=== PATIENT | male | born 1945 | race Caucasian/White ===

== ENCOUNTER 2016-12-23 16:42 | Inpatient (IN) ==
[2016-12-23] MEDS ORDERED: Ondansetron 4 MG/2 ML VIAL IVP PRN (19:20)
[2016-12-23] MEDS ORDERED: Acetaminophen 325 MG TABLET PO PRN (19:20)
[2016-12-23] MEDS ORDERED: Naloxone 0.4 MG/ML INJ IVP PRN (19:20)
[2016-12-23] MEDS ORDERED: Dextrose Gel 15 GM PO PRN ×2 (20:13)
[2016-12-23] MEDS ORDERED: D5% in Water 1,000 ML IVC PRN (20:13)
[2016-12-23] MEDS ORDERED: *HR* Dextrose 50 % in Water (Syg) 50 ML SYRINGE IVP PRN (20:13)
--- NOTE | 2016-12-23 20:19 | Internal Med History&Physical ---
Date of Encounter: 12/23/16 Time of Encounter: 20:16 Assessment and Plan (1) Cellulitis of right foot Current visit: Yes Status: Acute Patient states that he does not regularly check his feet. He was instructed on the need to care for his feet regularly. He was noted to have swelling and redness of his right lower extruded by the ER physician on 12/19/2016 in the emergency room and he presented for worsening shortness of breath and chest pain. His cellulitis has worsened as the patient left AMA. The patient will be admitted to the hospital to inpatient status. I expect him to be in the hospital for at least 2 minutes. He is high risk due to possible osteomyelitis and possible need for surgery. He will be placed on broad spectrum antibiotic therapy with vancomycin and cefepime given his allergy to penicillins. We will monitor his cellulitis for resolution with intravenous antibiotic therapy. Expected discharge disposition is to home with home health with possible intravenous antibiotics if he turns out to have osteomyelitis. (2) Osteomyelitis of right foot Current visit: Yes Status: Suspected Suspected osteomyelitis of the right fifth metatarsal bone. We will obtain an MRI of the right foot to evaluate further. Patient was placed on broad spectrum intravenous antibody therapy. Depending on the results of the MRI, we will consider infectious disease and podiatry consults in the morning. Qualifiers: Osteomyelitis type: other acute Qualified Code(s): M86.171 - Other acute osteomyelitis, right ankle and foot (3) Diabetes mellitus Current visit: Yes Status: Chronic Patient uses metformin at home. We will continue the same. Sliding scale insulin. Monitor his sugars and adjust medications accordingly. Diabetic diet. Complicated by neuropathy and currently with diabetic foot ulcer with possible osteomyelitis. Management as above. Qualifiers: Diabetes mellitus type: type 2 Diabetes mellitus complication status: with neurologic complications Diabetes mellitus complication detail: with polyneuropathy Diabetes mellitus custodial insulin use: without custodial use Qualified Code(s): E11.42 - Type 2 diabetes mellitus with diabetic polyneuropathy (4) COPD (chronic obstructive pulmonary disease) Current visit: Yes Status: Chronic Patient has chronic COPD that is very severe with an FEV1 of 29% according to the PFTs on June 2015. Patient is under the care of pulmonary physician. Continue home medications. Patient had COPD exacerbation on 12/21/2016 which is currently better after he finished a course of by mouth Levaquin. Continue duonebs. Urine though the patient is wheezing, will hold off on steroids due to the patient's cellulitis and possible osteomyelitis in the right foot. Qualifiers: COPD type: chronic bronchitis Chronic bronchitis type: mucopurulent Qualified Code(s): J41.1 - Mucopurulent chronic bronchitis (5) Mass of right lung Current visit: Yes Status: Chronic Newly discovered 4X3 centimeters spiculated mass in the right lower lobe on the posterior aspect suspicious for malignancy. Patient has extensive smoking history. Patient informed of the diagnosis. Patient will require pulmonology with/without oncology consult to be called out in the morning. Internal Medicine - H&P: HPI Chief complaint: Right leg infection Admitted From: Hospital to Hospital Transfer Plans for Post Hospital Care: Home History of present illness: Mr. Sinha is a 71 year old male with a history of end-stage COPD on home oxygen at 3 L around the clock presented to the emergency room on 12/19/2016 at [facility] due to worsening shortness of breath and chest pain. He stated that the chest pain had been present for 3 days prior to presentation. It was 6/10 in intensity, present in the middle of the chest without any radiation which he describes as a heaviness and a pressure sensation. No aggravating or relieving factors. It was associated with worsening shortness of breath. He reports baseline cough with yellow to green colored sputum production which has not worsened or changed in consistency or amount. He reports baseline wheezing. He states that he uses Advair at home and DuoNeb's 3 times a day. He sees Dr. Burrell for the care of his COPD. When he presented to the emergency room for these symptoms, he was treated for the same. At that time, he was noted by the physician in the emergency room to have redness over his right leg and an ulceration over the outer aspect of his right foot. He was diagnosed with cellulitis and possible osteomyelitis. He was given intravenous antibiotics. It was recommended that the patient be admitted to the hospital for further care of the same. However, on the day, no beds were available at [facility]. Transfer to an alternate hospital in [place] was offered to the patient by the emergency room physician at [facility]. However, the patient did not want to be transferred to [place] and only wanted to be [facility]. Hence, he signed out against medical advise. He was given a prescription for Levaquin by mouth when he signed out AMA on 12/19/2016. 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 Hence, he returned to [facility]. The patient has been transferred to [facility] for higher level of care for his worsening cellulitis and osteomyelitis. The patient does report chills. He denies any fevers. He reports having headaches every day when he wakes up in the morning. He reports feeling lightheaded with [id number] exertion. He denies any palpitations. He denies any abdominal pain, nausea, vomiting, diarrhea or constipation. He denies any other bruises apart from the swelling and the redness in his right leg. He reports following with ophthalmology every year. The patient reports long-term loss of sensation in both his feet. Off note, on 12/19/2016, the patient had a chest x-ray performed for evaluation of this chest pain or shortness of breath which showed a possible mass. The patient underwent a CT scan of his chest to evaluate the same. This revealed a 4.3 X2.1 centimeter spiculated mass in the right lower lobe posteriorly. The patient denies any hemoptysis. Past Med Surg Social Fam HX - Past Medical History Attestation: Yes The following information was validated with the patient. Source: patient Medical history: arthritis, COPD, diabetes, hypertension, thyroid disease, venous stasis Psychiatric history: anxiety - Past Surgical History Surgical History: cataract, cholecystectomy, other (Knee surgery; right leg spur removal from the fifth metatarsal) - Social History Smoking Status: Former smoker Packs per day: 5 Smokeless Tobacco Status: No Alcohol use: rarely Drug use: none Occupational status: retired Current living situation: Home, With Family Activity Level: Independent ambulation Recent Out of Country Travel Within the Last 8 Weeks: No Exposure or Possible Exposure to Illness During Travel: No - Additional Family History Additional family history: Reviewed; not pertinent Internal Medicine - H&P: Meds Allopurinol [Zyloprim] 300 mg PO DAILY 03/02/15 [History] Cholecalciferol (Vitamin D3) [Vitamin D] 1,000 unit PO DAILY 03/02/15 [History] Clopidogrel [Plavix] 75 mg PO DAILY 03/02/15 [History] Docusate [Colace] 200 mg PO TID 03/02/15 [History] FLUoxetine HCl [Prozac] 60 mg PO DAILY 03/02/15 [History] Famotidine [Pepcid] 20 mg PO BID 03/02/15 [History] Ferrous Sulfate 325 mg PO BIDWM 03/02/15 [History] Fluticasone/Salmeterol [Advair 250-50 Diskus] 1 each IH Q12H 03/02/15 [History] Furosemide [Lasix] 80 mg PO BID 03/02/15 [History] Gabapentin [Neurontin] 600 mg PO TID 03/02/15 [History] Ipratropium/Albuterol Neb [Duoneb] 3 ml IH Q6HR 03/02/15 [History] LORazepam [Ativan] 0.5 mg PO TID PRN 03/02/15 [History] Levothyroxine Sodium [Synthroid] 200 mcg PO DAILY 03/02/15 [History] Lovastatin [Altoprev] 20 mg PO DAILY 03/02/15 [History] Magnesium Oxide [Magnesium] 400 mg PO DAILY 03/02/15 [History] Metformin [Glucophage] 850 mg PO BIDWM 03/02/15 [History] Metoprolol [Lopressor] 25 mg PO BID 03/02/15 [History] Multivitamin [Multivitamins] 1 each PO DAILY 03/02/15 [History] Oxygen 2 l IN DAILY 03/02/15 [History] Potassium Chloride 20 meq PO QID 03/02/15 [History] Roflumilast [Daliresp] 500 mcg PO DAILY 03/02/15 [History] Ropinirole HCl [Requip] 2 mg PO TID 03/02/15 [History] Temazepam 15 mg PO HS 03/02/15 [History] Albuterol Sulfate [Proair Hfa] 2 puff IH Q4H 12/19/16 [History] Ammonium Lactate [Amlactin] 0 gm TP BID 12/19/16 [History] Guaifenesin [Mucinex] 600 mg PO BID 12/19/16 [History] HYDROcodone/Acet 10/325 mg [[place] 10-325 mg] 1 tab PO Q4HR PRN 12/19/16 [History ] Ipratropium/Albuterol Neb [Duoneb] 3 ml IH Q6HR 12/19/16 [History] Levofloxacin [Levaquin] 750 mg PO DAILY #10 tablet 12/19/16 [Rx] Lidocaine/Hydrocortisone AC [Lidocaine-Hydrocort 3-2.5% Gel] 7 gm RC BID [History] Polyethylene Glycol 3350 [MiraLAX Powder Bulk 17.9 Oz] 1 scoop PO DAILY [History] PrednisoLONE [Millipred] 10 mg PO DAILY 12/19/16 [History] Spironolactone [Aldactone] 50 mg PO DAILY 12/19/16 [History] Theophylline Anhydrous [Jamal-24] 400 mg PO DAILY 12/19/16 [History] Umeclidinium Brm/Vilanterol Tr [Anoro Ellipta 62.5-25 Mcg INH] 1 each IH DAILY 12/19/16 [History] metOLazone [Zaroxolyn] 5 mg PO DAILY 12/19/16 [History] Allergies codeine Adverse Reaction (Verified 12/19/16 12:27) Flushing doxycycline Adverse Reaction (Verified 12/19/16 12:27) Hives meperidine Adverse Reaction (Verified 12/19/16 12:27) Hallucinating morphine Adverse Reaction (Verified 12/19/16 12:27) Nightmare Oxycodone [From Percocet] Adverse Reaction (Verified 12/19/16 12:27) Swelling of Lip/Tongue/Throat Penicillins [PCN] Adverse Reaction (Verified 12/19/16 12:27) Hives All Systems PM: A 10-system review of systems was performed and is negative for pertinent findings except as documented above in the HPI. Review of systems: 10 systems have been reviewed and are negative except as mentioned in the history of present illness - Constitutional Vitals: Temp Pulse Resp BP Pulse Ox 98.2 F 83 14 138/68 95 12/23/16 19:08 12/23/16 19:08 12/23/16 19:08 12/23/16 19:08 12/23/16 19:08 Exam: Gen.: Lying in bed. Mild distress. On oxygen via nasal cannula at 3 L Eyes: Pupils equal, round and reactive to light. Extraocular muscles intact. ENT: Moist mucous membranes. No oropharyngeal erythema or discharge. Chest: Bilateral end expiratory wheezing present. Reduced air entry bilaterally. CVS: First and second heart sounds present. No murmurs, rubs or gallops. Abdomen: Soft, nontender, obese. Bowel sounds present. Skin: Erythema over the right lower extremity from below the knee up to the right fifth toe. Ulceration over the lateral aspect of the right fifth metatarsal with purulent discharge and foul smell. No tenderness to palpation. 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 Power 5/5 all over. Cranial nerves 2-12 grossly intact. Psychiatric: Alert, awake and oriented to time, place and person. Lymphatic system: No lymphadenopathy appreciated Internal Med - H&P Results - Diagnostic Studies Other Images Status: image reviewed by me (X-ray of the right foot-soft tissue ulceration and swelling over the right fifth metatarsal consistent with cellulitis. Erosions over the right fifth metatarsal concerning for osteomyelitis)
[2016-12-23] MEDS ORDERED: Insulin LISPRO 300 UNITS/3 ML VIAL SQ SCH (21:00)
[2016-12-23] MEDS ORDERED: Vancomycin 2,000 MG in D5% in Water 250 ML IVPB SCH (21:00)
[2016-12-23] MEDS: Budesonide/Formoterol 160/4.5 MDI IH SCH (21:02)
[2016-12-23] MEDS: Ipratropium/Albuterol Neb 3 ML IH SCH (21:03)
[2016-12-23] MEDS: Vancomycin 2,000 MG in D5% in Water 500 ML IVPB SCH (22:43)
[2016-12-23] MEDS: *HR* HYDROcodone/Acet 10/325 mg TABLET PO PRN (23:50)
[2016-12-23] MEDS: *HR* Heparin 5,000 UNIT/ML VIAL SQ SCH (23:50)
[2016-12-24] MEDS: Cefepime HCl 1,000 MG in D5% in Water (Mini-Bag+) 100 ML IVPB SCH ×2 (01:01→10:15)
[2016-12-24] MEDS: Ipratropium/Albuterol Neb 3 ML IH SCH ×4 (04:06→22:59)
[2016-12-24 04:58] LABS: Hematocrit 32.5 % (37.5-50.1); Hemoglobin 10.5 g/dL (12.9-16.9); Mean Corpuscular HGB Conc 32.3 g/dL (31.6-35.5); Mean Corpuscular Hemoglobin 28.2 pg (28.0-33.3); Mean Corpuscular Volume 87.1 fL (83.0-100.0); Nucleated Red Blood Cells 0.1 /100 WBC (0); Platelet Count 240 K/mcL (140-400); Red Blood Count 3.73 M/mcL (4.19-5.50); Red Cell Distribution Width 15.2 % (11.5-14.5)
[2016-12-24 05:09] LABS: Hemoglobin A1C 5.7 %
[2016-12-24 05:12] LABS: Alanine Aminotransferase 34 Units/L (0-55); Albumin 2.7 g/dL (3.5-5.0); Albumin/Globulin Ratio 0.6 (1.1-2.2); Alkaline Phosphatase 102 Units/L (38-126); Aspartate Amino Transferase 22 Units/L (5-34); BUN/Creatinine Ratio 14 (6-26); Bilirubin,Total 0.6 mg/dL (0.2-1.2); Blood Urea Nitrogen 16 mg/dL (8-26); Calcium 10.1 mg/dL (8.6-10.8); Carbon Dioxide 33 mEq/L (19-29); Chloride 88 mEq/L (98-109); Globulin 4.8 g/dL (2.4-3.5); Glucose 109 mg/dL (70-99); Osmolality,Calculated 280 (280-300); Potassium 2.9 mEq/L (3.5-4.5); Sodium 134 mEq/L (136-145); Total Protein 7.5 g/dL (6.0-8.3); eGFR For African Americans > 60 (> 60); eGFR For Non-African Americans > 60 (> 60)
[2016-12-24 05:25] LABS: Eosinophils # 0.3 K/mcL (0.0-0.6); Lymphocytes # 2.5 K/mcL (0.6-4.6); Neutrophils # 12.1 K/mcL (1.6-8.9); Platelet Estimate Normal (Normal); Polychromasia 1+ (Not Present)
[2016-12-24 05:26] LABS: Reactive Lymphocytes Present (Not Present)
[2016-12-24] MEDS: *HR* HYDROcodone/Acet 10/325 mg TABLET PO PRN ×3 (05:51→18:41)
[2016-12-24] MEDS ORDERED: *HR* Metformin 850 MG TABLET PO SCH (08:00)
[2016-12-24] MEDS ORDERED: Hydrocortisone Rectal 2.5% CRM 28 GM TUBE RC SCH (09:00)
[2016-12-24] MEDS ORDERED: FLUoxetine 20 MG CAPSULE PO SCH (09:00)
[2016-12-24] MEDS ORDERED: Furosemide 40 MG TABLET PO SCH (09:00)
[2016-12-24] MEDS ORDERED: rOPINIRole 1 MG TABLET PO SCH (09:00)
[2016-12-24] MEDS ORDERED: predniSONE 10 MG TABLET PO SCH (09:00)
[2016-12-24] MEDS ORDERED: Gabapentin 300 MG CAPSULE PO SCH (09:00)
[2016-12-24] MEDS ORDERED: metOLazone 5 MG TABLET PO SCH (09:00)
[2016-12-24] MEDS ORDERED: Magnesium Oxide 400 MG TABLET PO SCH (09:00)
[2016-12-24] MEDS: Insulin LISPRO 300 UNITS/3 ML VIAL SQ SCH ×3 (10:05→20:39)
[2016-12-24] MEDS: *HR* Heparin 5,000 UNIT/ML VIAL SQ SCH ×2 (10:15→23:25)
[2016-12-24] MEDS: Budesonide/Formoterol 160/4.5 MDI IH SCH ×2 (10:40→23:00)
[2016-12-24] MEDS: Vancomycin 2,000 MG in D5% in Water 500 ML IVPB SCH (11:10)
--- NOTE | 2016-12-24 11:53 | Pulmonology Consult Note ---
Date of Encounter: 12/24/16 Time of Encounter: 11:51 Assessment and Plan (1) Abnormal CT scan, chest Current Visit: Yes Status: Acute I reviewed the CT scan of the chest from 12/19/2016. Right lower lobe lung mass abutting the pleura appears to be amenable to CT-guided biopsy. Of note, the patient is on Plavix, which will need to be held. I did review the mediastinum, and there is some shotty adenopathy - the largest of which is in the subcarinal region which may be amenable to EBUS transbronchial needle aspiration. Recommendation: * Hold Plavix (he is on Plavix for peripheral vascular disease and has not undergone coronary artery stenting) * Ultimately, we will likely need to reassess him as an outpatient or later this admission after his acute issues have resolved. Current plans for operative intervention of his right foot per podiatry. * I will discuss the patient with Dr. Goodwin, who will resume care 12/25/2016 (2) Mass of right lung Current Visit: Yes Status: Chronic Concerning for primary lung malignancy in light of the patient's smoking history. Plan as above. (3) COPD (chronic obstructive pulmonary disease) Current Visit: Yes Status: Chronic Very severe obstructive defect (FEV1 1.1 L) based on coronary function testing from 2014. If this is confirmed as a limited stage lung cancer, he would likely not be an operative candidate. Qualifiers: COPD type: chronic bronchitis Chronic bronchitis type: mucopurulent Qualified Code(s): J41.1 - Mucopurulent chronic bronchitis (4) Cellulitis of leg, right Current Visit: No Status: Acute Soft tissue gas noted on plain films, plans for operative intervention per podiatry. History of Present Illness Consult date: 12/24/16 Requesting physician: Luli Orosco Reason for consult: lung mass, abnormal CXR/CT Chief complaint: Right foot pain History of present illness: 71-year-old white male with a medical history significant for morbid obesity and tobacco use, and he also has oxygen-dependent COPD at baseline. Patient had originally presented to outside hospital emergency room for evaluation of right foot pain, erythema, and swelling. He was also complaining of chest discomfort, and he underwent a CT scanning of the chest. CT scan of the chest revealed right lower lobe lung mass, so pulmonary was consult for further evaluation and management. The patient reports his dyspnea is at baseline. He has a chronic productive cough, which is been unchanged as of late. His chest pain has resolved. He is more concerned about his right lower extremity pain. Past Med Surg Social Fam HX - Past Medical History Medical history: arthritis, COPD, diabetes, hypertension, thyroid disease, venous stasis Psychiatric history: anxiety - Past Surgical History Surgical History: cataract, cholecystectomy, other (Knee surgery; right leg spur removal from the fifth metatarsal) - Social History Smoking Status: Former smoker Packs per day: 5 Smokeless Tobacco Status: No Alcohol use: rarely Drug use: none Medications and Allergies Allopurinol [Zyloprim] 300 mg PO DAILY 03/02/15 [History] Cholecalciferol (Vitamin D3) [Vitamin D] 1,000 unit PO DAILY 03/02/15 [History] Clopidogrel [Plavix] 75 mg PO DAILY 03/02/15 [History] Docusate [Colace] 200 mg PO TID 03/02/15 [History] FLUoxetine HCl [Prozac] 60 mg PO DAILY 03/02/15 [History] Famotidine [Pepcid] 20 mg PO BID 03/02/15 [History] Ferrous Sulfate 325 mg PO BIDWM 03/02/15 [History] Fluticasone/Salmeterol [Advair 250-50 Diskus] 1 each IH Q12H 03/02/15 [History] Furosemide [Lasix] 80 mg PO BID 03/02/15 [History] Gabapentin [Neurontin] 600 mg PO TID 03/02/15 [History] Ipratropium/Albuterol Neb [Duoneb] 3 ml IH Q6HR 03/02/15 [History] LORazepam [Ativan] 0.5 mg PO TID PRN 03/02/15 [History] Levothyroxine Sodium [Synthroid] 200 mcg PO DAILY 03/02/15 [History] Lovastatin [Altoprev] 20 mg PO DAILY 03/02/15 [History] Magnesium Oxide [Magnesium] 400 mg PO DAILY 03/02/15 [History] Metformin [Glucophage] 850 mg PO BIDWM 03/02/15 [History] Metoprolol [Lopressor] 25 mg PO BID 03/02/15 [History] Multivitamin [Multivitamins] 1 each PO DAILY 03/02/15 [History] Oxygen 2 l IN DAILY 03/02/15 [History] Potassium Chloride 20 meq PO QID 03/02/15 [History] Roflumilast [Daliresp] 500 mcg PO DAILY 03/02/15 [History] Ropinirole HCl [Requip] 2 mg PO TID 03/02/15 [History] Temazepam 15 mg PO HS 03/02/15 [History] Albuterol Sulfate [Proair Hfa] 2 puff IH Q4H 12/19/16 [History] Ammonium Lactate [Amlactin] 0 gm TP BID 12/19/16 [History] Guaifenesin [Mucinex] 600 mg PO BID 12/19/16 [History] HYDROcodone/Acet 10/325 mg [[place] 10-325 mg] 1 tab PO Q4HR PRN 12/19/16 [History ] Ipratropium/Albuterol Neb [Duoneb] 3 ml IH Q6HR 12/19/16 [History] Levofloxacin [Levaquin] 750 mg PO DAILY #10 tablet 12/19/16 [Rx] Lidocaine/Hydrocortisone AC [Lidocaine-Hydrocort 3-2.5% Gel] 7 gm RC BID [History] Polyethylene Glycol 3350 [MiraLAX Powder Bulk 17.9 Oz] 1 scoop PO DAILY [History] PrednisoLONE [Millipred] 10 mg PO DAILY 12/19/16 [History] Spironolactone [Aldactone] 50 mg PO DAILY 12/19/16 [History] Theophylline Anhydrous [Jamal-24] 400 mg PO DAILY 12/19/16 [History] Umeclidinium Brm/Vilanterol Tr [Anoro Ellipta 62.5-25 Mcg INH] 1 each IH DAILY 12/19/16 [History] metOLazone [Zaroxolyn] 5 mg PO DAILY 12/19/16 [History] Allergies codeine Adverse Reaction (Verified 12/19/16 12:27) Flushing doxycycline Adverse Reaction (Verified 12/19/16 12:27) Hives meperidine Adverse Reaction (Verified 12/19/16 12:27) Hallucinating morphine Adverse Reaction (Verified 12/19/16 12:27) Nightmare Oxycodone [From Percocet] Adverse Reaction (Verified 12/19/16 12:27) Swelling of Lip/Tongue/Throat Penicillins [PCN] Adverse Reaction (Verified 12/19/16 12:27) Hives All Systems: A 10-system review of systems was performed and is negative for pertinent findings except as documented above in the HPI. Physical Examination Vital Signs: Vital Signs, Last 4 Hours Resp Pulse Ox 12/24/16 10:48 16 97 General: no acute distress, obese male resting comfortably in bed Eyes: nonicteric ENT: oropharynx moist Neck: supple, no lymphadenopathy Lungs: Clear to auscultation bilaterally Cardiovascular: regular rate and rhythm Gastrointestinal: normoactive bowel sounds, soft, non-tender, non-distended Integumentary: Bilateral lower extremity chronic venous stasis changes noted Extremities: no cyanosis, BLE edema Musculoskeletal: Right lower extremity foot/ankle with dressing in place clean dry and intact Neuro: normal mental status, non-focal exam Psych: mood appropriate, affect normal Results - Laboratory Findings CBC and BMP: 12/24/16 04:16 12/24/16 04:16 Abnormal lab findings: Abnormal lab results WBC 15.9 K/mcL (4.3-11.1) H 12/24/16 04:16 RBC 3.73 M/mcL (4.19-5.50) L 12/24/16 04:16 Hgb 10.5 g/dL (12.9-16.9) L 12/24/16 04:16 Hct 32.5 % (37.5-50.1) L 12/24/16 04:16 RDW 15.2 % (11.5-14.5) H 12/24/16 04:16 Neutrophils # 12.1 K/mcL (1.6-8.9) H 12/24/16 04:16 Nucleated RBCs/100 WBC 0.1 /100 WBC (0) H 12/24/16 04:16 Reactive Lymphocytes Present (Not Present) A 12/24/16 04:16 Polychromasia 1+ (Not Present) A 12/24/16 04:16 Sodium 134 mEq/L (136-145) L 12/24/16 04:16 Potassium 2.9 mEq/L (3.5-4.5) L 12/24/16 04:16 Chloride 88 mEq/L (98-109) L 12/24/16 04:16 Carbon Dioxide 33 mEq/L (19-29) H 12/24/16 04:16 Glucose 109 mg/dL (70-99) H 12/24/16 04:16 POC Glucose 138 (58-89) H 12/23/16 20:49 Hemoglobin A1c 5.7 % (-5.6) H 12/24/16 04:16 Albumin 2.7 g/dL (3.5-5.0) L 12/24/16 04:16 Globulin 4.8 g/dL (2.4-3.5) H 12/24/16 04:16 Albumin/Globulin Ratio 0.6 (1.1-2.2) L 12/24/16 04:16 - Clinical Findings Intake & Output: Intake & Output 12/23/16 12/24/16 12/24/16 23:59 07:59 15:59 Intake Total 0 / 0 840 / 840 100 / 100 Output Total 1100 / 1100 325 / 325 Balance -1100 / -1100 515 / 515 100 / 100 Weight 133.866 kg 133.866 kg Consult Discharge Plan - Plan Referrals: Sidney Martinez MD [Primary Care Provider] -
--- NOTE | 2016-12-24 11:59 | Internal Med Progress Note ---
Date of Encounter: 12/24/16 Time of Encounter: 09:00 - Time Spent With Patient Greater than 35 minutes - Subjective Interval history: Patient is a 71-year-old male admitted for diabetic foot. Past medical history is significant for diabetes, COPD, hypertension, thyroid disease, and a former smoker. I saw and examined the patient. He complained of minimal pain on right foot. No fever. No shortness of breath. Tachycardia with heart rate 109, otherwise vitals are stable. Podiatry and pulmonology consults saw patient. Plan for foot surgery today. Continue Vanco and cefepime. Assessment and Plan (1) Cellulitis of right foot Current visit: Yes Status: Acute Patient states that he does not regularly check his feet. He was instructed on the need to care for his feet regularly. He was noted to have swelling and redness of his right lower extruded by the ER physician on 12/19/2016 in the emergency room and he presented for worsening shortness of breath and chest pain. His cellulitis has worsened as the patient left AMA. He is high risk due to possible osteomyelitis and possible need for surgery. Will continue vancomycin and cefepime given his allergy to penicillins. Podiatry consult saw pt. Plan for debridement today. (2) Osteomyelitis of right foot Current visit: Yes Status: Suspected Suspected osteomyelitis of the right fifth metatarsal bone. We will obtain an MRI of the right foot to evaluate further. Patient was placed on broad spectrum intravenous antibody therapy. Podiatry consult saw pt, plan for debridement. Qualifiers: Osteomyelitis type: other acute Qualified Code(s): M86.171 - Other acute osteomyelitis, right ankle and foot (3) Diabetes mellitus Current visit: Yes Status: Chronic Sliding scale coverage. Qualifiers: Diabetes mellitus type: type 2 Diabetes mellitus complication status: with neurologic complications Diabetes mellitus complication detail: with polyneuropathy Diabetes mellitus director long term care insulin use: without director long term care use Qualified Code(s): E11.42 - Type 2 diabetes mellitus with diabetic polyneuropathy (4) COPD (chronic obstructive pulmonary disease) Current visit: Yes Status: Chronic Stable. Has recent exacerbation. Pt is chronically on po steroid (on and off per pt), will place stress dose steroid for surgery. Qualifiers: COPD type: chronic bronchitis Chronic bronchitis type: mucopurulent Qualified Code(s): J41.1 - Mucopurulent chronic bronchitis (5) Mass of right lung Current visit: Yes Status: Chronic Newly discovered 4X3 centimeters spiculated mass in the right lower lobe on the posterior aspect suspicious for malignancy. Patient has extensive smoking history. Patient informed of the diagnosis. Pulmonology consult called and saw pt. - Constitutional Vitals: Temp Pulse Resp BP Pulse Ox 97.7 F 109 16 138/79 97 12/24/16 07:25 12/24/16 07:25 12/24/16 10:48 12/24/16 07:25 12/24/16 10:48 General appearance: Present: A&O X 3, no acute distress, answers questions appropriately - Head Head exam: Present: atraumatic, normocephalic - Eye Eye exam: Present: PERRL, conjuntiva pink, sclera anicteric Pupils: Present: PERRL - Neck Neck exam general surgery: Present: supple, trachea midline. Absent: lymphadenopathy - Respiratory Respiratory exam: Present: CTAB. Absent: accessory muscle use, rales, rhonchi, wheezes - Cardiovascular Cardiovascular exam: Present: RRR, +S1, +S2. Absent: diastolic murmur, gallop, rubs, systolic murmur - GI/Abdominal GI/Abdominal exam: Present: normal bowel sounds, soft, no peritoneal signs. Absent: distended, tenderness - Extremities Exam Extremities exam: Present: warm, radial pulses palpable and symetrical. Absent : calf tenderness, cyanotic, pedal edema Additional comments: Right foot wound, well dressed - Neurological Exam Neurological exam: Present: CN II-XII intact, oriented X3, no focal deficits. Absent: pronater drift, facial droop, speech deficit - Skin Skin exam: Present: dry, intact Internal Medicine: Result - Labs CBC & Chem 7: 12/24/16 04:16 12/24/16 04:16 Labs: Short CBC 12/24/16 Range/Units 04:16 WBC 15.9 H (4.3-11.1) K/mcL Hgb 10.5 L (12.9-16.9) g/dL Hct 32.5 L (37.5-50.1) % Plt Count 240 (140-400) K/mcL Neutrophils # 12.1 H (1.6-8.9) K/mcL BMP 12/24/16 04:16 Sodium 134 L Potassium 2.9 L Chloride 88 L Carbon Dioxide 33 H BUN 16 Creatinine 1.15 Glucose 109 H Calcium 10.1 Liver Function 12/24/16 Range/Units 04:16 Total Bilirubin 0.6 (0.2-1.2) mg/dL AST 22 (5-34) Units/L ALT 34 (0-55) Units/L Alkaline Phosphatase 102 (38-126) Units/L Albumin 2.7 L (3.5-5.0) g/dL Consult Discharge Plan - Plan Referrals: Sidney Martinez MD [Primary Care Provider] -
[2016-12-24] MEDS ORDERED: Ondansetron 4 MG/2 ML VIAL IVP SCH (12:00)
--- NOTE | 2016-12-24 12:01 | Podiatry Consult Note ---
Date of Encounter: 12/24/16 Time of Encounter: 11:20 History of Present Illness HPI: Mr. Sinha is a 71 year old male admitted with worsening shortness of breath and chest pain. He says he noticed something wrong with his foot last sunday and says he had not noticed anything prior to that. Does not recall any trauma or stepping on anything. He says he went to the ER on sunday and had shortness of breath and chest pain. He had his foot evaluated at that visit and was noted to have an infection. He was put on levaquin. He was advised to be admitted for further management but ultimately left the ER AMA from [place]. He says his foot has gradually worsened since. He has not seen anyone else for his right foot. He came back to the ER last night and was admitted. He reports feeling like he has a fever and he is nauseous. He has not vomited. He says he did not eat breakfast because his stomach as upset. Patient reports he has not eaten today. Podiatry consulted this morning for evaluation. Past Med Surg Social Fam HX - Past Medical History Medical history: arthritis, COPD, diabetes, hypertension, thyroid disease, venous stasis Psychiatric history: anxiety - Past Surgical History Surgical History: cataract, cholecystectomy, other (Knee surgery; right leg spur removal from the fifth metatarsal) - Social History Smoking Status: Former smoker Packs per day: 5 Smokeless Tobacco Status: No Alcohol use: rarely Drug use: none Medications and Allergies Allopurinol [Zyloprim] 300 mg PO DAILY 03/02/15 [History] Cholecalciferol (Vitamin D3) [Vitamin D] 1,000 unit PO DAILY 03/02/15 [History] Clopidogrel [Plavix] 75 mg PO DAILY 03/02/15 [History] Docusate [Colace] 200 mg PO TID 03/02/15 [History] FLUoxetine HCl [Prozac] 60 mg PO DAILY 03/02/15 [History] Famotidine [Pepcid] 20 mg PO BID 03/02/15 [History] Ferrous Sulfate 325 mg PO BIDWM 03/02/15 [History] Fluticasone/Salmeterol [Advair 250-50 Diskus] 1 each IH Q12H 03/02/15 [History] Furosemide [Lasix] 80 mg PO BID 03/02/15 [History] Gabapentin [Neurontin] 600 mg PO TID 03/02/15 [History] Ipratropium/Albuterol Neb [Duoneb] 3 ml IH Q6HR 03/02/15 [History] LORazepam [Ativan] 0.5 mg PO TID PRN 03/02/15 [History] Levothyroxine Sodium [Synthroid] 200 mcg PO DAILY 03/02/15 [History] Lovastatin [Altoprev] 20 mg PO DAILY 03/02/15 [History] Magnesium Oxide [Magnesium] 400 mg PO DAILY 03/02/15 [History] Metformin [Glucophage] 850 mg PO BIDWM 03/02/15 [History] Metoprolol [Lopressor] 25 mg PO BID 03/02/15 [History] Multivitamin [Multivitamins] 1 each PO DAILY 03/02/15 [History] Oxygen 2 l IN DAILY 03/02/15 [History] Potassium Chloride 20 meq PO QID 03/02/15 [History] Roflumilast [Daliresp] 500 mcg PO DAILY 03/02/15 [History] Ropinirole HCl [Requip] 2 mg PO TID 03/02/15 [History] Temazepam 15 mg PO HS 03/02/15 [History] Albuterol Sulfate [Proair Hfa] 2 puff IH Q4H 12/19/16 [History] Ammonium Lactate [Amlactin] 0 gm TP BID 12/19/16 [History] Guaifenesin [Mucinex] 600 mg PO BID 12/19/16 [History] HYDROcodone/Acet 10/325 mg [[place] 10-325 mg] 1 tab PO Q4HR PRN 12/19/16 [History ] Ipratropium/Albuterol Neb [Duoneb] 3 ml IH Q6HR 12/19/16 [History] Levofloxacin [Levaquin] 750 mg PO DAILY #10 tablet 12/19/16 [Rx] Lidocaine/Hydrocortisone AC [Lidocaine-Hydrocort 3-2.5% Gel] 7 gm RC BID [History] Polyethylene Glycol 3350 [MiraLAX Powder Bulk 17.9 Oz] 1 scoop PO DAILY [History] PrednisoLONE [Millipred] 10 mg PO DAILY 12/19/16 [History] Spironolactone [Aldactone] 50 mg PO DAILY 12/19/16 [History] Theophylline Anhydrous [Jamal-24] 400 mg PO DAILY 12/19/16 [History] Umeclidinium Brm/Vilanterol Tr [Anoro Ellipta 62.5-25 Mcg INH] 1 each IH DAILY 12/19/16 [History] metOLazone [Zaroxolyn] 5 mg PO DAILY 12/19/16 [History] Allergies codeine Adverse Reaction (Verified 12/19/16 12:27) Flushing doxycycline Adverse Reaction (Verified 12/19/16 12:27) Hives meperidine Adverse Reaction (Verified 12/19/16 12:27) Hallucinating morphine Adverse Reaction (Verified 12/19/16 12:27) Nightmare Oxycodone [From Percocet] Adverse Reaction (Verified 12/19/16 12:27) Swelling of Lip/Tongue/Throat Penicillins [PCN] Adverse Reaction (Verified 12/19/16 12:27) Hives All Systems Reviewed: A 10-system review of systems was performed and is negative for pertinent findings except as documented above in the HPI. - Cardiovascular Cardiovascular: chest pain - Respiratory Respiratory: dyspnea - Musculoskeletal Musculoskeletal: numbness, other (neuropathy, right foot pain.) Physical Exam - Constitutional Vitals: Temp Pulse Resp BP Pulse Ox 97.7 F 109 16 138/79 97 12/24/16 07:25 12/24/16 07:25 12/24/16 10:48 12/24/16 07:25 12/24/16 10:48 General appearance: cooperative, mild distress, obese - Head Head exam: Present: normal inspection - Respiratory Respiratory exam: Present: wheezes - Cardiovascular Cardiovascular exam: Present: +S1, +S2 - Extremities Exam Additional comments: right lower extremity moderate edema lateral foot. some necrosis of the plantar lateral foot with purulent drainage and fluctuance. some crepitus as well is noted. capillary refill tie < 3 sec x 5 digits b/l feet. foot is warm to touch. erythema of the right foot is present. left lower extremity- no open lesion, no edema. xray- soft tissue emphysema lateral foot, questionable osseous osteomyelitis of the 5th metatarsal. - Neurological Exam Additional comments: absent sensation to light touch, consistent with neuropathy Results - Labs Result Diagrams: 12/24/16 04:16 12/24/16 04:16 Labs: Abnormal lab results WBC 15.9 K/mcL (4.3-11.1) H 12/24/16 04:16 RBC 3.73 M/mcL (4.19-5.50) L 12/24/16 04:16 Hgb 10.5 g/dL (12.9-16.9) L 12/24/16 04:16 Hct 32.5 % (37.5-50.1) L 12/24/16 04:16 RDW 15.2 % (11.5-14.5) H 12/24/16 04:16 Neutrophils # 12.1 K/mcL (1.6-8.9) H 12/24/16 04:16 Nucleated RBCs/100 WBC 0.1 /100 WBC (0) H 12/24/16 04:16 Reactive Lymphocytes Present (Not Present) A 12/24/16 04:16 Polychromasia 1+ (Not Present) A 12/24/16 04:16 Sodium 134 mEq/L (136-145) L 12/24/16 04:16 Potassium 2.9 mEq/L (3.5-4.5) L 12/24/16 04:16 Chloride 88 mEq/L (98-109) L 12/24/16 04:16 Carbon Dioxide 33 mEq/L (19-29) H 12/24/16 04:16 Glucose 109 mg/dL (70-99) H 12/24/16 04:16 POC Glucose 138 (58-89) H 12/23/16 20:49 Hemoglobin A1c 5.7 % (-5.6) H 12/24/16 04:16 Albumin 2.7 g/dL (3.5-5.0) L 12/24/16 04:16 Globulin 4.8 g/dL (2.4-3.5) H 12/24/16 04:16 Albumin/Globulin Ratio 0.6 (1.1-2.2) L 12/24/16 04:16 H & H 12/24/16 Range/Units 04:16 Hgb 10.5 L (12.9-16.9) g/dL Hct 32.5 L (37.5-50.1) % All other labs normal. - Diagnostic results Ankle/Foot x-ray: image reviewed (soft tissue emphysema, questionable osteomyelitis) Consult Discharge Plan - Plan Referrals: Sidney Martinez MD [Primary Care Provider] -
--- NOTE | 2016-12-24 12:14 | Anesthesia Evaluation PreOp ---
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, Diabetic peripheral Neuropathy) Other Medical History: Diabetes Type II Anesthesia History: No Prior Anesthetic Complications, Past Anesthesia ( Cataracts, GB, Knee sx) Alcohol Use: rarely Drug use: none Medications and Allergies Allopurinol [Zyloprim] 300 mg PO DAILY 03/02/15 [History] Cholecalciferol (Vitamin D3) [Vitamin D] 1,000 unit PO DAILY 03/02/15 [History] Clopidogrel [Plavix] 75 mg PO DAILY 03/02/15 [History] Docusate [Colace] 200 mg PO TID 03/02/15 [History] FLUoxetine HCl [Prozac] 60 mg PO DAILY 03/02/15 [History] Famotidine [Pepcid] 20 mg PO BID 03/02/15 [History] Ferrous Sulfate 325 mg PO BIDWM 03/02/15 [History] Fluticasone/Salmeterol [Advair 250-50 Diskus] 1 each IH Q12H 03/02/15 [History] Furosemide [Lasix] 80 mg PO BID 03/02/15 [History] Gabapentin [Neurontin] 600 mg PO TID 03/02/15 [History] Ipratropium/Albuterol Neb [Duoneb] 3 ml IH Q6HR 03/02/15 [History] LORazepam [Ativan] 0.5 mg PO TID PRN 03/02/15 [History] Levothyroxine Sodium [Synthroid] 200 mcg PO DAILY 03/02/15 [History] Lovastatin [Altoprev] 20 mg PO DAILY 03/02/15 [History] Magnesium Oxide [Magnesium] 400 mg PO DAILY 03/02/15 [History] Metformin [Glucophage] 850 mg PO BIDWM 03/02/15 [History] Metoprolol [Lopressor] 25 mg PO BID 03/02/15 [History] Multivitamin [Multivitamins] 1 each PO DAILY 03/02/15 [History] Oxygen 2 l IN DAILY 03/02/15 [History] Potassium Chloride 20 meq PO QID 03/02/15 [History] Roflumilast [Daliresp] 500 mcg PO DAILY 03/02/15 [History] Ropinirole HCl [Requip] 2 mg PO TID 03/02/15 [History] Temazepam 15 mg PO HS 03/02/15 [History] Albuterol Sulfate [Proair Hfa] 2 puff IH Q4H 12/19/16 [History] Ammonium Lactate [Amlactin] 0 gm TP BID 12/19/16 [History] Guaifenesin [Mucinex] 600 mg PO BID 12/19/16 [History] HYDROcodone/Acet 10/325 mg [[place] 10-325 mg] 1 tab PO Q4HR PRN 12/19/16 [History ] Ipratropium/Albuterol Neb [Duoneb] 3 ml IH Q6HR 12/19/16 [History] Levofloxacin [Levaquin] 750 mg PO DAILY #10 tablet 12/19/16 [Rx] Lidocaine/Hydrocortisone AC [Lidocaine-Hydrocort 3-2.5% Gel] 7 gm RC BID [History] Polyethylene Glycol 3350 [MiraLAX Powder Bulk 17.9 Oz] 1 scoop PO DAILY [History] PrednisoLONE [Millipred] 10 mg PO DAILY 12/19/16 [History] Spironolactone [Aldactone] 50 mg PO DAILY 12/19/16 [History] Theophylline Anhydrous [Jamal-24] 400 mg PO DAILY 12/19/16 [History] Umeclidinium Brm/Vilanterol Tr [Anoro Ellipta 62.5-25 Mcg INH] 1 each IH DAILY 12/19/16 [History] metOLazone [Zaroxolyn] 5 mg PO DAILY 12/19/16 [History] Allergies codeine Adverse Reaction (Verified 12/19/16 12:27) Flushing doxycycline Adverse Reaction (Verified 12/19/16 12:27) Hives meperidine Adverse Reaction (Verified 12/19/16 12:27) Hallucinating morphine Adverse Reaction (Verified 12/19/16 12:27) Nightmare Oxycodone [From Percocet] Adverse Reaction (Verified 12/19/16 12:27) Swelling of Lip/Tongue/Throat Penicillins [PCN] Adverse Reaction (Verified 12/19/16 12:27) Hives - Meds/Allergy Pre-op Review Medications Reviewed: Yes Allergies Reviewed: Yes Beta Blockers on Current Med List: Yes If Beta Blockers taken, Date/Time (Last Dose taken): 10:18 12/24/2016 Anesthesia Results - Labs 12/24/16 04:16 12/24/16 04:16 Laboratory Tests 12/23/16 12/24/16 12/24/16 15:39 04:16 12:54 INR 1.5 POC Glucose 221 H Hemoglobin A1c 5.7 H - Imaging EKG: image reviewed (SR) Anesthesia Exam O2 Sat Height 1.88 m Weight 133.866 kg Weight 133.866 kg O2 Sat by Pulse Oximetry 97 O2 Sat by Pulse Oximetry 96 O2 Sat by Pulse Oximetry 95 O2 Sat by Pulse Oximetry 95 O2 Sat by Pulse Oximetry 95 O2 Sat by Pulse Oximetry 98 O2 Sat by Pulse Oximetry 95 Vital Signs Temp Pulse Resp BP Pulse Ox 98.2 F 83 14 138/68 95 12/23/16 19:08 12/23/16 19:08 12/23/16 19:08 12/23/16 19:08 12/23/16 19:08 Vital Signs/O2 Sat, Most Current Temp Pulse Resp BP Pulse Ox 97.7 F 109 16 138/79 97 12/24/16 07:25 12/24/16 07:25 12/24/16 10:48 12/24/16 07:25 12/24/16 10:48 Height: 6'2'' Weight: 295# NPO (# of Hours): > 8 hrs Pain Scale: 0 Pain Scale Used: Numeric (1 - 10) - HEENT Pupil (Motor): Pupils equal, EOMI Mallampati: III Teeth: Edentulous Oral Opening: Greater than 3 - 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
[2016-12-24] MEDS ORDERED: 0.9 % Sodium Chloride 1,000 ML IVC SCH (12:15)
--- NOTE | 2016-12-24 12:19 | Event Note ---
Date of Encounter: 12/24/16 Time of Encounter: 12:13 unable to utilize record for assessment and plan due to another provider in chart A/P as below for continuation of the podiatry consult note A: right foot/limb threatening diabetic foot infection/abscess with soft tissue gas and possible osteomyelitis P: I had a thorough review with the patient regarding his condition, my findings , and recommendations for treatment. We discussed the xrays and his infection as well as the severity of his infection. He will be added on to the OR for an emergent I&D and debridement of bone right foot. These procedures were discussed at length with the patient as well as the risks vs benefits potential complications and consequences of the procedure discussed, he understood that he is high risk for limb/partial foot loss and he could require more surgery for this problem/infection. all questions answered and informed consent was signed. almond grinder to OR. NPO.
[2016-12-24] MEDS ORDERED: Lactobacillus 1 EACH CAP.SPRINK PO SCH (12:45)
[2016-12-24] MEDS ORDERED: Clindamycin 900 MG/50 ML 900 MG/50 ML IV.SOLN IVPB ONE ×2 (13:59→14:58)
[2016-12-24] MEDS ORDERED: Lidocaine 1% 20 ML MDV ONE (13:59)
[2016-12-24] MEDS ORDERED: Albuterol 2.5 MG/3 ML NEBULIZER ONE (14:01)
[2016-12-24] MEDS ORDERED: Albuterol 2.5 MG/3 ML NEBULIZER IH ONE (14:06)
[2016-12-24] MEDS ORDERED: Propofol 500 MG/50 ML INFUS..BTL ONE (14:12)
[2016-12-24] MEDS ORDERED: Lidocaine -MPF 2% 2 ML VIAL ONE (14:12)
[2016-12-24] MEDS ORDERED: *HR* Midazolam HCl 2 MG/2 ML VIAL ONE (14:57)
[2016-12-24] MEDS ORDERED: Clindamycin 600 MG/50 ML 600 MG/50 ML IV.SOLN IVPB SCH (16:00)
[2016-12-24] MEDS ORDERED: Hydrocortisone Sodium Succ 100 MG/2 ML VIAL IVP SCH (16:00)
--- NOTE | 2016-12-24 16:14 | Orthopedic Operative Note ---
Date of procedure: 12/24/16 Pre-op diagnosis: 1. right foot abscess/gas gangrene 2. osteomyelitis Post-op diagnosis: same Procedure: 12/24/16 16:12 right foot incision and drainage, debridement of 5th metatarsal bone, plantar fasciectomy Implants: packing 1/2 inch iodoform Complications: none Anesthesia: IV sedation Local Anesthetics: 1% Lidocaine HCL SubQ (cc) Surgeon: Alvaro Pelletier Estimated blood loss (cc): 100 Specimen: right lateral foot tissue and wound, plantar foot culture, bone micro/ path Condition: stable Disposition: PACU (cultures were sent of the lateral foot tissue and swabs, plantar foot swabs for gram stain, aerobic, and anerobic. 5th metatarsal bone to path and micro)
[2016-12-24] MEDS ORDERED: Dextrose Gel 15 GM PO PRN ×2 (16:37)
[2016-12-24] MEDS ORDERED: Acetaminophen 325 MG TABLET PO PRN (16:37)
[2016-12-24] MEDS ORDERED: *HR* Dextrose 50 % in Water (Syg) 50 ML SYRINGE IVP PRN (16:37)
[2016-12-24] MEDS ORDERED: Naloxone 0.4 MG/ML INJ IVP PRN (16:37)
[2016-12-24] MEDS ORDERED: D5% in Water 1,000 ML IVC PRN (16:37)
[2016-12-24] MEDS: Ondansetron 4 MG/2 ML VIAL IVP SCH ×2 (17:29→23:16)
[2016-12-24] MEDS: *HR* Metformin 850 MG TABLET PO SCH (17:30)
[2016-12-24] MEDS: rOPINIRole 1 MG TABLET PO SCH (20:03)
[2016-12-24] MEDS: Gabapentin 300 MG CAPSULE PO SCH (20:05)
[2016-12-24] MEDS: Hydrocortisone Rectal 2.5% CRM 28 GM TUBE RC SCH (20:08)
--- NOTE | 2016-12-24 21:44 | Operative Note ---
Date of procedure: 12/24/16 Pre-op diagnosis: 1. right foot abscess and gas gangrene 2. osteomyelitis Post-op diagnosis: same Procedure: 1.incision and drainage right foot 2. debridement right 5th metatarsal bone 3. right foot plantar fasciectomy Complications: none Surgeon: Alvaro Pelletier Estimated blood loss (cc): 100 Specimen: right lateral foot and plantar foot cultures, 5th met bone micro/path Condition: stable Disposition: PACU Procedure in Detail: Indications: This is a 71-year-old diabetic male with right foot abscess and gas gangrene possible osteomyelitis of the fifth metatarsal who was admitted with the right foot infection chest pain and shortness of breath. Patient was emergently admitted and on the operating room schedule for the above procedures. Risks versus benefits potential complications and consequences of the procedure and has infection were discussed with the patient length. No guarantees were made as to the outcome. Patient understood that he has high risk for limb/partial foot loss. Informed consent had been signed. Patient was taken from the preoperative holding area into the operating room placed on the operating room table in the supine position. The right lower extremity was scrubbed prepped and draped in the usual sterile fashion and an ankle tourniquet was applied but not inflated during the entire procedure. 1% lidocaine plain 10 mL was injected into the patients right foot. Following procedures then began. Incision and drainage right foot. Right plantar foot fasciectomy. Attention was directed to the lateral aspect of the patients right foot were abscess and gas gangrene was present. #15 blade was used to incise the skin and subcutaneous tissue full-thickness and the gangrenous area was excised in its entirety. This deep tissue was sent to microbiology. Cultures of purulent drainage were taken and sent to microbiology as well. The specimens were sent for aerobic and anaerobic and Gram stain. Purulent drainage was expressed from the foot. The area was probed and explored with purulent drainage being expressed proximally and plantarly. The area was explored along the lateral aspect of the fifth metatarsal purulent drainage was noted adjacent to the cortical bone of the fifth metatarsal. This bone distally was felt to be soft. The purulent drainage was traced proximally until no further purulent drainage could be expressed. Patient had some blistering in the medial arch and a fresh 15 blade was used to incise this area through an open ulceration and the 15 blade was used to incise the the subcutaneous tissue and purulent drainage was expressed. The ulceration of this area communicated with the lateral foot. The 15 blade was used to incise from the plantar lateral foot expressing purulence and this was traced proximally until no further purulence could be expressed. Cultures of this purulent drainage were taken and sent for aerobic anaerobic and Gram stain. The plantar fascia was visible and purulent drainage had been on the inferior portion of the plantar fascia. The plantar fascia which was exposed with purulent drainage was excised. In the lateral aspect of the foot as well as the plantar aspect of the foot devitalized tissue was present and was surgically excised with a #15 blade. After performing the debridement of the fifth metatarsal bone as described below, the pulse lavage with bacitracin was then utilized to flush all sites. Upon reinspection no further devitalized tissue was felt to be present. No further purulent drainage could be expressed. Retention sutures were placed in the plantar and lateral aspect of the right foot using 2-0 Prolene and half-inch iodoform packing packing was placed into the plantar and lateral foot. Debridement of bone right fifth metatarsal. Attention was directed to the lateral aspect of the right foot where the devitalized gangrenous tissue and abscess were present the fifth metatarsal bone was felt to be soft distally and had purulent drainage along its cortex. Portions of the bone appeared gonzalez and devitalized. The sagittal saw was used to resect the fifth metatarsal bone proximally. The level at which the resection was performed had bleeding bone left behind. The bone which was excised of the fifth metatarsal was sent to microbiology and pathology. Postoperative bandaging included the half-inch iodoform packing Surgicel 4 x 4 gauze abdominal pad Kerlix and a loosely applied Ghulam wrap. Adequate hemostasis was present at the time of applying the bandage. Patient tolerated the anesthesia and the procedure well and was escorted to the recovery room with vital signs stable and vascular status intact to digits of the right foot noted by instant capillary refill time to all right foot digits. Patient instructed to be nonweightbearing to the right foot. He will return to the floor where he will continue IV antibiotics.
[2016-12-24] MEDS ORDERED: Vancomycin 2,000 MG in D5% in Water 500 ML IVPB SCH (22:30)
[2016-12-24] MEDS: Hydrocortisone Sodium Succ 100 MG/2 ML VIAL IVP SCH (23:15)
[2016-12-24] MEDS: Clindamycin 600 MG/50 ML 600 MG/50 ML IV.SOLN IVPB SCH (23:23)
[2016-12-25] MEDS: Ipratropium/Albuterol Neb 3 ML IH SCH ×4 (04:20→22:50)
[2016-12-25] MEDS: *HR* HYDROcodone/Acet 10/325 mg TABLET PO PRN ×3 (05:30→20:23)
[2016-12-25] MEDS: Ondansetron 4 MG/2 ML VIAL IVP SCH ×3 (05:31→17:47)
[2016-12-25] MEDS: Insulin LISPRO 300 UNITS/3 ML VIAL SQ SCH ×4 (07:47→20:59)
[2016-12-25] MEDS: Clindamycin 600 MG/50 ML 600 MG/50 ML IV.SOLN IVPB SCH ×2 (07:48→15:32)
[2016-12-25] MEDS: *HR* Metformin 850 MG TABLET PO SCH ×2 (07:52→17:06)
[2016-12-25] MEDS: *HR* Heparin 5,000 UNIT/ML VIAL SQ SCH ×2 (07:53→15:31)
[2016-12-25] MEDS: Hydrocortisone Sodium Succ 100 MG/2 ML VIAL IVP SCH (07:54)
[2016-12-25] MEDS: Lactobacillus 1 EACH CAP.SPRINK PO SCH (07:55)
[2016-12-25] MEDS: Furosemide 40 MG TABLET PO SCH (07:55)
[2016-12-25] MEDS: Magnesium Oxide 400 MG TABLET PO SCH (07:56)
[2016-12-25] MEDS: Gabapentin 300 MG CAPSULE PO SCH ×3 (07:57→20:21)
[2016-12-25 07:58] LABS: Hematocrit 29.8 % (37.5-50.1); Hemoglobin 9.2 g/dL (12.9-16.9); Mean Corpuscular HGB Conc 30.9 g/dL (31.6-35.5); Mean Corpuscular Hemoglobin 27.4 pg (28.0-33.3); Mean Corpuscular Volume 88.7 fL (83.0-100.0); Mean Platelet Volume 10.3 fL (9.4-12.4); Nucleated Red Blood Cells 0.2 /100 WBC (0); Platelet Count 258 K/mcL (140-400); Red Blood Count 3.36 M/mcL (4.19-5.50); Red Cell Distribution Width 15.4 % (11.5-14.5)
[2016-12-25] MEDS: FLUoxetine 20 MG CAPSULE PO SCH (07:58)
[2016-12-25] MEDS: metOLazone 5 MG TABLET PO SCH (07:58)
[2016-12-25] MEDS: rOPINIRole 1 MG TABLET PO SCH ×3 (07:58→20:21)
[2016-12-25] MEDS: Hydrocortisone Rectal 2.5% CRM 28 GM TUBE RC SCH ×2 (08:05→20:24)
[2016-12-25 08:10] LABS: BUN/Creatinine Ratio 17 (6-26); Blood Urea Nitrogen 22 mg/dL (8-26); Calcium 9.7 mg/dL (8.6-10.8); Carbon Dioxide 33 mEq/L (19-29); Chloride 93 mEq/L (98-109); Glucose 126 mg/dL (70-99); Osmolality,Calculated 291 (280-300); Potassium 3.6 mEq/L (3.5-4.5); Sodium 138 mEq/L (136-145); eGFR For African Americans > 60 (> 60); eGFR For Non-African Americans 55 (> 60)
[2016-12-25 08:41] LABS: Lymphocytes # 0.9 K/mcL (0.6-4.6); Monocytes # 0.6 K/mcL (0.0-1.3); Neutrophils # 13.5 K/mcL (1.6-8.9); Platelet Estimate Normal (Normal)
[2016-12-25] MEDS ORDERED: predniSONE 10 MG TABLET PO SCH (09:00)
--- NOTE | 2016-12-25 09:19 | Podiatry Progress Note ---
Date of Encounter: 12/25/16 Time of Encounter: 08:30 - Assessment and Plan (1) Gas gangrene Current Visit: Yes Status: Acute patient is s/p I&D of the right foot and plantar fasciectomy. (2) Diabetic foot ulcer Current Visit: No Status: Acute f/u cultures of lateral foot (swabs and tissue) and plantar foot as well as 5th met bone micro and path. c/w IV antibiotics. flush packed today. no active bleeding from surgical site. discussed with patient he is still high risk for limb/partial foot loss. will monitor wbc if not trending better may order MRI to r/o further deep abscess. will need infectious disease consult, possible picc line upon discharge. 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 patient says he feels significantly better than he did yesterday and no where near as nauseous. does not complain of pain in the foot. afebrile overnight. Objective - Vital Signs Vital Signs: Vital Signs Temp Pulse Resp BP Pulse Ox 12/25/16 07:41 97.5 F L 88 16 109/62 99 12/25/16 07:05 98 12/25/16 04:02 20 98 12/24/16 23:21 97.9 F 86 15 114/61 98 12/24/16 22:59 22 99 12/24/16 18:58 97.7 F 94 15 114/67 96 12/24/16 16:30 98.2 F 91 18 110/66 96 12/24/16 16:21 98.1 F 94 18 106/64 97 12/24/16 16:10 98.3 F 97 20 108/64 96 12/24/16 10:48 16 97 Intake and Output 12/24/16 12/25/16 12/25/16 23:59 07:59 15:59 Intake Total 240 / 240 550 / 550 50 / 50 Output Total 325 / 325 1000 / 1000 Balance -85 / -85 -450 / -450 50 / 50 Intake: IV Fluids 550 / 550 50 / 50 Cleocin Premix 600 MG/50 50 / 50 50 / 50 ML 600 mg In 50 ml @ 50 mls/hr IVPB Q8HR [facility] Rx#: [id number] Vancocin 2,000 MG In 500 / 500 Dextrose 5% 500 ML @ 250 mls/hr IVPB Q12H [facility] Rx#: [id number] Oral 240 / 240 Output: Urine 325 / 325 1000 / 1000 Other: # Bowel Movements 0 Weight 133.7 kg Blood Glucose* 136 127 Patient Weight 12/25/16 23:59 Weight 133.7 kg - Exam Exam: well developed obese male in no acute distress Vasc: capillary refill time intact to all digits of the right foot including the 5th toe. the foot is warm to touch. no necrosis of remaining skin edges at this time. mild edema right foot. Derm: large defect lateral right foot with incision extending plantarly and proximally. no purulence expressed, resolving right foot erythema. retention sutures intact. no active bleeding. Musc: no pain with palpation right foot. ankle ROM intact. Neuro: absent sensation to light touch consistent with neuropathy. xrays-consistent with surgical resection 5th metatarsal with base of the 5th met left intact. no soft tissue emphysema identified. Mild vasc disease on previous BRAD/PVR. - Lab Result Diagrams: 12/25/16 07:15 12/25/16 07:15 Labs: Abnormal lab results WBC 15.0 K/mcL (4.3-11.1) H 12/25/16 07:15 RBC 3.36 M/mcL (4.19-5.50) L 12/25/16 07:15 Hgb 9.2 g/dL (12.9-16.9) L 12/25/16 07:15 Hct 29.8 % (37.5-50.1) L 12/25/16 07:15 MCH 27.4 pg (28.0-33.3) L 12/25/16 07:15 MCHC 30.9 g/dL (31.6-35.5) L 12/25/16 07:15 RDW 15.4 % (11.5-14.5) H 12/25/16 07:15 Band Neutrophils % 8.0 % (0-4) H 12/25/16 07:15 Neutrophils # 13.5 K/mcL (1.6-8.9) H 12/25/16 07:15 Nucleated RBCs/100 WBC 0.2 /100 WBC (0) H 12/25/16 07:15 Reactive Lymphocytes Present (Not Present) A 12/24/16 04:16 Polychromasia 1+ (Not Present) A 12/24/16 04:16 Chloride 93 mEq/L (98-109) L 12/25/16 07:15 Carbon Dioxide 33 mEq/L (19-29) H 12/25/16 07:15 Creatinine 1.28 mg/dL (0.72-1.25) H 12/25/16 07:15 Est GFR (Non-Af Amer) 55 (> 60) L 12/25/16 07:15 Glucose 126 mg/dL (70-99) H 12/25/16 07:15 POC Glucose 127 (58-89) H 12/25/16 07:37 Hemoglobin A1c 5.7 % (-5.6) H 12/24/16 04:16 Albumin 2.7 g/dL (3.5-5.0) L 12/24/16 04:16 Globulin 4.8 g/dL (2.4-3.5) H 12/24/16 04:16 Albumin/Globulin Ratio 0.6 (1.1-2.2) L 12/24/16 04:16 Microbiology, Last 48 Hours 12/24/16 16:08 Surgical Biopsy Culture - Preliminary Right Foot Consult Discharge Plan - Plan Referrals: Sidney Martinez MD [Primary Care Provider] -
[2016-12-25] MEDS: Budesonide/Formoterol 160/4.5 MDI IH SCH ×2 (09:28→22:50)
--- NOTE | 2016-12-25 10:06 | Pulmonology Progress Note ---
Date of Encounter: 12/25/16 Time of Encounter: 08:30 Assessment and Plan (1) Mass of right lung Current Visit: Yes Status: Acute I have reviewed CT chest and discussed with the patient about EBUS bronchoscopy since patient needs his Plavix for his peripheral vascular disease and EBUS can be done while the patient on Plavix and intact was nondiagnostic then to proceed with CT-guided biopsy since he has higher risk for complications. The patient declined bronchoscopy and he wants to proceed with CT-guided biopsy. This was discussed with primary team and after recovering from his acute illness then this can be done either as inpatient if he still in the hospital or an outpatient. He understand if this is malignant then most likely he will need EBUS bronchoscopy for staging. (2) COPD (chronic obstructive pulmonary disease) Current Visit: Yes Status: Chronic Continue current bronchodilators Qualifiers: COPD type: chronic bronchitis Chronic bronchitis type: mucopurulent Qualified Code(s): J41.1 - Mucopurulent chronic bronchitis Subjective Principal diagnosis: gas gangrene Interval history: Patient had surgery for his foot Objective PUL Vital signs: Last Vital Signs Temp 97.5 F L 12/25/16 07:41 Pulse 88 12/25/16 07:41 Resp 16 12/25/16 07:41 BP 109/62 12/25/16 07:41 Pulse Ox 99 12/25/16 07:41 General appearance: appears uncomfortable Eyes: nonicteric ENT: oropharynx moist Neck: supple, no lymphadenopathy Effort: normal Auscultation: bilateral: diminished breath sounds Tactile fremitus: bilateral: normal Cardiovascular: regular rate and rhythm Gastrointestinal: normoactive bowel sounds, non-distended Integumentary: cellulitis (Lower extremities) Extremities: edema normal mental status, non-focal exam mood appropriate Results - Laboratory Findings CBC and BMP: 12/25/16 07:15 12/25/16 07:15 Abnormal lab findings: Abnormal lab results WBC 15.0 K/mcL (4.3-11.1) H 12/25/16 07:15 RBC 3.36 M/mcL (4.19-5.50) L 12/25/16 07:15 Hgb 9.2 g/dL (12.9-16.9) L 12/25/16 07:15 Hct 29.8 % (37.5-50.1) L 12/25/16 07:15 MCH 27.4 pg (28.0-33.3) L 12/25/16 07:15 MCHC 30.9 g/dL (31.6-35.5) L 12/25/16 07:15 RDW 15.4 % (11.5-14.5) H 12/25/16 07:15 Band Neutrophils % 8.0 % (0-4) H 12/25/16 07:15 Neutrophils # 13.5 K/mcL (1.6-8.9) H 12/25/16 07:15 Nucleated RBCs/100 WBC 0.2 /100 WBC (0) H 12/25/16 07:15 Reactive Lymphocytes Present (Not Present) A 12/24/16 04:16 Polychromasia 1+ (Not Present) A 12/24/16 04:16 Chloride 93 mEq/L (98-109) L 12/25/16 07:15 Carbon Dioxide 33 mEq/L (19-29) H 12/25/16 07:15 Creatinine 1.28 mg/dL (0.72-1.25) H 12/25/16 07:15 Est GFR (Non-Af Amer) 55 (> 60) L 12/25/16 07:15 Glucose 126 mg/dL (70-99) H 12/25/16 07:15 POC Glucose 127 (58-89) H 12/25/16 07:37 Hemoglobin A1c 5.7 % (-5.6) H 12/24/16 04:16 Albumin 2.7 g/dL (3.5-5.0) L 12/24/16 04:16 Globulin 4.8 g/dL (2.4-3.5) H 12/24/16 04:16 Albumin/Globulin Ratio 0.6 (1.1-2.2) L 12/24/16 04:16 - Microbiology Findings Microbiology Findings: Microbiology, Last 48 Hours 12/24/16 16:08 Surgical Biopsy Culture - Preliminary Right Foot - Diagnostic Findings CT scan - chest: report reviewed, image reviewed - Clinical Findings Intake & Output: Intake & Output 12/24/16 12/25/16 12/25/16 23:59 07:59 15:59 Intake Total 240 / 240 550 / 550 290 / 290 Output Total 325 / 325 1000 / 1000 Balance -85 / -85 -450 / -450 290 / 290 Weight 133.7 kg Consult Discharge Plan - Plan Referrals: Sidney Martinez MD [Primary Care Provider] -
[2016-12-25] MEDS: Vancomycin 1,500 MG in D5% in Water 250 ML IVPB SCH (13:11)
[2016-12-25] MEDS: 0.9 % Sodium Chloride 1,000 ML IVC SCH (13:11)
--- NOTE | 2016-12-25 13:29 | Internal Med Progress Note ---
Date of Encounter: 12/25/16 Time of Encounter: 10:00 - Assessment and plan (1) DVT prophylaxis Current Visit: Yes Status: Acute Assessment and plan: Heparin subcutaneously (2) Mass of right lung Current Visit: Yes Status: Acute Assessment and plan: Pulmonology consult saw Patient. Patient needs CT-guided biopsy. However, he is on Plavix before admission. Now Plavix is on hold, will consult interventional radiology to arrange CT biopsy soon. (3) Diabetic foot ulcer Current Visit: No Status: Acute Assessment and plan: Had the debridement to surgery yesterday. Podiatry consult on case. Continue antibiotic, add clindamycin to cover anaerobic. - Patient may need long-term antibiotic treatment. We will consult infection disease. May need PICC line. 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 Continue home medication. On chronic by mouth steroid and home oxygen. Qualifiers: COPD type: chronic bronchitis Chronic bronchitis type: mucopurulent Qualified Code(s): J41.1 - Mucopurulent chronic bronchitis (6) Gas gangrene Current Visit: Yes Status: Acute Assessment and plan: Had debridement by podiatry. On antibiotic with anaerobic coverage. Closely monitor patient. (7) Sleep apnea Current Visit: Yes Status: Chronic Assessment and plan: On CPAP during night Qualifiers: Sleep apnea type: obstructive Qualified Code(s): G47.33 - Obstructive sleep apnea (adult) (pediatric) - Time Spent With Patient Greater than 35 minutes - Subjective Interval history: Patient is a 71-year-old male admitted for diabetic foot. Past medical history is significant for diabetes, COPD, hypertension, thyroid disease, and a former smoker. I saw and examined the patient. S/P debridement surgery. He complained of minimal pain on right foot. No fever. No shortness of breath. Vitals are stable. Pulmonology consults saw patient, may plan for CT guide biopsy in this week if pt is not discharged. Continue Vanco and cefepime, clindamycin added since yesterday to cover anaerobic. Assessment and Plan (1) Cellulitis of right foot Current visit: Yes Status: Acute Patient states that he does not regularly check his feet. He was instructed on the need to care for his feet regularly. He was noted to have swelling and redness of his right lower extruded by the ER physician on 12/19/2016 in the emergency room and he presented for worsening shortness of breath and chest pain. His cellulitis has worsened as the patient left AMA. He is high risk due to possible osteomyelitis and possible need for surgery. Will continue vancomycin and cefepime given his allergy to penicillins. Podiatry consult saw pt. Plan for debridement today. (2) Osteomyelitis of right foot Current visit: Yes Status: Suspected Suspected osteomyelitis of the right fifth metatarsal bone. We will obtain an MRI of the right foot to evaluate further. Patient was placed on broad spectrum intravenous antibody therapy. Podiatry consult saw pt, plan for debridement. Qualifiers: Osteomyelitis type: other acute Qualified Code(s): M86.171 - Other acute osteomyelitis, right ankle and foot (3) Diabetes mellitus Current visit: Yes Status: Chronic Sliding scale coverage. 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 Has recent exacerbation. Pt is chronically on po steroid (on and off per pt), will place stress dose steroid for surgery. Qualifiers: COPD type: chronic bronchitis Chronic bronchitis type: mucopurulent Qualified Code(s): J41.1 - Mucopurulent chronic bronchitis (5) Mass of right lung Current visit: Yes Status: Chronic Newly discovered 4X3 centimeters spiculated mass in the right lower lobe on the posterior aspect suspicious for malignancy. Patient has extensive smoking history. Patient informed of the diagnosis. Pulmonology consult called and saw pt. - Constitutional Vitals: Temp Pulse Resp BP Pulse Ox 97.6 F 92 17 107/68 96 12/25/16 12:08 12/25/16 12:08 12/25/16 12:08 12/25/16 12:08 12/25/16 12:08 General appearance: Present: A&O X 3, no acute distress, answers questions appropriately Internal Medicine: Result - Labs CBC & Chem 7: 12/25/16 07:15 12/25/16 07:15 Labs: Short CBC 12/25/16 Range/Units 07:15 WBC 15.0 H (4.3-11.1) K/mcL Hgb 9.2 L (12.9-16.9) g/dL Hct 29.8 L (37.5-50.1) % Plt Count 258 (140-400) K/mcL Neutrophils # 13.5 H (1.6-8.9) K/mcL BMP 12/25/16 07:15 Sodium 138 Potassium 3.6 Chloride 93 L Carbon Dioxide 33 H BUN 22 Creatinine 1.28 H Glucose 126 H Calcium 9.7 - Impressions Impressions Foot X-Ray 12/24/16 16:23 IMPRESSION: Status post partial right 5th metatarsal resection. Soft tissue packing and soft tissue prominence seen in the operative site. D/ / 12/24/2016 17:43:00 Brittani Sousa MD / Gissel Ng Interpreting Provider: Brittani Sousa MD Consult Discharge Plan - Plan Referrals: Sidney Martinez MD [Primary Care Provider] -
[2016-12-25] MEDS: Cefepime HCl 1,000 MG in D5% in Water (Mini-Bag+) 100 ML IVPB SCH (17:07)
[2016-12-26] MEDS: Cefepime HCl 1,000 MG in D5% in Water (Mini-Bag+) 100 ML IVPB SCH ×4 (00:22→23:52)
[2016-12-26] MEDS: Clindamycin 600 MG/50 ML 600 MG/50 ML IV.SOLN IVPB SCH ×2 (00:25→07:05)
[2016-12-26] MEDS: *HR* Heparin 5,000 UNIT/ML VIAL SQ SCH ×4 (00:26→23:50)
[2016-12-26] MEDS: Ondansetron 4 MG/2 ML VIAL IVP SCH ×3 (00:26→12:16)
[2016-12-26] MEDS: Vancomycin 1,500 MG in D5% in Water 250 ML IVPB SCH ×2 (04:31→14:10)
[2016-12-26] MEDS: Ipratropium/Albuterol Neb 3 ML IH SCH ×4 (04:51→22:11)
[2016-12-26] MEDS: 0.9 % Sodium Chloride 1,000 ML IVC SCH ×2 (05:01→23:56)
[2016-12-26] MEDS: *HR* HYDROcodone/Acet 10/325 mg TABLET PO PRN ×4 (05:41→23:51)
[2016-12-26 05:44] LABS: Basophils # 0.1 K/mcL (0.0-0.2); Basophils % 0.8 %; Eosinophils % 3.4 %; Hematocrit 26.8 % (37.5-50.1); Hemoglobin 8.4 g/dL (12.9-16.9); Immature Granulocytes % 8.4 % (0-4); Lymphocytes # 2.1 K/mcL (0.6-4.6); Mean Corpuscular HGB Conc 31.3 g/dL (31.6-35.5); Mean Corpuscular Hemoglobin 27.6 pg (28.0-33.3); Mean Corpuscular Volume 88.2 fL (83.0-100.0); Mean Platelet Volume 10.5 fL (9.4-12.4); Monocytes # 0.9 K/mcL (0.0-1.3); Monocytes % 5.9 %; Nucleated Red Blood Cells 0.6 /100 WBC (0); Platelet Count 242 K/mcL (140-400); Red Blood Count 3.04 M/mcL (4.19-5.50); Red Cell Distribution Width 15.7 % (11.5-14.5); Segmented Neutrophils % 68.5 %
[2016-12-26 05:50] LABS: Eosinophils # 0.5 K/mcL (0.0-0.6)
[2016-12-26 06:08] LABS: BUN/Creatinine Ratio 20 (6-26); Blood Urea Nitrogen 25 mg/dL (8-26); Calcium 9.1 mg/dL (8.6-10.8); Carbon Dioxide 32 mEq/L (19-29); Chloride 92 mEq/L (98-109); Glucose 137 mg/dL (70-99); Osmolality,Calculated 289 (280-300); Potassium 3.3 mEq/L (3.5-4.5); Sodium 136 mEq/L (136-145); eGFR For African Americans > 60 (> 60); eGFR For Non-African Americans 55 (> 60)
[2016-12-26 06:20] LABS: Platelet Estimate Normal (Normal)
[2016-12-26] MEDS: Insulin LISPRO 300 UNITS/3 ML VIAL SQ SCH ×4 (08:07→23:48)
[2016-12-26] MEDS: *HR* Metformin 850 MG TABLET PO SCH ×2 (08:11→16:53)
[2016-12-26] MEDS: rOPINIRole 1 MG TABLET PO SCH ×3 (08:14→23:50)
[2016-12-26] MEDS: Furosemide 40 MG TABLET PO SCH (08:15)
[2016-12-26] MEDS: Lactobacillus 1 EACH CAP.SPRINK PO SCH (08:15)
[2016-12-26] MEDS: Magnesium Oxide 400 MG TABLET PO SCH (08:16)
[2016-12-26] MEDS: Gabapentin 300 MG CAPSULE PO SCH ×3 (08:16→20:22)
[2016-12-26] MEDS: Hydrocortisone Rectal 2.5% CRM 28 GM TUBE RC SCH (08:19)
[2016-12-26] MEDS: FLUoxetine 20 MG CAPSULE PO SCH (08:19)
[2016-12-26] MEDS: metOLazone 5 MG TABLET PO SCH (08:20)
[2016-12-26] MEDS: predniSONE 10 MG TABLET PO SCH ×2 (08:38→12:16)
[2016-12-26] MEDS: Budesonide/Formoterol 160/4.5 MDI IH SCH ×2 (10:50→22:11)
--- NOTE | 2016-12-26 13:12 | Infectious Disease Consult ---
Date of Encounter: 12/26/16 Time of Encounter: 13:10 Assessment and Plan (1) Sepsis Status: Acute Assessment and plan: The patient had two SIRS criteria on admission. Likely secondary to osteomyelitis of the right foot. Improved. Tachycardia has resolved, but the patient continues to have leukocytosis. No blood cultures have been obtained during this hospitalization. Get blood cultures x 2 sets now. Lactic acid normal on admission. No evidence of hypoperfusion. Will defer IV fluid orders to the primary team. The patient has been on IV antibiotics x 72 hours. Qualifiers: Sepsis type: sepsis due to unspecified organism Qualified Code(s): A41.9 - Sepsis, unspecified organism (2) Osteomyelitis Status: Acute Assessment and plan: Location: Right foot, lateral aspect of the 5th metatarsal. Causative organism unclear. Superficial and intra-operative culture gram stain shows GPC, presumptively Staph species. Previous wound culture grew MSSA, P. mirabilis, and E. faecalis. Right foot x-ray completed 12/19/16 showed a soft tissue ulceration to the lateral aspect of the right foot at the level of the residual 5th metatarsal shaft compatible with diabetic ulcer. There was noted to be gas present within the region of the ulceration with possible extension of the gas into the adjacent soft tissues raising the possibility for infection with gas-forming organism. There was also a questionable irregularity and possible mild bony erosive change to the lateral aspect of the residual 5th metatarsal shaft that was concerning for osteomyelitis. Repeat foot x-ray 12/23/16 showed worsening soft tissue ulceration along the lateral aspect of the right foot with increasing soft tissue gas along with possible erosive changes of the 5th metatarsal concerning for osteomyelitis. The patient was advised previously to be admitted for evaluation of his foot, but because [facility] had no beds, he declined transfer to another hospital and signed out AMA. ESR on admission was >130. No CRP was checked. Podiatry was consulted and took the patient to the OR on 12/24/16 and performed n I & D of the right foot with debridement of the 5th metatarsal bone and plantar fasciectomy. Operative notes reviewed. Large amount of purulent drainage was noted, as well as changes to the bone that was debrided. The patient continues to have leukocytosis despite broad-spectrum IV antibiotic therapy. There may be an issue with source control. Will defer further surgical management to the podiatry team. Repeat ESR and check CRP. Consider checking arterial studies of the lower extremities given the patient's history of diabetes and renal insufficiency. Continue Cefepime 2 grams IV Q12H. Continue Vancomycin IV. Pharmacy to dose. Goal trough approximately 15. Discontinue Clindamycin as there is no evidence for GAS infection. Start Flagyl 500mg PO TID for anaerobic coverage. Continue wound care and activity restrictions per the podiatry team. Duration of treatment depends on the clinical picture, but likely 6 weeks of IV antibiotics followed by orals. Monitor renal function and for drug toxicity and dose-adjust antibiotics. Consult Field [employer] if not already done for assistance with discharge planning. Qualifiers: Osteomyelitis type: acute hematogenous Osteomyelitis location: foot Laterality: right Qualified Code(s): M86.071 - Acute hematogenous osteomyelitis, right ankle and foot (3) Gas gangrene Status: Acute Assessment and plan: Location: Right foot. Soft tissue gas noted on x-ray. Status post I & D 12/24/16. See antibiotics recommendations as above. (4) Cellulitis of leg, right Status: Inactive Assessment and plan: Likely secondary to infected DFU and osteomyelitis. Localized to the right foot and lower portion of the RLE up to the mid-mann. Causative organism unclear, but likely Staph species based on foot cultures. Continue antibiotics as above. (5) Acute kidney injury Status: Acute Assessment and plan: Likely secondary to sepsis. Serum creatinine elevated at 1.27 on admission. Possible undiagnosed CKD. Continue to trend. Dose-adjust antibiotics and avoid nephrotoxins as able. (6) Mass of right lung Status: Inactive Assessment and plan: CT of the chest 12/19/16 showed spiculating RLL mass concerning for malignancy. The patient has an extensive smoking history. Pulmonology consulted. Recommends CT-guided biopsy with possible EBUS to follow. (7) Diabetic foot ulcer Status: Acute Assessment and plan: Location: Right lateral foot. Wound care per the podiatry team. Qualifiers: Diabetic foot ulcer location: midfoot Diabetes mellitus type: other specified (including WALKER) Laterality: right Non-pressure ulcer stage: with fat layer exposed Qualified Code(s): E13.621 - Other specified diabetes mellitus with foot ulcer; L97.412 - Non-pressure chronic ulcer of right heel and midfoot with fat layer exposed (8) COPD (chronic obstructive pulmonary disease) Status: Chronic Qualifiers: COPD type: chronic bronchitis Chronic bronchitis type: mucopurulent Qualified Code(s): J41.1 - Mucopurulent chronic bronchitis (9) Diabetes mellitus Status: Chronic Assessment and plan: Hgb A1C 5.7 on admission. Continue aggressive glucose monitoring and management to promote wound healing and prevent re-infection. Qualifiers: Diabetes mellitus type: type 2 Diabetes mellitus complication status: with neurologic complications Diabetes mellitus complication detail: with polyneuropathy Diabetes mellitus terminologist insulin use: without assisted use Qualified Code(s): E11.42 - Type 2 diabetes mellitus with diabetic polyneuropathy (10) Sleep apnea Status: Chronic Assessment and plan: Uses C-PAP QHS. Qualifiers: Sleep apnea type: obstructive Qualified Code(s): G47.33 - Obstructive sleep apnea (adult) (pediatric) Infectious Disease HPI - Data of Consult Patient: new to practice Consult date: 12/26/16 Requesting Physician: Luli Orosco MD Primary Care Provider: Sidney Martinez MD - Consult Narrative Reason for consult: Right foot osteomyelitis History of present illness: Mr. Sinha is a 71 year old male with a past medical history of end-stage COPD, diabetes, hypertension, venous stasis, obstructive sleep apnea, and chronic respiratory failure. The patient was admitted to the hospital December 23 for cellulitis and osteomyelitus of the right foot. We are consulted on December 26 for further evaluation and treatment recommendations regarding osteomyelitis of the right foot. The patient's a 71-year-old male with past medical history as stated above. The patient presented to the hospital on the day of admission with complaints of worsening of a right lateral foot ulcer. The patient had been pretty seen previously in the emergency department on December 19 for chest pain or shortness of breath. At that time, the patient was noted to have right lower extremity cellulitis and what appeared to be an infected diabetic foot ulcer. An x-ray that time showed findings consistent with cellulitis and soft tissue gas. The patient was advised to be admitted to the hospital for IV antibiotics and a podiatry consultation, however, there were no beds here at [facility] and the patient refused to be transferred to [place] any subsequent he signed out AMA. He was given a prescription for Levaquin, which she finished. He also was noted to have a right lower lobe spiculated lung mass concerning for malignancy. On the day of admission. Patient presented to the ER it was noted to have tachycardia, but was otherwise hemodynamically stable. Laboratory studies Dilan white blood cell count of 19.6 thousand. He also had acute kidney injury and his ESR was greater than 130. UA during this ER stay showed worsening of the soft tissue ulceration along the lateral aspect the right foot with increasing soft tissue gas as well as possible erosive changes of the fifth metatarsal concerning for osteomyelitis and worsening cellulitis. The patient was transferred from [facility] to [facility]. He was started empirically on IV vancomycin and IV cefepime. Podiatry was consulted and took the patient to the operating room where he did a right foot I&D with debridement of the fifth metatarsal bone and plantar fasciectomy. Intraoperative cultures were obtained that show gram-positive cocci on the Gram stain, presumptively staph species. Clindamycin was added to the antibiotic regimen postoperatively. Additionally, pulmonology was consulted for the patient 's lung mass and they recommend a CT-guided biopsy as well as an EBUS. Since surgery, the patient states that he does feel little bit better, but he does continue to have leukocytosis. He remained afebrile and his tachycardia has resolved. During my exam today, the patient endorses a history as stated above. He denies any fevers or chills or rigors prior to admission. He denies any headache or neck pain. He does report some dizziness that has been going on for several months that he associates to his shortness of breath due to his COPD. He reports chronic shortness of breath or productive cough of yellow sputum, and states that this seems to be at his baseline. He denies any chest pain. He does report some intermittent nausea, but no vomiting. He denies any abdominal pain or appetite changes. He denies any diarrhea or constipation. He denies any pain at the surgical site and states that he noticed the ulcer until he was seen in the emergency department earlier this month. He states that the ulcer continued to get worse and started draining a foul-smelling yellow drainage and that's when he decided to come to the emergency room. He reports some redness to the right lower extremity that extended from the foot up to the middle of his mann. He is unsure how he got the ulcer and denies any known trauma. He does have a history of surgery to have a bone spur removed from the lateral aspect of that right foot, but states that the surgical wound healed fine and he didn't have any problems with that. He states his blood sugars have been fine at home running between 150 and 200. He denies any oral thrush or any other new skin lesions. CC: Luli Orosco MD Past Med Surg Social Fam HX - Past Medical History Attestation: Yes The following information was validated with the patient. Source: patient, old records reviewed, nursing notes reviewed Medical history: arthritis, COPD, diabetes, hypertension, thyroid disease, venous stasis, other (JOSR - CPAP at night) Psychiatric history: anxiety - Past Surgical History Surgical History: cataract, cholecystectomy, other (Knee surgery; right leg spur removal from the fifth metatarsal, rotator cuff repair) - Social History Smoking Status: Former smoker Packs per day: 3-5 Smokeless Tobacco Status: No Alcohol use: rarely Drug use: none Occupational status: disabled Current living situation: Home, With Family Activity Level: Independent ambulation Recent Out of Country Travel Within the Last 8 Weeks: No Exposure or Possible Exposure to Illness During Travel: No Infectious Disease-CN:Meds Allopurinol [Zyloprim] 300 mg PO DAILY 03/02/15 [History] Cholecalciferol (Vitamin D3) [Vitamin D] 2,000 unit PO DAILY 03/02/15 [History] Clopidogrel [Plavix] 75 mg PO DAILY 03/02/15 [History] Docusate [Colace] 200 mg PO TID 03/02/15 [History] FLUoxetine HCl [Prozac] 60 mg PO DAILY 03/02/15 [History] Famotidine [Pepcid] 20 mg PO BID 03/02/15 [History] Ferrous Sulfate 325 mg PO BID 03/02/15 [History] Furosemide [Lasix] 80 mg PO BID 03/02/15 [History] Gabapentin [Neurontin] 1,800 mg PO BID 03/02/15 [History] Ipratropium/Albuterol Neb [Duoneb] 3 ml IH Q6HR 03/02/15 [History] LORazepam [Ativan] 0.5 mg PO TID PRN 03/02/15 [History] Levothyroxine Sodium [Synthroid] 200 mcg PO DAILY 03/02/15 [History] Lovastatin [Altoprev] 20 mg PO DAILY 03/02/15 [History] Magnesium Oxide [Magnesium] 400 mg PO DAILY 03/02/15 [History] Metformin [Glucophage] 850 mg PO BID 03/02/15 [History] Metoprolol [Lopressor] 25 mg PO BID 03/02/15 [History] Multivitamin [Multivitamins] 1 cap PO DAILY 03/02/15 [History] Oxygen 2 l IN DAILY 03/02/15 [History] Potassium Chloride 20 meq PO TID 03/02/15 [History] Roflumilast [Daliresp] 500 mcg PO DAILY 03/02/15 [History] Ropinirole HCl [Requip] 2 mg PO BID 03/02/15 [History] Temazepam 15 mg PO HS 03/02/15 [History] Albuterol Sulfate [Proair Hfa] 2 puff IH Q4H 12/19/16 [History] Ammonium Lactate [Amlactin] 1 appl TP BID 12/19/16 [History] Guaifenesin [Mucinex] 600 mg PO BID 12/19/16 [History] HYDROcodone/Acet 10/325 mg [[place] 10-325 mg] 1 tab PO Q4HR PRN 12/19/16 [History ] Ipratropium/Albuterol Neb [Duoneb] 3 ml IH Q6HR 12/19/16 [History] Levofloxacin [Levaquin] 750 mg PO DAILY #10 tablet 12/19/16 [Rx] Lidocaine/Hydrocortisone AC [Lidocaine-Hydrocort 3-2.5% Gel] 7 gm RC BID [History] Polyethylene Glycol 3350 [MiraLAX Powder Bulk 17.9 Oz] 17 gm PO DAILY 12/19/16 [ History] PrednisoLONE [Millipred] 10 mg PO DAILY 12/19/16 [History] Spironolactone [Aldactone] 50 mg PO DAILY 12/19/16 [History] Theophylline Anhydrous [Jamal-24] 400 mg PO DAILY 12/19/16 [History] Umeclidinium Brm/Vilanterol Tr [Anoro Ellipta 62.5-25 Mcg INH] 1 puff IH DAILY 12/19/16 [History] metOLazone [Zaroxolyn] 5 mg PO DAILY 12/19/16 [History] BuPROPion [Wellbutrin] 75 mg PO BID 12/24/16 [History] Fluticasone/Salmeterol [Advair 500-50 Diskus] 2 puff IH BID 12/24/16 [History] Ropinirole HCl [Requip] 4 mg PO HS 12/24/16 [History] Allergies doxycycline Allergy (Verified 12/24/16 14:50) Hives Oxycodone [From Percocet] Allergy (Verified 12/24/16 14:50) Swelling of Lip/Tongue/Throat Penicillins [PCN] Allergy (Verified 12/24/16 14:50) Hives codeine Adverse Reaction (Verified 12/19/16 12:27) Flushing meperidine Adverse Reaction (Verified 12/19/16 12:27) Hallucinating morphine Adverse Reaction (Verified 12/19/16 12:27) Nightmare All systems: reviewed and no additional remarkable complaints except as stated Exam - Constitutional Vitals: Temp Pulse Resp BP Pulse Ox 98.0 F 83 16 137/63 98 12/26/16 12:04 12/26/16 12:04 12/26/16 12:04 12/26/16 12:04 12/26/16 12:04 General appearance: cooperative, no acute distress, obese - Head Head exam: Present: atraumatic, normal inspection, normocephalic - Eye Eye exam: Present: EOMI, normal appearance, PERRL Pupils: Present: normal accommodation - ENT ENT exam: Present: mucous membranes moist - Neck Neck exam: Present: normal inspection - Respiratory Respiratory exam: Present: decreased breath sounds. Absent: rales, respiratory distress, rhonchi, wheezes - Cardiovascular Cardiovascular exam: Present: RRR, +S1, +S2 - GI/Abdominal GI/Abdominal exam: Present: distended, firm, normal bowel sounds. Absent: tenderness - Extremities Exam Extremities exam: Present: pedal edema (1+ RLE). Absent: joint swelling, tenderness Additional comments: Right foot post-op dressing intact. Erythema noted to the RLE extending up to the mid-mann. Venous stasis dermatitis noted to the BLE. Superficial scabbed lesion noted to the anterior aspect of the lower portion of the RLE. - Neurological Exam Neurological exam: Present: alert, oriented X3, no focal deficits - Psychiatric Psychiatric exam: Present: normal affect, normal mood - Skin Skin exam: Present: dry, intact, normal color, warm Infectious Disease CN: Results - Labs CBC & Chem 7: 12/27/16 00:59 12/27/16 00:59 Cultures: Cultures 12/24/16 16:07 Wound Culture - Preliminary Right Foot Gram Positive Cocci 12/24/16 16:08 Surgical Biopsy Culture - Preliminary Right Foot Gram Positive Cocci 12/24/16 16:11 Wound Culture - Preliminary Right Foot Gram Positive Cocci 12/24/16 16:09 Surgical Biopsy Culture - Preliminary Right Foot Consult Discharge Plan - Plan Referrals: Sidney Martinez MD [Primary Care Provider] - - Attending Attestation I examined this patient and my medical decision-making was reviewed with the EXPLOSIVE OPERATOR GRENADE/PA/Advanced Practice Nurse/Resident Physician. I agree with the documented findings, disposition and treatment plan as described except to the extent set forth below. This is an addendum to original report dictated by Tierney Oliva CNP. Please refer to [facility] note for full detail. Patient is a 71-year-old gentleman with extensive past medical history mentioned below was admitted to [facility] for worsening right lateral foot ulcer. Patient apparently has been having chronic issues with his foot. When he evaluated the patient the nurse practitioner from podiatry was in the room and she just unwrapped and showed me where they did the debridement. Intra-Op cultures are growing gram-positive cocci presumably staph species. Patient previous cultures have grown MSSA, Proteus and Escherichia coli. Patient imaging revealed disc ulceration to left aspect of the right foot at the level of the residual fifth metatarsal Podiatry was consulted and took the patient to the OR on 12/24/16 and performed n I & D of the right foot with debridement of the 5th metatarsal bone and plantar fasciectomy. Operative notes reviewed. Large amount of purulent drainage was noted, as well as changes to the bone that was debrided. The patient continues to have leukocytosis despite broad- spectrum IV antibiotic therapy. There may be an issue with source control. Will defer further surgical management to the podiatry team.with some gas present in the region. Patient was started on broad-spectrum antibiotics including vancomycin and cefepime and consulted to evaluate the patient and make further recommendations. At this point agree with broad-spectrum antibiotics until cultures finalize. I think the clindamycin may be switched to Flagyl. I have low index of suspicion for group a strep. Monitor labs and for drug toxicity Goal vancomycin trough around 15 Duration of treatment depends on the clinical picture but likely needs long- term IV antibiotics
--- NOTE | 2016-12-26 15:19 | Internal Med Progress Note ---
Date of Encounter: 12/26/16 Time of Encounter: 10:00 - Assessment and plan (1) DVT prophylaxis Current Visit: Yes Status: Acute Assessment and plan: Heparin subcutaneously (2) Mass of right lung Current Visit: Yes Status: Acute Assessment and plan: Pulmonology consult saw Patient. Patient needs CT-guided biopsy. However, he is on Plavix before admission. Now Plavix is on hold, will consult interventional radiology to arrange CT biopsy soon. (3) Diabetic foot ulcer Current Visit: No Status: Acute Assessment and plan: Had the debridement to surgery yesterday. Podiatry consult on case. ID consult on case. Continue antibiotic, add flagyl to cover anaerobic. - Patient may need long-term antibiotic treatment. - Leukocytosis is also possibly due to sterooid use. - Cont closely monitor pt. Pt is at high risk because he is on vancomycin, needed close monitoring Qualifiers: Diabetic foot ulcer location: other Diabetes mellitus type: type 2 Laterality: right Non-pressure ulcer stage: with necrosis of bone Qualified Code(s): E11.621 - Type 2 diabetes mellitus with foot ulcer; L97.514 - Non- pressure chronic ulcer of other part of right foot with necrosis of bone (4) Diabetes mellitus Current Visit: Yes Status: Chronic Assessment and plan: Sliding scale coverage Qualifiers: Diabetes mellitus type: type 2 Diabetes mellitus complication status: with neurologic complications Diabetes mellitus complication detail: with polyneuropathy Diabetes mellitus alf insulin use: without alf use Qualified Code(s): E11.42 - Type 2 diabetes mellitus with diabetic polyneuropathy (5) COPD (chronic obstructive pulmonary disease) Current Visit: Yes Status: Chronic Assessment and plan: Stable. Continue home medication. On chronic by mouth steroid and home oxygen. On CPAP during night. Qualifiers: COPD type: chronic bronchitis Chronic bronchitis type: mucopurulent Qualified Code(s): J41.1 - Mucopurulent chronic bronchitis (6) Gas gangrene Current Visit: Yes Status: Acute Assessment and plan: Had debridement by podiatry. On antibiotic with anaerobic coverage. Closely monitor patient. (7) Sleep apnea Current Visit: Yes Status: Chronic Assessment and plan: On CPAP during night Qualifiers: Sleep apnea type: obstructive Qualified Code(s): G47.33 - Obstructive sleep apnea (adult) (pediatric) - Time Spent With Patient Greater than 35 minutes - Subjective Interval history: Patient is a 71-year-old male admitted for diabetic foot. Past medical history is significant for diabetes, COPD, hypertension, thyroid disease, and a former smoker. I saw and examined the patient. S/P debridement surgery. He complained of minimal pain on right foot. No fever. No shortness of breath. Vitals are stable. ID consult appreciated. Will add flagyl po and dc clindamycin per ID recommendation. - Constitutional Vitals: Temp Pulse Resp BP Pulse Ox 98.0 F 83 16 137/63 98 12/26/16 12:04 12/26/16 12:04 12/26/16 12:04 12/26/16 12:04 12/26/16 15:00 General appearance: Present: A&O X 3, no acute distress, answers questions appropriately - Head Head exam: Present: atraumatic, normocephalic - Eye Eye exam: Present: PERRL, conjuntiva pink, sclera anicteric Pupils: Present: PERRL - Neck Neck exam general surgery: Present: supple, trachea midline. Absent: lymphadenopathy - Respiratory Respiratory exam: Present: CTAB. Absent: accessory muscle use, rales, rhonchi, wheezes - Cardiovascular Cardiovascular exam: Present: RRR, +S1, +S2. Absent: diastolic murmur, gallop, rubs, systolic murmur - GI/Abdominal GI/Abdominal exam: Present: normal bowel sounds, soft, no peritoneal signs. Absent: distended, tenderness - Extremities Exam Extremities exam: Present: warm, radial pulses palpable and symetrical. Absent : calf tenderness, cyanotic, pedal edema Additional comments: Right foot wound s/p surgery, well dressed - Neurological Exam Neurological exam: Present: CN II-XII intact, oriented X3, no focal deficits. Absent: pronater drift, facial droop, speech deficit - Skin Skin exam: Present: dry, intact Internal Medicine: Result - Labs CBC & Chem 7: 12/26/16 03:31 12/26/16 03:31 Labs: Short CBC 12/26/16 Range/Units 03:31 WBC 16.0 H (4.3-11.1) K/mcL Hgb 8.4 L (12.9-16.9) g/dL Hct 26.8 L (37.5-50.1) % Plt Count 242 (140-400) K/mcL Neutrophils # 11.0 H (1.6-8.9) K/mcL BMP 12/26/16 03:31 Sodium 136 Potassium 3.3 L Chloride 92 L Carbon Dioxide 32 H BUN 25 Creatinine 1.28 H Glucose 137 H Calcium 9.1 Consult Discharge Plan - Plan Referrals: Sidney Martinez MD [Primary Care Provider] -
[2016-12-26] MEDS: metroNIDAZOLE 500 MG TABLET PO SCH ×2 (15:58→20:22)
--- NOTE | 2016-12-26 17:16 | Podiatry Progress Note ---
Date of Encounter: 12/26/16 Time of Encounter: 16:40 - Assessment and Plan (1) Diabetic foot ulcer Current Visit: No Status: Acute Dressing removed at bedside Cleansed with peroxide and saline Will only apply wet to dry and kerlex at this time- patient to go for MRI, will replace packing tomorrow MRI ordered- patients WBC remains elevated despite surgical efforts - Will schedule for MRI to rule out any remaining abscess formation or sinus tracts ID consulted for antibiotic coverage- input appreciated Will closely monitor pallor of toes. Patient has known hx of vascular disease, renal disease and diabetes. Will order BRAD at this time. If color does not return or worsens or warmth to toes is lost will make immediate consult to vascular If bone involvement is confirmed patient will need picc placement and be sent home on IV antibiotic therapy- SW please follow Please call with any issues or concerns Qualifiers: Diabetic foot ulcer location: midfoot Diabetes mellitus type: other specified (including WALKER) Laterality: right Non-pressure ulcer stage: with fat layer exposed Qualified Code(s): E13.621 - Other specified diabetes mellitus with foot ulcer; L97.412 - Non-pressure chronic ulcer of right heel and midfoot with fat layer exposed (2) Diabetes mellitus Current Visit: Yes Status: Chronic Qualifiers: Diabetes mellitus type: type 2 Diabetes mellitus complication status: with neurologic complications Diabetes mellitus complication detail: with polyneuropathy Diabetes mellitus usp insulin use: without usp use Qualified Code(s): E11.42 - Type 2 diabetes mellitus with diabetic polyneuropathy Subjective Principal diagnosis: gas gangrene Interval history: Patient s/p right foot incision and drainage, debridement of 5th metatarsal bone , plantar fasciectomy post op day #1. Patient resting comfortably on arrival. Denies any pain at this time. Dressing intact to RLE. Patient sitting up to side of bed. Denies any fevers, chills, n/v or flu like symptoms. Denies any calf pain Objective - Vital Signs Vital Signs: Vital Signs Temp Pulse Resp BP Pulse Ox 12/26/16 16:00 20 96 12/26/16 15:30 97.4 F L 83 18 120/68 98 12/26/16 15:00 98 12/26/16 12:04 98.0 F 83 16 137/63 98 12/26/16 10:54 18 95 12/26/16 07:36 97.6 F 87 18 116/64 95 12/26/16 04:51 22 96 12/26/16 04:28 98.0 F 86 18 120/64 96 12/26/16 01:44 97.6 F 88 18 125/68 98 12/26/16 00:05 97.9 F 86 18 124/55 97 12/25/16 22:50 22 97 12/25/16 20:38 97 12/25/16 18:59 97.6 F 87 17 134/66 97 Intake and Output 12/26/16 12/26/16 12/26/16 07:59 15:59 23:59 Intake Total 1400 / 1400 1740 / 1740 250 / 250 Output Total 500 / 500 2300 / 2300 Balance 900 / 900 -560 / -560 250 / 250 Intake: IV Fluids 1280 / 1280 750 / 750 250 / 250 0.9 % Sodium Chloride 1, 880 / 880 350 / 350 150 / 150 000 ML @ 80 mls/hr IVC . [id number] [facility] Rx#: [id number] Maxipime 1,000 MG In 100 / 100 100 / 100 100 / 100 Dextrose 5% (Minibag+) 100 ML 100 ML @ 200 mls/ hr IVPB Q8HR [facility] Rx#: [id number] Cleocin Premix 600 MG/50 50 / 50 50 / 50 ML 600 mg In 50 ml @ 50 mls/hr IVPB Q8HR [facility] Rx#: [id number] Vancocin 1,500 MG In 250 / 250 250 / 250 Dextrose 5% 250 ML @ 166. 67 mls/hr IVPB Q12H [facility] Rx#:[id number] Oral 120 / 120 990 / 990 Output: Urine 500 / 500 2300 / 2300 Other: Meal water pitcher Percent of Meal Consumed 5% Blood Glucose* 168 107 195 - Exam Exam: Podiatry General Exam: General appearance: alert awake oriented X 3. Calm and pleasant, no acute distress.. Vascular: Pedal pulses faint DP/PT , No evidence of cyanosis, pallor or rubor, Edema graded at 1+/4, Skin Temperature warm, No calf pain with manual compression.Slight pallor noted to toes #1 through #4 of right foot. Minimal to no capillary refill. Toes continue to be warm to touch at this time. Neurologic: Neuropathic. Minimal sensation Postop Exam: S/P Fasciotomy site dressing removed. Wound bed clean, no signs of necrosis or slough. No bleeding or drainage. No odor at this time. All packing strips removed. 2 sutures noted to plantar aspect of incision to hold flaps together. No pain with examination. - Lab Result Diagrams: 12/26/16 03:31 12/26/16 03:31 Labs: Abnormal lab results WBC 16.0 K/mcL (4.3-11.1) H 12/26/16 03:31 RBC 3.04 M/mcL (4.19-5.50) L 12/26/16 03:31 Hgb 8.4 g/dL (12.9-16.9) L 12/26/16 03:31 Hct 26.8 % (37.5-50.1) L 12/26/16 03:31 MCH 27.6 pg (28.0-33.3) L 12/26/16 03:31 MCHC 31.3 g/dL (31.6-35.5) L 12/26/16 03:31 RDW 15.7 % (11.5-14.5) H 12/26/16 03:31 Immature Gran % 8.4 % (0-4) H 12/26/16 03:31 Band Neutrophils % 8.0 % (0-4) H 12/25/16 07:15 Neutrophils # 11.0 K/mcL (1.6-8.9) H 12/26/16 03:31 Nucleated RBCs/100 WBC 0.6 /100 WBC (0) H 12/26/16 03:31 Reactive Lymphocytes Present (Not Present) A 12/24/16 04:16 Polychromasia 1+ (Not Present) A 12/24/16 04:16 Potassium 3.3 mEq/L (3.5-4.5) L 12/26/16 03:31 Chloride 92 mEq/L (98-109) L 12/26/16 03:31 Carbon Dioxide 32 mEq/L (19-29) H 12/26/16 03:31 Creatinine 1.28 mg/dL (0.72-1.25) H 12/26/16 03:31 Est GFR (Non-Af Amer) 55 (> 60) L 12/26/16 03:31 Glucose 137 mg/dL (70-99) H 12/26/16 03:31 POC Glucose 195 (58-89) H 12/26/16 16:35 Hemoglobin A1c 5.7 % (-5.6) H 12/24/16 04:16 Albumin 2.7 g/dL (3.5-5.0) L 12/24/16 04:16 Globulin 4.8 g/dL (2.4-3.5) H 12/24/16 04:16 Albumin/Globulin Ratio 0.6 (1.1-2.2) L 12/24/16 04:16 Vancomycin Trough 24.0 mcg/mL (10-20) H* 12/25/16 09:29 Microbiology, Last 48 Hours 12/24/16 16:07 Wound Culture - Preliminary Right Foot Gram Positive Cocci 12/24/16 16:08 Surgical Biopsy Culture - Preliminary Right Foot Gram Positive Cocci 12/24/16 16:11 Wound Culture - Preliminary Right Foot Gram Positive Cocci 12/24/16 16:09 Surgical Biopsy Culture - Preliminary Right Foot Consult Discharge Plan - Plan Referrals: Sidney Martinez MD [Primary Care Provider] -
[2016-12-27 01:08] LABS: Hematocrit 26.9 % (37.5-50.1); Hemoglobin 8.4 g/dL (12.9-16.9); Mean Corpuscular HGB Conc 31.2 g/dL (31.6-35.5); Mean Corpuscular Hemoglobin 27.5 pg (28.0-33.3); Mean Corpuscular Volume 88.2 fL (83.0-100.0); Mean Platelet Volume 9.9 fL (9.4-12.4); Nucleated Red Blood Cells 0.9 /100 WBC (0); Platelet Count 241 K/mcL (140-400); Red Blood Count 3.05 M/mcL (4.19-5.50); Red Cell Distribution Width 15.5 % (11.5-14.5)
[2016-12-27 01:21] LABS: Calcium 9.2 mg/dL (8.6-10.8); Potassium 3.6 mEq/L (3.5-4.5)
[2016-12-27 01:30] LABS: Eosinophils # 0.8 K/mcL (0.0-0.6); Lymphocytes # 3.1 K/mcL (0.6-4.6); Monocytes # 0.4 K/mcL (0.0-1.3); Platelet Estimate Normal (Normal); Reactive Lymphocytes Present (Not Present)
[2016-12-27 01:31] LABS: Polychromasia 1+ (Not Present)
[2016-12-27] MEDS: Ipratropium/Albuterol Neb 3 ML IH SCH ×4 (03:40→22:28)
[2016-12-27] MEDS: Hydrocortisone Rectal 2.5% CRM 28 GM TUBE RC SCH ×3 (03:53→20:37)
[2016-12-27] MEDS: Insulin LISPRO 300 UNITS/3 ML VIAL SQ SCH ×5 (03:55→21:17)
[2016-12-27] MEDS: *HR* HYDROcodone/Acet 10/325 mg TABLET PO PRN ×3 (06:17→18:20)
[2016-12-27] MEDS ORDERED: Saline Nasal Spray 44 ML BOTTLE NS PRN (08:58)
[2016-12-27] MEDS: Lactobacillus 1 EACH CAP.SPRINK PO SCH (08:59)
[2016-12-27] MEDS: *HR* Metformin 850 MG TABLET PO SCH (09:00)
[2016-12-27] MEDS: Gabapentin 300 MG CAPSULE PO SCH ×3 (09:00→20:35)
[2016-12-27] MEDS: rOPINIRole 1 MG TABLET PO SCH ×3 (09:00→20:35)
[2016-12-27] MEDS: FLUoxetine 20 MG CAPSULE PO SCH (09:01)
[2016-12-27] MEDS: metroNIDAZOLE 500 MG TABLET PO SCH ×3 (09:01→20:36)
[2016-12-27] MEDS: Furosemide 40 MG TABLET PO SCH (09:02)
[2016-12-27] MEDS: predniSONE 10 MG TABLET PO SCH (09:02)
[2016-12-27] MEDS: Magnesium Oxide 400 MG TABLET PO SCH (09:03)
[2016-12-27] MEDS: metOLazone 5 MG TABLET PO SCH (09:03)
[2016-12-27] MEDS: *HR* Heparin 5,000 UNIT/ML VIAL SQ SCH ×2 (09:03→16:58)
[2016-12-27] MEDS: Cefepime HCl 1,000 MG in D5% in Water (Mini-Bag+) 100 ML IVPB SCH ×2 (09:05→16:57)
[2016-12-27] MEDS: Budesonide/Formoterol 160/4.5 MDI IH SCH ×2 (10:12→22:28)
--- NOTE | 2016-12-27 11:05 | Infectious Disease Progress No ---
Date of Encounter: 12/27/16 Time of Encounter: 11:01 - Assessment and Plan (1) Sepsis Current Visit: Yes Status: Acute The patient had two SIRS criteria on admission. Likely secondary to osteomyelitis of the right foot. Improved. Tachycardia has resolved, but the patient continues to have leukocytosis. Blood cultures drawn 12/26/16 are pending x 2 sets. Qualifiers: Sepsis type: sepsis due to unspecified organism Qualified Code(s): A41.9 - Sepsis, unspecified organism (2) Osteomyelitis Current Visit: Yes Status: Acute Location: Right foot, lateral aspect of the 5th metatarsal. Causative organism unclear. Superficial and intra-operative culture gram stain show MSSA. Previous superficial wound culture obtained 12/19/16 grew MSSA, P. mirabilis, and E. faecalis. Right foot x-ray completed 12/19/16 showed a soft tissue ulceration to the lateral aspect of the right foot at the level of the residual 5th metatarsal shaft compatible with diabetic ulcer. There was noted to be gas present within the region of the ulceration with possible extension of the gas into the adjacent soft tissues raising the possibility for infection with gas-forming organism. There was also a questionable irregularity and possible mild bony erosive change to the lateral aspect of the residual 5th metatarsal shaft that was concerning for osteomyelitis. Repeat foot x-ray 12/23/16 showed worsening soft tissue ulceration along the lateral aspect of the right foot with increasing soft tissue gas along with possible erosive changes of the 5th metatarsal concerning for osteomyelitis. ESR on admission was >130. No CRP was checked. Podiatry was consulted and took the patient to the OR on 12/24/16 and performed n I & D of the right foot with debridement of the 5th metatarsal bone and plantar fasciectomy. Operative notes reviewed. Large amount of purulent drainage was noted, as well as changes to the bone that was debrided. The patient continues to have leukocytosis despite broad-spectrum IV antibiotic therapy, but he is on daily steroid therapy for his COPD. MRI completed 12/26/16 did not reveal any new abscess or source of infection. Repeat ESR 93. CRP 73. BRAD studies show severely/moderately diminished blood flow bilaterally. Consider Vascular Surgery consult for evaluation. Continue Vancomycin. Pharmacy to dose. Goal trough approximately 15. Continue Cefepime 2 grams IV Q12H. Continue Flagyl 500mg PO TID. The patient would benefit from being able to use Unasyn as it would cover MSSA as well as Proteus and E. faecalis which grew on his previous wound culture and anaerobes. The patient has a PCN allergy listed, but he is unsure of the type of reaction and states the last time he had PCN was a very long time ago. Recommend consulting Dr. Mcgee for PCN allergy testing in order to minimize nephrotoxins and unnecessary antibiotic exposure. Continue wound care and activity restrictions per the podiatry team. Duration of treatment depends on the clinical picture, but likely 6 weeks of IV antibiotics followed by orals. Monitor renal function and for drug toxicity and dose-adjust antibiotics. creative services writer following for assistance with discharge planning. Avoid insertion of central venous access until blood cultures are negative x 48 hours. Qualifiers: Osteomyelitis type: acute hematogenous Osteomyelitis location: foot Laterality: right Qualified Code(s): M86.071 - Acute hematogenous osteomyelitis, right ankle and foot (3) Gas gangrene Current Visit: Yes Status: Acute Location: Right foot. Soft tissue gas noted on x-ray. Status post I & D 12/24/16. See antibiotics recommendations as above. (4) Cellulitis of leg, right Current Visit: No Status: Inactive Likely secondary to infected DFU and osteomyelitis. Localized to the right foot and lower portion of the RLE up to the mid-mann. Improved. Causative organism likely MSSA given the patient's most recent wound cultures. Continue antibiotics as above. (5) Acute kidney injury Current Visit: Yes Status: Acute Likely secondary to sepsis. Serum creatinine elevated at 1.27 on admission. Worse today at 1.47. The patient 's Vanc trough has been mildly elevated, which could be contributing to the MILI. Will discuss dosing with Clinical Pharmacist. Possible undiagnosed CKD. Continue to trend. Dose-adjust antibiotics and avoid nephrotoxins as able (6) Mass of right lung Current Visit: Yes Status: Inactive CT of the chest 12/19/16 showed spiculating RLL mass concerning for malignancy. The patient has an extensive smoking history. Pulmonology consulted. Recommends CT-guided biopsy with possible EBUS to follow. (7) Diabetic foot ulcer Current Visit: Yes Status: Acute Location: Right lateral foot. Wound care per the podiatry team. Qualifiers: Diabetic foot ulcer location: midfoot Diabetes mellitus type: other specified (including WALKER) Laterality: right Non-pressure ulcer stage: with fat layer exposed Qualified Code(s): E13.621 - Other specified diabetes mellitus with foot ulcer; L97.412 - Non-pressure chronic ulcer of right heel and midfoot with fat layer exposed (8) COPD (chronic obstructive pulmonary disease) Current Visit: Yes Status: Chronic Qualifiers: COPD type: chronic bronchitis Chronic bronchitis type: mucopurulent Qualified Code(s): J41.1 - Mucopurulent chronic bronchitis (9) Diabetes mellitus Current Visit: Yes Status: Chronic Hgb A1C 5.7 on admission. Continue aggressive glucose monitoring and management to promote wound healing and prevent re-infection. Qualifiers: Diabetes mellitus type: type 2 Diabetes mellitus complication status: with neurologic complications Diabetes mellitus complication detail: with polyneuropathy Diabetes mellitus correction insulin use: without cake knocker use Qualified Code(s): E11.42 - Type 2 diabetes mellitus with diabetic polyneuropathy (10) Sleep apnea Current Visit: Yes Status: Chronic Uses C-PAP QHS. Qualifiers: Sleep apnea type: obstructive Qualified Code(s): G47.33 - Obstructive sleep apnea (adult) (pediatric) - Subjective Interval history: He should seen and examined. No acute events overnight. Patient states he feels okay today. He complains of chronic pain in his back and shoulders. He denies any fevers, chills, or rigors. Denies any chest pain, and states his shortness of breath and cough are at baseline. He denies any nausea, vomiting, or diarrhea , but states his stool is a little loose this morning. Denies abdominal pain or appetite changes. Denies pain at the surgical site. Denies oral thrush or new skin lesions. Infect Dis PN-Objective Data - Labs CBC & Chem 7: 12/28/16 04:20 12/28/16 04:20 Labs: Laboratory Results - last 24 hr 12/25/16 12/25/16 12/26/16 12:02 16:44 12:08 WBC RBC Hgb Hct MCV MCH MCHC RDW Plt Count MPV Seg Neutrophils % Band Neutrophils % Lymphocytes % Monocytes % Eosinophils % Myelocytes % Neutrophils # Lymphocytes # Monocytes # Eosinophils # Nucleated RBCs/100 WBC Reactive Lymphocytes Platelet Estimate Polychromasia ESR Sodium Potassium Chloride Carbon Dioxide BUN Creatinine Est GFR ( Amer) Est GFR (Non-Af Amer) BUN/Creatinine Ratio Glucose POC Glucose 161 H 134 H 107 H Calculated Osmolality Calcium C-Reactive Protein Vancomycin Trough 12/26/16 12/26/16 12/27/16 16:35 21:20 00:59 WBC RBC Hgb Hct MCV MCH MCHC RDW Plt Count MPV Seg Neutrophils % Band Neutrophils % Lymphocytes % Monocytes % Eosinophils % Myelocytes % Neutrophils # Lymphocytes # Monocytes # Eosinophils # Nucleated RBCs/100 WBC Reactive Lymphocytes Platelet Estimate Polychromasia ESR Sodium Potassium Chloride Carbon Dioxide BUN Creatinine Est GFR ( Amer) Est GFR (Non-Af Amer) BUN/Creatinine Ratio Glucose POC Glucose 195 H 118 H Calculated Osmolality Calcium C-Reactive Protein Vancomycin Trough 24.4 H* 12/27/16 12/27/16 12/27/16 00:59 00:59 00:59 WBC 19.4 H RBC 3.05 L Hgb 8.4 L Hct 26.9 L MCV 88.2 MCH 27.5 L MCHC 31.2 L RDW 15.5 H Plt Count 241 MPV 9.9 Seg Neutrophils % 68.0 Band Neutrophils % 4.0 Lymphocytes % 16.0 Monocytes % 2.0 Eosinophils % 4.0 Myelocytes % 6.0 H Neutrophils # 14.0 H Lymphocytes # 3.1 Monocytes # 0.4 Eosinophils # 0.8 H Nucleated RBCs/100 WBC 0.9 H Reactive Lymphocytes Present A Platelet Estimate Normal Polychromasia 1+ A ESR 93 H Sodium Potassium Chloride Carbon Dioxide BUN Creatinine Est GFR ( Amer) Est GFR (Non-Af Amer) BUN/Creatinine Ratio Glucose POC Glucose Calculated Osmolality Calcium C-Reactive Protein 73 H Vancomycin Trough 12/27/16 12/27/16 00:59 07:20 WBC RBC Hgb Hct MCV MCH MCHC RDW Plt Count MPV Seg Neutrophils % Band Neutrophils % Lymphocytes % Monocytes % Eosinophils % Myelocytes % Neutrophils # Lymphocytes # Monocytes # Eosinophils # Nucleated RBCs/100 WBC Reactive Lymphocytes Platelet Estimate Polychromasia ESR Sodium 134 L Potassium 3.6 Chloride 91 L Carbon Dioxide 32 H BUN 30 H Creatinine 1.47 H Est GFR ( Amer) 57 L Est GFR (Non-Af Amer) 47 L BUN/Creatinine Ratio 20 Glucose 175 H POC Glucose 145 H Calculated Osmolality 288 Calcium 9.2 C-Reactive Protein Vancomycin Trough Cultures: Cultures 12/24/16 16:11 Wound Culture - Final Right Foot Staphylococcus aureus 12/24/16 16:07 Wound Culture - Final Right Foot Staphylococcus aureus 12/24/16 16:08 Surgical Biopsy Culture - Final Right Foot Staphylococcus aureus 12/24/16 16:09 Surgical Biopsy Culture - Final Right Foot - Impressions Impressions Foot MRI 12/26/16 12:43 IMPRESSION: 1. 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 No evidence of associated abscess or sinus tract. 2. Plantar ulcerations at the midfoot. Underlying edema is consistent with cellulitis. No defined abscess. No evidence of osteomyelitis. 3. Patient motion significantly degrades the quality of this exam. D/ / 12/26/2016 20:55:22 Saud Solo MD / sigrid Interpreting Provider: Saud Solo MD Exam - Constitutional Vitals: Temp Pulse Resp BP Pulse Ox 97.9 F 84 16 115/66 98 12/27/16 10:37 12/27/16 10:37 12/27/16 10:37 12/27/16 10:37 12/27/16 10:37 General appearance: cooperative, no acute distress, obese - Head Head exam: Present: atraumatic, normal inspection, normocephalic - Eye Eye exam: Present: EOMI, normal appearance, PERRL Pupils: Present: normal accommodation - ENT ENT exam: Present: mucous membranes moist - Neck Neck exam: Present: normal inspection - Respiratory Respiratory exam: Present: decreased breath sounds (throughout). Absent: rales , respiratory distress, rhonchi, wheezes - Cardiovascular Cardiovascular exam: Present: RRR, +S1, +S2 - GI/Abdominal GI/Abdominal exam: Present: distended (obese), normal bowel sounds, soft. Absent: tenderness - Extremities Exam Extremities exam: Absent: joint swelling, pedal edema, tenderness Additional comments: Right foot dressing with small amount of serous drainage noted on the plantar aspect. Erythema to the RLE improved today. BLE venous stasis dermatitis noted. - Back Exam Back exam: Present: normal inspection Additional comments: Pilonidal cyst noted to the coccyx without erythema, edema, warmth, or drainage. - Neurological Exam Neurological exam: Present: alert, oriented X3 - Psychiatric Psychiatric exam: Present: normal affect, normal mood - Skin Skin exam: Present: dry, intact, normal color, warm Consult Discharge Plan - Plan Referrals: Sidney Martinez MD [Primary Care Provider] - - Attending Attestation I examined this patient and my medical decision-making was reviewed with the PULL OVER MACHINE OPERATOR/PA/Advanced Practice Nurse/Resident Physician. I agree with the documented findings, disposition and treatment plan as described except to the extent set forth below.
--- NOTE | 2016-12-27 13:31 | Arterial Study Report ---
LE Arterial Physiologic Study Patient Name:Jamie Sinha Order Number:[id number] Procedure Date:12/26/2016 Date:1945ge:71 yrs Gender:Male Lt BP:111 / mmHg Rt.BP:110 / mmHgHeart Rate: Location:[facility] Room #: 3A21 Perianesthesia Manager:Maria Oliva Referring MD:Princess Robertson FORM RAISER plastics supervisor:None Reading MD:Eribreto Kendall MD Study Quality:Technically Difficult Primary Indications:Diabetic foot ulcer, pallor of toes of right foot Risk Factors Yes/No Smoker Previous Hypertension Diabetes Hypercholesterolemia Impressions: 1) Bilateral lower extremities waveform demonstrates moderately diminished hemodynamics. 2) Bilateral Ankle Brachial Index demonstrates moderately occlusive disease. Findings LE Arterial Physiologic Exam: PVR: Right: The PVR waveforms are moderately diminished in the right high thigh and right lower thigh and severely diminished in the right calf and right ankle. Left: The PVR waveforms are moderately diminished in the left high thigh, left lower thigh and left calf and severely diminished in the left ankle. Segmental Pressures Side Location Pressure Index Result Right High Thigh 110 0.99 noncompressible Right Above Knee 72 0.65 Moderately Diminished Right Below Knee 72 0.65 Moderately Diminished Right Posterior Tibial 45 0.41 Severely Diminished Right Dorsalis Pedis 63 0.57 Moderately Diminished Left High Thigh 215 1.94 noncompressible Left Above Knee 100 0.90 Normal Left Below Knee 65 0.59 Moderately Diminished Left Posterior Tibial 71 0.64 Moderately Diminished Left Dorsalis Pedis 56 0.50 Severely Diminished Ankle Brachial Index Right Systolic Diastolic BRAD Brachial 110 0.57 Dorsalis Pedis 63 0.57 Posterior Tibial 45 0.41 Left Systolic Diastolic BRAD Brachial 111 0.64 Dorsalis Pedis 56 0.50 Posterior Tibial 71 0.64 Updated by Eriberto Kendall MD on 12/27/2016 1:23:55 PM with Status of Final electronically signed on 12/27/2016 1:24:10 PM with status of Final
[2016-12-27] MEDS: 0.9 % Sodium Chloride 1,000 ML IVC SCH ×2 (15:15→20:44)
[2016-12-27] MEDS: Vancomycin 1,750 MG in D5% in Water 500 ML IVPB SCH (15:15)
--- NOTE | 2016-12-27 15:52 | Internal Med Progress Note ---
Date of Encounter: 12/27/16 Time of Encounter: 09:00 - Assessment and plan (1) DVT prophylaxis Current Visit: Yes Status: Acute Assessment and plan: Heparin subcutaneously (2) Mass of right lung Current Visit: Yes Status: Inactive Assessment and plan: Pulmonology consult saw Patient. Patient needs CT-guided biopsy. However, he is on Plavix before admission. Now Plavix is on hold, will consult interventional radiology to arrange CT biopsy soon. (3) Diabetic foot ulcer Current Visit: No Status: Inactive Assessment and plan: Had the debridement to surgery yesterday. Podiatry consult on case. ID consult on case. Continue antibiotic vanco and cefepime, add flagyl to cover anaerobic. - Patient may need long-term antibiotic treatment. - Vascular study shows PVD, vascular consult. - Leukocytosis is also possibly due to steroid use. - Cont closely monitor pt. 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 Continue home medication. On chronic by mouth steroid and home oxygen. On CPAP during night. Qualifiers: COPD type: chronic bronchitis Chronic bronchitis type: mucopurulent Qualified Code(s): J41.1 - Mucopurulent chronic bronchitis (6) Gas gangrene Current Visit: Yes Status: Acute Assessment and plan: Had debridement by podiatry. On antibiotic with anaerobic coverage. Closely monitor patient. (7) Sleep apnea Current Visit: Yes Status: Chronic Assessment and plan: On CPAP during night Qualifiers: Sleep apnea type: obstructive Qualified Code(s): G47.33 - Obstructive sleep apnea (adult) (pediatric) (8) Peripheral vascular disease Current Visit: Yes Status: Acute Assessment and plan: Will consult vascular surgery. - Time Spent With Patient Greater than 35 minutes - Subjective Interval history: Patient is a 71-year-old male admitted for diabetic foot. Past medical history is significant for diabetes, COPD, hypertension, thyroid disease, and a former smoker. I saw and examined the patient. S/P debridement surgery. He complained of minimal pain on right foot. No fever. No shortness of breath. Vitals are stable. WBC elevated. MRI repeated, no abscess. Podiatry and ID on case. Vascular study shows PVD, vascular consult called by podiatry. Hold plavix day 4 , plan for IR CT guide lung mass biopsy after holding plavix 5-7 days. - Constitutional Vitals: Temp Pulse Resp BP Pulse Ox 97.9 F 84 16 115/66 98 12/27/16 10:37 12/27/16 10:37 12/27/16 10:37 12/27/16 10:37 12/27/16 10:37 General appearance: Present: A&O X 3, no acute distress, answers questions appropriately - Head Head exam: Present: atraumatic, normocephalic - Eye Eye exam: Present: PERRL, conjuntiva pink, sclera anicteric Pupils: Present: PERRL - Neck Neck exam general surgery: Present: supple, trachea midline. Absent: lymphadenopathy - Respiratory Respiratory exam: Present: CTAB. Absent: accessory muscle use, rales, rhonchi, wheezes - Cardiovascular Cardiovascular exam: Present: RRR, +S1, +S2. Absent: diastolic murmur, gallop, rubs, systolic murmur - GI/Abdominal GI/Abdominal exam: Present: normal bowel sounds, soft, no peritoneal signs. Absent: distended, tenderness - Extremities Exam Extremities exam: Present: warm, radial pulses palpable and symetrical. Absent : calf tenderness, cyanotic, pedal edema Additional comments: Rt foot after surgery, well dressed. - Neurological Exam Neurological exam: Present: CN II-XII intact, oriented X3, no focal deficits. Absent: pronater drift, facial droop, speech deficit - Skin Skin exam: Present: dry, intact Internal Medicine: Result - Labs CBC & Chem 7: 12/27/16 00:59 12/27/16 00:59 Labs: Short CBC 12/27/16 Range/Units 00:59 WBC 19.4 H (4.3-11.1) K/mcL Hgb 8.4 L (12.9-16.9) g/dL Hct 26.9 L (37.5-50.1) % Plt Count 241 (140-400) K/mcL Neutrophils # 14.0 H (1.6-8.9) K/mcL BMP 12/27/16 00:59 Sodium 134 L Potassium 3.6 Chloride 91 L Carbon Dioxide 32 H BUN 30 H Creatinine 1.47 H Glucose 175 H Calcium 9.2 - Impressions Impressions Foot MRI 12/26/16 12:43 IMPRESSION: 1. 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 No evidence of associated abscess or sinus tract. 2. Plantar ulcerations at the midfoot. Underlying edema is consistent with cellulitis. No defined abscess. No evidence of osteomyelitis. 3. Patient motion significantly degrades the quality of this exam. D/ / 12/26/2016 20:55:22 Saud Solo MD / sigrid Interpreting Provider: Saud Solo MD Consult Discharge Plan - Plan Referrals: Sidney Martinez MD [Primary Care Provider] -
--- NOTE | 2016-12-27 16:41 | Podiatry Progress Note ---
Date of Encounter: 12/27/16 Time of Encounter: 11:30 - Assessment and Plan (1) Diabetic foot ulcer Current Visit: No Status: Acute Dressing removed at bedside Serous drainage noted cleansed with saline, packed with iodoform packing gauze. 3 strips placed, tags left out of skin for easy removal. 4x4 and kerlex placed Edges of wound appear slightly dusky,BRAD of RLE shows severe disease, will consult and call made to meg[facility]- will see patient this evening- input appreciated Patient was seen per vascular in october, BRAD at that time to RLE, 0.92, significant decrease noted since last exam Continue antibiotic coverage per ID, micro positive for staphylococcus aureus. Will continue packing daily with iodoform until evaluated per vascular and WBC begins to trend down. May need additional intervention, if not, will place wound vac SW to please follow MRI shows no evidence of underlying abscess Foot MRI 12/26/16 12:43 IMPRESSION: 1. 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 No evidence of associated abscess or sinus tract. 2. Plantar ulcerations at the midfoot. Underlying edema is consistent with cellulitis. No defined abscess. No evidence of osteomyelitis. 3. Patient motion significantly degrades the quality of this exam. D/ / 12/26/2016 20:55:22 Saud Solo MD / sigrid Interpreting Provider: Saud Solo MD Qualifiers: Diabetic foot ulcer location: midfoot Diabetes mellitus type: other specified (including WALKER) Laterality: right Non-pressure ulcer stage: with fat layer exposed Qualified Code(s): E13.621 - Other specified diabetes mellitus with foot ulcer; L97.412 - Non-pressure chronic ulcer of right heel and midfoot with fat layer exposed (2) Diabetes mellitus Current Visit: Yes Status: Chronic Qualifiers: Diabetes mellitus type: type 2 Diabetes mellitus complication status: with neurologic complications Diabetes mellitus complication detail: with polyneuropathy Diabetes mellitus alf insulin use: without alf use Qualified Code(s): E11.42 - Type 2 diabetes mellitus with diabetic polyneuropathy Subjective Principal diagnosis: gas gangrene Interval history: Patient s/p right foot incision and drainage, debridement of 5th metatarsal bone , plantar fasciectomy post op day #2. Patient resting comfortably on arrival. Denies any pain at this time. Dressing intact to RLE. Patient sitting up to side of bed. Denies any fevers, chills, n/v or flu like symptoms. Denies any calf pain. Patient had MRI conducted yesterday, no evidence of underlying abscess. BRAD's were significantly decreased per BRAD's conducted yesterday PT 0.41, DP 0.57. Explained significance of findings, explained that we would consult vascular. Patient also states ID was by and also expressed concern of white count, states that she also explained that the MRI looked ok and they they were changing antibiotics. Would continue to monitor. Objective - Vital Signs Vital Signs: Vital Signs Temp Pulse Resp BP Pulse Ox 12/27/16 16:16 97.4 F L 87 16 100/54 96 12/27/16 10:37 97.9 F 84 16 115/66 98 12/27/16 10:13 16 98 12/27/16 09:10 96 12/27/16 08:10 89 16 112/61 96 12/27/16 07:28 97.5 F L 89 16 112/61 96 12/27/16 03:42 16 96 12/27/16 03:09 98.0 F 88 16 121/59 96 12/26/16 23:52 97.8 F 78 14 107/61 93 12/26/16 22:14 16 95 12/26/16 21:24 97.6 F 85 15 120/67 97 Intake and Output 12/27/16 12/27/16 12/27/16 07:59 15:59 23:59 Intake Total 710 / 710 850 / 850 Output Total 0 / 0 350 / 350 575 / 575 Balance 710 / 710 500 / 500 -575 / -575 Intake: IV Fluids 590 / 590 610 / 610 0.9 % Sodium Chloride 1, 490 / 490 510 / 510 000 ML @ 80 mls/hr IVC . [id number] [facility] Rx#: [id number] Maxipime 1,000 MG In 100 / 100 100 / 100 Dextrose 5% (Minibag+) 100 ML 100 ML @ 200 mls/ hr IVPB Q8HR [facility] Rx#: [id number] Oral 120 / 120 240 / 240 Output: Urine 0 / 0 350 / 350 575 / 575 Other: Meal Lunch Percent of Meal Consumed 5% Stool Size Small Stool Consistency soft Stool Color Black # Bowel Movement Diapers 1 Weight 133.7 kg Blood Glucose* 145 155 Patient Weight 12/27/16 23:59 Weight 133.7 kg - Exam Exam: General Examination: CONSTITUTIONAL: Alert, oriented, in no acute distress, non-toxic. EXTREMITIES: Minimal cap refill noted to toes #1 through #4 of right foot , slight pallor, cool to touch, non palpable pulses SKIN: Skin with decreased turgor, decreased subcutaneous tissue, skin thin and shiny with trophic changes associated with comorbidities as described in history.. NEUROLOGIC: Minimal sensation to moderate touch. Loss of protective sensation Surgical site open, slight dusky appearance to surgical line at surgical edge to lateral border of foot. Small amount of maceration noted to plantar edges of surgical line. 2 sutures remain intact to plantar aspect, 3 to lateral aspect. No odor. Minimal serous drainage. No bleeding. Edema present. Minimal warmth, mild erythema. - Lab Result Diagrams: 12/27/16 00:59 12/27/16 00:59 Labs: Abnormal lab results WBC 19.4 K/mcL (4.3-11.1) H 12/27/16 00:59 RBC 3.05 M/mcL (4.19-5.50) L 12/27/16 00:59 Hgb 8.4 g/dL (12.9-16.9) L 12/27/16 00:59 Hct 26.9 % (37.5-50.1) L 12/27/16 00:59 MCH 27.5 pg (28.0-33.3) L 12/27/16 00:59 MCHC 31.2 g/dL (31.6-35.5) L 12/27/16 00:59 RDW 15.5 % (11.5-14.5) H 12/27/16 00:59 Immature Gran % 8.4 % (0-4) H 12/26/16 03:31 Myelocytes % 6.0 % (0) H 12/27/16 00:59 Neutrophils # 14.0 K/mcL (1.6-8.9) H 12/27/16 00:59 Eosinophils # 0.8 K/mcL (0.0-0.6) H 12/27/16 00:59 Nucleated RBCs/100 WBC 0.9 /100 WBC (0) H 12/27/16 00:59 Reactive Lymphocytes Present (Not Present) A 12/27/16 00:59 Polychromasia 1+ (Not Present) A 12/27/16 00:59 ESR 93 mm/hr (0-10) H 12/27/16 00:59 Sodium 134 mEq/L (136-145) L 12/27/16 00:59 Chloride 91 mEq/L (98-109) L 12/27/16 00:59 Carbon Dioxide 32 mEq/L (19-29) H 12/27/16 00:59 BUN 30 mg/dL (8-26) H 12/27/16 00:59 Creatinine 1.47 mg/dL (0.72-1.25) H 12/27/16 00:59 Est GFR ( Amer) 57 (> 60) L 12/27/16 00:59 Est GFR (Non-Af Amer) 47 (> 60) L 12/27/16 00:59 Glucose 175 mg/dL (70-99) H 12/27/16 00:59 POC Glucose 155 (58-89) H 12/27/16 11:40 Hemoglobin A1c 5.7 % (-5.6) H 12/24/16 04:16 C-Reactive Protein 73 mg/L (Less than 5) H 12/27/16 00:59 Albumin 2.7 g/dL (3.5-5.0) L 12/24/16 04:16 Globulin 4.8 g/dL (2.4-3.5) H 12/24/16 04:16 Albumin/Globulin Ratio 0.6 (1.1-2.2) L 12/24/16 04:16 Vancomycin Trough 24.4 mcg/mL (10-20) H* 12/27/16 00:59 Microbiology, Last 48 Hours 12/24/16 16:11 Wound Culture - Final Right Foot Staphylococcus aureus 12/24/16 16:07 Wound Culture - Final Right Foot Staphylococcus aureus 12/24/16 16:08 Surgical Biopsy Culture - Final Right Foot Staphylococcus aureus 12/24/16 16:09 Surgical Biopsy Culture - Final Right Foot Consult Discharge Plan - Plan Referrals: Sidney Martinez MD [Primary Care Provider] -
--- NOTE | 2016-12-27 17:27 | Vascular/Endovasc Consult Note ---
Date of Encounter: 12/27/16 Time of Encounter: 17:24 Assessment and Plan (1) Diabetic foot ulcer Current Visit: Yes Status: Acute Patient has diabetic foot ulcer with diabetic neuropathy. He is a very poor historian and cannot give me any details about the onset of the lesion. The wound is presently being dressed under supervision by podiatry. Qualifiers: Diabetic foot ulcer location: midfoot Diabetes mellitus type: other specified (including WALKER) Laterality: right Non-pressure ulcer stage: with fat layer exposed Qualified Code(s): E13.621 - Other specified diabetes mellitus with foot ulcer; L97.412 - Non-pressure chronic ulcer of right heel and midfoot with fat layer exposed (2) Abnormal CT scan, chest Current Visit: Yes Status: Acute Right lower lobe mass. Patient has not had had biopsy to confirm pathology of this lesion. (3) Acute kidney injury Current Visit: Yes Status: Acute Multifactorial process with antibiotics as well as dehydration and sepsis. We' ll administer Mucomyst and increased IV fluids beginning now in preparation for contrast exposure to our afternoon for angiogram. (4) Peripheral vascular disease Current Visit: Yes Status: Chronic Patient has chronic lower extremity vascular disease with a right limb threatening process. He has multiple risk factors for vascular disease in particular tobacco abuse and diabetes. Due to the ongoing sepsis with increasing white blood cell count and multiple concurrent medical problems I recommended an angiogram to try to rapidly intervene and potentially offer an endovascular approach to improve arterial perfusion to the right foot and lower extremity. Patient is a poor candidate for open vascular surgery at this time. - History of Present Illness Consult date: 12/27/16 Consult reason: Infected and ischemic right foot Chief complaint: Right foot wounds History of present illness: Mr. Sinha is a 71 year old male Who is seen in consultation on III a for evaluation of an ischemic and infected right foot. The patient is a very poor historian. As best I can glean from the chart patient was originally seen on December 19 at the and [place] for infected right foot as well as for pulmonary symptoms. He declined transfer to a [facility] and was adamant about being seen at [facility] in [place]. He then re-presented and was admitted this past weekend. He was noted to have an abnormal CT scan with a right lower lobe lung mass. In addition he was found to have cellulitis and probable osteomyelitis of his right foot. He went on to have formal surgical debridement and fasciectomy on the weekend. Noninvasive studies were repeated and the patient was noted to have worsening clinical appearance of the right foot. Noninvasive studies were performed which showed an ankle-brachial index of 0.57 on the right and 0.64 on the left. In August the patient has had noninvasive studies which showed an ankle-brachial index of 0.92 bilaterally. He has had previous vascular evaluation and interventions by Dr. Rubin. He was last in the clinic to see Dr. Rubin in October and at that time was doing well. According to the information provided to me he has had a change in color with a dusky appearance of the toes 1 through 4 and decreased perfusion of the foot and wound area. Because of his known history of vascular disease and abnormal noninvasive studies vascular surgery was asked to see the patient again at this time for evaluation and potential intervention. Past Med Surg Social Fam HX - Past Medical History Medical history: arthritis, COPD, diabetes, hypertension, thyroid disease, venous stasis, other (JOSR - CPAP at night) Psychiatric history: anxiety - Past Surgical History Surgical History: cataract, cholecystectomy, LE vascular intervention, vascular surgery, other (Knee surgery; right leg spur removal from the fifth metatarsal, rotator cuff repair) - Social History Smoking Status: Former smoker Packs per day: 3-5 Smokeless Tobacco Status: No Alcohol use: rarely Drug use: none Medications and Allergies Allopurinol [Zyloprim] 300 mg PO DAILY 03/02/15 [History] Cholecalciferol (Vitamin D3) [Vitamin D] 2,000 unit PO DAILY 03/02/15 [History] Clopidogrel [Plavix] 75 mg PO DAILY 03/02/15 [History] Docusate [Colace] 200 mg PO TID 03/02/15 [History] FLUoxetine HCl [Prozac] 60 mg PO DAILY 03/02/15 [History] Famotidine [Pepcid] 20 mg PO BID 03/02/15 [History] Ferrous Sulfate 325 mg PO BID 03/02/15 [History] Furosemide [Lasix] 80 mg PO BID 03/02/15 [History] Gabapentin [Neurontin] 1,800 mg PO BID 03/02/15 [History] Ipratropium/Albuterol Neb [Duoneb] 3 ml IH Q6HR 03/02/15 [History] LORazepam [Ativan] 0.5 mg PO TID PRN 03/02/15 [History] Levothyroxine Sodium [Synthroid] 200 mcg PO DAILY 03/02/15 [History] Lovastatin [Altoprev] 20 mg PO DAILY 03/02/15 [History] Magnesium Oxide [Magnesium] 400 mg PO DAILY 03/02/15 [History] Metformin [Glucophage] 850 mg PO BID 03/02/15 [History] Metoprolol [Lopressor] 25 mg PO BID 03/02/15 [History] Multivitamin [Multivitamins] 1 cap PO DAILY 03/02/15 [History] Oxygen 2 l IN DAILY 03/02/15 [History] Potassium Chloride 20 meq PO TID 03/02/15 [History] Roflumilast [Daliresp] 500 mcg PO DAILY 03/02/15 [History] Ropinirole HCl [Requip] 2 mg PO BID 03/02/15 [History] Temazepam 15 mg PO HS 03/02/15 [History] Albuterol Sulfate [Proair Hfa] 2 puff IH Q4H 12/19/16 [History] Ammonium Lactate [Amlactin] 1 appl TP BID 12/19/16 [History] Guaifenesin [Mucinex] 600 mg PO BID 12/19/16 [History] HYDROcodone/Acet 10/325 mg [Matthews 10-325 mg] 1 tab PO Q4HR PRN 12/19/16 [History ] Ipratropium/Albuterol Neb [Duoneb] 3 ml IH Q6HR 12/19/16 [History] Levofloxacin [Levaquin] 750 mg PO DAILY #10 tablet 12/19/16 [Rx] Lidocaine/Hydrocortisone AC [Lidocaine-Hydrocort 3-2.5% Gel] 7 gm RC BID [History] Polyethylene Glycol 3350 [MiraLAX Powder Bulk 17.9 Oz] 17 gm PO DAILY 12/19/16 [ History] PrednisoLONE [Millipred] 10 mg PO DAILY 12/19/16 [History] Spironolactone [Aldactone] 50 mg PO DAILY 12/19/16 [History] Theophylline Anhydrous [Jamal-24] 400 mg PO DAILY 12/19/16 [History] Umeclidinium Brm/Vilanterol Tr [Anoro Ellipta 62.5-25 Mcg INH] 1 puff IH DAILY 12/19/16 [History] metOLazone [Zaroxolyn] 5 mg PO DAILY 12/19/16 [History] BuPROPion [Wellbutrin] 75 mg PO BID 12/24/16 [History] Fluticasone/Salmeterol [Advair 500-50 Diskus] 2 puff IH BID 12/24/16 [History] Ropinirole HCl [Requip] 4 mg PO HS 12/24/16 [History] Allergies doxycycline Allergy (Verified 12/24/16 14:50) Hives Oxycodone [From Percocet] Allergy (Verified 12/24/16 14:50) Swelling of Lip/Tongue/Throat Penicillins [PCN] Allergy (Verified 12/24/16 14:50) Hives codeine Adverse Reaction (Verified 12/19/16 12:27) Flushing meperidine Adverse Reaction (Verified 12/19/16 12:27) Hallucinating morphine Adverse Reaction (Verified 12/19/16 12:27) Nightmare All Systems Review: A 10-system review of systems was performed and is negative for pertinent findings except as documented above in the HPI. Exam Vital Signs, Last 4 Hours Temp Pulse Resp BP Pulse Ox 12/27/16 16:16 97.4 F L 87 16 100/54 96 12/27/16 15:52 16 95 General: Present: Conversant, No Apparent Distress, Well developed, Well nourished, Other (Obese white male) HEENT: Present: Atraumatic, Normocephaly, Trachea midline Neck: Absent: Left Carotid bruit, Right Carotid bruit, Midline deformity, Tracheal deviation Cardiac: Present: Reg Rate and Rhythm, Normal S1 and S2 Lungs: Present: Normal Breath Sounds Neuro: Present: Alert and responsive, No focal deficits noted, Cranial nerves grossly intact, Motor nerves grossly intact Abdomen: Present: Soft, Non-tender, Other (Active bowel sounds. No abdominal bruits. No pelvic bruits.). Absent: Masses Vascular: Present: Capillary refill delayed, Pulse, absent (I do not palpate pedal pulses on either side. I do not palpate popliteal pulse on the right.), Surgical incisions (The patient has surgical incisions on the plantar and medial aspect of the right foot consistent with the recent operation by podiatry for debridement on of the gas gangrene and necrotic tissue 3 days ago.) , Other (The left foot demonstrates thickening of the skin with callus formation. There are no obvious ulcerations of the left foot and ankle.) Skin: Present: No rashes noted on visualized skin Consult Discharge Plan - Plan Referrals: Sidney Martinez MD [Primary Care Provider] -
[2016-12-27 17:49] LABS: INR 1.4; Prothrombin Time 14.9 Seconds (9.4-12.1)
[2016-12-27 17:52] LABS: Activated Partial Thrombo Time 29.2 Seconds (26.0-36.0)
[2016-12-27] MEDS: *HR* Acetylcysteine 20% 600 MG/3 ML ORAL SYRINGE PO SCH (18:20)
[2016-12-28] MEDS: *HR* Heparin 5,000 UNIT/ML VIAL SQ SCH ×4 (00:40→22:00)
[2016-12-28] MEDS: Cefepime HCl 1,000 MG in D5% in Water (Mini-Bag+) 100 ML IVPB SCH ×3 (00:41→22:02)
[2016-12-28] MEDS: Ipratropium/Albuterol Neb 3 ML IH SCH ×5 (03:52→21:53)
[2016-12-28 05:34] LABS: Hematocrit 25.4 % (37.5-50.1); Hemoglobin 7.7 g/dL (12.9-16.9); Mean Corpuscular HGB Conc 30.3 g/dL (31.6-35.5); Mean Corpuscular Hemoglobin 27.3 pg (28.0-33.3); Mean Corpuscular Volume 90.1 fL (83.0-100.0); Mean Platelet Volume 10.4 fL (9.4-12.4); Nucleated Red Blood Cells 2.1 /100 WBC (0); Platelet Count 247 K/mcL (140-400); Red Blood Count 2.82 M/mcL (4.19-5.50); Red Cell Distribution Width 15.8 % (11.5-14.5)
[2016-12-28] MEDS: *HR* HYDROcodone/Acet 10/325 mg TABLET PO PRN ×3 (05:35→21:58)
[2016-12-28] MEDS: Ondansetron 4 MG/2 ML VIAL IVP PRN (05:37)
[2016-12-28 05:59] LABS: BUN/Creatinine Ratio 21 (6-26); Blood Urea Nitrogen 28 mg/dL (8-26); Calcium 8.9 mg/dL (8.6-10.8); Carbon Dioxide 32 mEq/L (19-29); Chloride 93 mEq/L (98-109); Glucose 132 mg/dL (70-99); Osmolality,Calculated 285 (280-300); Potassium 3.6 mEq/L (3.5-4.5); Sodium 134 mEq/L (136-145); eGFR For African Americans > 60 (> 60); eGFR For Non-African Americans 51 (> 60)
[2016-12-28 06:21] LABS: Lymphocytes # 7.7 K/mcL (0.6-4.6); Monocytes # 0.5 K/mcL (0.0-1.3); Neutrophils # 13.1 K/mcL (1.6-8.9); Platelet Estimate Normal (Normal)
[2016-12-28] MEDS: 0.9 % Sodium Chloride 1,000 ML IVC SCH (07:49)
[2016-12-28] MEDS: Insulin LISPRO 300 UNITS/3 ML VIAL SQ SCH ×4 (07:50→21:44)
[2016-12-28] MEDS: Lactobacillus 1 EACH CAP.SPRINK PO SCH (07:55)
[2016-12-28] MEDS: Furosemide 40 MG TABLET PO SCH (07:56)
[2016-12-28] MEDS: Magnesium Oxide 400 MG TABLET PO SCH (07:56)
[2016-12-28] MEDS: metroNIDAZOLE 500 MG TABLET PO SCH ×3 (07:56→21:59)
[2016-12-28] MEDS: Gabapentin 300 MG CAPSULE PO SCH ×2 (07:57→22:01)
[2016-12-28] MEDS: predniSONE 10 MG TABLET PO SCH (07:58)
[2016-12-28] MEDS: FLUoxetine 20 MG CAPSULE PO SCH (07:58)
[2016-12-28] MEDS: Hydrocortisone Rectal 2.5% CRM 28 GM TUBE RC SCH ×2 (07:58→21:59)
[2016-12-28] MEDS: metOLazone 5 MG TABLET PO SCH (07:59)
[2016-12-28] MEDS: rOPINIRole 1 MG TABLET PO SCH ×3 (07:59→22:00)
[2016-12-28] MEDS: *HR* Acetylcysteine 20% 600 MG/3 ML ORAL SYRINGE PO SCH ×2 (08:54→22:00)
[2016-12-28] MEDS: Budesonide/Formoterol 160/4.5 MDI IH SCH ×2 (10:00→21:53)
[2016-12-28] MEDS: Vancomycin 1,750 MG in D5% in Water 500 ML IVPB SCH (11:40)
--- NOTE | 2016-12-28 11:57 | Infectious Disease Progress No ---
Date of Encounter: 12/28/16 Time of Encounter: 11:56 (.) - Assessment and Plan (1) Sepsis Current Visit: Yes Status: Acute The patient had two SIRS criteria on admission. Likely secondary to osteomyelitis of the right foot. Improved. Tachycardia has resolved, but the patient continues to have leukocytosis that is worse this morning. Etiology of worsening leukocytosis unclear. Blood cultures drawn 12/26/16 are pending x 2 sets. Qualifiers: Sepsis type: sepsis due to unspecified organism Qualified Code(s): A41.9 - Sepsis, unspecified organism (2) Osteomyelitis Current Visit: Yes Status: Acute Location: Right foot, lateral aspect of the 5th metatarsal. Causative organism unclear. Superficial and intra-operative culture gram stain show MSSA. Previous superficial wound culture obtained 12/19/16 grew MSSA, P. mirabilis, and E. faecalis. Right foot x-ray completed 12/19/16 showed a soft tissue ulceration to the lateral aspect of the right foot at the level of the residual 5th metatarsal shaft compatible with diabetic ulcer. There was noted to be gas present within the region of the ulceration with possible extension of the gas into the adjacent soft tissues raising the possibility for infection with gas-forming organism. There was also a questionable irregularity and possible mild bony erosive change to the lateral aspect of the residual 5th metatarsal shaft that was concerning for osteomyelitis. Repeat foot x-ray 12/23/16 showed worsening soft tissue ulceration along the lateral aspect of the right foot with increasing soft tissue gas along with possible erosive changes of the 5th metatarsal concerning for osteomyelitis. ESR on admission was >130. No CRP was checked. Podiatry was consulted and took the patient to the OR on 12/24/16 and performed n I & D of the right foot with debridement of the 5th metatarsal bone and plantar fasciectomy. Operative notes reviewed. Large amount of purulent drainage was noted, as well as changes to the bone that was debrided. The patient continues to have leukocytosis despite broad-spectrum IV antibiotic therapy, but he is on daily steroid therapy for his COPD. MRI completed 12/26/16 did not reveal any new abscess or source of infection. Repeat ESR 93. CRP 73. BRAD studies show severely/moderately diminished blood flow bilaterally. Vascular surgery consulted and planning to take the patient for angiogram today. Continue Vancomycin. Pharmacy to dose. Goal trough approximately 15. Continue Cefepime 2 grams IV Q12H. Continue Flagyl 500mg PO TID. The patient would benefit from being able to use Unasyn as it would cover MSSA as well as Proteus and E. faecalis which grew on his previous wound culture and anaerobes. The patient has a PCN allergy listed, but he is unsure of the type of reaction and states the last time he had PCN was a very long time ago. Recommend consulting Dr. Mcgee for PCN allergy testing in order to minimize nephrotoxins and unnecessary antibiotic exposure. Discussed with Dr. Byrd. Continue wound care and activity restrictions per the podiatry team. Duration of treatment depends on the clinical picture, but likely 6 weeks of IV antibiotics followed by orals. Monitor renal function and for drug toxicity and dose-adjust antibiotics. financial services counselor following for assistance with discharge planning. Consult VAT for PICC line placement. Qualifiers: Osteomyelitis type: acute hematogenous Osteomyelitis location: foot Laterality: right Qualified Code(s): M86.071 - Acute hematogenous osteomyelitis, right ankle and foot (3) Gas gangrene Current Visit: Yes Status: Acute Location: Right foot. Soft tissue gas noted on x-ray. Status post I & D 12/24/16. See antibiotics recommendations as above. (4) Cellulitis of leg, right Current Visit: No Status: Inactive Likely secondary to infected DFU and osteomyelitis. Localized to the right foot and lower portion of the RLE up to the mid-mann. Improved. Causative organism likely MSSA given the patient's most recent wound cultures. Continue antibiotics as above. (5) Acute kidney injury Current Visit: Yes Status: Acute Likely secondary to sepsis. Serum creatinine elevated at 1.27 on admission. Stable. The patient's Vanc trough has been mildly elevated, which could be contributing to the MILI. Will discuss dosing with Clinical Pharmacist. Possible undiagnosed CKD. Continue to trend. Dose-adjust antibiotics and avoid nephrotoxins as able (6) Mass of right lung Current Visit: Yes Status: Inactive CT of the chest 12/19/16 showed spiculating RLL mass concerning for malignancy. The patient has an extensive smoking history. Pulmonology consulted. Recommends CT-guided biopsy with possible EBUS to follow. (7) Diabetic foot ulcer Current Visit: Yes Status: Acute Location: Right lateral foot. Wound care per the podiatry team. Qualifiers: Diabetic foot ulcer location: midfoot Diabetes mellitus type: other specified (including WALKER) Laterality: right Non-pressure ulcer stage: with fat layer exposed Qualified Code(s): E13.621 - Other specified diabetes mellitus with foot ulcer; L97.412 - Non-pressure chronic ulcer of right heel and midfoot with fat layer exposed (8) COPD (chronic obstructive pulmonary disease) Current Visit: Yes Status: Chronic Qualifiers: COPD type: chronic bronchitis Chronic bronchitis type: mucopurulent Qualified Code(s): J41.1 - Mucopurulent chronic bronchitis (9) Diabetes mellitus Current Visit: Yes Status: Chronic Hgb A1C 5.7 on admission. Continue aggressive glucose monitoring and management to promote wound healing and prevent re-infection. Qualifiers: Diabetes mellitus type: type 2 Diabetes mellitus complication status: with neurologic complications Diabetes mellitus complication detail: with polyneuropathy Diabetes mellitus chcf insulin use: without chcf use Qualified Code(s): E11.42 - Type 2 diabetes mellitus with diabetic polyneuropathy (10) Sleep apnea Current Visit: Yes Status: Chronic Uses C-PAP QHS. Qualifiers: Sleep apnea type: obstructive Qualified Code(s): G47.33 - Obstructive sleep apnea (adult) (pediatric) (11) Anemia Current Visit: Yes Status: Acute Hgb down to 7.7 this morning. Etiology unclear. No evidence of acute bleeding noted on exam. Further workup and management per the primary team. Qualifiers: Anemia type: unspecified type Qualified Code(s): D64.9 - Anemia, unspecified (12) PAD (peripheral artery disease) Current Visit: Yes Status: Acute ABIs abnormal bilaterally. Vascular Surgery consulted and plan to take the patient for angiogram later today. - Subjective Interval history: Patient seen and examined. No acute events overnight. Patient sitting up in the bedside chair for the exam. Patient states he feels poor today. He complains of chronic pain in his back and shoulders. He denies any fevers, chills, or rigors. Denies any chest pain, and states his shortness of breath and cough are at baseline. He denies any nausea, vomiting, or diarrhea, but states he had three loose stools yesterday. The patient is currently NPO for a BLE angiogram later today. Denies abdominal pain or appetite changes. Denies pain at the surgical site. Denies oral thrush or new skin lesions. Infect Dis PN-Objective Data - Labs CBC & Chem 7: 12/28/16 04:20 12/28/16 04:20 Labs: Laboratory Results - last 24 hr 12/27/16 12/27/16 12/27/16 11:40 16:08 17:36 WBC RBC Hgb Hct MCV MCH MCHC RDW Plt Count MPV Seg Neutrophils % Band Neutrophils % Lymphocytes % Monocytes % Metamyelocytes % Neutrophils # Lymphocytes # Monocytes # Nucleated RBCs/100 WBC Platelet Estimate PT 14.9 H INR 1.4 APTT 29.2 Sodium Potassium Chloride Carbon Dioxide BUN Creatinine Est GFR ( Amer) Est GFR (Non-Af Amer) BUN/Creatinine Ratio Glucose POC Glucose 155 H 168 H Calculated Osmolality Calcium 12/27/16 12/28/16 12/28/16 20:54 04:20 04:20 WBC 22.6 H RBC 2.82 L Hgb 7.7 L Hct 25.4 L MCV 90.1 MCH 27.3 L MCHC 30.3 L RDW 15.8 H Plt Count 247 MPV 10.4 Seg Neutrophils % 54.0 Band Neutrophils % 4.0 Lymphocytes % 34.0 Monocytes % 2.0 Metamyelocytes % 6.0 H Neutrophils # 13.1 H Lymphocytes # 7.7 H Monocytes # 0.5 Nucleated RBCs/100 WBC 2.1 H Platelet Estimate Normal PT INR APTT Sodium 134 L Potassium 3.6 Chloride 93 L Carbon Dioxide 32 H BUN 28 H Creatinine 1.36 H Est GFR ( Amer) > 60 Est GFR (Non-Af Amer) 51 L BUN/Creatinine Ratio 21 Glucose 132 H POC Glucose 125 H Calculated Osmolality 285 Calcium 8.9 Cultures: Cultures 12/26/16 14:37 Blood Culture - Preliminary Peripheral Venipuncture No growth. 12/26/16 14:37 Blood Culture - Preliminary Peripheral Venipuncture No growth. 12/24/16 16:11 Wound Culture - Final Right Foot Staphylococcus aureus 12/24/16 16:07 Wound Culture - Final Right Foot Staphylococcus aureus 12/24/16 16:08 Surgical Biopsy Culture - Final Right Foot Staphylococcus aureus 12/24/16 16:09 Surgical Biopsy Culture - Final Right Foot Exam - Constitutional Vitals: Temp Pulse Resp BP Pulse Ox 102.2 F H 98 18 149/76 93 12/28/16 11:51 12/28/16 11:51 12/28/16 11:51 12/28/16 11:51 12/28/16 11:51 General appearance: cooperative, no acute distress, obese - Head Head exam: Present: atraumatic, normal inspection, normocephalic - Eye Eye exam: Present: EOMI, normal appearance, PERRL Pupils: Present: normal accommodation - ENT ENT exam: Present: mucous membranes dry, mucous membranes moist - Neck Neck exam: Present: normal inspection - Respiratory Respiratory exam: Present: decreased breath sounds (throughout). Absent: rales , respiratory distress, rhonchi, wheezes - Cardiovascular Cardiovascular exam: Present: RRR, +S1, +S2 - GI/Abdominal GI/Abdominal exam: Present: distended (obese), normal bowel sounds, soft. Absent: tenderness - Extremities Exam Extremities exam: Present: pedal edema (1+ RLE). Absent: joint swelling, tenderness Additional comments: Right foot dressing C/D/I. BLE venous stasis dermatitis noted. - Neurological Exam Neurological exam: Present: alert, oriented X3, no focal deficits - Psychiatric Psychiatric exam: Present: normal affect, normal mood - Skin Skin exam: Present: dry, intact, normal color, warm Consult Discharge Plan - Plan Referrals: Sidney Martinez MD [Primary Care Provider] - - Attending Attestation I examined this patient and my medical decision-making was reviewed with the WRAPPER SELECTOR/PA/Advanced Practice Nurse/Resident Physician. I agree with the documented findings, disposition and treatment plan as described except to the extent set forth below.
[2016-12-28] MEDS ORDERED: Aminoglycoside Consult 1 EACH MC ONE (12:00)
--- NOTE | 2016-12-28 13:23 | Podiatry Progress Note ---
Date of Encounter: 12/28/16 Time of Encounter: 12:15 - Assessment and Plan (1) Gas gangrene Current Visit: Yes Status: Acute patient is s/p I&D of the right foot, debridement of bone and plantar fasciectomy. His wbc count remains elevated. cultures have grown MSSA for which he is on antibiotic coverage and infectious disease is following. MRI after surgery was negative for any further abscess, while he does have a soft tissue infection, it is being treated with antibiotics (cefepime, vanco, previously clindamycin now flagyl), he has been seen by infectious disease, there is no purulence, no intense or worsened erythema of the right foot, MRI negative for any remaining abscess, I question that this elevated wbc count continues to come from his right foot and not another source or his chronic steroid use. (2) Diabetic foot ulcer Current Visit: No Status: Inactive awaiting angiogram. change in his vascular studies compared to aug 2016. foot is cool to touch in areas. will monitor dusky changes and allow to demarcate. patient aware the skin may turn necrotic and require debriement. MRI was negative for any abscess. he understands that he is still high risk for limb/ partial foot loss. c/w IV antibiotics per ID. flush packed today, no purulence expressed. Qualifiers: Diabetic foot ulcer location: other Diabetes mellitus type: type 2 Laterality: right Non-pressure ulcer stage: with necrosis of bone Qualified Code(s): E11.621 - Type 2 diabetes mellitus with foot ulcer; L97.514 - Non- pressure chronic ulcer of other part of right foot with necrosis of bone Subjective Principal diagnosis: gas gangrene Interval history: saw patient today with nurse practicioner. patient is s/p incision and drainage of right foot 12/24/16 for gas gangrene and debridement of 5th metatarsal bone. patient found to have worsening vascular disease compared to august of 2016 and will be undergoing angiogram today with Dr. Collins. His wbc level continues to be elevated and MRI performed with further abscess identified. Infectious disease has seen the patient. He is also being worked up for a lesion on his lung. He denies f/c/v. He does have a recorded fever this afternoon. Does report feeling nauseous at times. Objective - Vital Signs Vital Signs: Vital Signs Temp Pulse Resp BP Pulse Ox 12/28/16 11:51 102.2 F H 98 18 149/76 93 12/28/16 11:42 97.8 F 78 107/61 12/28/16 11:41 97.8 F 71 16 103/55 97 12/28/16 10:00 20 94 12/28/16 09:20 97.9 F 73 20 111/65 93 12/28/16 07:31 97.9 F 75 16 101/61 95 12/28/16 03:52 18 97 12/28/16 03:44 98.4 F 97 13 112/64 93 12/27/16 23:35 97.6 F 71 16 127/74 97 12/27/16 22:28 18 97 12/27/16 19:10 98.6 F 83 14 128/68 98 12/27/16 16:16 97.4 F L 87 16 100/54 96 12/27/16 15:52 16 95 Intake and Output 12/27/16 12/28/16 12/28/16 23:59 07:59 15:59 Intake Total 1246 / 1246 1100 / 1100 450 / 450 Output Total 1075 / 1075 0 / 0 350 / 350 Balance 171 / 171 1100 / 1100 100 / 100 Intake: IV Fluids 766 / 766 1100 / 1100 450 / 450 0.9 % Sodium Chloride 1, 166 / 166 1000 / 1000 350 / 350 000 ML @ 100 mls/hr IVC . Q10H [facility] Rx#:[id number] Maxipime 1,000 MG In 100 / 100 100 / 100 100 / 100 Dextrose 5% (Minibag+) 100 ML 100 ML @ 200 mls/ hr IVPB Q8HR [facility] Rx#: [id number] Vancocin 1,750 MG In 500 / 500 Dextrose 5% 500 ML @ 333. 34 mls/hr IVPB Q24H [facility] Rx#:[id number] Oral 480 / 480 0 / 0 Output: Urine 1075 / 1075 0 / 0 350 / 350 Other: Meal NPO Percent of Meal Consumed 10% Stool Size Large Stool Consistency loose liquid Stool Color Brown # Bowel Movements 1 Weight 133.2 kg Blood Glucose* 125 148 168 Patient Weight 12/28/16 23:59 Weight 133.2 kg - Exam Exam: well developed and nourished male in no acute distress Vasc: patient's foot is cool to touch along the plantar aspect including the heel. edema of the right foot. Derm: ulceration lateral foot and surgical incision plantar foot, no purulence was able to be expressed from these sites, bandage has serosanguinous bloody drainage. the plantar and some of the lateral surface have some maceration. there is some dusky changes to the margin of the lateral foot ulceration. minimal faint erythema. no active bleeding. Musc: no pain with palpation plantar foot. no calf pain with squeeze. contracture of digits. Neuro: absent sensation to light touch. - Radiology X-Rays: report reviewed, image reviewed MRIs: report reviewed, image reviewed - Lab Result Diagrams: 12/28/16 04:20 12/28/16 04:20 Labs: Abnormal lab results WBC 22.6 K/mcL (4.3-11.1) H 12/28/16 04:20 RBC 2.82 M/mcL (4.19-5.50) L 12/28/16 04:20 Hgb 7.7 g/dL (12.9-16.9) L 12/28/16 04:20 Hct 25.4 % (37.5-50.1) L 12/28/16 04:20 MCH 27.3 pg (28.0-33.3) L 12/28/16 04:20 MCHC 30.3 g/dL (31.6-35.5) L 12/28/16 04:20 RDW 15.8 % (11.5-14.5) H 12/28/16 04:20 Immature Gran % 8.4 % (0-4) H 12/26/16 03:31 Metamyelocytes % 6.0 % (0) H 12/28/16 04:20 Myelocytes % 6.0 % (0) H 12/27/16 00:59 Neutrophils # 13.1 K/mcL (1.6-8.9) H 12/28/16 04:20 Lymphocytes # 7.7 K/mcL (0.6-4.6) H 12/28/16 04:20 Eosinophils # 0.8 K/mcL (0.0-0.6) H 12/27/16 00:59 Nucleated RBCs/100 WBC 2.1 /100 WBC (0) H 12/28/16 04:20 Reactive Lymphocytes Present (Not Present) A 12/27/16 00:59 Polychromasia 1+ (Not Present) A 12/27/16 00:59 ESR 93 mm/hr (0-10) H 12/27/16 00:59 PT 14.9 Seconds (9.4-12.1) H 12/27/16 17:36 Sodium 134 mEq/L (136-145) L 12/28/16 04:20 Chloride 93 mEq/L (98-109) L 12/28/16 04:20 Carbon Dioxide 32 mEq/L (19-29) H 12/28/16 04:20 BUN 28 mg/dL (8-26) H 12/28/16 04:20 Creatinine 1.36 mg/dL (0.72-1.25) H 12/28/16 04:20 Est GFR (Non-Af Amer) 51 (> 60) L 12/28/16 04:20 Glucose 132 mg/dL (70-99) H 12/28/16 04:20 POC Glucose 168 (58-89) H 12/28/16 11:37 Hemoglobin A1c 5.7 % (-5.6) H 12/24/16 04:16 C-Reactive Protein 73 mg/L (Less than 5) H 12/27/16 00:59 Albumin 2.7 g/dL (3.5-5.0) L 12/24/16 04:16 Globulin 4.8 g/dL (2.4-3.5) H 12/24/16 04:16 Albumin/Globulin Ratio 0.6 (1.1-2.2) L 12/24/16 04:16 Vancomycin Trough 24.4 mcg/mL (10-20) H* 12/27/16 00:59 Microbiology, Last 48 Hours 12/26/16 14:37 Blood Culture - Preliminary Peripheral Venipuncture No growth. 12/26/16 14:37 Blood Culture - Preliminary Peripheral Venipuncture No growth. 12/24/16 16:11 Wound Culture - Final Right Foot Staphylococcus aureus 12/24/16 16:07 Wound Culture - Final Right Foot Staphylococcus aureus 12/24/16 16:08 Surgical Biopsy Culture - Final Right Foot Staphylococcus aureus 12/24/16 16:09 Surgical Biopsy Culture - Final Right Foot Consult Discharge Plan - Plan Referrals: Sidney Martinez MD [Primary Care Provider] -
--- NOTE | 2016-12-28 14:05 | Allergy Consult Note ---
Date of Encounter: 12/28/16 Time of Encounter: 13:30 Assessment and Plan (1) Penicillin allergy Current Visit: Yes Status: Acute 71 year old male currently with osteomyelitis who has a history of penicillin allergy. ID believes patient would benefit from a penicillin derived medication. I would like to skin test and do oral challenge for penicillin however patient must be off steroids for 10-14 days and antihistamines for 5 days. If this is possible then we may try to do the skin test next Sunday if he is still inpatient. If he is discharged then we could do testing as an outpatient. If he is not able to be off steroids but needs penicillin then we could do desensitization. I am unable to do this until 01/08 or 01/09. I spoke with ID and they will keep me updated. I also discussed possible plans with patient. History of Present Illness Consult date: 12/28/16 Reason for consult: Drug allergy History of present illness: This is a 71 year old male admitted for osteomyelitis. Patient reports a penicillin allergy. He does not remember what symptoms he had with this reaction. This episode occurred in his teen years. He does not remember having difficulty breathing with this episode. Past Med Surg Social Fam HX - Past Medical History Medical history: arthritis, COPD, diabetes, hypertension, thyroid disease, venous stasis, other (JOSR - CPAP at night) Psychiatric history: anxiety - Past Surgical History Surgical History: cataract, cholecystectomy, LE vascular intervention, vascular surgery, other (Knee surgery; right leg spur removal from the fifth metatarsal, rotator cuff repair) - Social History Smoking Status: Former smoker Packs per day: 3-5 Smokeless Tobacco Status: No Alcohol use: rarely Drug use: none Medications and Allergies Allopurinol [Zyloprim] 300 mg PO DAILY 03/02/15 [History] Cholecalciferol (Vitamin D3) [Vitamin D] 2,000 unit PO DAILY 03/02/15 [History] Clopidogrel [Plavix] 75 mg PO DAILY 03/02/15 [History] Docusate [Colace] 200 mg PO TID 03/02/15 [History] FLUoxetine HCl [Prozac] 60 mg PO DAILY 03/02/15 [History] Famotidine [Pepcid] 20 mg PO BID 03/02/15 [History] Ferrous Sulfate 325 mg PO BID 03/02/15 [History] Furosemide [Lasix] 80 mg PO BID 03/02/15 [History] Gabapentin [Neurontin] 1,800 mg PO BID 03/02/15 [History] Ipratropium/Albuterol Neb [Duoneb] 3 ml IH Q6HR 03/02/15 [History] LORazepam [Ativan] 0.5 mg PO TID PRN 03/02/15 [History] Levothyroxine Sodium [Synthroid] 200 mcg PO DAILY 03/02/15 [History] Lovastatin [Altoprev] 20 mg PO DAILY 03/02/15 [History] Magnesium Oxide [Magnesium] 400 mg PO DAILY 03/02/15 [History] Metformin [Glucophage] 850 mg PO BID 03/02/15 [History] Metoprolol [Lopressor] 25 mg PO BID 03/02/15 [History] Multivitamin [Multivitamins] 1 cap PO DAILY 03/02/15 [History] Oxygen 2 l IN DAILY 03/02/15 [History] Potassium Chloride 20 meq PO TID 03/02/15 [History] Roflumilast [Daliresp] 500 mcg PO DAILY 03/02/15 [History] Ropinirole HCl [Requip] 2 mg PO BID 03/02/15 [History] Temazepam 15 mg PO HS 03/02/15 [History] Albuterol Sulfate [Proair Hfa] 2 puff IH Q4H 12/19/16 [History] Ammonium Lactate [Amlactin] 1 appl TP BID 12/19/16 [History] Guaifenesin [Mucinex] 600 mg PO BID 12/19/16 [History] HYDROcodone/Acet 10/325 mg [[place] 10-325 mg] 1 tab PO Q4HR PRN 12/19/16 [History ] Ipratropium/Albuterol Neb [Duoneb] 3 ml IH Q6HR 12/19/16 [History] Levofloxacin [Levaquin] 750 mg PO DAILY #10 tablet 12/19/16 [Rx] Lidocaine/Hydrocortisone AC [Lidocaine-Hydrocort 3-2.5% Gel] 7 gm RC BID [History] Polyethylene Glycol 3350 [MiraLAX Powder Bulk 17.9 Oz] 17 gm PO DAILY 12/19/16 [ History] PrednisoLONE [Millipred] 10 mg PO DAILY 12/19/16 [History] Spironolactone [Aldactone] 50 mg PO DAILY 12/19/16 [History] Theophylline Anhydrous [Jamal-24] 400 mg PO DAILY 12/19/16 [History] Umeclidinium Brm/Vilanterol Tr [Anoro Ellipta 62.5-25 Mcg INH] 1 puff IH DAILY 12/19/16 [History] metOLazone [Zaroxolyn] 5 mg PO DAILY 12/19/16 [History] BuPROPion [Wellbutrin] 75 mg PO BID 12/24/16 [History] Fluticasone/Salmeterol [Advair 500-50 Diskus] 2 puff IH BID 12/24/16 [History] Ropinirole HCl [Requip] 4 mg PO HS 12/24/16 [History] Allergies doxycycline Allergy (Verified 12/24/16 14:50) Hives Oxycodone [From Percocet] Allergy (Verified 12/24/16 14:50) Swelling of Lip/Tongue/Throat Penicillins [PCN] Allergy (Verified 12/24/16 14:50) Hives codeine Adverse Reaction (Verified 12/19/16 12:27) Flushing meperidine Adverse Reaction (Verified 12/19/16 12:27) Hallucinating morphine Adverse Reaction (Verified 12/19/16 12:27) Nightmare ROS Allergy - Respiratory cough, dyspnea - Integumentary Integumentary: rash Allergy Exam Initial Vital Signs Temp Pulse Resp BP Pulse Ox 98.2 F 83 14 138/68 95 12/23/16 19:08 12/23/16 19:08 12/23/16 19:08 12/23/16 19:08 12/23/16 19:08 - General physical appearance no distress - Integumentary other (right foot is bandaged, he has hyperpigmentation and erythema of both shins) Results - Labs 12/28/16 04:20 12/28/16 04:20 Abnormal lab results WBC 22.6 K/mcL (4.3-11.1) H 12/28/16 04:20 RBC 2.82 M/mcL (4.19-5.50) L 12/28/16 04:20 Hgb 7.7 g/dL (12.9-16.9) L 12/28/16 04:20 Hct 25.4 % (37.5-50.1) L 12/28/16 04:20 MCH 27.3 pg (28.0-33.3) L 12/28/16 04:20 MCHC 30.3 g/dL (31.6-35.5) L 12/28/16 04:20 RDW 15.8 % (11.5-14.5) H 12/28/16 04:20 Immature Gran % 8.4 % (0-4) H 12/26/16 03:31 Metamyelocytes % 6.0 % (0) H 12/28/16 04:20 Myelocytes % 6.0 % (0) H 12/27/16 00:59 Neutrophils # 13.1 K/mcL (1.6-8.9) H 12/28/16 04:20 Lymphocytes # 7.7 K/mcL (0.6-4.6) H 12/28/16 04:20 Eosinophils # 0.8 K/mcL (0.0-0.6) H 12/27/16 00:59 Nucleated RBCs/100 WBC 2.1 /100 WBC (0) H 12/28/16 04:20 Reactive Lymphocytes Present (Not Present) A 12/27/16 00:59 Polychromasia 1+ (Not Present) A 12/27/16 00:59 ESR 93 mm/hr (0-10) H 12/27/16 00:59 PT 14.9 Seconds (9.4-12.1) H 12/27/16 17:36 Sodium 134 mEq/L (136-145) L 12/28/16 04:20 Chloride 93 mEq/L (98-109) L 12/28/16 04:20 Carbon Dioxide 32 mEq/L (19-29) H 12/28/16 04:20 BUN 28 mg/dL (8-26) H 12/28/16 04:20 Creatinine 1.36 mg/dL (0.72-1.25) H 12/28/16 04:20 Est GFR (Non-Af Amer) 51 (> 60) L 12/28/16 04:20 Glucose 132 mg/dL (70-99) H 12/28/16 04:20 POC Glucose 168 (58-89) H 12/28/16 11:37 Hemoglobin A1c 5.7 % (-5.6) H 12/24/16 04:16 C-Reactive Protein 73 mg/L (Less than 5) H 12/27/16 00:59 Albumin 2.7 g/dL (3.5-5.0) L 12/24/16 04:16 Globulin 4.8 g/dL (2.4-3.5) H 12/24/16 04:16 Albumin/Globulin Ratio 0.6 (1.1-2.2) L 12/24/16 04:16 Vancomycin Trough 24.4 mcg/mL (10-20) H* 12/27/16 00:59 Diabetes panel 12/28/16 Range/Units 04:20 Sodium 134 L (136-145) mEq/L Potassium 3.6 (3.5-4.5) mEq/L Chloride 93 L (98-109) mEq/L Carbon Dioxide 32 H (19-29) mEq/L BUN 28 H (8-26) mg/dL Creatinine 1.36 H (0.72-1.25) mg/dL Glucose 132 H (70-99) mg/dL Calcium 8.9 (8.6-10.8) mg/dL Calcium panel 12/28/16 Range/Units 04:20 Calcium 8.9 (8.6-10.8) mg/dL Pituitary panel 12/28/16 Range/Units 04:20 Sodium 134 L (136-145) mEq/L Potassium 3.6 (3.5-4.5) mEq/L Chloride 93 L (98-109) mEq/L Carbon Dioxide 32 H (19-29) mEq/L BUN 28 H (8-26) mg/dL Creatinine 1.36 H (0.72-1.25) mg/dL Glucose 132 H (70-99) mg/dL Calcium 8.9 (8.6-10.8) mg/dL Adrenal panel 12/28/16 Range/Units 04:20 Sodium 134 L (136-145) mEq/L Potassium 3.6 (3.5-4.5) mEq/L Chloride 93 L (98-109) mEq/L Carbon Dioxide 32 H (19-29) mEq/L BUN 28 H (8-26) mg/dL Creatinine 1.36 H (0.72-1.25) mg/dL Glucose 132 H (70-99) mg/dL Calcium 8.9 (8.6-10.8) mg/dL All other labs normal. Consult Discharge Plan - Plan Referrals: Sidney Martinez MD [Primary Care Provider] -
--- NOTE | 2016-12-28 14:10 | Pre-Sedation Evaluation ---
Pre-sedation evaluation - Pre-sedation checklist Date of procedure: 12/28/16 Procedure: Aortagram with runoff, possible angioplasty Recent Vitals: Last Vital Signs Temp 97.5 F L 12/28/16 13:38 Pulse 80 12/28/16 13:38 Resp 16 12/28/16 13:38 BP 90/50 12/28/16 13:38 Pulse Ox 95 12/28/16 13:38 H&P (including ROS) documented in medical record: Yes Previous reaction to sedatives/anesthetics: No Dietary Status: NPO after Midnight Dentition: poor dentition Possible difficult airway: Yes ASA Classification *see protocol: CLASS III-Severe systemic disease Plan of Care: Pt appropriate candidate for procedure/moderate/conscious sedation , Risks/benefits of procedure/sedation discussed w/ patient/family
--- NOTE | 2016-12-28 15:11 | Internal Med Progress Note ---
Date of Encounter: 12/28/16 Time of Encounter: 15:01 - Assessment and plan (1) Diabetes mellitus Current Visit: Yes Status: Chronic Assessment and plan: Sliding scale coverage Qualifiers: Diabetes mellitus type: type 2 Diabetes mellitus complication status: with neurologic complications Diabetes mellitus complication detail: with polyneuropathy Diabetes mellitus fdc insulin use: without continuous churn buttermaker use Qualified Code(s): E11.42 - Type 2 diabetes mellitus with diabetic polyneuropathy (2) COPD (chronic obstructive pulmonary disease) Current Visit: Yes Status: Chronic Assessment and plan: Stable. Continue home medication. On chronic by mouth steroid and home oxygen. On CPAP during night. will taper steroids to 5 mg daily, steroids need to be stopped ideally for penicillin allergy testing. Qualifiers: COPD type: chronic bronchitis Chronic bronchitis type: mucopurulent Qualified Code(s): J41.1 - Mucopurulent chronic bronchitis (3) Osteomyelitis Current Visit: Yes Status: Acute Assessment and plan: as per ID:Location: Right foot, lateral aspect of the 5th metatarsal. Causative organism unclear. Superficial and intra-operative culture gram stain show MSSA. Previous superficial wound culture obtained 12/19/16 grew MSSA, P. mirabilis, and E. faecalis. Right foot x-ray completed 12/19/16 showed a soft tissue ulceration to the lateral aspect of the right foot at the level of the residual 5th metatarsal shaft compatible with diabetic ulcer. There was noted to be gas present within the region of the ulceration with possible extension of the gas into the adjacent soft tissues raising the possibility for infection with gas-forming organism. There was also a questionable irregularity and possible mild bony erosive change to the lateral aspect of the residual 5th metatarsal shaft that was concerning for osteomyelitis. Repeat foot x-ray 12/23/16 showed worsening soft tissue ulceration along the lateral aspect of the right foot with increasing soft tissue gas along with possible erosive changes of the 5th metatarsal concerning for osteomyelitis. currently on cefepime and vanco, will start tapering steroids for penicillin allergy testing will follow ID recommendations on antibiotics Qualifiers: Osteomyelitis type: acute hematogenous Osteomyelitis location: foot Laterality: right Qualified Code(s): M86.071 - Acute hematogenous osteomyelitis, right ankle and foot (4) Peripheral vascular disease Current Visit: Yes Status: Chronic Assessment and plan: ABIs abnormal bilaterally. Vascular Surgery consulted and plan to take the patient for angiogram later today. will possible need angioplasty , will follow vascular recommendation (5) Lung mass Current Visit: Yes Status: Acute Assessment and plan: CT of the chest 12/19/16 showed spiculating RLL mass concerning for malignancy. The patient has an extensive smoking history. Pulmonology consulted. s/p biopsy today, follow results and pulmonary recommendation. (6) Diabetic foot ulcer Current Visit: Yes Status: Acute Assessment and plan: Location: Right lateral foot. Wound care per the podiatry team. Qualifiers: Diabetic foot ulcer location: midfoot Diabetes mellitus type: other specified (including WALKER) Laterality: right Non-pressure ulcer stage: with fat layer exposed Qualified Code(s): E13.621 - Other specified diabetes mellitus with foot ulcer; L97.412 - Non-pressure chronic ulcer of right heel and midfoot with fat layer exposed (7) Acute kidney injury Current Visit: Yes Status: Acute Assessment and plan: Likely secondary to sepsis. Continue to trend. Dose-adjust antibiotics and avoid nephrotoxins - Subjective Interval history: patinet seen at the bedside,c/o back pain, planned for angiogram today with DR. Collins. ope episode of fever this afternoon. followed by podiatry, pulmonary, vascular and ID. - Constitutional Vitals: Temp Pulse Resp BP Pulse Ox 97.5 F L 80 16 90/50 95 12/28/16 13:38 12/28/16 13:38 12/28/16 13:38 12/28/16 13:38 12/28/16 13:38 General appearance: Present: A&O X 3, no acute distress, answers questions appropriately Exam: - Head Head exam: Present: atraumatic, normal inspection, normocephalic - Eye Eye exam: Present: EOMI, normal appearance, PERRL Pupils: Present: normal accommodation - ENT ENT exam: Present: mucous membranes dry, mucous membranes moist - Neck Neck exam: Present: normal inspection - Respiratory Respiratory exam: Present: decreased breath sounds (throughout). Absent: rales , respiratory distress, rhonchi, wheezes - Cardiovascular Cardiovascular exam: Present: RRR, +S1, +S2 - GI/Abdominal GI/Abdominal exam: Present: distended (obese), normal bowel sounds, soft. Absent: tenderness - Extremities Exam Extremities exam: Present: pedal edema (1+ RLE). Absent: joint swelling, tenderness Additional comments: Right foot dressing C/D/I. BLE venous stasis dermatitis noted. - Neurological Exam Neurological exam: Present: alert, oriented X3, no focal deficits - Psychiatric Psychiatric exam: Present: normal affect, normal mood - Skin Skin exam: Present: dry, intact, normal color, warm Internal Medicine: Result - Labs CBC & Chem 7: 12/28/16 04:20 12/28/16 04:20 Labs: Short CBC 12/28/16 Range/Units 04:20 WBC 22.6 H (4.3-11.1) K/mcL Hgb 7.7 L (12.9-16.9) g/dL Hct 25.4 L (37.5-50.1) % Plt Count 247 (140-400) K/mcL Neutrophils # 13.1 H (1.6-8.9) K/mcL BMP 12/28/16 04:20 Sodium 134 L Potassium 3.6 Chloride 93 L Carbon Dioxide 32 H BUN 28 H Creatinine 1.36 H Glucose 132 H Calcium 8.9 - ABG Interpretation ABG results: PT/INR, D-dimer PT 14.9 Seconds (9.4-12.1) H 12/27/16 17:36 Consult Discharge Plan - Plan Referrals: Sidney Martinez MD [Primary Care Provider] -
[2016-12-28] MEDS ORDERED: *HR* Heparin 10,000 UNIT/10 ML VIAL ONE (15:24)
[2016-12-28] MEDS ORDERED: 0.9 % Sodium Chloride 1,000 ML ONE (15:24)
[2016-12-28] MEDS ORDERED: Heparin 1,000 UNITS/500 mL NS 500 ML ONE (15:24)
--- NOTE | 2016-12-28 15:49 | IR Procedure Note ---
Date of procedure: 12/28/16 Consent Obtained: Verbal consent, Written consent Timeout: Correct patient and procedure verified, Correct site verified, Time out performed, Skin prep completed Local anesthetic: Lidocaine 1% Indications: Right lung mass Procedure Performed: Lung mass biopsy Site/Technique: Right lung bx with 20g. Tolerated well. Results/Findings: No ptx or other acute complication. Tolerated well. Estimated blood loss (cc): 1 Complications: None; Tolerated procedure well Post Procedure Treatment Plan: Monitoring in room
[2016-12-28] MEDS ORDERED: Albuterol 2.5 MG/3 ML NEBULIZER IH ONE (16:12)
[2016-12-28] MEDS ORDERED: *HR* FentaNYL (PF) 100 MCG/2 ML VIAL ONE (16:52)
[2016-12-28] MEDS ORDERED: *HR* Midazolam HCl 2 MG/2 ML VIAL ONE (16:52)
--- NOTE | 2016-12-28 18:39 | Procedure Note ---
Date of procedure: 12/28/16 Pre-op diagnosis: ischemic/infected/osteomyelytic right foot Post-op diagnosis: same Procedure: abdominal aortogram aortogram with bilateral runoff selective right lower leg angiogram right Superficial Femoral balloon angioplasty(6 x 200 mm) right Common iliac stent angioplasty(10 x 25 mm) Anesthesia: MAC Surgeon: Honorio Collins Condition: stable Disposition: floor (patient tolerated procedure well)
--- NOTE | 2016-12-28 18:55 | Invasive Diagnostic Lab Proc ---
Name: Jamie Sinha Date of Study: 12/28/2016 Date: 1945 Ht: 188.0 in Medical Record#: [id number] Age: 71 Wt: 133 lb Gender: Male BSA: 2.56 Order #: [id number] BMI: 37.63 Physicians Performing MD: Honorio Collins MD, FACS Referring MD: Referring MD: Staff Name Position Time In Sites, Karen RT (R) Scrub Brie Rivas RN Prestidigitator Vivien Escobar RN Monitor Indications Claudication Procedures Performed AORTOGRAPHY EXT Bilat S\\T\\I AORTOGRAPHY, ABDOMINAL S\\T\\I FEM/POPL REVAS W/TLA ILIAC REVASC W/STENT CATH PLCMT,3RD ORDER AB/PEL/EX Pre-Procedure Checklist Informed consent is complete signed and on chart. H\\T\\P is on chart. ID band is on and ID verified with patient. Patient NPO for procedure The procedure was described for the patient and questions were answered. Blood Pressure: 103/62 ECG is on chart. Rhythm: NSR with BBB Plan of Care Patient will tolerate the procedure without complications. Adequate level of comfort will be maintained. Hemodynamics will remain stable Patient will recover from procedure without complications. Respiratory function will be maintained. Cardiac rhythm will remain stable. Patient temperature will be maintained. Patient and/or family have verbalized understanding of the procedure. Patient Education Chief Complaint/Reason for Test: Peripheral angiogram Developmental Category: Geriatric (65+ years) Learning Barriers: None Education Needs: Procedure Education Method: Verbal Information Taught: Peripheral angiogram Educational Evaluation: Able to repeat information Intravenous Access Time IV Size Location DC'd Fluid/Drip Rate Units RN 20g 1 08/02" Patent On Arrival Rt Hand 0.9NaCl 25 ml/hr Allergies PCN,CODEINE Oxycodone acetaminophen meperidine morphine doxycycline bactrim Penicillins PCN (penicillin) codeine Vital Signs Time BP Systolic BP Diastolic HR O2 Sats ASA 03:52 PM 92 56 79 94 03:58 PM 102 63 70 96 04:53 PM 05:00 PM 05:00 PM 05:16 PM 05:31 PM 05:46 PM 06:01 PM 06:17 PM 05:18 PM 121 94 67 91 05:23 PM 121 65 65 99 05:28 PM 124 68 77 97 05:33 PM 137 61 92 97 05:38 PM 120 75 76 96 05:43 PM 125 75 85 97 05:48 PM 140 66 69 98 05:53 PM 116 75 67 96 05:58 PM 126 73 78 97 06:03 PM 138 79 86 96 04:48 PM 105 73 69 92 04:53 PM 111 65 66 86 04:58 PM 118 68 67 98 05:03 PM 127 70 97 93 05:08 PM 115 68 82 98 05:13 PM 114 67 70 96 06:09 PM 124 73 67 97 06:13 PM 114 70 64 98 06:18 PM 111 78 75 96 06:23 PM 138 72 67 97 06:28 PM 135 62 63 98 06:33 PM 112 67 79 95 Procedure Medications Time Medication Dose Units Method Route 04:49 PM Oxygen 3 L/min nasal cannula 04:51 PM Versed 1 mg Intravenous 04:51 PM Fentanyl 50 mcg Intravenous 04:59 PM Lidocaine 2% 10 ml Subcutaneous 05:52 PM Heparin 5000 units Intravenous 06:02 PM Fentanyl 50 mcg Intravenous 06:09 PM Versed 1 mg Intravenous 06:33 PM Plavix 150 mg Orally ASA Classification: CLASS III- Severe systemic disease (i.e. prior AMI, diabetes with vascular complications, morbid obesity) Keo Score Preprocedure Postprocedure Activity 2- Moves 4 extremities sustained head lift Activity 2- Moves 4 extremities sustained head lift Circulation 2- SBP +/= 20 points of pre-anesthetic level Circulation 2- SBP +/= 20 points of pre-anesthetic level Consciousness 2- Awake and alert oriented x 3 Consciousness 2- Awake and alert oriented x 3 O2 Saturation 2- Able to maintain O2 satruation of 92% on room air O2 Saturation 2- Able to maintain O2 satruation of 92% on room air Respiratory 2- Able to deep breathe and cough well Respiratory 2- Able to deep breathe and cough well Total Score 10 Total Score 10 Contrast: Isovue 300- 150ml Contrast Amount: 130 ml Fluoro Dose: 1680 mGy Activated Clotting Time Time Drawn ACT (sec) 06:33 PM 186 Procedure Log Time Note Entered By 03:24 PM pt to holding room 3, pt feeling short of breath. O2 being monitored scoates 03:45 PM Patient c/o increased SOB and dizziness, dr. Collins notified. BS195, RTS called for breathing tx. scoates 03:[address] Collins ordered to load the patient scoates 03:57 PM CXR completed scoates 04:48 PM Pt arrived to director geophysical laboratory 2 at 16:48 ejohnson 04:49 PM Case delayed: No ejohnson 04:49 PM Hair removed from procedure site in procedure lab using clippers. Bilateral groin prepped with Chloraprep by Brie Rivas RN, safety strap applied then patient was draped. Skin intact. ejohnson 04:49 PM Physician arrived 16:49 ejohnson 04:49 PM ASA Class CLASS III- Severe systemic disease (i.e. prior AMI, diabetes with vascular complications, morbid obesity) ejohnson 04:49 PM Meet and nicolette completed ejohnson 04:49 PM Sign in performed according to hospital policy. ejohnson 04:49 PM Procedure start 16:49 ejohnson 04:49 PM 16:49 Oxygen at 3 L/min per nasal cannula by Brie Rivas RN ejohnson 04:51 PM 16:51 Versed 1 mg Intravenous Given by Brie Rivas RN ejohnson 04:51 PM 16:51 Fentanyl 50 mcg Intravenous Given by Brie Rivas RN ejohnson 04:53 PM Time: 16:53 Is patient comfortable and pain free?: Yes ejohnson 04:53 PM Time: 16:53LOC: 5 = Fully awake and oriented or at pre-proc level ejohnson 04:57 PM Time out perfomed ejohnson 04:58 PM Nura, Karen RT (R) Position: Scrub Time in: 16:58 ejohnson 04:59 PM Brie Rivas RN Position: Prestidigitator Time in: 16:58 ejohnson 04:59 PM Vivien Escobar RN Position: Monitor Time in: 16:59 ejohnson 04:59 PM 16:59 10 ml Lidocaine 2% to left groin Subcutaneous Given By Honorio Collins MD, FACS ejohnson 05:00 PM Time: 17:00 Is patient comfortable and pain free?: Yes scoates 05:00 PM Time: 17:00LOC: 4 = Oriented but drowsy scoates 05:01 PM Access obtained in the left femoral artery by percutaneous puncture. 5 Fr. 10 cm Terumo [place] sheath placed in left femoral artery scoates 04:50 PM breathing treatment completed scoates 05:02 PM 3mls of contrast hand injected scoates 05:04 PM 5Fr [place] catheter inserted scoates 05:04 PM catheter removed scoates 05:05 PM 5Fr Short pigtail catheter inserted scoates 05:05 PM 4mls of contrast hand injected scoates 05:05 PM Abdominal aorta angiography performed in AP contrast injected 10/25 mls. scoates 05:08 PM Setting up for stepping scoates 05:10 PM Abdominal angiogram with runoff completed: 6 ml/sec for a total of 60 mls scoates 05:16 PM Time: 17:00LOC: 4 = Oriented but drowsy scoates 05:16 PM Time: 17:00 Is patient comfortable and pain free?: Yes scoates 05:16 PM physician reviewing films scoates 05:18 PM Descending aorta angiography performed in AP contrast injected 8/12 mls. scoates 05:23 PM 4mls of contrast hand injected scoates 05:24 PM Catheter removed scoates 05:25 PM 5Fr Omniflush catheter inserted scoates 05:26 PM 0.035 Glidewire Angled 260cm guidewire advanced. scoates 05:26 PM Guide wire removed intact scoates 05:27 PM jwire removed scoates 05:28 PM Sheath exchanged for a 7 Fr 45 cm Terumo [place] sheath inserted into left femoral artery scoates 05:30 PM 5Fr 100cm Glidecath Angled-Taper guide catheter advanced scoates 05:30 PM wire removed scoates 05:30 PM long glidewire reinserted scoates 05:31 PM Time: 17:16 Is patient comfortable and pain free?: Yes scoates 05:31 PM Time: 17:16LOC: 4 = Oriented but drowsy scoates 05:39 PM 3mls of contrast hand injected scoates 05:41 PM [place] catheter removed intact scoates 05:43 PM 5Fr 135cm [place] guide catheter advanced scoates 05:45 PM guide wire removed intact scoates 05:45 PM 0.014 [place] 14, 18 gram 300cm guidewire advanced. scoates 05:46 PM Time: 17:31 Is patient comfortable and pain free?: Yes scoates 05:46 PM Time: 17:31LOC: 4 = Oriented but drowsy scoates 05:47 PM 3mls of contrast hand injected scoates 05:49 PM victory wire removed intact scoates 05:49 PM long glide wire reinserted scoates 05:52 PM 17:52 Heparin 5000 units Intravenous by Brie Rivas RN scoates 05:52 PM [place] catheter removed intact scoates 05:55 PM 6 mm x 200 mm Gun Numberer balloon catheter placed into right superficial femoral scoates 05:56 PM Diagram Region: Lower Extremity Arteries Anatomical Region: LE-Art80% Lesion in Proximal Right Common Iliac Intervention done: 1 (1=yes, 0=no) scoates 05:56 PM Diagram Region: Lower Extremity Arteries Anatomical Region: LE-Art99% Lesion in Right Superficial Femoral Intervention done: 1 (1=yes, 0=no) scoates 05:57 PM Balloon inflated @ 15 jensen for 120 seconds scoates 06:01 PM Time: 17:46LOC: 4 = Oriented but drowsy scoates 06:01 PM Time: 17:46 Is patient comfortable and pain free?: Yes scoates 06:02 PM 18:02 Fentanyl 50 mcg Intravenous Given by Brie Rivas RN scoates 06:04 PM Balloon inflated @ 15 jensen for 120 seconds scoates 06:06 PM 5mls of contrast hand injected in to RSFA scoates 06:07 PM repositioned balloon to the prox RSFA scoates 06:08 PM Balloon inflated @ 15 jensen for 120 seconds scoates 06:09 PM 18:09 Versed 1 mg Intravenous Given by Brie Rivas RN scoates 06:11 PM 5mls of contrast hand injected into RSFA scoates 06:11 PM Balloon catheter removed in tact scoates 06:12 PM glide catheter reinserted scoates 06:13 PM glide wire removed scoates 06:14 PM 3mls of contrast hand injected into Rt pop scoates 06:15 PM 3mls of contrast hand injected into Rt pop scoates 06:16 PM glide catheter removed scoates 06:17 PM Time: 18:01LOC: 4 = Oriented but drowsy scoates 06:18 PM 3mls contrast hand injected scoates 06:19 PM 3mls of contrast hand injected scoates 06:20 PM jwire reinserted scoates 06:21 PM 10 mm x 25 mm Express Biliary SD stent placed in right common iliac artery Lot # [id number] scoates 06:25 PM Stent deployed @ 12 jensen for 60 seconds scoates 06:27 PM 3mls of contrast hand injected scoates 06:28 PM Stent delivery system removed intact scoates 06:31 PM Procedure completed at 18:31 scoates 06:32 PM Time: 18:17LOC: 4 = Oriented but drowsy scoates 06:32 PM Time: 18:16 Is patient comfortable and pain free?: Yes scoates 06:32 PM Sign Out completed: Radiation Dose 1680 mGy Fluoro Time: 17.1 minutes. Isovue 300- 150ml contrast 130 ml given by Honorio Collins MD, FACS. Complications: None. Confirmed administered medications:Yes scoates 06:32 PM Isovue 300- 150ml,2 bottle(s) used. scoates 06:33 PM Sheath left in place to be pulled on floor/holding area scoates 06:34 PM Time: 18:33 Plavix 150 mg Orally Given by Brie Rivas RN scoates 06:34 PM Post Blood Pressure: 112/67 scoates 06:35 PM Post EKG: NSR w/ bbb scoates 04:47 PM Vitals capture started with the following parameters, Patient=Adult, Interval=5 min, Initial Vbrcnfnu=214 mmHg, Deflation Rate=5 mmHg, Cuff placed on Right Arm 04:47 PM Recorded ECG: HR=67 Condition=Condition 1 04:48 PM HR=69 bpm, BOWR=156/73 mmhg, SpO2=92.0 %, Resp=10 B/min, Comment=SR 04:53 PM HR=66 bpm, QSHA=950/65 mmhg, SpO2=86.0 %, Resp=10 B/min, Comment=SR 04:58 PM HR=67 bpm, AFLM=573/68 mmhg, SpO2=98 %, Resp=23 B/min, Comment=SR 05:03 PM HR=97 bpm, HPIA=327/70 mmhg, SpO2=93.0 %, Comment=SR 05:06 PM Recorded Pressure: Ao, HR=75, Condition=Condition 1 (Aorta) Ao 102/57/73 05:08 PM HR=82 bpm, FZBO=920/68 mmhg, SpO2=98.0 %, Resp=17 B/min 05:08 PM Recorded Pressure: Ao, HR=70, Condition=Condition 1 (Aorta) Ao 102/56/71 05:13 PM HR=70 bpm, CMRP=476/67 mmhg, SpO2=96.0 %, Resp=16 B/min, Comment=SR 05:18 PM HR=67 bpm, YCTF=357/94 mmhg, SpO2=91.0 %, Resp=15 B/min, Comment=SR 05:23 PM HR=65 bpm, ILST=599/65 mmhg, SpO2=99.0 %, Resp=13 B/min, Comment=SR 06:18 PM HR=75 bpm, FTVJ=987/78 mmhg, SpO2=96.0 %, Resp=15 B/min, Comment=SR 06:23 PM HR=67 bpm, NVTG=246/72 mmhg, SpO2=97.0 %, Comment=SR 06:28 PM HR=63 bpm, SWXS=703/62 mmhg, SpO2=98.0 % 06:33 PM HR=79 bpm, XJGM=572/67 mmhg, SpO2=95.0 %, Resp=15 B/min, Comment=SR 06:39 PM PVIStat 05:28 PM HR=77 bpm, DWFE=526/68 mmhg, SpO2=97.0 %, Resp=23 B/min, Comment=SR 05:33 PM HR=92 bpm, BBCB=136/61 mmhg, SpO2=97.0 %, Resp=12 B/min, Comment=SR 05:38 PM HR=76 bpm, OZBR=957/75 mmhg, SpO2=96.0 %, Resp=21 B/min, Comment=SR 05:43 PM HR=85 bpm, JKCV=938/75 mmhg, SpO2=97.0 %, Resp=19 B/min, Comment=SR 05:48 PM HR=69 bpm, URNI=862/66 mmhg, SpO2=98.0 %, Resp=12 B/min, Comment=SR 05:53 PM HR=67 bpm, BQYE=387/75 mmhg, SpO2=96.0 %, Comment=SR 05:58 PM HR=78 bpm, YNAE=013/73 mmhg, SpO2=97.0 %, Resp=11 B/min 06:03 PM HR=86 bpm, FFUT=796/79 mmhg, SpO2=96.0 %, Resp=10 B/min, Comment=SR 06:09 PM HR=67 bpm, ZEHI=631/73 mmhg, SpO2=97.0 %, Resp=10 B/min 06:13 PM HR=64 bpm, UFDJ=757/70 mmhg, SpO2=98.0 %, Resp=5 B/min, Comment=SR 06:39 PM 18:39 Post Pulses: Lt DP 1+. scoates 06:40 PM Information taught: Peripheral angiogram and B[employer] TECH[employer]OLOGY MANAGER scoates 06:40 PM Education needs: Procedure, Plan of Care, and Responsibilities of Patient in Care scoates 06:40 PM Learning barriers: None scoates 06:40 PM Education methods: Verbal scoates 06:40 PM Education evaluation: Able to repeat information scoates 06:40 PM Patient pain level 0/10 scoates 06:40 PM Site status No bleeding/hematoma - Lt Groin as reported by Sites, Karen RT (R) at 18:40 scoates 06:40 PM Opsite applied scoates 06:40 PM Delay to floor: No scoates 06:40 PM Pt taken to Room# 2 scoates 06:40 PM will call patients and update her scoates 06:45 PM Patient out of room 18:45 scoates 06:45 PM Report given to Luigi OLIVEROS. Pt taken to , Room # 2 18:45 scoates Hemodynamic Results Site Systolic Diastolic Mean Location Timing Ao 102 57 73 Ao 102 56 71 Peripheral Anatomy Vessel Pathology Lesion Stenosis Aneurysm Diameter Thrombus Type Right Common Iliac Lesion 80 Right Superficial Femoral Lesion 99 Peripheral Intervention Anatomical Region:LE-Art Vessel Segment:Undefined Bookmark: [email or web address] Pathology Type:Lesion Pre-Stenosis:80 Peripheral Intervention Anatomical Region:LE-Art Vessel Segment:Undefined Bookmark: [email or web address] Pathology Type:Lesion Pre-Stenosis:99 Post Procedure Information Blood Pressure: 112/67 mmHg Rhythm: NSR w/ bbb Post procedure instructions given Report Given To: Danny Manrique Checks Time Location Status Staff Sheath In? Note 6:40:00 PM Lt Groin No bleeding/ No Hematoma Sites, Karen RT (R) Pulses Time Site Pre Procedure Post Procedure Note Right DP unable to assess d/t wound, dressing Left DP 1+ 6:39:00 PM Lt DP 1+ Updated by Vivien Aguilar RN on 12/28/2016 6:48:45 PM electronically signed on 12/28/2016 6:49:14 PM with status of Final
--- NOTE | 2016-12-28 19:24 | Invasive Diagnostic Lab ---
Name: Jamie Sinha Date of Study: 12/28/2016 Date: 1945 Ht: 188.0 in Medical Record#: [id number] Age: 71 Wt: 133 lb Gender: Male BSA: 2.56 Order #: [id number] Fluoro: 1680 mGy BMI: 37.63 Procedure MD: Honorio Collins MD, FACS Referring MD: Alvaro Pelletier DPM Referring MD: Nat Goodwin MD Procedures Performed: AORTOGRAPHY EXT Bilat S\T\I AORTOGRAPHY, ABDOMINAL S\T\I FEM/POPL REVAS W/TLA ILIAC REVASC W/STENT CATH PLCMT,3RD ORDER AB/PEL/EX Indications: Claudication Osteomyelitis of right foot Impressions: The Abdominal aorta is normal in appearance and free of obstructive disease. The bilateral renals have non-significant disease. The Right Common Iliac has significant flow limiting disease. An intervention including stent placement was performed successfully on the Right Common Iliac. The left common iliac has borderline significant disease. No intervention was performed. The right Superficial Femoral and left Superficial Femoral have critically significant, flow limiting diffuse disease. Intervention including balloon angioplasty was performed successfully on the right Superficial Femoral. The Bilateral Tibials have non-significant disease. Recommendations: Optimize medical therapy of patient's disease, including lung mass work up and treatment. 75 mg Plavix PO daily. Aggressive risk factor modification to include, diabetes and obesity. History/ Risk Factors: Diabetes Hypertension Chronic Lung Disease Technique: The puncture of the left groin was difficult and required Doppler-tipped smart-needle in order to identify the femoral vessel and advance the wire. After informed consent was obtained the patient was placed on the angiographic table. The access areas were prepped and draped in the usual sterile fashion. A timeout protocol was observed. Access was obtained in the left femoral artery. The catheter was advanced over a wire to the suprarenal aorta and an abdominal aortogram was obtained. The injection catheter was then repositioned at the distal infrarenal aorta. An aortogram with bilateral lower extremity runoff was then performed and the following additional images were obtained: common iliac and external iliac in oblique views. Critical lesions were seen on the angiogram and a decision was made to proceed to intervention. Diagnostic sheath was exchanged for a 7 Fr. 45 cm. A wire was advanced through the sheath and successfully advanced through the lesion. Heparin was administered. A 6 x 200 mm balloon was advanced over a wire and placed in the critical right SFA lesions. Several inflations were then made. A completion angiogram was performed which demonstrated successful results. The glide catheter was selectively placed into the distal popliteal and the following images were obtained: Right Post. Tibial, Right Ant. Tibial, Right Tibioperoneal Trunk, Right Peroneal, and Right Dorsalis Pedis The sheath was then repositioned into the aortic bifurcation. A 10 x 25 mm balloon expandable stent was advanced into the right common iliac lesion and deployed. A completion angiogram was performed which demonstrated successful results. The sheath will be removed and hemostasis achieved with the following measures: Manual Pressure and Closure pad. Vessel Findings: * Lower Extremity Arteries There is a lesion present with 80% stenosis, in the Proximal Right Common Iliac. The lesion has mild calcification present. An intervention was performed on the Right Common Iliac, with a final stenosis of 0%. There were no complications in the vessel segment during the procedure. There is a lesion present with 99% stenosis, in the Right Superficial Femoral. The lesion has heavy calcification present. An intervention was performed on the Right Superficial Femoral, with a final stenosis of 0%. There were no complications in the vessel segment during the procedure. There is a lesion present with 60% stenosis, in the Proximal Left Common Iliac. No intervention was performed on this Lesion. There is a lesion present with 99% stenosis in the Left Superficial Femoral. No intervention was performed on this lesion. Lesions: Proximal Right Common Iliac Stenosis: 80% Residual Stenosis: 0% Right Superficial Femoral Stenosis: 99% Residual Stenosis: 0% Proximal Left Common Iliac Stenosis: 60% Left Superficial Femoral Stenosis 99% Total Contrast: Isovue 300- 150ml 130mls Hemodynamic Data Site Location Systolic Timing Ao 102 Ao 102 Updated by Honorio Collins MD, FACS on 12/28/2016 7:11:41 PM Honorio Collins MD electronically signed on 12/28/2016 7:18:29 PM with status of Final
[2016-12-28] MEDS ORDERED: *HR* Atropine Sulfate 1 MG/10 ML SYRINGE ONE (20:06)
[2016-12-29 03:28] LABS: Hematocrit 28.1 % (37.5-50.1); Hemoglobin 8.5 g/dL (12.9-16.9); Mean Corpuscular HGB Conc 30.2 g/dL (31.6-35.5); Mean Corpuscular Hemoglobin 28.2 pg (28.0-33.3); Mean Corpuscular Volume 93.4 fL (83.0-100.0); Mean Platelet Volume 10.7 fL (9.4-12.4); Nucleated Red Blood Cells 2.6 /100 WBC (0); Platelet Count 248 K/mcL (140-400); Red Blood Count 3.01 M/mcL (4.19-5.50)
[2016-12-29 03:38] LABS: Calcium 8.6 mg/dL (8.6-10.8)
[2016-12-29 03:40] LABS: Potassium 4.7 mEq/L (3.5-4.5)
[2016-12-29] MEDS: Ipratropium/Albuterol Neb 3 ML IH SCH ×4 (03:46→22:35)
[2016-12-29 03:56] LABS: Eosinophils # 0.3 K/mcL (0.0-0.6); Lymphocytes # 3.4 K/mcL (0.6-4.6); Monocytes # 1.2 K/mcL (0.0-1.3); Neutrophils # 18.9 K/mcL (1.6-8.9); Platelet Estimate Normal (Normal)
[2016-12-29 03:57] LABS: Hypochromasia Present (Not Present); Macrocytosis Present (Not Present); Polychromasia 1+ (Not Present)
[2016-12-29] MEDS: 0.9 % Sodium Chloride 1,000 ML IVC SCH ×3 (04:00→12:32)
[2016-12-29] MEDS: Cefepime HCl 1,000 MG in D5% in Water (Mini-Bag+) 100 ML IVPB SCH (06:34)
[2016-12-29] MEDS: rOPINIRole 1 MG TABLET PO SCH ×2 (08:57→16:19)
[2016-12-29] MEDS: Lactobacillus 1 EACH CAP.SPRINK PO SCH (08:58)
[2016-12-29] MEDS: predniSONE 10 MG TABLET PO SCH (09:00)
[2016-12-29] MEDS: FLUoxetine 20 MG CAPSULE PO SCH (09:01)
[2016-12-29] MEDS: Magnesium Oxide 400 MG TABLET PO SCH (09:02)
[2016-12-29] MEDS: metroNIDAZOLE 500 MG TABLET PO SCH (09:02)
[2016-12-29] MEDS: Furosemide 40 MG TABLET PO SCH (09:03)
[2016-12-29] MEDS: metOLazone 5 MG TABLET PO SCH (09:04)
[2016-12-29] MEDS: Insulin LISPRO 300 UNITS/3 ML VIAL SQ SCH ×3 (09:05→16:20)
[2016-12-29] MEDS: *HR* Heparin 5,000 UNIT/ML VIAL SQ SCH ×2 (09:05→16:19)
[2016-12-29] MEDS: Gabapentin 300 MG CAPSULE PO SCH (09:05)
[2016-12-29] MEDS: *HR* Acetylcysteine 20% 600 MG/3 ML ORAL SYRINGE PO SCH (09:05)
--- NOTE | 2016-12-29 09:24 | Internal Med Progress Note ---
Date of Encounter: 12/29/16 Time of Encounter: 09:21 - Assessment and plan (1) Diabetic foot ulcer Current Visit: Yes Status: Acute Assessment and plan: Patient was admitted with cellulitis and diabetic foot ulcer on right plantar foot. X-rays of right foot showed ulcer over the right fifth metatarsal along with possible gas. Patient has been on broad-spectrum IV antibiotics. Patient underwent incision and drainage, debridement of fifth metatarsal, plantar fasciectomy on 12/24/2016 by podiatry. Follow-up MRI on 12/26/2016 showed no evidence of osteomyelitis or new abscesses at postop site. Patient was also seen by vascular surgery and underwent right lower extremity angioplasty on 12/28/2016. Infectious diseases on board for assistance with antibiotic therapy. Patient currently is improving clinically but continues to have worsening leukocytosis. Wound cultures during this admission grow MSSA. Case discussed with ID, antibiotics are changed to IV Unasyn today. He has a documented allergy to penicillin although unclear of the nature of reaction and this has been a very long time ago during his childhood. Given his worsening renal function, it would be prudent to hold vancomycin at this time. Continue to watch for hypersensitivity reaction while on penicillin. Plan for podiatry to take patient back to or today for further debridement and amputation of fifth metatarsal. Qualifiers: Diabetic foot ulcer location: midfoot Diabetes mellitus type: other specified (including WALKER) Laterality: right Non-pressure ulcer stage: with fat layer exposed Qualified Code(s): E13.621 - Other specified diabetes mellitus with foot ulcer; L97.412 - Non-pressure chronic ulcer of right heel and midfoot with fat layer exposed (2) Diabetes mellitus Current Visit: Yes Status: Chronic Assessment and plan: Accu-Chek blood glucose monitoring with basal bolus insulin regimen. Diabetic diet. Qualifiers: Diabetes mellitus type: type 2 Diabetes mellitus complication status: with neurologic complications Diabetes mellitus complication detail: with polyneuropathy Diabetes mellitus mcc insulin use: without mcc use Qualified Code(s): E11.42 - Type 2 diabetes mellitus with diabetic polyneuropathy (3) COPD (chronic obstructive pulmonary disease) Current Visit: Yes Status: Chronic Assessment and plan: Not in acute exacerbation. Noted to be on low-dose steroids at home, currently decreased to 5 mg daily. Continue when necessary bronchodilators and supplemental oxygen. Noted to be on home oxygen. Qualifiers: COPD type: chronic bronchitis Chronic bronchitis type: mucopurulent Qualified Code(s): J41.1 - Mucopurulent chronic bronchitis (4) Sleep apnea Current Visit: Yes Status: Chronic Assessment and plan: Continue CPAP at night. Qualifiers: Sleep apnea type: obstructive Qualified Code(s): G47.33 - Obstructive sleep apnea (adult) (pediatric) (5) Sepsis Current Visit: Yes Status: Resolved Assessment and plan: Sepsis secondary to right diabetic foot ulcer/osteomyelitis/cellulitis. Improved overall except persistent leukocytosis. Qualifiers: Sepsis type: methicillin susceptible Staphylococcus aureus Qualified Code(s ): A41.01 - Sepsis due to Methicillin susceptible Staphylococcus aureus (6) Osteomyelitis Current Visit: Yes Status: Acute Assessment and plan: Continue IV Unasyn for now. Wound cultures grew MSSA. Podiatry and infectious diseases on board. Plan for further debridement/amputation of fifth metatarsal of right foot today. Qualifiers: Osteomyelitis type: acute hematogenous Osteomyelitis location: foot Laterality: right Qualified Code(s): M86.071 - Acute hematogenous osteomyelitis, right ankle and foot (7) Acute kidney injury Current Visit: Yes Status: Acute Assessment and plan: Serum creatinine noted to be worsening along with hyperkalemia. Could be related to use of vancomycin along with underlying sepsis. Hold vancomycin and avoid nephrotoxic agents. Dose medications according to current creatinine clearance. (8) Peripheral vascular disease Current Visit: Yes Status: Chronic Assessment and plan: Vascular surgery on board. Patient underwent right superficial femoral and common iliac balloon angioplasty on 12/28/2016. Continue Plavix. (9) Penicillin allergy Current Visit: Yes Status: Chronic Assessment and plan: Patient seen by allergy/immunology. Penicillin allergy could not be tested at this time due to patient being on chronic steroid therapy. (10) Lung mass Current Visit: Yes Status: Chronic Assessment and plan: Patient underwent CT-guided biopsy of right lower lobe lung mass yesterday, pathology results pending. - Subjective Interval history: Reports feeling okay. Has numbness in both his feet and lower legs due to PAD and does not really c/o- right foot pain, does have chronic back pain; no nausea , vomiting, diarrhea, abdominal pain; no urinary complaints; - Constitutional Vitals: Temp Pulse Resp BP Pulse Ox 97.5 F L 60 18 127/60 94 12/29/16 07:09 12/29/16 07:09 12/29/16 07:09 12/29/16 07:09 12/29/16 07:09 General appearance: Present: A&O X 3, no acute distress, obese, answers questions appropriately - Respiratory Respiratory exam: Present: CTAB, wheezes (mild end-expiratory wheezing). Absent : accessory muscle use, rales, rhonchi - Cardiovascular Cardiovascular exam: Present: RRR, +S1, +S2. Absent: diastolic murmur, gallop, rubs, systolic murmur - GI/Abdominal GI/Abdominal exam: Present: normal bowel sounds, soft (obese), no peritoneal signs. Absent: distended, tenderness - Extremities Exam Extremities exam: Present: full ROM, pedal edema, warm, radial pulses palpable and symetrical. Absent: calf tenderness, cyanotic Additional comments: right foot in surgical dressing; dry and intact; - Neurological Exam Neurological exam: Present: CN II-XII intact, oriented X3, no focal deficits. Absent: pronater drift, facial droop, speech deficit Internal Medicine: Result - Labs CBC & Chem 7: 12/29/16 03:16 12/29/16 03:16 Labs: Short CBC 12/29/16 Range/Units 03:16 WBC 24.6 H (4.3-11.1) K/mcL Hgb 8.5 L (12.9-16.9) g/dL Hct 28.1 L (37.5-50.1) % Plt Count 248 (140-400) K/mcL Neutrophils # 18.9 H (1.6-8.9) K/mcL BMP 12/29/16 03:16 Sodium 131 L Potassium 4.7 H D Chloride 95 L Carbon Dioxide 23 BUN 32 H Creatinine 1.72 H Glucose 133 H Calcium 8.6 - ABG Interpretation ABG results: PT/INR, D-dimer PT 14.9 Seconds (9.4-12.1) H 12/27/16 17:36 - Impressions Impressions Lung Biopsy CT 12/28/16 00:00 IMPRESSION: Successful CT guided core biopsy of a right lower lobe lung mass. D/ / Margarito Perez MD / Margarito Perez MD Interpreting Provider: Margarito Perez MD Chest X-Ray 12/28/16 17:00 IMPRESSION: No evidence of pneumothorax status post biopsy. Right lower lobe pulmonary masses measuring approximately 3.9 x 2.7 cm in approximate size better seen on recent prior CT. Right perispinal mass corresponding to the mixed fat and soft tissue attenuation mass seen in the right paraspinal region on prior PET-CT. D/ / 12/28/2016 16:37:40 Robe Marcos MD / matthew Interpreting Provider: Robe Marcos MD Consult Discharge Plan - Plan Referrals: Sidney Martinez MD [Primary Care Provider] - (Dr. Martinez does home visits for this patient) Honorio Collins MD [Partnered Physician] - 01/15/17 9:30 am (this appointment is in [place])
[2016-12-29] MEDS: Budesonide/Formoterol 160/4.5 MDI IH SCH ×2 (10:04→22:35)
--- NOTE | 2016-12-29 10:24 | Infectious Disease Progress No ---
Date of Encounter: 12/29/16 Time of Encounter: 10:21 - Assessment and Plan (1) Sepsis Current Visit: Yes Status: Acute The patient had two SIRS criteria on admission. Likely secondary to osteomyelitis of the right foot. Improved. Tachycardia has resolved, but the patient continues to have leukocytosis that is worse again this morning. Etiology of worsening leukocytosis unclear. Blood cultures drawn 12/26/16 are NGTD x 2 sets. Qualifiers: Sepsis type: sepsis due to unspecified organism Qualified Code(s): A41.9 - Sepsis, unspecified organism (2) Osteomyelitis Current Visit: Yes Status: Acute Location: Right foot, lateral aspect of the 5th metatarsal. Causative organism MSSA per intra-operative culture. Previous superficial wound culture obtained 12/19/16 grew MSSA, P. mirabilis, and E. faecalis. Right foot x-ray completed 12/19/16 showed a soft tissue ulceration to the lateral aspect of the right foot at the level of the residual 5th metatarsal shaft compatible with diabetic ulcer. There was noted to be gas present within the region of the ulceration with possible extension of the gas into the adjacent soft tissues raising the possibility for infection with gas-forming organism. There was also a questionable irregularity and possible mild bony erosive change to the lateral aspect of the residual 5th metatarsal shaft that was concerning for osteomyelitis. Repeat foot x-ray 12/23/16 showed worsening soft tissue ulceration along the lateral aspect of the right foot with increasing soft tissue gas along with possible erosive changes of the 5th metatarsal concerning for osteomyelitis. ESR on admission was >130. No CRP was checked. Podiatry was consulted and took the patient to the OR on 12/24/16 and performed n I & D of the right foot with debridement of the 5th metatarsal bone and plantar fasciectomy. Operative notes reviewed. Large amount of purulent drainage was noted, as well as changes to the bone that was debrided. The patient continues to have worsening leukocytosis despite broad-spectrum IV antibiotic therapy, but he is on daily steroid therapy for his COPD. Given the persistent rise in his WBC, I am concerned that there may be a source control issue. MRI completed 12/26/16 did not reveal any new abscess. Repeat ESR 93. CRP 73. Per the patient and nursing, the patient is being taken back to surgery per podiatry for additional surgical procedure later today. Discontinue Vancomycin, Cefepime, and Flagyl. Start Unasyn 3 grams IV Q8H. The patient does have an allergy listed to PCN, but he reports this was back when he took it as a child and he is unsure of the reaction he had. The likelihood that the patient has a true allergy to PCN is low. He has tolerated Cefepime without a problem. We will start Unasyn and monitor the patient very closely. This will allow us to minimize the use of multiple antibiotics and eliminate the need for Vanc while still covering the bacteria that has been found recently in the patient's wound. We are unable to perform PCN allergy testing at this time due to the patient being on chronic steroids. If the patient exhibits signs of allergic reaction, discontinue Unasyn and re-start prior antibiotics. Discussed with Dr. Coker. Continue wound care and activity restrictions per the podiatry team. Duration of treatment depends on the clinical picture, but likely 6 weeks of IV antibiotics followed by orals. Monitor renal function and for drug toxicity and dose-adjust antibiotics. park services specialist following for assistance with discharge planning. Consult VAT for PICC line placement when closer to discharge. Qualifiers: Osteomyelitis type: acute hematogenous Osteomyelitis location: foot Laterality: right Qualified Code(s): M86.071 - Acute hematogenous osteomyelitis, right ankle and foot (3) Gas gangrene Current Visit: Yes Status: Acute Location: Right foot. Soft tissue gas noted on x-ray. Status post I & D 12/24/16. See antibiotics recommendations as above. (4) Cellulitis of leg, right Current Visit: No Status: Resolved Likely secondary to infected DFU and osteomyelitis. Localized to the right foot and lower portion of the RLE up to the mid-mann. Resolved. Causative organism likely MSSA given the patient's most recent wound cultures. Continue antibiotics as above. (5) Acute kidney injury Current Visit: Yes Status: Acute Likely secondary to sepsis. Serum creatinine elevated at 1.27 on admission. A little worse this morning, but this is likely secondary to IV contrast received yesterday. The patient's Vanc trough has been mildly elevated, which could be contributing to the MILI as well. Possible undiagnosed CKD. Continue to trend. Dose-adjust antibiotics and avoid nephrotoxins as able. (6) Mass of right lung Current Visit: Yes Status: Inactive CT of the chest 12/19/16 showed spiculating RLL mass concerning for malignancy. The patient has an extensive smoking history. Pulmonology consulted. Recommends CT-guided biopsy with possible EBUS to follow. CT-guided biopsy completed 12/28/16. Await results. Further management per the pulmnonology team. (7) Diabetic foot ulcer Current Visit: Yes Status: Acute Location: Right lateral foot. Wound care per the podiatry team. Qualifiers: Diabetic foot ulcer location: midfoot Diabetes mellitus type: other specified (including WALKER) Laterality: right Non-pressure ulcer stage: with fat layer exposed Qualified Code(s): E13.621 - Other specified diabetes mellitus with foot ulcer; L97.412 - Non-pressure chronic ulcer of right heel and midfoot with fat layer exposed (8) COPD (chronic obstructive pulmonary disease) Current Visit: Yes Status: Chronic Qualifiers: COPD type: chronic bronchitis Chronic bronchitis type: mucopurulent Qualified Code(s): J41.1 - Mucopurulent chronic bronchitis (9) Diabetes mellitus Current Visit: Yes Status: Chronic Hgb A1C 5.7 on admission. Continue aggressive glucose monitoring and management to promote wound healing and prevent re-infection. Qualifiers: Diabetes mellitus type: type 2 Diabetes mellitus complication status: with neurologic complications Diabetes mellitus complication detail: with polyneuropathy Diabetes mellitus chain sales consultant insulin use: without mcc use Qualified Code(s): E11.42 - Type 2 diabetes mellitus with diabetic polyneuropathy (10) Sleep apnea Current Visit: Yes Status: Chronic Uses C-PAP QHS. Qualifiers: Sleep apnea type: obstructive Qualified Code(s): G47.33 - Obstructive sleep apnea (adult) (pediatric) (11) Anemia Current Visit: Yes Status: Acute Hgb improved to 8.5 this morning. Etiology unclear. No evidence of acute bleeding noted on exam. Further workup and management per the primary team. Qualifiers: Anemia type: unspecified type Qualified Code(s): D64.9 - Anemia, unspecified (12) PAD (peripheral artery disease) Current Visit: Yes Status: Acute ABIs abnormal bilaterally. Vascular Surgery consulted. Status post abdominal aortogram, aortogram with bilateral runoff, and selective right lower leg angiogram. The patient received a right superficial femeral balloon angioplasty and a right common iliac stent angioplasty 12/28/[address] Collins. - Subjective Interval history: Patient seen and examined. No acute events overnight. Patient sitting up on the bedside for the exam. Patient states he feels poor today and complains of generalized aches and pains. He complains of chronic pain in his back and shoulders. He reports some fevers and chills over the past 24 hours. Tmax 102 documented yesterday. Denies any chest pain, and states his shortness of breath and cough are at baseline. He denies any nausea, vomiting, or diarrhea. Denies abdominal pain or appetite changes. Denies pain at the surgical site. Denies oral thrush or new skin lesions. Infect Dis PN-Objective Data - Labs CBC & Chem 7: 12/29/16 03:16 12/29/16 03:16 Labs: Laboratory Results - last 24 hr 12/28/16 12/28/16 12/28/16 05:18 11:37 15:41 WBC RBC Hgb Hct MCV MCH MCHC RDW Plt Count MPV Seg Neutrophils % Band Neutrophils % Lymphocytes % Monocytes % Eosinophils % Metamyelocytes % Myelocytes % Neutrophils # Lymphocytes # Monocytes # Eosinophils # Nucleated RBCs/100 WBC Platelet Estimate Polychromasia Hypochromasia Macrocytosis Sodium Potassium Chloride Carbon Dioxide BUN Creatinine Est GFR ( Amer) Est GFR (Non-Af Amer) BUN/Creatinine Ratio Glucose POC Glucose 148 H 168 H 195 H Calculated Osmolality Calcium 12/28/16 12/29/16 12/29/16 21:33 03:16 03:16 WBC 24.6 H RBC 3.01 L Hgb 8.5 L Hct 28.1 L MCV 93.4 MCH 28.2 MCHC 30.2 L RDW 17.0 H Plt Count 248 MPV 10.7 Seg Neutrophils % 73.0 Band Neutrophils % 4.0 Lymphocytes % 14.0 Monocytes % 5.0 Eosinophils % 1.0 Metamyelocytes % 1.0 H Myelocytes % 2.0 H Neutrophils # 18.9 H Lymphocytes # 3.4 Monocytes # 1.2 Eosinophils # 0.3 Nucleated RBCs/100 WBC 2.6 H Platelet Estimate Normal Polychromasia 1+ A Hypochromasia Present A Macrocytosis Present A Sodium 131 L Potassium 4.7 H D Chloride 95 L Carbon Dioxide 23 BUN 32 H Creatinine 1.72 H Est GFR ( Amer) 47 L Est GFR (Non-Af Amer) 39 L BUN/Creatinine Ratio 19 Glucose 133 H POC Glucose 144 H Calculated Osmolality 281 Calcium 8.6 Cultures: Cultures 12/24/16 16:11 Wound Culture - Final Right Foot Staphylococcus aureus 12/24/16 16:11 Anaerobic Culture - Final Right Foot Anaerobic Gram Positive Cocci 12/24/16 16:07 Wound Culture - Final Right Foot Staphylococcus aureus 12/24/16 16:07 Anaerobic Culture - Final Right Foot Anaerobic Gram Positive Cocci 12/26/16 14:37 Blood Culture - Preliminary Peripheral Venipuncture No growth. 12/26/16 14:37 Blood Culture - Preliminary Peripheral Venipuncture No growth. 12/24/16 16:08 Surgical Biopsy Culture - Final Right Foot Staphylococcus aureus 12/24/16 16:09 Surgical Biopsy Culture - Final Right Foot - Impressions Impressions Lung Biopsy CT 12/28/16 00:00 IMPRESSION: Successful CT guided core biopsy of a right lower lobe lung mass. D/ / Margarito Perez MD / Margarito Perez MD Interpreting Provider: Margarito Perez MD Chest X-Ray 12/28/16 17:00 IMPRESSION: No evidence of pneumothorax status post biopsy. Right lower lobe pulmonary masses measuring approximately 3.9 x 2.7 cm in approximate size better seen on recent prior CT. Right perispinal mass corresponding to the mixed fat and soft tissue attenuation mass seen in the right paraspinal region on prior PET-CT. D/ / 12/28/2016 16:37:40 Robe Marcos MD / matthew Interpreting Provider: Robe Marcos MD Exam - Constitutional Vitals: Temp Pulse Resp BP Pulse Ox 97.5 F L 60 18 127/60 94 12/29/16 07:09 12/29/16 07:09 12/29/16 10:04 12/29/16 07:09 12/29/16 10:04 General appearance: cooperative, no acute distress, obese - Head Head exam: Present: atraumatic, normal inspection, normocephalic - Eye Eye exam: Present: EOMI, normal appearance, PERRL Pupils: Present: normal accommodation - ENT ENT exam: Present: mucous membranes moist - Neck Neck exam: Present: normal inspection - Respiratory Respiratory exam: Present: decreased breath sounds (throughout). Absent: respiratory distress, rhonchi, wheezes - Cardiovascular Cardiovascular exam: Present: RRR, +S1, +S2 - GI/Abdominal GI/Abdominal exam: Present: distended, firm, normal bowel sounds. Absent: tenderness - Extremities Exam Extremities exam: Present: pedal edema (Trace RLE). Absent: joint swelling, tenderness Additional comments: Right foot dressing C/D/I. Distal toes cool to touch without erythema or ulcers. Left groin with gauze dressing C/D/I. Site tender, but without hematoma, warmth , or drainage. BLE venous stasis dermatitis noted. - Neurological Exam Neurological exam: Present: alert, oriented X3, no focal deficits - Psychiatric Psychiatric exam: Present: normal affect, normal mood - Skin Skin exam: Present: dry, intact, normal color, warm Consult Discharge Plan - Plan Referrals: Sidney Martinez MD [Primary Care Provider] -
[2016-12-29] MEDS: *HR* HYDROcodone/Acet 10/325 mg TABLET PO PRN (10:50)
[2016-12-29] MEDS: Hydrocortisone Rectal 2.5% CRM 28 GM TUBE RC SCH (11:09)
[2016-12-29] MEDS: Ampicillin/Sulbactam 1,500 MG in 0.9 % Sodium Chloride Mini Bag 100 ML IVPB SCH ×2 (12:36→19:45)
--- NOTE | 2016-12-29 13:32 | Podiatry Progress Note ---
Date of Encounter: 12/29/16 Time of Encounter: 12:20 - Assessment and Plan (1) Gas gangrene Current Visit: Yes Status: Acute . (2) Diabetic foot ulcer Current Visit: No Status: Inactive Qualifiers: Diabetic foot ulcer location: other Diabetes mellitus type: type 2 Laterality: right Non-pressure ulcer stage: with necrosis of bone Qualified Code(s): E11.621 - Type 2 diabetes mellitus with foot ulcer; L97.514 - Non- pressure chronic ulcer of other part of right foot with necrosis of bone Subjective Principal diagnosis: gas gangrene Interval history: underwent angiogram and CT guided lung biopsy. no source of his increased wbc count identified to this point. he did have osteomyelitis of the right foot bone on path, foot looks signficantly better in regards to soft tissue infection , will flush out and do an excisional debridement of his wound, remove remaining 5th metatarsal base and transfer the peroneus brevis tendon and apply a wound vac. patient has been NPO will proceed this afternoon. all questions answered informed consent was signed. patient understands he is still high risk for limb/partial foot loss. Objective - Vital Signs Vital Signs: Vital Signs Temp Pulse Resp BP Pulse Ox 12/29/16 11:32 97.8 F 67 18 94/56 94 12/29/16 10:04 18 94 12/29/16 07:09 97.5 F L 60 18 127/60 94 12/29/16 03:51 18 92 12/29/16 03:41 97.6 F 64 18 93/78 92 12/29/16 01:00 64 103/87 12/29/16 00:00 71 120/66 12/28/16 23:00 97.5 F L 73 16 128/73 95 12/28/16 22:30 69 109/98 12/28/16 22:09 16 96 12/28/16 22:00 81 84/55 12/28/16 21:45 70 90/68 12/28/16 21:30 77 108/54 12/28/16 21:15 82 102/57 12/28/16 21:05 63 16 96 12/28/16 21:00 81 14 106/98 95 12/28/16 20:55 17 96/77 94 12/28/16 20:50 16 93/57 95 12/28/16 20:45 67 96/77 06/01/17 20:30 87 88/79 12/28/16 20:15 71 112/55 12/28/16 20:00 67 91/67 12/28/16 19:45 63 109/69 12/28/16 19:30 84 116/71 12/28/16 19:15 73 132/60 12/28/16 19:00 66 99/61 12/28/16 13:38 97.5 F L 80 16 90/50 95 Intake and Output 12/28/16 12/29/16 12/29/16 23:59 07:59 15:59 Intake Total 750 / 750 1000 / 1000 Balance 750 / 750 1000 / 1000 Intake: IV Fluids 750 / 750 1000 / 1000 0.9 % Sodium Chloride 1, 650 / 650 1000 / 1000 000 ML @ 100 mls/hr IVC . Q10H [facility] Rx#:[id number] Maxipime 1,000 MG In 100 / 100 Dextrose 5% (Minibag+) 100 ML 100 ML @ 200 mls/ hr IVPB Q8H [facility] Rx#: [id number] Other: Weight 135.3 kg Blood Glucose* 144 160 167 Patient Weight 12/29/16 23:59 Weight 135.3 kg - Lab Result Diagrams: 12/29/16 03:16 12/29/16 03:16 Labs: Abnormal lab results WBC 24.6 K/mcL (4.3-11.1) H 12/29/16 03:16 RBC 3.01 M/mcL (4.19-5.50) L 12/29/16 03:16 Hgb 8.5 g/dL (12.9-16.9) L 12/29/16 03:16 Hct 28.1 % (37.5-50.1) L 12/29/16 03:16 MCHC 30.2 g/dL (31.6-35.5) L 12/29/16 03:16 RDW 17.0 % (11.5-14.5) H 12/29/16 03:16 Immature Gran % 8.4 % (0-4) H 12/26/16 03:31 Metamyelocytes % 1.0 % (0) H 12/29/16 03:16 Myelocytes % 2.0 % (0) H 12/29/16 03:16 Neutrophils # 18.9 K/mcL (1.6-8.9) H 12/29/16 03:16 Nucleated RBCs/100 WBC 2.6 /100 WBC (0) H 12/29/16 03:16 Reactive Lymphocytes Present (Not Present) A 12/27/16 00:59 Polychromasia 1+ (Not Present) A 12/29/16 03:16 Hypochromasia Present (Not Present) A 12/29/16 03:16 Macrocytosis Present (Not Present) A 12/29/16 03:16 ESR 93 mm/hr (0-10) H 12/27/16 00:59 PT 14.9 Seconds (9.4-12.1) H 12/27/16 17:36 Sodium 131 mEq/L (136-145) L 12/29/16 03:16 Potassium 4.7 mEq/L (3.5-4.5) H D 12/29/16 03:16 Chloride 95 mEq/L (98-109) L 12/29/16 03:16 BUN 32 mg/dL (8-26) H 12/29/16 03:16 Creatinine 1.72 mg/dL (0.72-1.25) H 12/29/16 03:16 Est GFR ( Amer) 47 (> 60) L 12/29/16 03:16 Est GFR (Non-Af Amer) 39 (> 60) L 12/29/16 03:16 Glucose 133 mg/dL (70-99) H 12/29/16 03:16 POC Glucose 160 (58-89) H 12/29/16 07:14 Hemoglobin A1c 5.7 % (-5.6) H 12/24/16 04:16 C-Reactive Protein 73 mg/L (Less than 5) H 12/27/16 00:59 Albumin 2.7 g/dL (3.5-5.0) L 12/24/16 04:16 Globulin 4.8 g/dL (2.4-3.5) H 12/24/16 04:16 Albumin/Globulin Ratio 0.6 (1.1-2.2) L 12/24/16 04:16 Vancomycin Trough 24.4 mcg/mL (10-20) H* 12/27/16 00:59 Microbiology, Last 48 Hours 12/24/16 16:11 Wound Culture - Final Right Foot Staphylococcus aureus 12/24/16 16:11 Anaerobic Culture - Final Right Foot Anaerobic Gram Positive Cocci 12/24/16 16:07 Wound Culture - Final Right Foot Staphylococcus aureus 12/24/16 16:07 Anaerobic Culture - Final Right Foot Anaerobic Gram Positive Cocci 12/26/16 14:37 Blood Culture - Preliminary Peripheral Venipuncture No growth. 12/26/16 14:37 Blood Culture - Preliminary Peripheral Venipuncture No growth. Consult Discharge Plan - Plan Referrals: Sidney Martinez MD [Primary Care Provider] -
[2016-12-29] MEDS ORDERED: Lidocaine 1% 20 ML MDV ONE (13:48)
[2016-12-29] MEDS ORDERED: Bupivacaine-MPF 0.25% 10 ML VIAL ONE (13:48)
[2016-12-29] MEDS ORDERED: Bacitracin 50,000 UNIT, Polymyxin B Sulfate 500,000 UNIT, Sodium Chloride IRRigation 1,... IR ONE (14:00)
--- NOTE | 2016-12-29 15:06 | Anesthesia Evaluation PreOp ---
Date of Encounter: 12/29/16 Time of Encounter: 15:03 - Past History Planned Operation: I&D Right foot Cardiac History: HTN, Hyperlipidemia Pulmonary History: Former smoker (quit 2009 - prior 5 ppd smoker), COPD, Other ( [facility] Lower lung mass 4.3 x 2.1 cm) [facility]IOLOGY [facility]NSH[facility] History: Other (Anxiety/Depression, peripheral neuropathy) Other Medical History: Diabetes Type II Anesthesia History: No Prior Anesthetic Complications, Past Anesthesia ( Cataracts, Right foot I&D, GB, Knee sx) Alcohol Use: rarely Drug use: none Medications and Allergies Allopurinol [Zyloprim] 300 mg PO DAILY 03/02/15 [History] Cholecalciferol (Vitamin D3) [Vitamin D] 2,000 unit PO DAILY 03/02/15 [History] Clopidogrel [Plavix] 75 mg PO DAILY 03/02/15 [History] Docusate [Colace] 200 mg PO TID 03/02/15 [History] FLUoxetine HCl [Prozac] 60 mg PO DAILY 03/02/15 [History] Famotidine [Pepcid] 20 mg PO BID 03/02/15 [History] Ferrous Sulfate 325 mg PO BID 03/02/15 [History] Furosemide [Lasix] 80 mg PO BID 03/02/15 [History] Gabapentin [Neurontin] 1,800 mg PO BID 03/02/15 [History] Ipratropium/Albuterol Neb [Duoneb] 3 ml IH Q6HR 03/02/15 [History] LORazepam [Ativan] 0.5 mg PO TID PRN 03/02/15 [History] Levothyroxine Sodium [Synthroid] 200 mcg PO DAILY 03/02/15 [History] Lovastatin [Altoprev] 20 mg PO DAILY 03/02/15 [History] Magnesium Oxide [Magnesium] 400 mg PO DAILY 03/02/15 [History] Metformin [Glucophage] 850 mg PO BID 03/02/15 [History] Metoprolol [Lopressor] 25 mg PO BID 03/02/15 [History] Multivitamin [Multivitamins] 1 cap PO DAILY 03/02/15 [History] Oxygen 2 l IN DAILY 03/02/15 [History] Potassium Chloride 20 meq PO TID 03/02/15 [History] Roflumilast [Daliresp] 500 mcg PO DAILY 03/02/15 [History] Ropinirole HCl [Requip] 2 mg PO BID 03/02/15 [History] Temazepam 15 mg PO HS 03/02/15 [History] Albuterol Sulfate [Proair Hfa] 2 puff IH Q4H 12/19/16 [History] Ammonium Lactate [Amlactin] 1 appl TP BID 12/19/16 [History] Guaifenesin [Mucinex] 600 mg PO BID 12/19/16 [History] HYDROcodone/Acet 10/325 mg [[place] 10-325 mg] 1 tab PO Q4HR PRN 12/19/16 [History ] Ipratropium/Albuterol Neb [Duoneb] 3 ml IH Q6HR 12/19/16 [History] Levofloxacin [Levaquin] 750 mg PO DAILY #10 tablet 12/19/16 [Rx] Lidocaine/Hydrocortisone AC [Lidocaine-Hydrocort 3-2.5% Gel] 7 gm RC BID [History] Polyethylene Glycol 3350 [MiraLAX Powder Bulk 17.9 Oz] 17 gm PO DAILY 12/19/16 [ History] PrednisoLONE [Millipred] 10 mg PO DAILY 12/19/16 [History] Spironolactone [Aldactone] 50 mg PO DAILY 12/19/16 [History] Theophylline Anhydrous [Jamal-24] 400 mg PO DAILY 12/19/16 [History] Umeclidinium Brm/Vilanterol Tr [Anoro Ellipta 62.5-25 Mcg INH] 1 puff IH DAILY 12/19/16 [History] metOLazone [Zaroxolyn] 5 mg PO DAILY 12/19/16 [History] BuPROPion [Wellbutrin] 75 mg PO BID 12/24/16 [History] Fluticasone/Salmeterol [Advair 500-50 Diskus] 2 puff IH BID 12/24/16 [History] Ropinirole HCl [Requip] 4 mg PO HS 12/24/16 [History] Allergies doxycycline Allergy (Verified 12/24/16 14:50) Hives Oxycodone [From Percocet] Allergy (Verified 12/24/16 14:50) Swelling of Lip/Tongue/Throat Penicillins [PCN] Allergy (Verified 12/24/16 14:50) Hives codeine Adverse Reaction (Verified 12/19/16 12:27) Flushing meperidine Adverse Reaction (Verified 12/19/16 12:27) Hallucinating morphine Adverse Reaction (Verified 12/19/16 12:27) Nightmare - Meds/Allergy Pre-op Review Medications Reviewed: Yes Allergies Reviewed: Yes Beta Blockers on Current Med List: Yes If Beta Blockers taken, Date/Time (Last Dose taken): 09:04 12/29/2016 Anesthesia Results - Labs 12/29/16 03:16 12/29/16 03:16 - Imaging EKG: image reviewed (SR) Anesthesia Exam - HEENT Pupil (Motor): Pupils equal, EOMI Mallampati: III Teeth: Edentulous Oral Opening: Greater than 3 - [facility]Y [facility] LOC: Oriented [facility] Motor: Normal RUE, Normal LUE, Normal RLE, Normal LLE, Normal Face [facility]IOLOGY [facility] Sensory: Normal: RUE, LUE, RLE, LLE, Face - Cardiac Rhythm: Regular Murmur: None JVD: No Carotid Bruit: No - Pulmonary Breath Sounds: bilateral Clear Respiratory Effort: Symmetrical Anesthesia Assess/Plan ASA Score: 4 Modified Granville Scale for Level of Consciousness: Cooperative, oriented, and tranquil Anesthetic Plan: MAC Autologous Blood: Yes Monitoring Plan: Standard Monitors Recovery Plan: Other
[2016-12-29] MEDS ORDERED: Ipratropium/Albuterol Neb 3 ML ONE (15:34)
--- NOTE | 2016-12-29 17:14 | Orthopedic Operative Note ---
Date of procedure: 12/29/16 Pre-op diagnosis: osteomyelitis right foot 5th metatarsal, right foot diabetic ulceration Post-op diagnosis: same Procedure: 12/29/16 17:12 right foot excisional debridement of diabetic foot uleration right foot debridement of 5th metatarsal bone right transfer of peroneus brevis tendon right foot application of wound vac Complications: none Anesthesia: CARLOS Surgeon: Alvaro Pelletier Estimated blood loss (cc): 50 Specimen: 5th metatarsal bone right foot Condition: stable Disposition: PACU
--- NOTE | 2016-12-29 17:21 | Vascular/Endovas Progress Note ---
Date of Encounter: 12/29/16 Time of Encounter: 14:00 - Assessment and plan (1) Diabetic foot ulcer Current Visit: Yes Status: Acute Patient has diabetic foot ulcer with diabetic neuropathy. He is a very poor historian and cannot give me any details about the onset of the lesion. The wound is presently being dressed under supervision by podiatry. Patient's right foot has increased vasculature with Doppler signals. Patient for debridement per Dr Pelletier Qualifiers: Diabetic foot ulcer location: midfoot Diabetes mellitus type: other specified (including WALKER) Laterality: right Non-pressure ulcer stage: with fat layer exposed Qualified Code(s): E13.621 - Other specified diabetes mellitus with foot ulcer; L97.412 - Non-pressure chronic ulcer of right heel and midfoot with fat layer exposed (2) Abnormal CT scan, chest Current Visit: Yes Status: Acute Right lower lobe mass. Patient has not had had biopsy to confirm pathology of this lesion. (3) Acute kidney injury Current Visit: Yes Status: Acute Multifactorial process with antibiotics as well as dehydration and sepsis. We' ll administer Mucomyst and increased IV fluids beginning now in preparation for contrast exposure to our afternoon for angiogram. Elevated creatinine and decreased creatinine clearance. Probably multifactorial but partially due to contrast load from yesterday's angiogram. (4) Peripheral vascular disease Current Visit: Yes Status: Chronic Patient has chronic lower extremity vascular disease with a right limb threatening process. He has multiple risk factors for vascular disease in particular tobacco abuse and diabetes. Due to the ongoing sepsis with increasing white blood cell count and multiple concurrent medical problems I recommended an angiogram to try to rapidly intervene and potentially offer an endovascular approach to improve arterial perfusion to the right foot and lower extremity. Patient is a poor candidate for open vascular surgery at this time. Patient is status post successful right common iliac and right superficial femoral artery angioplasties. Patient will be followed intermittently at this time. I will be out this but will return on Sunday. - Subjective Interval history: The patient has no complaints. He is now one day status post angiogram and endovascular intervention. He underwent a right common iliac artery stent angioplasty and a right superficial femoral artery balloon angioplasty. He had sikh of pulsatile flow to the right foot. He has no complaints related to the puncture site in the left groin. He has diminished sensation to his feet due to diabetic neuropathy. - Physical Examination General: Present: Conversant, No Apparent Distress Vascular: Present: Normal capillary refill, Other (Patient has increased color and temperature to the right foot following the angioplasties. The patient will be returning to the operating room today with Dr. Pelleiter for exploration and possible further debridement of his right foot wounds.) Results 12/29/16 03:16 12/29/16 03:16 Lab Results, Last 24 hours 12/29/16 12/29/16 03:16 03:16 WBC 24.6 H Hgb 8.5 L Hct 28.1 L Plt Count 248 Sodium 131 L Potassium 4.7 H D Chloride 95 L Carbon Dioxide 23 BUN 32 H Creatinine 1.72 H Glucose 133 H Calcium 8.6 Consult Discharge Plan - Plan Referrals: Sidney Martinez MD [Primary Care Provider] - (Dr. Martinez does home visits for this patient) Honorio Collins MD [Partnered Physician] - 01/15/17 9:30 am (this appointment is in [place])
--- NOTE | 2016-12-29 17:34 | Anesthesia Evaluation Post Op ---
Date of Encounter: 12/29/16 Time of Encounter: 17:00 - Vital Signs Vital Signs: 3 Vital Signs Time 1700 BP 105/57 Pulse 63 Resp 20 O2 Sat 98 - Lungs Lungs: Wheezes (rec'd RTx preop, denies SOB) - Airway Airway: Non-obstructed - Cardiovascular Regular Rate - Mental Status Mental Status: Alert & Oriented, Answers Appropriately - Pain Pain Scale: 0 Pain Scale used: Numeric (1 - 10) - Nausea Vomiting Nausea Vomiting: Not Present - Hydration Hydration: NPO, Has not voided - Discharge PostOp Status: Transfer Patient to floor
--- NOTE | 2016-12-29 18:26 | Operative Note ---
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 Patient has diabetic foot ulceration on the right foot and is status post incision and drainage, debridement of bone fifth metatarsal and plantar fasciectomy. He has ulcerations on the lateral and plantar aspect of the right foot measuring 6.5cmx.4.7cmx3.5cm laterally and 8.7ekp4ylv9.5cm plantarly. Patient underwent vascular evaluation and angiogram with proximal intervention. The soft tissue infection of the foot has significantly decreased, MRI found no further abscess in the foot. Pathology of the fifth metatarsal bone which was resected did come back as osteomyelitis. His white blood cell count was increasing with no definitive cause identified, his soft tissue infection had significantly decreased and cellulitis almost resolved.There is no cellulitis of the foot and cellulitis around the ankle/anterior leg has almost resolved. Therefore the decision was made to return the patient to the operating room to excise the remaining fifth metatarsal bone as this could be a cause of his increasing white blood cell count. The patient had the above procedures explained in detail as well as the risks versus benefits potential complications and consequences of the procedure and he understood that he is still high risk for limb/partial foot loss and development of deformity as the remaining bone that was being excised as the site of lateral foot tendon attachment. All questions were answered and informed consent was signed. The patient was placed on the operating room table in the supine position and 10 mL of 1% lidocaine plain was injected into the right foot. A right pneumatic ankle tourniquet was applied but not inflated during the entire procedure. After the foot was scrubbed prepped and draped in the usual sterile fashion the following procedures began. Debridement of fifth metatarsal bone and transfer of peroneus brevis tendon. Attention was directed to the lateral aspect of the patients foot where a #15 blade was used to make an incision on the lateral foot proximally towards the fifth metatarsal base. The skin incision was made full-thickness over the remaining fifth metatarsal bone. The fifth metatarsal bone was freed from its soft tissue attachments and completely excised from the surgical site. The bone was sent to pathology. The peroneus brevis tendon which was attached to the fifth metatarsal was then whip stitched and sutured using 2-0 FiberWire into the periosteum of the cuboid and adjacent soft tissues. It should be noted that prior to transferring this tendon the fifth metatarsal base area was probed and explored no purulence could be expressed from any site. The adjacent fourth metatarsal bone was felt to be hard and not of soft quality. Bleeding was present at the surgical site but was adequately controlled with gel foam and surgical. Excisional debridement of lateral and plantar foot ulceration. With the remaining fifth metatarsal base excised and peroneus brevis tendon transferred into the lateral foot the decision was made to close the soft tissue of the lateral foot proximally which was done with 3-0 Prolene after thoroughly flushing it with normal sterile saline with bacitracin. The ulceration margins were debrided sharply using a #15 blade full-thickness through the subcutaneous tissue. The fibrotic tissue present at the lateral foot wound was debrided using the ultrasonic debrider and a healthy bleeding base was present. Attention was directed towards the plantar foot and medial where the ulceration site was also debrided with the ultrasonic debrider after probing and exploring and thoroughly inspecting the area for any abscess. The #15 blade was used to debride the margins of the wound through subcutaneous tissue. No abscess could be identified in the plantar foot. No purulence was found or could be expressed. There was a healthy bleeding base after debridement of the tissue through subcutaneous tissue of the plantar foot. The site was flushed thoroughly with normal sterile saline and bacitracin. As there was no purulence expressed plantarly the site was deemed adequate for partial closure and the plantar skin was approximated using 2-0 Prolene in retention suture put in plantar medial. There was no erythema of this plantar skin or lateral skin. Application of wound VAC. At this time attention was directed back to the lateral foot and the surgicel and gel foam were removed. Adequate hemostasis was present and there was no active bleeding. At this time using standard technique and black foam a wound VAC was applied to the lateral aspect of the patients foot and set on 125 mm Hg continuous. Patient given strict instructions to remain nonweightbearing to the right lower extremity. Patient tolerated the anesthesia and the procedure well he was escorted to the recovery room with vital signs stable and vascular status intact to the right foot foot was warm to touch at the conclusion of the procedure and adequate hemostasis present. Wound VAC canister was not filled with blood and was functioning properly.
[2016-12-30] MEDS: rOPINIRole 1 MG TABLET PO SCH ×4 (00:58→21:59)
[2016-12-30] MEDS: Ampicillin/Sulbactam 1,500 MG in 0.9 % Sodium Chloride Mini Bag 100 ML IVPB SCH ×4 (00:59→18:10)
[2016-12-30] MEDS: *HR* HYDROcodone/Acet 10/325 mg TABLET PO PRN ×2 (01:02→16:10)
[2016-12-30] MEDS: Gabapentin 300 MG CAPSULE PO SCH ×3 (01:03→22:00)
[2016-12-30] MEDS: *HR* Heparin 5,000 UNIT/ML VIAL SQ SCH ×3 (01:04→15:03)
[2016-12-30] MEDS: 0.9 % Sodium Chloride 1,000 ML IVC SCH ×2 (02:38→15:01)
[2016-12-30] MEDS: Insulin LISPRO 300 UNITS/3 ML VIAL SQ SCH ×5 (02:41→21:00)
[2016-12-30] MEDS: Ipratropium/Albuterol Neb 3 ML IH SCH ×4 (03:51→22:41)
[2016-12-30 04:39] LABS: Hematocrit 23.5 % (37.5-50.1); Hemoglobin 7.2 g/dL (12.9-16.9); Mean Corpuscular HGB Conc 30.6 g/dL (31.6-35.5); Mean Platelet Volume 10.9 fL (9.4-12.4)
[2016-12-30 04:40] LABS: Mean Corpuscular Hemoglobin 28.1 pg (28.0-33.3); Mean Corpuscular Volume 91.8 fL (83.0-100.0); Nucleated Red Blood Cells 3.7 /100 WBC (0); Platelet Count 286 K/mcL (140-400); Red Blood Count 2.56 M/mcL (4.19-5.50); Red Cell Distribution Width 17.4 % (11.5-14.5)
[2016-12-30 04:48] LABS: Calcium 8.2 mg/dL (8.6-10.8); Magnesium 2.5 mg/dL (1.6-2.6); Potassium 4.4 mEq/L (3.5-4.5)
[2016-12-30 05:18] LABS: Lymphocytes # 1.7 K/mcL (0.6-4.6); Monocytes # 0.6 K/mcL (0.0-1.3); Neutrophils # 25.4 K/mcL (1.6-8.9); Platelet Estimate Normal (Normal); Toxic Granulation Present (Not Present)
[2016-12-30 05:19] LABS: Anisocytosis 1+ (Not Present); Macrocytosis Present (Not Present)
[2016-12-30 05:20] LABS: Polychromasia 2+ (Not Present)
[2016-12-30] MEDS: Hydrocortisone Rectal 2.5% CRM 28 GM TUBE RC SCH ×3 (06:43→21:00)
[2016-12-30] MEDS: Lactobacillus 1 EACH CAP.SPRINK PO SCH (10:13)
[2016-12-30] MEDS: FLUoxetine 20 MG CAPSULE PO SCH (10:13)
[2016-12-30] MEDS: Furosemide 40 MG TABLET PO SCH (10:16)
[2016-12-30] MEDS: metOLazone 5 MG TABLET PO SCH (10:16)
[2016-12-30] MEDS: predniSONE 10 MG TABLET PO SCH (10:17)
[2016-12-30] MEDS: Magnesium Oxide 400 MG TABLET PO SCH (10:18)
--- NOTE | 2016-12-30 10:35 | Internal Med Progress Note ---
Date of Encounter: 12/30/16 Time of Encounter: 09:45 - Assessment and plan (1) Anxiety Current Visit: Yes Status: Acute Assessment and plan: Patient is not on anxiolytics at home. He reports anxiety and difficulty breathing, although his oxygen saturation and vitals are noted to be stable. Did not improve with hydroxyzine. We will give when necessary IV Ativan and continue to monitor. Chest x-ray shows trace bilateral pleural effusion, no evidence of focal infiltrates. (2) Acute kidney injury Current Visit: Yes Status: Acute Assessment and plan: Nonoliguric. Serum creatinine noted to be worsening. Could be related to use of vancomycin along with underlying sepsis, use of diuretics/recent contrast with angiogram. Vancomycin currently held. Nephrology consulted, recommendations appreciated-hold diuretics, potassium and magnesium supplements. Continue IV hydration, Mucomyst. Check renal ultrasound to rule out retention. (3) Diabetic foot ulcer Current Visit: Yes Status: Acute Assessment and plan: Patient was admitted with cellulitis and diabetic foot ulcer on right plantar foot. X-rays of right foot showed ulcer over the right fifth metatarsal along with possible gas. Patient has been on broad-spectrum IV antibiotics. Patient underwent incision and drainage, debridement of fifth metatarsal, plantar fasciectomy on 12/24/2016 by podiatry. Follow-up MRI on 12/26/2016 showed no evidence of osteomyelitis or new abscesses at postop site. Patient was also seen by vascular surgery and underwent right lower extremity angioplasty on 12/28/2016. Infectious diseases on board for assistance with antibiotic therapy. Patient currently is improving clinically but continues to have worsening leukocytosis. Wound cultures during this admission grow MSSA. Currently on IV Unasyn. Patient went to OR yesterday for repeat debridement of right foot ulcer along with removal of fifth metatarsal. Qualifiers: Diabetic foot ulcer location: midfoot Diabetes mellitus type: other specified (including WALKER) Laterality: right Non-pressure ulcer stage: with fat layer exposed Qualified Code(s): E13.621 - Other specified diabetes mellitus with foot ulcer; L97.412 - Non-pressure chronic ulcer of right heel and midfoot with fat layer exposed (4) Diabetes mellitus Current Visit: Yes Status: Chronic Assessment and plan: Accu-Chek blood glucose monitoring with basal bolus insulin regimen. Diabetic diet. Qualifiers: Diabetes mellitus type: type 2 Diabetes mellitus complication status: with neurologic complications Diabetes mellitus complication detail: with polyneuropathy Diabetes mellitus shelter insulin use: without shelter use Qualified Code(s): E11.42 - Type 2 diabetes mellitus with diabetic polyneuropathy (5) COPD (chronic obstructive pulmonary disease) Current Visit: Yes Status: Chronic Assessment and plan: Not in acute exacerbation. Continue low-dose oral steroids. Continue when necessary bronchodilators and supplemental oxygen. Noted to be on home oxygen. Qualifiers: COPD type: chronic bronchitis Chronic bronchitis type: mucopurulent Qualified Code(s): J41.1 - Mucopurulent chronic bronchitis (6) Sleep apnea Current Visit: Yes Status: Chronic Assessment and plan: Continue CPAP at night. Qualifiers: Sleep apnea type: obstructive Qualified Code(s): G47.33 - Obstructive sleep apnea (adult) (pediatric) (7) Sepsis Current Visit: Yes Status: Resolved Qualifiers: Sepsis type: methicillin susceptible Staphylococcus aureus Qualified Code(s ): A41.01 - Sepsis due to Methicillin susceptible Staphylococcus aureus (8) Osteomyelitis Current Visit: Yes Status: Acute Qualifiers: Osteomyelitis type: acute hematogenous Osteomyelitis location: foot Laterality: right Qualified Code(s): M86.071 - Acute hematogenous osteomyelitis, right ankle and foot (9) Peripheral vascular disease Current Visit: Yes Status: Chronic Assessment and plan: Vascular surgery on board. Patient underwent right superficial femoral and common iliac balloon angioplasty on 12/28/2016. Continue Plavix. (10) Penicillin allergy Current Visit: Yes Status: Chronic (11) Lung mass Current Visit: Yes Status: Chronic Assessment and plan: Patient underwent CT-guided biopsy of right lower lobe lung mass yesterday, pathology results pending. - Subjective Interval history: Reports significant anxiety today; feels short of breath when taken off of BiPAP ; no chest pain/dyspnea/diaphoresis; no right foot pain; underwent further debridement last evening, now on wound vac; - Constitutional Vitals: Temp Pulse Resp BP Pulse Ox 97.3 F L 54 20 85/63 100 12/30/16 08:22 12/30/16 08:22 12/30/16 08:22 12/30/16 08:22 12/30/16 08:22 General appearance: Present: mild distress, A&O X 3, answers questions appropriately - Respiratory Respiratory exam: Present: CTAB. Absent: accessory muscle use, rales, rhonchi, wheezes - Cardiovascular Cardiovascular exam: Present: RRR, +S1, +S2. Absent: diastolic murmur, gallop, rubs, systolic murmur - GI/Abdominal GI/Abdominal exam: Present: normal bowel sounds, soft (obese), no peritoneal signs. Absent: distended, tenderness - Extremities Exam Extremities exam: Present: full ROM, pedal edema, warm, radial pulses palpable and symetrical. Absent: calf tenderness, cyanotic Additional comments: right foot in surgical dressing with wound vac draining minimal bloody fluid - Neurological Exam Neurological exam: Present: CN II-XII intact, oriented X3, no focal deficits. Absent: pronater drift, facial droop, speech deficit Internal Medicine: Result - Labs CBC & Chem 7: 12/30/16 04:25 12/30/16 04:25 Labs: Short CBC 12/30/16 Range/Units 04:25 WBC 28.9 H (4.3-11.1) K/mcL Hgb 7.2 L (12.9-16.9) g/dL Hct 23.5 L (37.5-50.1) % Plt Count 286 (140-400) K/mcL Neutrophils # 25.4 H (1.6-8.9) K/mcL BMP 12/30/16 04:25 Sodium 133 L Potassium 4.4 Chloride 97 L Carbon Dioxide 23 BUN 42 H D Creatinine 2.10 H Glucose 170 H Calcium 8.2 L - ABG Interpretation ABG results: PT/INR, D-dimer PT 14.9 Seconds (9.4-12.1) H 12/27/16 17:36 - Impressions Impressions Chest X-Ray 12/28/16 17:00 IMPRESSION: No evidence of pneumothorax status post biopsy. Right lower lobe pulmonary masses measuring approximately 3.9 x 2.7 cm in approximate size better seen on recent prior CT. Right perispinal mass corresponding to the mixed fat and soft tissue attenuation mass seen in the right paraspinal region on prior PET-CT. D/ / 12/28/2016 16:37:40 Robe Marcos MD / [email or web address] Interpreting Provider: Robe Marcos MD Foot X-Ray 12/29/16 18:15 IMPRESSION: Mild cortical erosion at the base of the 4th metatarsal which may reflect early osteomyelitis. D/ / Cesar Stephens MD / Cesar Stephens MD Interpreting Provider: Cesar Stephens MD - VTE Documentation of Mechanical Device: Intermittent pneumatic compression device Consult Discharge Plan - Plan Referrals: Sidney Martinez MD [Primary Care Provider] - (Dr. Martinez does home visits for this patient) Honorio Collins MD [Partnered Physician] - 01/15/17 9:30 am (this appointment is in [place])
[2016-12-30] MEDS: Budesonide/Formoterol 160/4.5 MDI IH SCH ×2 (10:55→22:41)
--- NOTE | 2016-12-30 11:42 | Nephrology Consult Note ---
Date of Encounter: 12/31/16 Time of Encounter: 10:36 Assessment and Plan (1) Acute renal failure (ARF) Current Visit: Yes Status: Acute 1. ARF sec to combination of sepsis, borderline low BP, iv contrast and vancomycin. r/o urine retention Check UA, serum uric acid level, renal ultrasound. Discontinue diuretics, potassium and magnesium supplements Decrease the dose of gabapentin, allopurinol Monitor renal function closely, continue IV fluids 2. HTN, recent BP is borderline low Expect to improve with discontinuing diuretics 3. Chronic peripheral edema, suspect is due to cor pulmonale hold diuretics Qualifiers: Acute renal failure type: unspecified Qualified Code(s): N17.9 - Acute kidney failure, unspecified History of Present Illness - Reason for Consult Acute Kidney Injury - Chief Complaint ARF - History of Present Illness 71-year-old male presented to ER on 12/19 with chest pain, shortness of breath and productive cough. CT chest showed a spiculated mass in the rt lung Also diagnosed with cellulitis and right foot ulcer . He signed out AMA . Came to the ER on 12/23 with worsening respiratory symptoms and rt foot redness On admission vancomycin and cefepime were started for empiric coverage of right foot ulcer with cellulitis and osteomyelitis. Seen by podiatry service Had I&D and debridement of the right foot on 12/24 and 12/29. Seen by vascular service for PVD. BRAD showed moderate bilateral occlusive disease. Patient is followed by ID. Had peripheral angiogram on 12/28; 80% stenosis in rt common iliac and stent was placed, 99% stenosis rt superficial femoral and angioplasty was done. 60% stenosis in the left common iliac and 99% stenosis in the left superficial femoral. No intervention was done on the left side. Received 130 mL of contrast. Wound culture was positive for MRSA, Vanco was continued, Flagyl was added on MRI foot was negative for osteomyelitis. Biopsy of the lung mass was done on 12/28. Vancomycin was changed to Unasyn yesterday given the worsening renal failure Reviewing vital signs, BP has been intermittent low with systolic around 90 for the last 3 days. Patient has been in positive fluid balance and nonoliguric in the last few days. As per patient and family, he voided last evening but none since overnight Serum creatinine is gradually trending up from 1.1 on admission to 2.1 today, more acute increase in the last 3 days. Vanco level 24. White count is elevated, eosnophil count is normal Patient was taking Lasix, Spironolactone, metolazone as an outpatient more so for chronic peripheral edema. Had one episode of CHF 5 years ago when he was admitted to hospital with shortness of breath. Takes Naprosyn 2 tablets 3 times a day for the last 5 years Past Med Surg Social Fam HX - Past Medical History Medical history: arthritis, COPD, diabetes, hypertension, thyroid disease, venous stasis, other (JOSR - CPAP at night) Psychiatric history: anxiety - Past Surgical History Surgical History: cataract, cholecystectomy, LE vascular intervention, vascular surgery, other (Knee surgery; right leg spur removal from the fifth metatarsal, rotator cuff repair) - Social History Smoking Status: Former smoker Packs per day: 3-5 Smokeless Tobacco Status: No Alcohol use: rarely Drug use: none Medications and Allergies Allopurinol [Zyloprim] 300 mg PO DAILY 03/02/15 [History] Cholecalciferol (Vitamin D3) [Vitamin D] 2,000 unit PO DAILY 03/02/15 [History] Clopidogrel [Plavix] 75 mg PO DAILY 03/02/15 [History] Docusate [Colace] 200 mg PO TID 03/02/15 [History] FLUoxetine HCl [Prozac] 60 mg PO DAILY 03/02/15 [History] Famotidine [Pepcid] 20 mg PO BID 03/02/15 [History] Ferrous Sulfate 325 mg PO BID 03/02/15 [History] Furosemide [Lasix] 80 mg PO BID 03/02/15 [History] Gabapentin [Neurontin] 1,800 mg PO BID 03/02/15 [History] Ipratropium/Albuterol Neb [Duoneb] 3 ml IH Q6HR 03/02/15 [History] LORazepam [Ativan] 0.5 mg PO TID PRN 03/02/15 [History] Levothyroxine Sodium [Synthroid] 200 mcg PO DAILY 03/02/15 [History] Lovastatin [Altoprev] 20 mg PO DAILY 03/02/15 [History] Magnesium Oxide [Magnesium] 400 mg PO DAILY 03/02/15 [History] Metformin [Glucophage] 850 mg PO BID 03/02/15 [History] Metoprolol [Lopressor] 25 mg PO BID 03/02/15 [History] Multivitamin [Multivitamins] 1 cap PO DAILY 03/02/15 [History] Oxygen 2 l IN DAILY 03/02/15 [History] Potassium Chloride 20 meq PO TID 03/02/15 [History] Roflumilast [Daliresp] 500 mcg PO DAILY 03/02/15 [History] Ropinirole HCl [Requip] 2 mg PO BID 03/02/15 [History] Temazepam 15 mg PO HS 03/02/15 [History] Albuterol Sulfate [Proair Hfa] 2 puff IH Q4H 12/19/16 [History] Ammonium Lactate [Amlactin] 1 appl TP BID 12/19/16 [History] Guaifenesin [Mucinex] 600 mg PO BID 12/19/16 [History] HYDROcodone/Acet 10/325 mg [[place] 10-325 mg] 1 tab PO Q4HR PRN 12/19/16 [History ] Ipratropium/Albuterol Neb [Duoneb] 3 ml IH Q6HR 12/19/16 [History] Levofloxacin [Levaquin] 750 mg PO DAILY #10 tablet 12/19/16 [Rx] Lidocaine/Hydrocortisone AC [Lidocaine-Hydrocort 3-2.5% Gel] 7 gm RC BID [History] Polyethylene Glycol 3350 [MiraLAX Powder Bulk 17.9 Oz] 17 gm PO DAILY 12/19/16 [ History] PrednisoLONE [Millipred] 10 mg PO DAILY 12/19/16 [History] Spironolactone [Aldactone] 50 mg PO DAILY 12/19/16 [History] Theophylline Anhydrous [Jamal-24] 400 mg PO DAILY 12/19/16 [History] Umeclidinium Brm/Vilanterol Tr [Anoro Ellipta 62.5-25 Mcg INH] 1 puff IH DAILY 12/19/16 [History] metOLazone [Zaroxolyn] 5 mg PO DAILY 12/19/16 [History] BuPROPion [Wellbutrin] 75 mg PO BID 12/24/16 [History] Fluticasone/Salmeterol [Advair 500-50 Diskus] 2 puff IH BID 12/24/16 [History] Ropinirole HCl [Requip] 4 mg PO HS 12/24/16 [History] Allergies doxycycline Allergy (Verified 12/24/16 14:50) Hives Oxycodone [From Percocet] Allergy (Verified 12/24/16 14:50) Swelling of Lip/Tongue/Throat Penicillins [PCN] Allergy (Verified 12/24/16 14:50) Hives codeine Adverse Reaction (Verified 12/19/16 12:27) Flushing meperidine Adverse Reaction (Verified 12/19/16 12:27) Hallucinating morphine Adverse Reaction (Verified 12/19/16 12:27) Nightmare Review of Systems All Systems review (narrative): RESP;c/o SOB and minimal cough, feels better with CPAP CVS; has chronic swelling in ankles ; has trouble initiating the urine stream on a chronic basis. Last voided yesterday in the evening Patient is a poor historian, daughter at bedside. He feels hungry, wants to eat Exam - Vital Signs Vital signs: Initial Vital Signs Temp Pulse Resp BP Pulse Ox 98.2 F 83 14 138/68 95 12/23/16 19:08 12/23/16 19:08 12/23/16 19:08 12/23/16 19:08 12/23/16 19:08 Vital Signs - Last 8 Hours Temp Pulse Resp BP Pulse Ox 12/30/16 08:22 97.3 F L 54 20 85/63 100 12/30/16 04:54 97.2 F L 68 18 98/59 100 12/30/16 03:57 17 100 12/30/16 03:50 68 Intake and Output 12/29/16 12/30/16 12/30/16 23:59 07:59 15:59 Intake Total 1140 / 1140 1100 / 1100 Output Total 550 / 550 Balance 590 / 590 1100 / 1100 Intake: IV Fluids 100 / 100 1100 / 1100 0.9 % Sodium Chloride 1, 1000 / 1000 000 ML @ 100 mls/hr IVC . Q10H [facility] Rx#:[id number] Unasyn 1,500 mg In 0.9 % 100 / 100 100 / 100 Sodium Chloride (Mini-Bag +) 100 ML @ 200 mls/hr IVPB Q6HR [facility] Rx#: [id number] Oral 1040 / 1040 Output: Urine 500 / 500 Estimated Blood Loss 50 / 50 Other: Meal Dinner Percent of Meal Consumed 0% Weight 141.2 kg Blood Glucose* 168 176 Patient Weight 12/30/16 23:59 Weight 141.2 kg - General Appearance Exam: CVS; s1s2 present, regular, no murmurs RESP; decreased air entry, clear to auscultation ABD; distended, soft, NT, BS present, no organomegaly, no bruits EXT; no edema, right foot has dressing with wound VAC. 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 Martinez does home visits for this patient) Honorio Collins MD [Partnered Physician] - 01/15/17 9:30 am (this appointment is in [place])
[2016-12-30] MEDS: Ondansetron 4 MG/2 ML VIAL IVP PRN (12:43)
[2016-12-30 15:39] LABS: Bilirubin,Urine Small (Negative); Blood,Urine Negative (Negative); Clarity,Urine Clear (Clear); Color,Urine Dark Yellow (Yellow); Glucose,Urine (UA) Normal (Normal); Ketones,Urine Trace mg/dL (Negative); Leukocyte Esterase,Urine Negative (Negative); Nitrite,Urine Negative (Negative); PH,Urine 5.5 pH Units (5.0-8.0); Protein,Urine Negative (Neg-Trace); Specific Gravity,Urine > 1.030 (1.010-1.025); Urobilinogen,Urine Normal (Normal)
[2016-12-31] MEDS: *HR* Heparin 5,000 UNIT/ML VIAL SQ SCH ×3 (00:05→17:30)
[2016-12-31] MEDS: Ampicillin/Sulbactam 1,500 MG in 0.9 % Sodium Chloride Mini Bag 100 ML IVPB SCH ×3 (00:05→18:05)
[2016-12-31] MEDS: Ipratropium/Albuterol Neb 3 ML IH SCH ×4 (04:09→22:40)
[2016-12-31 05:46] LABS: Hematocrit 23.8 % (37.5-50.1); Hemoglobin 7.1 g/dL (12.9-16.9); Mean Corpuscular HGB Conc 29.8 g/dL (31.6-35.5); Mean Corpuscular Volume 93.7 fL (83.0-100.0); Mean Platelet Volume 11.1 fL (9.4-12.4); Nucleated Red Blood Cells 5.4 /100 WBC (0); Platelet Count 235 K/mcL (140-400); Red Blood Count 2.54 M/mcL (4.19-5.50); Red Cell Distribution Width 18.7 % (11.5-14.5)
[2016-12-31 06:02] LABS: Albumin 2.5 g/dL (3.5-5.0); Calcium 8.3 mg/dL (8.6-10.8); Lymphocytes # 2.6 K/mcL (0.6-4.6); Monocytes # 2.1 K/mcL (0.0-1.3); Neutrophils # 20.2 K/mcL (1.6-8.9); Phosphorous 5.4 mg/dL (2.3-4.7); Platelet Estimate Normal (Normal); Polychromasia 2+ (Not Present); Potassium 4.6 mEq/L (3.5-4.5); Reactive Lymphocytes Present (Not Present); Uric Acid 9.1 mg/dL (3.5-7.2)
[2016-12-31 06:03] LABS: Anisocytosis 2+ (Not Present); Toxic Granulation Present (Not Present)
[2016-12-31] MEDS: *HR* HYDROcodone/Acet 10/325 mg TABLET PO PRN ×2 (06:04→17:36)
[2016-12-31] MEDS: 0.9 % Sodium Chloride 1,000 ML IVC SCH (06:22)
[2016-12-31] MEDS: Lactobacillus 1 EACH CAP.SPRINK PO SCH (09:54)
[2016-12-31] MEDS: rOPINIRole 1 MG TABLET PO SCH ×3 (09:54→20:40)
[2016-12-31] MEDS: FLUoxetine 20 MG CAPSULE PO SCH (09:54)
[2016-12-31] MEDS: Gabapentin 300 MG CAPSULE PO SCH ×2 (09:56→20:40)
[2016-12-31] MEDS: predniSONE 10 MG TABLET PO SCH (09:56)
[2016-12-31] MEDS: Hydrocortisone Rectal 2.5% CRM 28 GM TUBE RC SCH (09:57)
[2016-12-31] MEDS: Insulin LISPRO 300 UNITS/3 ML VIAL SQ SCH ×3 (09:59→17:31)
--- NOTE | 2016-12-31 10:08 | Internal Med Progress Note ---
Date of Encounter: 12/31/16 Time of Encounter: 09:35 - Assessment and plan (1) Anemia Current Visit: Yes Status: Acute Assessment and plan: Patient is noted to have steadily decreasing hemoglobin, 7.1 today associated with worsening renal failure and borderline low blood pressure. Case discussed with nephrology, agree with PRBC transfusion today. We will send iron profile, transferrin saturation, fecal occult blood test, serum vitamin B12 and folate levels. Qualifiers: Anemia type: unspecified type Qualified Code(s): D64.9 - Anemia, unspecified (2) Osteomyelitis Current Visit: Yes Status: Acute Assessment and plan: Patient was admitted with right diabetic foot ulcer with questionable gas on x- ray and possible osteomyelitis, although foot MRI did not show this. Patient underwent debridement and excision of right foot plantar ulcer, excision of right fifth metatarsal, incision and drainage twice since admission. Currently on wound VAC. Continues to have persistent leukocytosis, afebrile for the last 48 hours. Slightly improving leukocytosis. Continue IV Unasyn for now. Wound cultures grew MSSA. Podiatry and infectious diseases on board. No other source of infection. Chest x-ray shows no focal infiltrates. Urinalysis is not suggestive of UTI. Qualifiers: Osteomyelitis type: acute hematogenous Osteomyelitis location: foot Laterality: right Qualified Code(s): M86.071 - Acute hematogenous osteomyelitis, right ankle and foot (3) Anxiety Current Visit: Yes Status: Acute Assessment and plan: Patient is not on anxiolytics at home. He reports anxiety and difficulty breathing when taken off BiPAP, although his oxygen saturation and vitals are noted to be stable. Continue when necessary IV Ativan and continue to monitor. Chest x-ray shows trace bilateral pleural effusion, no evidence of focal infiltrates. (4) Acute kidney injury Current Visit: Yes Status: Acute Assessment and plan: Likely ATN due to hypotension/use of vancomycin/diuretics/sepsis/recent contrast with angiogram. Serum creatinine continues to get worse. Currently oliguric. Continue to monitor serum creatinine and urine output, now on Santos catheter due to high residual volume on bladder scan. Nephrology follow-up noted. Continue to hold diuretics, potassium and magnesium supplements. Continue IV hydration, Mucomyst. Renal ultrasound shows possible medical renal disease, no hydronephrosis, urinary retention with 480 mL prevoid volume. (5) Diabetic foot ulcer Current Visit: Yes Status: Inactive Assessment and plan: Status post excision by podiatry. Continue local wound care per podiatry recommendations along with wound VAC. Qualifiers: Diabetic foot ulcer location: midfoot Diabetes mellitus type: other specified (including WALKER) Laterality: right Non-pressure ulcer stage: with fat layer exposed Qualified Code(s): E13.621 - Other specified diabetes mellitus with foot ulcer; L97.412 - Non-pressure chronic ulcer of right heel and midfoot with fat layer exposed (6) Diabetes mellitus Current Visit: Yes Status: Chronic Assessment and plan: Accu-Chek blood glucose monitoring with basal bolus insulin regimen. Diabetic diet. Qualifiers: Diabetes mellitus type: type 2 Diabetes mellitus complication status: with neurologic complications Diabetes mellitus complication detail: with polyneuropathy Diabetes mellitus prison insulin use: without prison use Qualified Code(s): E11.42 - Type 2 diabetes mellitus with diabetic polyneuropathy (7) COPD (chronic obstructive pulmonary disease) Current Visit: Yes Status: Chronic Assessment and plan: Patient continues to report subjective shortness of breath and a hunger when taken off BiPAP. Not noted to be hypoxic or tachycardic. Pulmonology follow- up appreciated, not consistent with acute exacerbation of COPD. Agree with low- dose oral steroids along with scheduled bronchodilators and supplemental oxygen. Nocturnal BiPAP support. Qualifiers: COPD type: chronic bronchitis Chronic bronchitis type: mucopurulent Qualified Code(s): J41.1 - Mucopurulent chronic bronchitis (8) Sleep apnea Current Visit: Yes Status: Chronic Qualifiers: Sleep apnea type: obstructive Qualified Code(s): G47.33 - Obstructive sleep apnea (adult) (pediatric) (9) Sepsis Current Visit: Yes Status: Resolved Qualifiers: Sepsis type: methicillin susceptible Staphylococcus aureus Qualified Code(s ): A41.01 - Sepsis due to Methicillin susceptible Staphylococcus aureus (10) Peripheral vascular disease Current Visit: Yes Status: Chronic Assessment and plan: Vascular surgery on board. Patient underwent right superficial femoral and common iliac balloon angioplasty on 12/28/2016. Continue Plavix. (11) Penicillin allergy Current Visit: Yes Status: Chronic (12) Lung mass Current Visit: Yes Status: Chronic Assessment and plan: Patient underwent CT-guided biopsy of right lower lobe lung mass yesterday, pathology results pending. - Subjective Interval history: Continues to be on BiPAP almost throughout the day due to subjective air hunger and difficulty breathing when taken off; per RN, he does not even take a few breaths off BiPAP and would insist on being placed back on it. No chest pain, dizziness, leg pain. Right foot on wound vac. Noted to have decreased urine output, on Santos now. - Constitutional Vitals: Temp Pulse Resp BP Pulse Ox 97.5 F L 67 14 93/64 91 12/31/16 07:31 12/31/16 08:52 12/31/16 07:31 12/31/16 07:31 12/31/16 07:31 General appearance: Present: mild distress, A&O X 3, answers questions appropriately - Respiratory Respiratory exam: Present: decreased breath sounds. Absent: accessory muscle use, rales, rhonchi, wheezes - Cardiovascular Cardiovascular exam: Present: RRR, +S1, +S2. Absent: diastolic murmur, gallop, rubs, systolic murmur - Extremities Exam Extremities exam: Present: pedal edema (1+ pitting pedal edema, right>left), warm, radial pulses palpable and symetrical. Absent: calf tenderness, cyanotic Additional comments: right foot on wound vac, with bloody fluid return Internal Medicine: Result - Labs CBC & Chem 7: 12/31/16 05:33 12/31/16 05:33 Labs: Short CBC 12/31/16 Range/Units 05:33 WBC 25.9 H (4.3-11.1) K/mcL Hgb 7.1 L (12.9-16.9) g/dL Hct 23.8 L (37.5-50.1) % Plt Count 235 (140-400) K/mcL Neutrophils # 20.2 H (1.6-8.9) K/mcL BMP 12/31/16 05:33 Sodium 133 L Potassium 4.6 H Chloride 98 Carbon Dioxide 24 BUN 54 H D Creatinine 2.93 H Glucose 136 H Calcium 8.3 L Liver Function 12/31/16 Range/Units 05:33 Albumin 2.5 L (3.5-5.0) g/dL Urine 12/30/16 Range/Units 15:30 Urine Color Dark Yellow (Yellow) Urine Clarity Clear (Clear) Urine pH 5.5 (5.0-8.0) pH Units Ur Specific Fletcher > 1.030 H (1.010-1.025) Urine Protein Negative (Neg-Trace) mg/dL Urine Glucose (UA) Normal (Normal) mg/dL - ABG Interpretation ABG results: PT/INR, D-dimer PT 14.9 Seconds (9.4-12.1) H 12/27/16 17:36 - Impressions Impressions Chest X-Ray 12/30/16 10:31 IMPRESSION: 1. Small pleural effusions. No consolidative opacities identified. 2. Known right lower lobe pulmonary nodules not clearly visualized. D/ / Hilario De Leon MD / Hilario De Leon MD Interpreting Provider: Hilario De Leon MD Retroperitoneum Ultrasound 12/30/16 13:30 IMPRESSION: No hydronephrosis nor shadowing renal pelvic stones. The overall echogenicity of the kidneys is increased, nonspecific finding suggesting medical renal disease. Due to limitations study, evaluation of the renal parenchyma is limited. Prevoid volume 483 cc. The patient was unable to urinate calculated postvoid volume. D/ / Carleen Mendoza Cha, MD / Carleen Mendoza Cha, MD Interpreting Provider: Carleen Mendoza Cha, MD - VTE Documentation of Mechanical Device: Intermittent pneumatic compression device Consult Discharge Plan - Plan Referrals: Sidney Martinez MD [Primary Care Provider] - (Dr. Martinez does home visits for this patient) Honorio Collins MD [Partnered Physician] - 01/15/17 9:30 am (this appointment is in [place])
[2016-12-31] MEDS: *HR* LORazepam 2 MG/ML VIAL IVP PRN ×2 (10:24→20:40)
[2016-12-31] MEDS: Budesonide/Formoterol 160/4.5 MDI IH SCH ×2 (11:12→22:41)
--- NOTE | 2016-12-31 11:38 | Nephrology Progress Note ---
Date of Encounter: 12/31/16 Time of Encounter: 11:21 - Assessment and Plan (1) Acute renal failure (ARF) Current Visit: Yes Status: Acute 1. ARF, has ATN sec to comb of hypotension, contrast sepsis and vancomycin No acute indication for dialysis, continue to monitor renal function, continue IV fluids Hyperuricemia, continue allopurinol. Elevated serum phosphate level, change diet to diabetic renal diet. Start PhosLo Serum globulin is elevated, check SPEP 2. HTN; BP is borderline low, DC metoprolol. 3. Leukocytosis and chronic anemia. Hemoglobin is trending down. Would benefit from blood transfusion, will d/.w primary service. Qualifiers: Qualified Code(s): N17.9 - Acute kidney failure, unspecified Subjective Principal diagnosis: gas gangrene Interval history: Santos was placed yesterday for urine retention Renal ultrasound; rt kidney 12.9, left 12.3, prevoid 483. Feels anxious without CPAP, received a dose of Ativan. Currently very drowsy. Daughter at bedside Pt afebrile, blood pressure remains borderline low with systolic in 90s. Urine output documented as 250 mL Objective - Vital Signs Vital signs: Vital Signs Temp Pulse Resp BP Pulse Ox 12/31/16 11:06 97.7 F 53 16 95/54 12/31/16 08:52 67 12/31/16 07:31 97.5 F L 57 14 93/64 91 12/31/16 04:09 18 94/73 100 12/31/16 04:00 61 12/31/16 03:48 97.5 F L 57 20 100/60 96 12/30/16 23:48 97.5 F L 63 14 101/69 100 12/30/16 22:41 13 105/62 96 12/30/16 20:54 97.6 F 59 21 105/59 93 12/30/16 13:30 98.0 F 67 18 95/58 96 Intake and Output 12/30/16 12/31/16 12/31/16 23:59 07:59 15:59 Intake Total 100 / 100 1100 / 1100 360 / 360 Output Total 250 / 250 100 / 100 100 / 100 Balance -150 / -150 1000 / 1000 260 / 260 Intake: IV Fluids 100 / 100 1100 / 1100 0.9 % Sodium Chloride 1, 1000 / 1000 000 ML @ 100 mls/hr IVC . Q10H [facility] Rx#:[id number] Unasyn 1,500 mg In 0.9 % 100 / 100 100 / 100 Sodium Chloride (Mini-Bag +) 100 ML @ 200 mls/hr IVPB Q6HR [facility] Rx#: [id number] Oral 360 / 360 Output: Urine 250 / 250 100 / 100 Catheter 100 / 100 Other: Meal Breakfast Percent of Meal Consumed 5% Stool Size Large Stool Consistency soft Stool Color Black # Bowel Movements 1 Weight 142.1 kg Blood Glucose* 179 203 Patient Weight 12/31/16 23:59 Weight 142.1 kg - General Appearance Exam: CVS; s1s2 present, regular, no murmurs RESP; decreased air entry, clear anteriorly ABD; soft, NT, BS present EXT; no edema, DP pulses palpable. 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 Martinez does home visits for this patient) Hoonrio Collins MD [Partnered Physician] - 01/15/17 9:30 am (this appointment is in [place])
--- NOTE | 2016-12-31 12:28 | Pulmonology Progress Note ---
<Celestino Mccoy - Last Filed: 12/31/16 13:16> Date of Encounter: 12/31/16 Time of Encounter: 12:25 Assessment and Plan (1) Lung mass Current Visit: Yes Status: Chronic CT guided biopsy performed 12/28 - pathology results pending (2) COPD (chronic obstructive pulmonary disease) Current Visit: Yes Status: Chronic diminished breath sounds, assume baseline with severe COPD does not appear in acute exacerbation continue duonebs and symbicort may continue low dose steroids given his current infection adequate ventilation and oxygenation BiPAP as needed Qualifiers: COPD type: chronic bronchitis Chronic bronchitis type: mucopurulent Qualified Code(s): J41.1 - Mucopurulent chronic bronchitis (3) Sleep apnea Current Visit: Yes Status: Chronic continue CPAP at night Qualifiers: Sleep apnea type: obstructive Qualified Code(s): G47.33 - Obstructive sleep apnea (adult) (pediatric) (4) Osteomyelitis Current Visit: Yes Status: Acute per primary team Qualifiers: Osteomyelitis type: acute hematogenous Osteomyelitis location: foot Laterality: right Qualified Code(s): M86.071 - Acute hematogenous osteomyelitis, right ankle and foot Subjective Principal diagnosis: gas gangrene Interval history: Reports of subjective air hunger difficulty in breathing once BiPAP is taken off. Notes improvement of symptoms after Ativan. Patient was seen and examined at bedside. Daughter is also at bedside. He is resting comfortably on 3 L Oxymask. When I awakened him he quickly falls back to sleep. He denies any chest pain, shortness of breath or abdominal pain. Follows simple commands. His oxygen saturation remains greater than 90% on 3L oxymask. Objective PUL Vital signs: Last Vital Signs Temp 98.1 F 12/31/16 11:55 Pulse 61 12/31/16 11:55 Resp 19 12/31/16 11:55 BP 100/51 12/31/16 11:55 Pulse Ox 90 12/31/16 11:55 General appearance: no acute distress, asleep, other (obese, awakens easily but somnolent, reportedly just given his Ativan) Eyes: nonicteric, other ENT: oropharynx moist Neck: supple, no JVD Effort: normal Auscultation: bilateral: diminished breath sounds Cardiovascular: regular rate and rhythm Gastrointestinal: normoactive bowel sounds, soft (obese abdomen), non-tender, other (hernia) Integumentary: cellulitis (wound to the right lower extremity, dressed with wound vac) Extremities: no edema Musculoskeletal: no deformities non-focal exam, pupils equal and round Results - Laboratory Findings CBC and BMP: 12/31/16 05:33 12/31/16 05:33 PT/INR, D-dimer PT 14.9 Seconds (9.4-12.1) H 12/27/16 17:36 Abnormal lab findings: Abnormal lab results WBC 25.9 K/mcL (4.3-11.1) H 12/31/16 05:33 RBC 2.54 M/mcL (4.19-5.50) L 12/31/16 05:33 Hgb 7.1 g/dL (12.9-16.9) L 12/31/16 05:33 Hct 23.8 % (37.5-50.1) L 12/31/16 05:33 MCHC 29.8 g/dL (31.6-35.5) L 12/31/16 05:33 RDW 18.7 % (11.5-14.5) H 12/31/16 05:33 Immature Gran % 8.4 % (0-4) H 12/26/16 03:31 Band Neutrophils % 6.0 % (0-4) H 12/31/16 05:33 Metamyelocytes % 4.0 % (0) H 12/31/16 05:33 Myelocytes % 2.0 % (0) H 12/29/16 03:16 Promyelocytes % 4.0 % (0) H 12/30/16 04:25 Neutrophils # 20.2 K/mcL (1.6-8.9) H 12/31/16 05:33 Monocytes # 2.1 K/mcL (0.0-1.3) H 12/31/16 05:33 Nucleated RBCs/100 WBC 5.4 /100 WBC (0) H 12/31/16 05:33 Reactive Lymphocytes Present (Not Present) A 12/31/16 05:33 Toxic Granulation Present (Not Present) A 12/31/16 05:33 Polychromasia 2+ (Not Present) A 12/31/16 05:33 Hypochromasia Present (Not Present) A 12/29/16 03:16 Anisocytosis 2+ (Not Present) A 12/31/16 05:33 Macrocytosis Present (Not Present) A 12/30/16 04:25 ESR 93 mm/hr (0-10) H 12/27/16 00:59 PT 14.9 Seconds (9.4-12.1) H 12/27/16 17:36 Sodium 133 mEq/L (136-145) L 12/31/16 05:33 Potassium 4.6 mEq/L (3.5-4.5) H 12/31/16 05:33 BUN 54 mg/dL (8-26) H D 12/31/16 05:33 Creatinine 2.93 mg/dL (0.72-1.25) H 12/31/16 05:33 Est GFR ( Amer) 26 (> 60) L 12/31/16 05:33 Est GFR (Non-Af Amer) 21 (> 60) L 12/31/16 05:33 Glucose 136 mg/dL (70-99) H 12/31/16 05:33 POC Glucose 203 (58-89) H 12/31/16 07:37 Hemoglobin A1c 5.7 % (-5.6) H 12/24/16 04:16 Uric Acid 9.1 mg/dL (3.5-7.2) H 12/31/16 05:33 Calcium 8.3 mg/dL (8.6-10.8) L 12/31/16 05:33 Phosphorus 5.4 mg/dL (2.3-4.7) H 12/31/16 05:33 C-Reactive Protein 73 mg/L (Less than 5) H 12/27/16 00:59 Albumin 2.5 g/dL (3.5-5.0) L 12/31/16 05:33 Globulin 4.8 g/dL (2.4-3.5) H 12/24/16 04:16 Albumin/Globulin Ratio 0.6 (1.1-2.2) L 12/24/16 04:16 Ur Specific [place] > 1.030 (1.010-1.025) H 12/30/16 15:30 Urine Ketones Trace mg/dL (Negative) H 12/30/16 15:30 Urine Bilirubin Small (Negative) H 12/30/16 15:30 Vancomycin Trough 24.4 mcg/mL (10-20) H* 12/27/16 00:59 - Microbiology Findings Microbiology Findings: Microbiology, Last 48 Hours 12/26/16 14:37 Blood Culture - Final Peripheral Venipuncture No growth. - Diagnostic Findings Chest x-ray: report reviewed, image reviewed Additional studies: Foot MRI 12/26/16 12:43 IMPRESSION: 1. 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 No evidence of associated abscess or sinus tract. 2. Plantar ulcerations at the midfoot. Underlying edema is consistent with cellulitis. No defined abscess. No evidence of osteomyelitis. 3. Patient motion significantly degrades the quality of this exam. D/ / 12/26/2016 20:55:22 Saud oSlo MD / sigrid Interpreting Provider: Saud Solo MD Lung Biopsy CT 12/28/16 00:00 IMPRESSION: Successful CT guided core biopsy of a right lower lobe lung mass. D/ / Margarito Perez MD / Margarito Perez MD Interpreting Provider: Margarito Perez MD Foot X-Ray 12/29/16 18:15 IMPRESSION: Mild cortical erosion at the base of the 4th metatarsal which may reflect early osteomyelitis. D/ / Cesar Stephens MD / Cesar Stephens MD Interpreting Provider: Cesar Stephens MD Chest X-Ray 12/30/16 10:31 IMPRESSION: 1. Small pleural effusions. No consolidative opacities identified. 2. Known right lower lobe pulmonary nodules not clearly visualized. D/ / Hilario De Leon MD / Hilario De Leon MD Interpreting Provider: Hilario De Leon MD Retroperitoneum Ultrasound 12/30/16 13:30 IMPRESSION: No hydronephrosis nor shadowing renal pelvic stones. The overall echogenicity of the kidneys is increased, nonspecific finding suggesting medical renal disease. Due to limitations study, evaluation of the renal parenchyma is limited. Prevoid volume 483 cc. The patient was unable to urinate calculated postvoid volume. D/ / Carleen Mendoza Cha, MD / Carleen Mendoza Cha, MD Interpreting Provider: Carleen Mendoza Cha, MD - Clinical Findings Intake & Output: Intake & Output 12/30/16 12/31/16 12/31/16 23:59 07:59 15:59 Intake Total 100 / 100 1100 / 1100 360 / 360 Output Total 250 / 250 100 / 100 100 / 100 Balance -150 / -150 1000 / 1000 260 / 260 Weight 142.1 kg - VTE Documentation of Mechanical Device: Intermittent pneumatic compression device Consult Discharge Plan - Plan Referrals: Sidney Martinez MD [Primary Care Provider] - (Dr. Martinez does home visits for this patient) Honorio Collins MD [Partnered Physician] - 01/15/17 9:30 am (this appointment is in [place]) <Nat Goodwin - Last Filed: 12/31/16 16:34> Date of Encounter: 12/31/16 Assessment and Plan (1) Mass of right lung Current Visit: Yes Status: Inactive (2) COPD (chronic obstructive pulmonary disease) Current Visit: Yes Status: Chronic Qualifiers: COPD type: chronic bronchitis Chronic bronchitis type: mucopurulent Qualified Code(s): J41.1 - Mucopurulent chronic bronchitis Objective PUL Vital signs: Last Vital Signs Temp 97.8 F 12/31/16 15:32 Pulse 95 12/31/16 15:32 Resp 20 12/31/16 15:32 BP 104/58 12/31/16 15:32 Pulse Ox 97 12/31/16 15:32 Results - Laboratory Findings CBC and BMP: 12/31/16 05:33 12/31/16 05:33 PT/INR, D-dimer PT 14.9 Seconds (9.4-12.1) H 12/27/16 17:36 Abnormal lab findings: Abnormal lab results WBC 25.9 K/mcL (4.3-11.1) H 12/31/16 05:33 RBC 2.54 M/mcL (4.19-5.50) L 12/31/16 05:33 Hgb 7.1 g/dL (12.9-16.9) L 12/31/16 05:33 Hct 23.8 % (37.5-50.1) L 12/31/16 05:33 MCHC 29.8 g/dL (31.6-35.5) L 12/31/16 05:33 RDW 18.7 % (11.5-14.5) H 12/31/16 05:33 Immature Gran % 8.4 % (0-4) H 12/26/16 03:31 Band Neutrophils % 6.0 % (0-4) H 12/31/16 05:33 Metamyelocytes % 4.0 % (0) H 12/31/16 05:33 Myelocytes % 2.0 % (0) H 12/29/16 03:16 Promyelocytes % 4.0 % (0) H 12/30/16 04:25 Neutrophils # 20.2 K/mcL (1.6-8.9) H 12/31/16 05:33 Monocytes # 2.1 K/mcL (0.0-1.3) H 12/31/16 05:33 Nucleated RBCs/100 WBC 5.4 /100 WBC (0) H 12/31/16 05:33 Reactive Lymphocytes Present (Not Present) A 12/31/16 05:33 Toxic Granulation Present (Not Present) A 12/31/16 05:33 Polychromasia 2+ (Not Present) A 12/31/16 05:33 Hypochromasia Present (Not Present) A 12/29/16 03:16 Anisocytosis 2+ (Not Present) A 12/31/16 05:33 Macrocytosis Present (Not Present) A 12/30/16 04:25 ESR 93 mm/hr (0-10) H 12/27/16 00:59 PT 14.9 Seconds (9.4-12.1) H 12/27/16 17:36 Sodium 133 mEq/L (136-145) L 12/31/16 05:33 Potassium 4.6 mEq/L (3.5-4.5) H 12/31/16 05:33 BUN 54 mg/dL (8-26) H D 12/31/16 05:33 Creatinine 2.93 mg/dL (0.72-1.25) H 12/31/16 05:33 Est GFR ( Amer) 26 (> 60) L 12/31/16 05:33 Est GFR (Non-Af Amer) 21 (> 60) L 12/31/16 05:33 Glucose 136 mg/dL (70-99) H 12/31/16 05:33 POC Glucose 203 (58-89) H 12/31/16 07:37 Hemoglobin A1c 5.7 % (-5.6) H 12/24/16 04:16 Uric Acid 9.1 mg/dL (3.5-7.2) H 12/31/16 05:33 Calcium 8.3 mg/dL (8.6-10.8) L 12/31/16 05:33 Phosphorus 5.4 mg/dL (2.3-4.7) H 12/31/16 05:33 Iron 41 mcg/dL (65-175) L 12/31/16 12:52 % Saturation 15 % (20-55) L 12/31/16 12:52 Ferritin 1363 ng/ml (22-275) H 12/31/16 12:52 C-Reactive Protein 73 mg/L (Less than 5) H 12/27/16 00:59 Albumin 2.5 g/dL (3.5-5.0) L 12/31/16 05:33 Globulin 4.8 g/dL (2.4-3.5) H 12/24/16 04:16 Albumin/Globulin Ratio 0.6 (1.1-2.2) L 12/24/16 04:16 Vitamin B12 1122 pg/mL (213-816) H 12/31/16 12:52 Ur Specific [place] > 1.030 (1.010-1.025) H 12/30/16 15:30 Urine Ketones Trace mg/dL (Negative) H 12/30/16 15:30 Urine Bilirubin Small (Negative) H 12/30/16 15:30 Vancomycin Trough 24.4 mcg/mL (10-20) H* 12/27/16 00:59 - Microbiology Findings Microbiology Findings: Microbiology, Last 48 Hours 12/26/16 14:37 Blood Culture - Final Peripheral Venipuncture No growth. - Clinical Findings Intake & Output: Intake & Output 12/31/16 12/31/16 12/31/16 07:59 15:59 23:59 Intake Total 1100 / 1100 361 / 361 Output Total 100 / 100 100 / 100 Balance 1000 / 1000 261 / 261 Weight 142.1 kg - Attending Attestation I examined this patient and my medical decision-making was reviewed with the INSIDE WIREMAN/PA/Advanced Practice Nurse/Resident Physician. I agree with the documented findings, disposition and treatment plan as described except to the extent set forth below. Patient seen and examined. Labs, radiology, chart personally reviewed. Agree with resident's history and physical, assessment, plan with following comments: EMBROIDERY SPECIALIST: Patient follows commands, Pulmonary: Acceptable oxygenation and ventilation and agree with BiPAP as patient has chronic respiratory failure. The anemia could be another reason of dyspnea and agree with blood transfusion. Patient is on appropriate bronchodilators. Follow-up on the CT guided biopsy of the lung mass. Patient has been using prednisone prison and weaning him off gradually is recommended especially with his cellulitis. Overall the patient has multiple medical problems and they feel prognosis is poor.
[2016-12-31] MEDS: Calcium Acetate 667 MG CAPSULE PO SCH ×2 (12:30→17:30)
[2016-12-31 13:22] LABS: % Iron Saturation 15 % (20-55); Iron 41 mcg/dL (65-175); Transferrin 200 mg/dL (174-364)
[2016-12-31 13:41] LABS: Ferritin 1363 ng/ml (22-275)
[2016-12-31 16:47] LABS: ABG Base Excess 0.3 mEq/L (-2.0 to 3.0); ABG HCO3 26.4 mEQ/L (21-27); ABG Oxygen Saturation 96 % (95-98); ABG PCO2 50 mmHg (35-45); ABG PH 7.33 pH Units (7.32-7.45); ABG PO2 91 mmHg (85-104); ABG TCO2 27.9 mEq/L (20-26)
[2016-12-31 16:48] LABS: Blood Gas FiO2 32 %
[2016-12-31] MEDS ORDERED: 0.9 % Sodium Chloride 500 ML ONE (18:21)
[2017-01-01] MEDS: *HR* Heparin 5,000 UNIT/ML VIAL SQ SCH ×3 (01:01→17:37)
[2017-01-01] MEDS: *HR* HYDROcodone/Acet 10/325 mg TABLET PO PRN ×2 (01:01→09:08)
[2017-01-01] MEDS: Ipratropium/Albuterol Neb 3 ML IH SCH ×4 (04:20→22:03)
[2017-01-01 04:29] LABS: Hematocrit 27.1 % (37.5-50.1); Hemoglobin 8.1 g/dL (12.9-16.9); Mean Corpuscular HGB Conc 29.9 g/dL (31.6-35.5); Mean Corpuscular Volume 93.8 fL (83.0-100.0); Mean Platelet Volume 11.5 fL (9.4-12.4); Nucleated Red Blood Cells 3.8 /100 WBC (0); Platelet Count 180 K/mcL (140-400); Red Blood Count 2.89 M/mcL (4.19-5.50); Red Cell Distribution Width 18.6 % (11.5-14.5)
[2017-01-01 04:49] LABS: Potassium 4.7 mEq/L (3.5-4.5)
[2017-01-01 04:50] LABS: Albumin 2.5 g/dL (3.5-5.0); Calcium 8.4 mg/dL (8.6-10.8); Phosphorous 6.2 mg/dL (2.3-4.7)
[2017-01-01 05:46] LABS: Lymphocytes # 0.9 K/mcL (0.6-4.6); Monocytes # 0.5 K/mcL (0.0-1.3); Neutrophils # 21.7 K/mcL (1.6-8.9)
[2017-01-01 05:47] LABS: Anisocytosis 1+ (Not Present); Platelet Estimate Normal (Normal); Polychromasia 1+ (Not Present)
[2017-01-01] MEDS: 0.9 % Sodium Chloride 1,000 ML IVC SCH ×4 (06:22→08:36)
[2017-01-01] MEDS: Ampicillin/Sulbactam 1,500 MG in 0.9 % Sodium Chloride Mini Bag 100 ML IVPB SCH ×2 (06:23→17:36)
[2017-01-01] MEDS: Insulin LISPRO 300 UNITS/3 ML VIAL SQ SCH ×5 (08:34→23:05)
[2017-01-01] MEDS: Hydrocortisone Rectal 2.5% CRM 28 GM TUBE RC SCH ×3 (08:34→23:05)
--- NOTE | 2017-01-01 08:51 | Nephrology Progress Note ---
Date of Encounter: 01/01/17 Time of Encounter: 08:49 - Assessment and Plan (1) Acute kidney injury Current Visit: Yes Status: Acute Patient has acute kidney injury that is multifactorial in etiology. He has had nephrotoxin exposure radiocontrast exposure as well as hypotension. Urine output is decreasing. I am going to give him 1 dose of Lasix. Azotemia continues to worsen. There is no acute indication for dialysis today. However if he fails to improve he may require dialysis within the next several days. I did discuss this possibility with the patient. (2) Diabetic foot ulcer Current Visit: Yes Status: Inactive Qualifiers: Diabetic foot ulcer location: midfoot Diabetes mellitus type: other specified (including WALKER) Laterality: right Non-pressure ulcer stage: with fat layer exposed Qualified Code(s): E13.621 - Other specified diabetes mellitus with foot ulcer; L97.412 - Non-pressure chronic ulcer of right heel and midfoot with fat layer exposed (3) COPD (chronic obstructive pulmonary disease) Current Visit: Yes Status: Chronic Qualifiers: COPD type: chronic bronchitis Chronic bronchitis type: mucopurulent Qualified Code(s): J41.1 - Mucopurulent chronic bronchitis (4) Sleep apnea Current Visit: Yes Status: Chronic Qualifiers: Sleep apnea type: obstructive Qualified Code(s): G47.33 - Obstructive sleep apnea (adult) (pediatric) (5) Osteomyelitis Current Visit: Yes Status: Acute Qualifiers: Osteomyelitis type: acute hematogenous Osteomyelitis location: foot Laterality: right Qualified Code(s): M86.071 - Acute hematogenous osteomyelitis, right ankle and foot Subjective Principal diagnosis: gas gangrene Interval history: The patient denies any new complaints. Unfortunately his azotemia continues to worsen. Urine output is recorded is only 450 mL despite 3.2 L in. Objective - Vital Signs Vital signs: Vital Signs Temp Pulse Resp BP Pulse Ox 01/01/17 04:33 59 01/01/17 04:20 16 102/54 95 01/01/17 03:56 97.8 F 59 15 105/59 95 12/31/16 23:35 97.8 F 77 25 101/59 96 12/31/16 22:40 20 95/63 93 12/31/16 20:09 97.6 F 56 20 102/59 95 12/31/16 18:18 97.9 F 64 22 96/59 89 06/04/17 18:07 97.8 F 58 20 104/65 12/31/16 15:32 97.8 F 95 20 104/58 97 12/31/16 15:23 18 95 12/31/16 15:00 57 20 100/54 99 12/31/16 13:00 98.1 F 61 19 12/31/16 11:55 98.1 F 61 19 100/51 90 12/31/16 11:45 97.7 F 12/31/16 11:12 18 99 12/31/16 11:06 97.7 F 53 16 95/54 12/31/16 08:52 67 Intake and Output 12/31/16 01/01/17 01/01/17 23:59 07:59 15:59 Intake Total 1778 / 1778 Output Total 250 / 250 100 / 100 Balance 1528 / 1528 -100 / -100 Intake: IV Fluids 1100 / 1100 0.9 % Sodium Chloride 1, 1000 / 1000 000 ML @ 100 mls/hr IVC . Q10H [facility] Rx#:[id number] Unasyn 1,500 mg In 0.9 % 100 / 100 Sodium Chloride (Mini-Bag +) 100 ML @ 200 mls/hr IVPB Q12H [facility] Rx#: [id number] Blood Product 678 / 678 Rbcs Leuko Poor As-1 350 / 350 Unit [id number] Rbcs Leuko Poor As-1 328 / 328 Unit [id number] Output: Catheter 250 / 250 100 / 100 Other: Weight 142.9 kg Blood Glucose* 169 163 Patient Weight 01/01/17 23:59 Weight 142.9 kg - General Appearance Exam: Patient is alert and oriented. He is in no acute distress. Lungs diminished breath sounds. Heart regular rate and rhythm with a 2/6 soft ejection murmur. Abdomen is obese. There is no guarding or tenderness. There is some mild lower extremity swelling. A wound VAC is present on the right foot. - Lab 01/01/17 04:05 01/01/17 04:05 Most recent lab results ABG pH 7.33 pH Units (7.32-7.45) 12/31/16 16:34 ABG pCO2 50 mmHg (35-45) H 12/31/16 16:34 ABG pO2 91 mmHg (85-104) 12/31/16 16:34 ABG HCO3 26.4 mEQ/L (21-27) 12/31/16 16:34 ABG O2 Saturation 96 % (95-98) 12/31/16 16:34 Calcium 8.4 mg/dL (8.6-10.8) L 01/01/17 04:05 Phosphorus 6.2 mg/dL (2.3-4.7) H 01/01/17 04:05 Magnesium 2.5 mg/dL (1.6-2.6) 12/30/16 04:25 - VTE Documentation of Mechanical Device: Intermittent pneumatic compression device Consult Discharge Plan - Plan Referrals: Sidney Martinez MD [Primary Care Provider] - (Dr. Martinez does home visits for this patient) Honorio Collins MD [Partnered Physician] - 01/15/17 9:30 am (this appointment is in [place])
[2017-01-01] MEDS ORDERED: Furosemide 80 MG in 0.9 % Sodium Chloride 50 ML IVPB ONE (08:52)
[2017-01-01] MEDS: FLUoxetine 20 MG CAPSULE PO SCH (09:08)
[2017-01-01] MEDS: rOPINIRole 1 MG TABLET PO SCH ×3 (09:09→20:13)
[2017-01-01] MEDS: predniSONE 10 MG TABLET PO SCH (09:09)
[2017-01-01] MEDS: Lactobacillus 1 EACH CAP.SPRINK PO SCH (09:09)
[2017-01-01] MEDS: Gabapentin 300 MG CAPSULE PO SCH ×2 (09:09→20:12)
[2017-01-01] MEDS: Calcium Acetate 667 MG CAPSULE PO SCH ×3 (09:10→17:37)
[2017-01-01] MEDS: Budesonide/Formoterol 160/4.5 MDI IH SCH ×2 (09:13→22:04)
--- NOTE | 2017-01-01 09:51 | Internal Med Progress Note ---
Date of Encounter: 01/01/17 Time of Encounter: 09:47 - Assessment and plan (1) Anemia Current Visit: Yes Status: Acute Assessment and plan: Patient is noted to have steadily decreasing hemoglobin; status post one unit PRBC transfusion, hemoglobin noted to be 8.1. Iron profile shows low iron stores along with significantly high ferritin likely due to underlying inflammation. Serum vitamin B12 noted to be high, folate levels within normal limits. Stool occult blood pending. Qualifiers: Anemia type: unspecified type Qualified Code(s): D64.9 - Anemia, unspecified (2) Osteomyelitis Current Visit: Yes Status: Acute Assessment and plan: Patient was admitted with right diabetic foot ulcer with questionable gas on x- ray and possible osteomyelitis, although foot MRI did not show this. Patient underwent debridement and excision of right foot plantar ulcer, excision of right fifth metatarsal, incision and drainage twice since admission. Currently on wound VAC. Improving leukocytosis, afebrile for the last 48 hours. Continue IV Unasyn for now. Wound cultures grew MSSA. Podiatry and infectious diseases on board. No other source of infection noted. Qualifiers: Osteomyelitis type: acute hematogenous Osteomyelitis location: foot Laterality: right Qualified Code(s): M86.071 - Acute hematogenous osteomyelitis, right ankle and foot (3) Anxiety Current Visit: Yes Status: Acute Assessment and plan: Patient is not on anxiolytics at home. He reports anxiety and difficulty breathing when taken off BiPAP, although his oxygen saturation and vitals are noted to be stable. Continue when necessary IV Ativan and continue to monitor. Improving slowly. Chest x-ray shows trace bilateral pleural effusion, no evidence of focal infiltrates. (4) Acute kidney injury Current Visit: Yes Status: Acute Assessment and plan: Likely ATN due to hypotension/use of vancomycin/diuretics/sepsis/recent contrast with angiogram. Serum creatinine continues to get worse. Currently oliguric. We will discontinue IV hydration. Case discussed with nephrology, trial of IV Lasix 80 mg today. Patient may require at least temporary hemodialysis if there is no improvement in renal function in the next few days. Continue to monitor serum creatinine and urine output, Continue to hold diuretics, potassium and magnesium supplements. (5) Diabetic foot ulcer Current Visit: Yes Status: Inactive Qualifiers: Diabetic foot ulcer location: midfoot Diabetes mellitus type: other specified (including WALKER) Laterality: right Non-pressure ulcer stage: with fat layer exposed Qualified Code(s): E13.621 - Other specified diabetes mellitus with foot ulcer; L97.412 - Non-pressure chronic ulcer of right heel and midfoot with fat layer exposed (6) Diabetes mellitus Current Visit: Yes Status: Chronic Assessment and plan: Accu-Chek blood glucose monitoring with basal bolus insulin regimen. Diabetic diet. Qualifiers: Diabetes mellitus type: type 2 Diabetes mellitus complication status: with neurologic complications Diabetes mellitus complication detail: with polyneuropathy Diabetes mellitus nursing home insulin use: without exterminator helper use Qualified Code(s): E11.42 - Type 2 diabetes mellitus with diabetic polyneuropathy (7) COPD (chronic obstructive pulmonary disease) Current Visit: Yes Status: Chronic Assessment and plan: Patient continues to report intermittent subjective shortness of breath and a hunger when taken off BiPAP. Not noted to be hypoxic or tachycardic. Continue low-dose oral steroids along with scheduled bronchodilators and supplemental oxygen. Nocturnal BiPAP support. Qualifiers: COPD type: chronic bronchitis Chronic bronchitis type: mucopurulent Qualified Code(s): J41.1 - Mucopurulent chronic bronchitis (8) Sleep apnea Current Visit: Yes Status: Chronic Qualifiers: Sleep apnea type: obstructive Qualified Code(s): G47.33 - Obstructive sleep apnea (adult) (pediatric) (9) Sepsis Current Visit: Yes Status: Resolved Qualifiers: Sepsis type: methicillin susceptible Staphylococcus aureus Qualified Code(s ): A41.01 - Sepsis due to Methicillin susceptible Staphylococcus aureus (10) Peripheral vascular disease Current Visit: Yes Status: Chronic Assessment and plan: Vascular surgery on board. Patient underwent right superficial femoral and common iliac balloon angioplasty on 12/28/2016. Continue Plavix. (11) Penicillin allergy Current Visit: Yes Status: Chronic (12) Lung mass Current Visit: Yes Status: Chronic Assessment and plan: Patient underwent CT-guided biopsy of right lower lobe lung mass, pathology results pending. - Subjective Interval history: Currently off BiPAP, improving anxiety; received a dose of IV Ativan last night ; no cough, hypoxia, chest pain; has abdominal distension but does not report abdominal pain or constipation; - Constitutional Vitals: Temp Pulse Resp BP Pulse Ox 97.0 F L 66 18 109/71 96 01/01/17 09:05 01/01/17 09:05 01/01/17 09:05 01/01/17 09:05 01/01/17 09:05 General appearance: Present: A&O X 3, morbidly obese, answers questions appropriately - Respiratory Respiratory exam: Present: decreased breath sounds (B/L decreased air entry), CTAB. Absent: accessory muscle use, rales, rhonchi, wheezes - Cardiovascular Cardiovascular exam: Present: RRR, +S1, +S2. Absent: diastolic murmur, gallop, rubs, systolic murmur - GI/Abdominal GI/Abdominal exam: Present: distended (with tympANIC NOTE), normal bowel sounds , soft (obese), no peritoneal signs. Absent: tenderness - Extremities Exam Extremities exam: Present: pedal edema, warm, radial pulses palpable and symetrical. Absent: calf tenderness, cyanotic - Neurological Exam Neurological exam: Present: CN II-XII intact, oriented X3, no focal deficits. Absent: pronater drift, facial droop, speech deficit Internal Medicine: Result - Labs CBC & Chem 7: 01/01/17 04:05 01/01/17 04:05 Labs: Short CBC 01/01/17 Range/Units 04:05 WBC 23.6 H (4.3-11.1) K/mcL Hgb 8.1 L (12.9-16.9) g/dL Hct 27.1 L (37.5-50.1) % Plt Count 180 (140-400) K/mcL Neutrophils # 21.7 H (1.6-8.9) K/mcL BMP 01/01/17 04:05 Sodium 132 L Potassium 4.7 H Chloride 99 Carbon Dioxide 24 BUN 64 H Creatinine 3.34 H Glucose 157 H Calcium 8.4 L Liver Function 01/01/17 Range/Units 04:05 Albumin 2.5 L (3.5-5.0) g/dL - ABG Interpretation ABG results: ABG ABG pH 7.33 pH Units (7.32-7.45) 12/31/16 16:34 ABG pCO2 50 mmHg (35-45) H 12/31/16 16:34 ABG pO2 91 mmHg (85-104) 12/31/16 16:34 ABG O2 Saturation 96 % (95-98) 12/31/16 16:34 PT/INR, D-dimer PT 14.9 Seconds (9.4-12.1) H 12/27/16 17:36 - VTE Documentation of Mechanical Device: Intermittent pneumatic compression device Consult Discharge Plan - Plan Referrals: Sidney Martinez MD [Primary Care Provider] - (Dr. Martinez does home visits for this patient) Honorio Collins MD [Partnered Physician] - 01/15/17 9:30 am (this appointment is in [place])
--- NOTE | 2017-01-01 11:54 | Infectious Disease Progress No ---
Date of Encounter: 01/01/17 Time of Encounter: 11:52 - Assessment and Plan (1) Sepsis Current Visit: Yes Status: Resolved The patient had two SIRS criteria on admission. Likely secondary to osteomyelitis of the right foot. Improved. Tachycardia has resolved, but the patient continues to have leukocytosis. WBC is starting to trend down. Blood cultures drawn 12/26/16 are negative x 2 sets. Qualifiers: Sepsis type: methicillin susceptible Staphylococcus aureus Qualified Code(s ): A41.01 - Sepsis due to Methicillin susceptible Staphylococcus aureus (2) Osteomyelitis Current Visit: Yes Status: Acute Location: Right foot, lateral aspect of the 5th metatarsal. Causative organism MSSA per intra-operative culture. Previous superficial wound culture obtained 12/19/16 grew MSSA, P. mirabilis, and E. faecalis. Right foot x-ray completed 12/19/16 showed a soft tissue ulceration to the lateral aspect of the right foot at the level of the residual 5th metatarsal shaft compatible with diabetic ulcer. There was noted to be gas present within the region of the ulceration with possible extension of the gas into the adjacent soft tissues raising the possibility for infection with gas-forming organism. There was also a questionable irregularity and possible mild bony erosive change to the lateral aspect of the residual 5th metatarsal shaft that was concerning for osteomyelitis. Repeat foot x-ray 12/23/16 showed worsening soft tissue ulceration along the lateral aspect of the right foot with increasing soft tissue gas along with possible erosive changes of the 5th metatarsal concerning for osteomyelitis. ESR on admission was >130. No CRP was checked. Podiatry was consulted and took the patient to the OR on 12/24/16 and performed n I & D of the right foot with debridement of the 5th metatarsal bone and plantar fasciectomy. Operative notes reviewed. Large amount of purulent drainage was noted, as well as changes to the bone that was debrided. MRI completed 12/26/16 did not reveal any new abscess. Repeat ESR 93. CRP 73. Due to unexplained persistent leukocytosis, the patient was taken back to the OR 12/29/[address] Pelletier and underwent right foot excisional debridement of the diabetic foot ulceration, right foot peroneus brevis tendon transfer, right foot debridement of bone, and application of wound VAC. Operative note reviewed. No additional abscess or additional bone abnormalities noted intra- operatively. Continue Unasyn 3 grams IV Q12H. The patient has been on Unasyn since Sunday and appears to be tolerating it well. We will continue to observe the patient closely for any signs of delayed reaction. Continue wound care and activity restrictions per the podiatry team. Duration of treatment depends on the clinical picture, but likely 6 weeks of IV antibiotics followed by orals. Monitor renal function and for drug toxicity and dose-adjust antibiotics. administrative services officer following for assistance with discharge planning. Consult VAT for PICC line placement when closer to discharge. Qualifiers: Osteomyelitis type: acute hematogenous Osteomyelitis location: foot Laterality: right Qualified Code(s): M86.071 - Acute hematogenous osteomyelitis, right ankle and foot (3) Gas gangrene Current Visit: Yes Status: Acute Location: Right foot. Soft tissue gas noted on x-ray. Status post I & D 12/24/16. See antibiotics recommendations as above. (4) Cellulitis of leg, right Current Visit: No Status: Resolved Likely secondary to infected DFU and osteomyelitis. Localized to the right foot and lower portion of the RLE up to the mid-mann. Resolved. Causative organism likely MSSA given the patient's most recent wound cultures. Continue antibiotics as above. (5) Acute kidney injury Current Visit: Yes Status: Acute Likely secondary to sepsis. Serum creatinine elevated at 1.27 on admission, up to 3.34 today. Nephrology consulted and following. RP UTS showed urinary retention. Continue to trend. Dose-adjust antibiotics and avoid nephrotoxins as able. (6) Mass of right lung Current Visit: Yes Status: Acute CT of the chest 12/19/16 showed spiculating RLL mass concerning for malignancy. The patient has an extensive smoking history. Pulmonology consulted. Recommends CT-guided biopsy with possible EBUS to follow. CT-guided biopsy completed 12/28/16. Await results. Further management per the pulmnonology team. (7) Diabetic foot ulcer Current Visit: Yes Status: Inactive Location: Right lateral foot, status post excision. Wound care per the podiatry team. Qualifiers: Diabetic foot ulcer location: midfoot Diabetes mellitus type: other specified (including WALKER) Laterality: right Non-pressure ulcer stage: with fat layer exposed Qualified Code(s): E13.621 - Other specified diabetes mellitus with foot ulcer; L97.412 - Non-pressure chronic ulcer of right heel and midfoot with fat layer exposed (8) COPD (chronic obstructive pulmonary disease) Current Visit: Yes Status: Chronic Qualifiers: COPD type: chronic bronchitis Chronic bronchitis type: mucopurulent Qualified Code(s): J41.1 - Mucopurulent chronic bronchitis (9) Diabetes mellitus Current Visit: Yes Status: Chronic Hgb A1C 5.7 on admission. Continue aggressive glucose monitoring and management to promote wound healing and prevent re-infection. Qualifiers: Diabetes mellitus type: type 2 Diabetes mellitus complication status: with neurologic complications Diabetes mellitus complication detail: with polyneuropathy Diabetes mellitus vermin exterminator insulin use: without vermin exterminator use Qualified Code(s): E11.42 - Type 2 diabetes mellitus with diabetic polyneuropathy (10) Sleep apnea Current Visit: Yes Status: Chronic Uses C-PAP QHS. Qualifiers: Sleep apnea type: obstructive Qualified Code(s): G47.33 - Obstructive sleep apnea (adult) (pediatric) (11) Anemia Current Visit: Yes Status: Acute Hgb 8.1 this morning. Etiology unclear. No evidence of acute bleeding noted on exam. Further workup and management per the primary team. Qualifiers: Anemia type: unspecified type Qualified Code(s): D64.9 - Anemia, unspecified (12) PAD (peripheral artery disease) Current Visit: Yes Status: Acute ABIs abnormal bilaterally. Vascular Surgery consulted. Status post abdominal aortogram, aortogram with bilateral runoff, and selective right lower leg angiogram. The patient received a right superficial femeral balloon angioplasty and a right common iliac stent angioplasty 12/28/[address] Collins. (13) Urinary retention Current Visit: Yes Status: Acute Santos placed. - Subjective Interval history: Patient seen and examined. Weekend notes reviewed. No acute events overnight. Patient lying in bed with eyes closed. Patient states he feels poor today and complains of generalized aches and pains, especially his coccyx. He complains of chronic pain in his back and shoulders. He denies any fevers or chills or rigors.. Denies any chest pain, and states his shortness of breath and cough are at baseline. He denies any nausea, vomiting, or diarrhea. Denies abdominal pain or appetite changes. States he had a loose BM last night Denies pain at the surgical site. Denies oral thrush or new skin lesions. Review of the nursing notes reveal that the patient requested to be on BIPAP for most of the day yesterday due to shortness of breath, but there was never evidence of hypoxia. Infect Dis PN-Objective Data - Labs CBC & Chem 7: 01/01/17 04:05 01/01/17 04:05 Labs: Laboratory Results - last 24 hr 12/30/16 12/30/16 12/30/16 08:19 11:32 16:55 WBC RBC Hgb Hct MCV MCH MCHC RDW Plt Count MPV Seg Neutrophils % Band Neutrophils % Lymphocytes % Monocytes % Metamyelocytes % Neutrophils # Lymphocytes # Monocytes # Nucleated RBCs/100 WBC Platelet Estimate Polychromasia Anisocytosis ABG pH ABG pCO2 ABG pO2 ABG HCO3 ABG Total CO2 ABG O2 Saturation ABG Base Excess Blood Gas Modality Inspired O2 Sodium Potassium Chloride Carbon Dioxide BUN Creatinine Est GFR ( Amer) Est GFR (Non-Af Amer) BUN/Creatinine Ratio Glucose POC Glucose 176 H 178 H 197 H Calculated Osmolality Calcium Phosphorus Iron % Saturation Transferrin Ferritin Albumin Vitamin B12 Folate Blood Type Antibody Screen Crossmatch 12/31/16 12/31/16 12/31/16 11:57 12:52 12:52 WBC RBC Hgb Hct MCV MCH MCHC RDW Plt Count MPV Seg Neutrophils % Band Neutrophils % Lymphocytes % Monocytes % Metamyelocytes % Neutrophils # Lymphocytes # Monocytes # Nucleated RBCs/100 WBC Platelet Estimate Polychromasia Anisocytosis ABG pH ABG pCO2 ABG pO2 ABG HCO3 ABG Total CO2 ABG O2 Saturation ABG Base Excess Blood Gas Modality Inspired O2 Sodium Potassium Chloride Carbon Dioxide BUN Creatinine Est GFR ( Amer) Est GFR (Non-Af Amer) BUN/Creatinine Ratio Glucose POC Glucose 177 H Calculated Osmolality Calcium Phosphorus Iron 41 L % Saturation 15 L Transferrin 200 Ferritin 1363 H Albumin Vitamin B12 1122 H Folate 16.0 Blood Type Antibody Screen Crossmatch 12/31/16 12/31/16 12/31/16 13:02 16:32 16:34 WBC RBC Hgb Hct MCV MCH MCHC RDW Plt Count MPV Seg Neutrophils % Band Neutrophils % Lymphocytes % Monocytes % Metamyelocytes % Neutrophils # Lymphocytes # Monocytes # Nucleated RBCs/100 WBC Platelet Estimate Polychromasia Anisocytosis ABG pH 7.33 ABG pCO2 50 H ABG pO2 91 ABG HCO3 26.4 ABG Total CO2 27.9 H ABG O2 Saturation 96 ABG Base Excess 0.3 Blood Gas Modality OXY Inspired O2 32 Sodium Potassium Chloride Carbon Dioxide BUN Creatinine Est GFR ( Amer) Est GFR (Non-Af Amer) BUN/Creatinine Ratio Glucose POC Glucose 157 H Calculated Osmolality Calcium Phosphorus Iron % Saturation Transferrin Ferritin Albumin Vitamin B12 Folate Blood Type O POSITIVE Antibody Screen NEGATIVE Crossmatch See Detail 12/31/16 01/01/17 01/01/17 19:57 04:05 04:05 WBC 23.6 H RBC 2.89 L Hgb 8.1 L Hct 27.1 L MCV 93.8 MCH 28.0 MCHC 29.9 L RDW 18.6 H Plt Count 180 MPV 11.5 Seg Neutrophils % 84.0 Band Neutrophils % 8.0 H Lymphocytes % 4.0 Monocytes % 2.0 Metamyelocytes % 2.0 H Neutrophils # 21.7 H Lymphocytes # 0.9 Monocytes # 0.5 Nucleated RBCs/100 WBC 3.8 H Platelet Estimate Normal Polychromasia 1+ A Anisocytosis 1+ A ABG pH ABG pCO2 ABG pO2 ABG HCO3 ABG Total CO2 ABG O2 Saturation ABG Base Excess Blood Gas Modality Inspired O2 Sodium 132 L Potassium 4.7 H Chloride 99 Carbon Dioxide 24 BUN 64 H Creatinine 3.34 H Est GFR ( Amer) 22 L Est GFR (Non-Af Amer) 18 L BUN/Creatinine Ratio 19 Glucose 157 H POC Glucose 169 H Calculated Osmolality 296 Calcium 8.4 L Phosphorus 6.2 H Iron % Saturation Transferrin Ferritin Albumin 2.5 L Vitamin B12 Folate Blood Type Antibody Screen Crossmatch Cultures: Cultures 12/26/16 14:37 Blood Culture - Final Peripheral Venipuncture No growth. 12/26/16 14:37 Blood Culture - Final Peripheral Venipuncture No growth. 12/24/16 16:11 Wound Culture - Final Right Foot Staphylococcus aureus 12/24/16 16:11 Anaerobic Culture - Final Right Foot Anaerobic Gram Positive Cocci 12/24/16 16:07 Wound Culture - Final Right Foot Staphylococcus aureus 12/24/16 16:07 Anaerobic Culture - Final Right Foot Anaerobic Gram Positive Cocci 12/24/16 16:08 Surgical Biopsy Culture - Final Right Foot Staphylococcus aureus 12/24/16 16:09 Surgical Biopsy Culture - Final Right Foot Serology 12/30/16 Range/Units 15:30 Urine Color Dark Yellow (Yellow) Urine Clarity Clear (Clear) Urine pH 5.5 (5.0-8.0) pH Units Ur Specific [place] > 1.030 H (1.010-1.025) Urine Protein Negative (Neg-Trace) mg/dL Urine Glucose (UA) Normal (Normal) mg/dL Urine Ketones Trace H (Negative) mg/dL Urine Blood Negative (Negative) Urine Nitrite Negative (Negative) Urine Bilirubin Small H (Negative) Urine Urobilinogen Normal (Normal) mg/dL Ur Leukocyte Esterase Negative (Negative) Ur Culture Indicated? NO (NO) Exam - Constitutional Vitals: Temp Pulse Resp BP Pulse Ox 97.0 F L 66 18 109/71 95 01/01/17 09:05 01/01/17 09:05 01/01/17 10:19 01/01/17 09:13 01/01/17 10:19 General appearance: cooperative, morbidly obese, no acute distress - Head Head exam: Present: atraumatic, normal inspection, normocephalic - Eye Eye exam: Present: EOMI, normal appearance, PERRL Pupils: Present: normal accommodation - ENT ENT exam: Present: mucous membranes dry - Neck Neck exam: Present: normal inspection - Respiratory Respiratory exam: Present: decreased breath sounds (throughout), wheezes (Fine, audible wheezes noted), tachypnea. Absent: rales, respiratory distress, rhonchi - Cardiovascular Cardiovascular exam: Present: RRR, +S1, +S2 - GI/Abdominal GI/Abdominal exam: Present: distended (obese), firm, normal bowel sounds. Absent: tenderness Additional comments: Santos catheter noted to be draining clear, dark yellow urine. - Extremities Exam Extremities exam: Present: pedal edema (1+ RLE). Absent: joint swelling, tenderness Additional comments: BLE venous stasis dermatitis noted. Right foot dressing noted with underlying wound VAC. Moderate amount of bloody drainage noted in the wound VAC canister. Wound VAC is on continuous suction at 125mm Hg with no leak present. - Back Exam Back exam: Present: normal inspection Additional comments: Allevyn dressing noted to the coccyx C/D/I. - Neurological Exam Neurological exam: Present: alert, oriented X3, no focal deficits - Psychiatric Psychiatric exam: Present: normal affect, normal mood - Skin Skin exam: Present: dry, intact, normal color, warm - VTE Documentation of Mechanical Device: Intermittent pneumatic compression device Consult Discharge Plan - Plan Referrals: Sidney Martinez MD [Primary Care Provider] - (Dr. Martinez does home visits for this patient) Honorio Collins MD [Partnered Physician] - 01/15/17 9:30 am (this appointment is in [place]) - Attending Attestation I examined this patient and my medical decision-making was reviewed with the WHOLES[facility] DIAMOND BROKER/PA/Advanced Practice Nurse/Resident Physician. I agree with the documented findings, disposition and treatment plan as described except to the extent set forth below.
--- NOTE | 2017-01-01 15:21 | Podiatry Progress Note ---
Date of Encounter: 01/01/17 Time of Encounter: 12:05 - Assessment and Plan (1) Cellulitis of leg, right Current Visit: No Status: Resolved (2) Diabetic foot ulcer Current Visit: Yes Status: Inactive Patient is s/p I&D right foot with debridement of 5th metatarsal bone and plantar fasciectomy by Dr. Pelletier on 12/24/16. Patient was taken back to OR by Dr. Pelletier for a right foot excisional debridement of diabetic foot ulceration, right foot peroneus brevis tendon transfer, right foot debridement of bone, application of wound vac on 12/29/2016 for persistent leukocytosis. S/p successful right common iliac and right superficial femoral artery angioplasties. WBC: 23.6 and trending down. A febrile. Infectious Disease following, Intraop cultures isolated MSSA. Currently receiving IV Unasyn 3gm IV every 12 hours and will most likely require 6 weeks of IV antibiotics based on clinical picture. MRI found no further abscess, resected 5th metatarsal bone did show OM. No abscess identified or purulent drainage expressed after being taken back to OR on 12/29/16. Wound vac changed at bedside today. 100 mls of sanguineous drainage observed to chamber prior to changing wound vac. Small white foam applied with small black simplace wound vac sponge applied, connected to 125 mmhg continuous suction. Skin prep barrier applied to surrounding wound edges. Wound edges are macerated to the plantar aspect. If no improvement in macerated skin on Sunday we will remove the wound vac for a short period. Patient to remain strict non weight bearing to the right foot. Will continue to follow patient closely. Qualifiers: Diabetic foot ulcer location: midfoot Diabetes mellitus type: other specified (including WALKER) Laterality: right Non-pressure ulcer stage: with fat layer exposed Qualified Code(s): E13.621 - Other specified diabetes mellitus with foot ulcer; L97.412 - Non-pressure chronic ulcer of right heel and midfoot with fat layer exposed (3) Diabetes mellitus Current Visit: Yes Status: Chronic Qualifiers: Diabetes mellitus type: type 2 Diabetes mellitus complication status: with neurologic complications Diabetes mellitus complication detail: with polyneuropathy Diabetes mellitus correction insulin use: without correction use Qualified Code(s): E11.42 - Type 2 diabetes mellitus with diabetic polyneuropathy (4) Gas gangrene Current Visit: Yes Status: Acute Subjective Principal diagnosis: gas gangrene Interval history: Patient is lying bed with nurse at bedside. Patient is s/p I&D right foot with debridement of 5th metatarsal bone and plantar fasciectomy by Dr. Pelletier on 12/24. Patient was taken back to OR by Dr. Pelletier for a right foot excisional debridement of diabetic foot ulceration, right foot peroneus brevis tendon transfer, right foot debridement of bone, application of wound vac on 2016 for persistent leukocytosis. Patient denies any pain to his right foot. Wound vac intact with 100 mls of sanguineous drainage observed to wound vac chamber. Moderate amount of dried blood observed to dressing and beneath tegaderm. Objective - Vital Signs Vital Signs: Vital Signs Temp Pulse Resp BP Pulse Ox 01/01/17 12:03 97.5 F L 66 20 100/54 92 01/01/17 10:19 18 95 01/01/17 09:13 18 109/71 92 01/01/17 09:05 97.0 F L 66 18 109/71 96 01/01/17 09:00 74 01/01/17 04:33 59 01/01/17 04:20 16 102/54 95 01/01/17 03:56 97.8 F 59 15 105/59 95 12/31/16 23:35 97.8 F 77 25 101/59 96 12/31/16 22:40 20 95/63 93 12/31/16 20:09 97.6 F 56 20 102/59 95 12/31/16 18:18 97.9 F 64 22 96/59 89 12/31/16 18:07 97.8 F 58 20 104/65 12/31/16 15:32 97.8 F 95 20 104/58 97 12/31/16 15:23 18 95 Intake and Output 12/31/16 01/01/17 01/01/17 23:59 07:59 15:59 Intake Total 1778 / 1778 Output Total 250 / 250 100 / 100 300 / 300 Balance 1528 / 1528 -100 / -100 -300 / -300 Intake: IV Fluids 1100 / 1100 0.9 % Sodium Chloride 1, 1000 / 1000 000 ML @ 100 mls/hr IVC . Q10H [facility] Rx#:[id number] Unasyn 1,500 mg In 0.9 % 100 / 100 Sodium Chloride (Mini-Bag +) 100 ML @ 200 mls/hr IVPB Q12H [facility] Rx#: [id number] Blood Product 678 / 678 Rbcs Leuko Poor As-1 350 / 350 Unit [id number] Rbcs Leuko Poor As-1 328 / 328 Unit [id number] Output: Catheter 250 / 250 100 / 100 300 / 300 Other: Weight 142.9 kg Blood Glucose* 169 163 223 Patient Weight 01/01/17 23:59 Weight 142.9 kg - Exam Exam: General appearance: alert awake oriented X 3. Calm and pleasant, no acute distress.. Vascular: Right foot: No evidence of cyanosis, pallor or rubor, Edema graded at 1+/4, Skin Temperature warm, No calf pain with manual compression. capillary refill time is immediate to digits. Neurologic: Sensation diminished with light touch to right foot. . Postop Exam: S/p: Full-thickness ulceration to the lateral aspect of the right foot at the fifth metatarsal head with tunneling to the plantar aspect along the incision line measuring 2cm and distally along the lateral side of the foot at the incision line measuring 2 cm. No odor, no pus, no periwound erythema, no exposed bone, no fluctuance. Wound edges to the plantar aspect are macerated. Toes #1 through #4 right are pink, warm and dry. - Lab Result Diagrams: 01/01/17 04:05 01/01/17 04:05 Labs: Abnormal lab results WBC 23.6 K/mcL (4.3-11.1) H 01/01/17 04:05 RBC 2.89 M/mcL (4.19-5.50) L 01/01/17 04:05 Hgb 8.1 g/dL (12.9-16.9) L 01/01/17 04:05 Hct 27.1 % (37.5-50.1) L 01/01/17 04:05 MCHC 29.9 g/dL (31.6-35.5) L 01/01/17 04:05 RDW 18.6 % (11.5-14.5) H 01/01/17 04:05 Immature Gran % 8.4 % (0-4) H 12/26/16 03:31 Band Neutrophils % 8.0 % (0-4) H 01/01/17 04:05 Metamyelocytes % 2.0 % (0) H 01/01/17 04:05 Myelocytes % 2.0 % (0) H 12/29/16 03:16 Promyelocytes % 4.0 % (0) H 12/30/16 04:25 Neutrophils # 21.7 K/mcL (1.6-8.9) H 01/01/17 04:05 Nucleated RBCs/100 WBC 3.8 /100 WBC (0) H 01/01/17 04:05 Reactive Lymphocytes Present (Not Present) A 12/31/16 05:33 Toxic Granulation Present (Not Present) A 12/31/16 05:33 Polychromasia 1+ (Not Present) A 01/01/17 04:05 Hypochromasia Present (Not Present) A 12/29/16 03:16 Anisocytosis 1+ (Not Present) A 01/01/17 04:05 Macrocytosis Present (Not Present) A 12/30/16 04:25 ESR 93 mm/hr (0-10) H 12/27/16 00:59 PT 14.9 Seconds (9.4-12.1) H 12/27/16 17:36 ABG pCO2 50 mmHg (35-45) H 12/31/16 16:34 ABG Total CO2 27.9 mEq/L (20-26) H 12/31/16 16:34 Sodium 132 mEq/L (136-145) L 01/01/17 04:05 Potassium 4.7 mEq/L (3.5-4.5) H 01/01/17 04:05 BUN 64 mg/dL (8-26) H 01/01/17 04:05 Creatinine 3.34 mg/dL (0.72-1.25) H 01/01/17 04:05 Est GFR ( Amer) 22 (> 60) L 01/01/17 04:05 Est GFR (Non-Af Amer) 18 (> 60) L 01/01/17 04:05 Glucose 157 mg/dL (70-99) H 01/01/17 04:05 POC Glucose 169 (58-89) H 12/31/16 19:57 Hemoglobin A1c 5.7 % (-5.6) H 12/24/16 04:16 Uric Acid 9.1 mg/dL (3.5-7.2) H 12/31/16 05:33 Calcium 8.4 mg/dL (8.6-10.8) L 01/01/17 04:05 Phosphorus 6.2 mg/dL (2.3-4.7) H 01/01/17 04:05 Iron 41 mcg/dL (65-175) L 12/31/16 12:52 % Saturation 15 % (20-55) L 12/31/16 12:52 Ferritin 1363 ng/ml (22-275) H 12/31/16 12:52 C-Reactive Protein 73 mg/L (Less than 5) H 12/27/16 00:59 Albumin 2.5 g/dL (3.5-5.0) L 01/01/17 04:05 Globulin 4.8 g/dL (2.4-3.5) H 12/24/16 04:16 Albumin/Globulin Ratio 0.6 (1.1-2.2) L 12/24/16 04:16 Vitamin B12 1122 pg/mL (213-816) H 12/31/16 12:52 Ur Specific [place] > 1.030 (1.010-1.025) H 12/30/16 15:30 Urine Ketones Trace mg/dL (Negative) H 12/30/16 15:30 Urine Bilirubin Small (Negative) H 12/30/16 15:30 Vancomycin Trough 24.4 mcg/mL (10-20) H* 12/27/16 00:59 Microbiology, Last 48 Hours 12/26/16 14:37 Blood Culture - Final Peripheral Venipuncture No growth. 12/26/16 14:37 Blood Culture - Final Peripheral Venipuncture No growth. - VTE Documentation of Mechanical Device: Intermittent pneumatic compression device Consult Discharge Plan - Plan Referrals: Sidney Martinez MD [Primary Care Provider] - (Dr. Martinez does home visits for this patient) Honorio Collins MD [Partnered Physician] - 01/15/17 9:30 am (this appointment is in [place])
--- NOTE | 2017-01-01 15:33 | Vascular/Endovas Progress Note ---
Date of Encounter: 01/01/17 Time of Encounter: 15:31 - Assessment and plan (1) Abnormal CT scan, chest Current Visit: Yes Status: Acute Right lower lobe mass. Patient had biopsy to confirm pathology of this lesion. Results of this CT guided biopsy are still pending. (2) Acute kidney injury Current Visit: Yes Status: Acute Multifactorial process with antibiotics, contrast exposure, anesthetic agents, as well as dehydration and sepsis. (3) Peripheral vascular disease Current Visit: Yes Status: Chronic Patient has chronic lower extremity vascular disease with a right limb threatening process. He has multiple risk factors for vascular disease in particular tobacco abuse and diabetes. Due to the ongoing sepsis with increasing white blood cell count and multiple concurrent medical problems I recommended an angiogram to try to rapidly intervene and potentially offer an endovascular approach to improve arterial perfusion to the right foot and lower extremity. Patient is a poor candidate for open vascular surgery at this time. Patient is status post successful right common iliac and right superficial femoral artery angioplasties. Patient will be followed intermittently at this time. I will be out this but will return on Sunday. Patient has no complaints referable to the right lower extremity. The wound VAC remains in position. The right foot is warmer. The white blood cell count has peaked and is decreasing from the weekend. - Subjective Interval history: The patient has no complaints. He is on a BiPAP mask at [facility] so communication is somewhat difficult. Vital Signs, Last 4 Hours Temp Pulse Resp BP Pulse Ox 01/01/17 12:03 97.5 F L 66 20 100/54 92 - Physical Examination Vascular: Present: Other (The right forefoot has a dressing in place as well as a wound VAC. The distal forefoot and toes however are warmer than 1 I last saw the patient on Sunday. The calf is nontender. He has chronic edema of the lower extremity.) - VTE Documentation of Mechanical Device: Intermittent pneumatic compression device Results 01/01/17 04:05 01/01/17 04:05 Lab Results, Last 24 hours 01/01/17 01/01/17 04:05 04:05 WBC 23.6 H Hgb 8.1 L Hct 27.1 L Plt Count 180 Sodium 132 L Potassium 4.7 H Chloride 99 Carbon Dioxide 24 BUN 64 H Creatinine 3.34 H Glucose 157 H Calcium 8.4 L Consult Discharge Plan - Plan Referrals: Sidney Martinez MD [Primary Care Provider] - (Dr. Martinez does home visits for this patient) Honorio Collins MD [Partnered Physician] - 01/15/17 9:30 am (this appointment is in [place])
[2017-01-02] MEDS: *HR* Heparin 5,000 UNIT/ML VIAL SQ SCH ×4 (00:29→23:47)
[2017-01-02] MEDS: Ipratropium/Albuterol Neb 3 ML IH SCH ×4 (03:44→22:36)
[2017-01-02] MEDS: Ampicillin/Sulbactam 1,500 MG in 0.9 % Sodium Chloride Mini Bag 100 ML IVPB SCH ×2 (05:44→17:45)
[2017-01-02 06:17] LABS: Hematocrit 26.3 % (37.5-50.1); Hemoglobin 8.1 g/dL (12.9-16.9); Mean Corpuscular HGB Conc 30.8 g/dL (31.6-35.5); Mean Corpuscular Hemoglobin 29.2 pg (28.0-33.3); Mean Corpuscular Volume 94.9 fL (83.0-100.0); Mean Platelet Volume 11.6 fL (9.4-12.4); Nucleated Red Blood Cells 2.5 /100 WBC (0); Platelet Count 141 K/mcL (140-400); Red Blood Count 2.77 M/mcL (4.19-5.50); Red Cell Distribution Width 19.3 % (11.5-14.5)
[2017-01-02 06:32] LABS: Potassium 4.1 mEq/L (3.5-4.5)
[2017-01-02 06:33] LABS: Albumin 2.5 g/dL (3.5-5.0); Albumin/Globulin Ratio 0.7 (1.1-2.2); Bilirubin,Total 0.9 mg/dL (0.2-1.2); Calcium 8.6 mg/dL (8.6-10.8); Globulin 3.6 g/dL (2.4-3.5); Phosphorous 5.3 mg/dL (2.3-4.7); Total Protein 6.1 g/dL (6.0-8.3)
[2017-01-02 06:47] LABS: Anisocytosis 1+ (Not Present); Large Platelets Present (Not Present); Macrocytosis Present (Not Present); Monocytes # 0.8 K/mcL (0.0-1.3); Neutrophils # 15.4 K/mcL (1.6-8.9); Platelet Estimate Normal (Normal); Polychromasia 1+ (Not Present)
--- NOTE | 2017-01-02 08:21 | Nephrology Progress Note ---
Date of Encounter: 01/02/17 Time of Encounter: 08:20 - Assessment and Plan (1) Acute kidney injury Current Visit: Yes Status: Acute Patient has acute kidney injury that is multifactorial in etiology. He has had nephrotoxin exposure radiocontrast exposure as well as hypotension. The patient 's urine output is recorded as low however I suspect that this is not accurate. His azotemia is improving. Creatinine is gone from 3.3 down to 2.5. There is no acute indication for acute dialysis. We will continue to monitor the patient. (2) Diabetic foot ulcer Current Visit: Yes Status: Inactive Qualifiers: Diabetic foot ulcer location: midfoot Diabetes mellitus type: other specified (including WALKER) Laterality: right Non-pressure ulcer stage: with fat layer exposed Qualified Code(s): E13.621 - Other specified diabetes mellitus with foot ulcer; L97.412 - Non-pressure chronic ulcer of right heel and midfoot with fat layer exposed (3) COPD (chronic obstructive pulmonary disease) Current Visit: Yes Status: Chronic Qualifiers: COPD type: chronic bronchitis Chronic bronchitis type: mucopurulent Qualified Code(s): J41.1 - Mucopurulent chronic bronchitis (4) Sleep apnea Current Visit: Yes Status: Chronic Qualifiers: Sleep apnea type: obstructive Qualified Code(s): G47.33 - Obstructive sleep apnea (adult) (pediatric) (5) Osteomyelitis Current Visit: Yes Status: Acute Qualifiers: Osteomyelitis type: acute hematogenous Osteomyelitis location: foot Laterality: right Qualified Code(s): M86.071 - Acute hematogenous osteomyelitis, right ankle and foot Subjective Principal diagnosis: gas gangrene Interval history: Patient denies any new complaints. Urine output is recorded is only 400 mL. However creatinine is gone from 3.3 down to 2.5. Objective - Vital Signs Vital signs: Vital Signs Temp Pulse Resp BP Pulse Ox 01/02/17 07:40 96.9 F L 63 16 114/66 92 01/02/17 04:52 96.9 F L 82 22 131/63 96 01/02/17 04:05 58 01/02/17 03:44 13 93 01/02/17 00:30 97.6 F 67 13 115/61 93 01/01/17 23:00 75 01/01/17 22:04 17 93 01/01/17 20:57 97.6 F 01/01/17 20:10 58 16 91/49 97 01/01/17 18:19 18 92/52 95 01/01/17 15:51 55 18 95 01/01/17 15:15 97.4 F L 55 18 92/52 95 01/01/17 12:03 97.5 F L 66 20 100/54 92 01/01/17 10:19 18 95 01/01/17 09:13 18 109/71 92 01/01/17 09:05 97.0 F L 66 18 109/71 96 01/01/17 09:00 74 Intake and Output 01/01/17 01/02/17 01/02/17 23:59 07:59 15:59 Intake Total 100 / 100 600 / 600 Output Total 550 / 550 Balance 100 / 100 50 / 50 Intake: IV Fluids 100 / 100 Unasyn 1,500 mg In 0.9 % 100 / 100 Sodium Chloride (Mini-Bag +) 100 ML @ 200 mls/hr IVPB Q12H [facility] Rx#: [id number] Oral 600 / 600 Output: Catheter 550 / 550 Other: Meal Dinner Percent of Meal Consumed 50% Weight 148.2 kg Blood Glucose* 219 203 Patient Weight 01/02/17 23:59 Weight 148.2 kg - General Appearance Exam: Patient is alert and oriented. He is in no acute distress. Lung sounds. Heart regular rate and rhythm. Abdomen is obese. Normal bowel sounds. No masses or megaly or tenderness. There is some edema of the upper thigh areas. There is a wound VAC on the right foot. - Lab 01/02/17 06:02 01/02/17 06:02 Most recent lab results ABG pH 7.33 pH Units (7.32-7.45) 12/31/16 16:34 ABG pCO2 50 mmHg (35-45) H 12/31/16 16:34 ABG pO2 91 mmHg (85-104) 12/31/16 16:34 ABG HCO3 26.4 mEQ/L (21-27) 12/31/16 16:34 ABG O2 Saturation 96 % (95-98) 12/31/16 16:34 Calcium 8.6 mg/dL (8.6-10.8) 01/02/17 06:02 Phosphorus 5.3 mg/dL (2.3-4.7) H 01/02/17 06:02 Magnesium 2.5 mg/dL (1.6-2.6) 12/30/16 04:25 - VTE Documentation of Mechanical Device: Intermittent pneumatic compression device Consult Discharge Plan - Plan Referrals: Sidney Martinez MD [Primary Care Provider] - (Dr. Martinez does home visits for this patient) Honorio Collins MD [Partnered Physician] - 01/15/17 9:30 am (this appointment is in [place])
--- NOTE | 2017-01-02 08:54 | Pulmonology Progress Note ---
Date of Encounter: 01/02/17 Time of Encounter: 08:51 Assessment and Plan (1) Non-small cell lung cancer (NSCLC) Current Visit: Yes Status: Acute Path report from [facility] + for NSCLC. Possibly limited stage. -Recommend formal Oncology evaluation with [outpatient] PET scan -Small amount of hilar/mediastinal NALDO that may be amneable to EBUS based upon PET results -Poor surgical candidate given severity of underlying COPD -Recommend continuation of chemical DVT prophylaxis consider switching from unfractionated heparin to low molecular weight heparin given diagnosis of malignancy Qualifiers: Laterality: right Qualified Code(s): C34.91 - Malignant neoplasm of unspecified part of right bronchus or lung (2) COPD (chronic obstructive pulmonary disease) Current Visit: Yes Status: Chronic Very Severe COPD with stable symptoms - wean Fio2 to keep sats >88-92% -cont BID ICS/LABA -Cont PRN bronchodilators every 2-6 hours as needed -Consider starting long acting muscarinic agent such as Spiriva 18 g daily -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 -Recommend outpatient pulmonary follow-up Qualifiers: COPD type: chronic bronchitis Chronic bronchitis type: mucopurulent Qualified Code(s): J41.1 - Mucopurulent chronic bronchitis (3) Abnormal CT scan, chest Current Visit: Yes Status: Acute (4) Sleep apnea Current Visit: Yes Status: Chronic cont Nocturnal PAP avoid sedatives/narcotics as able especially at bedtime Qualifiers: Sleep apnea type: obstructive Qualified Code(s): G47.33 - Obstructive sleep apnea (adult) (pediatric) (5) Lung mass Current Visit: Yes Status: Chronic s/p CT guided biopsy results as outlined above We appreciate being consulted on this patient please call for any further recommendations or if clinical course changes pulmonary will follow peripherally at this time. Subjective Principal diagnosis: gas gangrene Interval history: Today Mr. Sinha says he generally feels a bit better. Breathing has continued to improve he is on between 3 and 4 L with appropriate oxygen saturation. He does get air hungry occasionally and during those times use of positive airway pressure improves his symptoms. Objective PUL Vital signs: Last Vital Signs Temp 96.9 F L 01/02/17 07:40 Pulse 63 01/02/17 07:40 Resp 16 01/02/17 07:40 BP 114/66 01/02/17 07:40 Pulse Ox 92 01/02/17 07:40 General appearance: no acute distress Effort: normal Auscultation: bilateral: diminished breath sounds Cardiovascular: regular rate and rhythm Gastrointestinal: normoactive bowel sounds, non-tender Extremities: edema normal mental status mood appropriate Results - Laboratory Findings CBC and BMP: 01/02/17 06:02 01/02/17 06:02 ABG ABG pH 7.33 pH Units (7.32-7.45) 12/31/16 16:34 ABG pCO2 50 mmHg (35-45) H 12/31/16 16:34 ABG pO2 91 mmHg (85-104) 12/31/16 16:34 ABG O2 Saturation 96 % (95-98) 12/31/16 16:34 PT/INR, D-dimer PT 14.9 Seconds (9.4-12.1) H 12/27/16 17:36 Abnormal lab findings: Abnormal lab results WBC 19.7 K/mcL (4.3-11.1) H 01/02/17 06:02 RBC 2.77 M/mcL (4.19-5.50) L 01/02/17 06:02 Hgb 8.1 g/dL (12.9-16.9) L 01/02/17 06:02 Hct 26.3 % (37.5-50.1) L 01/02/17 06:02 MCHC 30.8 g/dL (31.6-35.5) L 01/02/17 06:02 RDW 19.3 % (11.5-14.5) H 01/02/17 06:02 Immature Gran % 8.4 % (0-4) H 12/26/16 03:31 Band Neutrophils % 6.0 % (0-4) H 01/02/17 06:02 Metamyelocytes % 2.0 % (0) H 01/02/17 06:02 Myelocytes % 6.0 % (0) H 01/02/17 06:02 Promyelocytes % 4.0 % (0) H 12/30/16 04:25 Neutrophils # 15.4 K/mcL (1.6-8.9) H 01/02/17 06:02 Nucleated RBCs/100 WBC 2.5 /100 WBC (0) H 01/02/17 06:02 Reactive Lymphocytes Present (Not Present) A 12/31/16 05:33 Toxic Granulation Present (Not Present) A 12/31/16 05:33 Large Platelets Present (Not Present) A 01/02/17 06:02 Polychromasia 1+ (Not Present) A 01/02/17 06:02 Hypochromasia Present (Not Present) A 12/29/16 03:16 Anisocytosis 1+ (Not Present) A 01/02/17 06:02 Macrocytosis Present (Not Present) A 01/02/17 06:02 ESR 93 mm/hr (0-10) H 12/27/16 00:59 PT 14.9 Seconds (9.4-12.1) H 12/27/16 17:36 ABG pCO2 50 mmHg (35-45) H 12/31/16 16:34 ABG Total CO2 27.9 mEq/L (20-26) H 12/31/16 16:34 Sodium 132 mEq/L (136-145) L 01/02/17 06:02 Chloride 97 mEq/L (98-109) L 01/02/17 06:02 BUN 65 mg/dL (8-26) H 01/02/17 06:02 Creatinine 2.56 mg/dL (0.72-1.25) H 01/02/17 06:02 Est GFR ( Amer) 30 (> 60) L 01/02/17 06:02 Est GFR (Non-Af Amer) 25 (> 60) L 01/02/17 06:02 Glucose 169 mg/dL (70-99) H 01/02/17 06:02 POC Glucose 219 (58-89) H 01/01/17 20:54 Hemoglobin A1c 5.7 % (-5.6) H 12/24/16 04:16 Uric Acid 9.1 mg/dL (3.5-7.2) H 12/31/16 05:33 Phosphorus 5.3 mg/dL (2.3-4.7) H 01/02/17 06:02 Iron 41 mcg/dL (65-175) L 12/31/16 12:52 % Saturation 15 % (20-55) L 12/31/16 12:52 Ferritin 1363 ng/ml (22-275) H 12/31/16 12:52 AST 520 Units/L (5-34) H 01/02/17 06:02 ALT 601 Units/L (0-55) H 01/02/17 06:02 Alkaline Phosphatase 419 Units/L (38-126) H 01/02/17 06:02 C-Reactive Protein 73 mg/L (Less than 5) H 12/27/16 00:59 Albumin 2.5 g/dL (3.5-5.0) L 01/02/17 06:02 Globulin 3.6 g/dL (2.4-3.5) H 01/02/17 06:02 Albumin/Globulin Ratio 0.7 (1.1-2.2) L 01/02/17 06:02 Vitamin B12 1122 pg/mL (213-816) H 12/31/16 12:52 Ur Specific [place] > 1.030 (1.010-1.025) H 12/30/16 15:30 Urine Ketones Trace mg/dL (Negative) H 12/30/16 15:30 Urine Bilirubin Small (Negative) H 12/30/16 15:30 Vancomycin Trough 24.4 mcg/mL (10-20) H* 12/27/16 00:59 - Microbiology Findings Microbiology Findings: Microbiology, Last 48 Hours 12/26/16 14:37 Blood Culture - Final Peripheral Venipuncture No growth. 12/26/16 14:37 Blood Culture - Final Peripheral Venipuncture No growth. - Clinical Findings Intake & Output: Intake & Output 01/01/17 01/02/17 01/02/17 23:59 07:59 15:59 Intake Total 100 / 100 600 / 600 Output Total 550 / 550 Balance 100 / 100 50 / 50 Weight 148.2 kg - VTE Documentation of Mechanical Device: Intermittent pneumatic compression device Consult Discharge Plan - Plan Referrals: Sidney Martinez MD [Primary Care Provider] - (Dr. Martinez does home visits for this patient) Honorio Collins MD [Partnered Physician] - 01/15/17 9:30 am (this appointment is in [place])
[2017-01-02] MEDS: FLUoxetine 20 MG CAPSULE PO SCH (08:59)
[2017-01-02] MEDS: Lactobacillus 1 EACH CAP.SPRINK PO SCH (09:00)
[2017-01-02] MEDS: predniSONE 10 MG TABLET PO SCH (09:00)
[2017-01-02] MEDS: Calcium Acetate 667 MG CAPSULE PO SCH ×3 (09:00→16:45)
[2017-01-02] MEDS: rOPINIRole 1 MG TABLET PO SCH ×3 (09:00→20:05)
[2017-01-02] MEDS: Gabapentin 300 MG CAPSULE PO SCH ×2 (09:01→20:05)
[2017-01-02] MEDS: Hydrocortisone Rectal 2.5% CRM 28 GM TUBE RC SCH ×2 (09:02→20:09)
[2017-01-02] MEDS: Insulin LISPRO 300 UNITS/3 ML VIAL SQ SCH ×4 (09:13→20:09)
[2017-01-02] MEDS: *HR* HYDROcodone/Acet 10/325 mg TABLET PO PRN ×2 (10:48→20:05)
--- NOTE | 2017-01-02 10:57 | Infectious Disease Progress No ---
Date of Encounter: 01/02/17 Time of Encounter: 10:56 - Assessment and Plan (1) Sepsis Current Visit: Yes Status: Resolved The patient had two SIRS criteria on admission. Likely secondary to osteomyelitis of the right foot. Improved. Tachycardia has resolved, but the patient continues to have leukocytosis. WBC is starting to trend down. Blood cultures drawn 12/26/16 are negative x 2 sets. Qualifiers: Sepsis type: methicillin susceptible Staphylococcus aureus Qualified Code(s ): A41.01 - Sepsis due to Methicillin susceptible Staphylococcus aureus (2) Osteomyelitis Current Visit: Yes Status: Acute Location: Right foot, lateral aspect of the 5th metatarsal. Causative organism MSSA per intra-operative culture. Previous superficial wound culture obtained 12/19/16 grew MSSA, P. mirabilis, and E. faecalis. Right foot x-ray completed 12/19/16 showed a soft tissue ulceration to the lateral aspect of the right foot at the level of the residual 5th metatarsal shaft compatible with diabetic ulcer. There was noted to be gas present within the region of the ulceration with possible extension of the gas into the adjacent soft tissues raising the possibility for infection with gas-forming organism. There was also a questionable irregularity and possible mild bony erosive change to the lateral aspect of the residual 5th metatarsal shaft that was concerning for osteomyelitis. Repeat foot x-ray 12/23/16 showed worsening soft tissue ulceration along the lateral aspect of the right foot with increasing soft tissue gas along with possible erosive changes of the 5th metatarsal concerning for osteomyelitis. ESR on admission was >130. No CRP was checked. Podiatry was consulted and took the patient to the OR on 12/24/16 and performed n I & D of the right foot with debridement of the 5th metatarsal bone and plantar fasciectomy. Operative notes reviewed. Large amount of purulent drainage was noted, as well as changes to the bone that was debrided. MRI completed 12/26/16 did not reveal any new abscess. Repeat ESR 93. and CRP 73 12/27/16. Repeat in the AM. Due to unexplained persistent leukocytosis, the patient was taken back to the OR 12/29/[address] Pelletier and underwent right foot excisional debridement of the diabetic foot ulceration, right foot peroneus brevis tendon transfer, right foot debridement of bone, and application of wound VAC. Operative note reviewed. No additional abscess or additional bone abnormalities noted intra- operatively. Continue Unasyn 3 grams IV Q12H. The patient has been on Unasyn since Sunday and appears to be tolerating it well. We will continue to observe the patient closely for any signs of delayed reaction. Continue wound care and activity restrictions per the podiatry team. Duration of treatment depends on the clinical picture, but likely 6 weeks of IV antibiotics followed by orals. Monitor renal function and for drug toxicity and dose-adjust antibiotics. information services consultant following for assistance with discharge planning. Consult VAT for PICC line placement when closer to discharge. Due to the patient 's MILI, we can do an EPIV and swap it out at four weeks if nephrology prefers to avoid PICC line. Qualifiers: Osteomyelitis type: acute hematogenous Osteomyelitis location: foot Laterality: right Qualified Code(s): M86.071 - Acute hematogenous osteomyelitis, right ankle and foot (3) Gas gangrene Current Visit: Yes Status: Acute Location: Right foot. Soft tissue gas noted on x-ray. Status post I & D 12/24/16. See antibiotics recommendations as above. (4) Cellulitis of leg, right Current Visit: No Status: Resolved Likely secondary to infected DFU and osteomyelitis. Localized to the right foot and lower portion of the RLE up to the mid-mann. Resolved. Causative organism likely MSSA given the patient's most recent wound cultures. Continue antibiotics as above. (5) Acute kidney injury Current Visit: Yes Status: Acute Likely secondary to sepsis. Serum creatinine starting to trend down. Urine output appears adequate based on the amount of urine in the root bag this morning. Nephrology consulted and following. RP UTS showed urinary retention. Continue to trend. Dose-adjust antibiotics and avoid nephrotoxins as able. (6) Mass of right lung Current Visit: Yes Status: Acute CT of the chest 12/19/16 showed spiculating RLL mass concerning for malignancy. The patient has an extensive smoking history. Pulmonology consulted. Recommends CT-guided biopsy with possible EBUS to follow. CT-guided biopsy completed 12/28/16. 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 Further recommendations per pulmonology. (7) Diabetic foot ulcer Current Visit: Yes Status: Acute Location: Right lateral foot, status post excision. Wound care per the podiatry team. Qualifiers: Diabetic foot ulcer location: midfoot Diabetes mellitus type: other specified (including WALKER) Laterality: right Non-pressure ulcer stage: with fat layer exposed Qualified Code(s): E13.621 - Other specified diabetes mellitus with foot ulcer; L97.412 - Non-pressure chronic ulcer of right heel and midfoot with fat layer exposed (8) COPD (chronic obstructive pulmonary disease) Current Visit: Yes Status: Chronic Qualifiers: COPD type: chronic bronchitis Chronic bronchitis type: mucopurulent Qualified Code(s): J41.1 - Mucopurulent chronic bronchitis (9) Diabetes mellitus Current Visit: Yes Status: Chronic Hgb A1C 5.7 on admission. Continue aggressive glucose monitoring and management to promote wound healing and prevent re-infection. Qualifiers: Diabetes mellitus type: type 2 Diabetes mellitus complication status: with neurologic complications Diabetes mellitus complication detail: with polyneuropathy Diabetes mellitus intermediate card tender insulin use: without intermediate card tender use Qualified Code(s): E11.42 - Type 2 diabetes mellitus with diabetic polyneuropathy (10) Sleep apnea Current Visit: Yes Status: Chronic Uses C-PAP QHS. Qualifiers: Sleep apnea type: obstructive Qualified Code(s): G47.33 - Obstructive sleep apnea (adult) (pediatric) (11) Anemia Current Visit: Yes Status: Acute Hgb down to 7.7 this morning. Etiology unclear. No evidence of acute bleeding noted on exam. Further workup and management per the primary team. Qualifiers: Anemia type: unspecified type Qualified Code(s): D64.9 - Anemia, unspecified (12) PAD (peripheral artery disease) Current Visit: Yes Status: Acute ABIs abnormal bilaterally. Vascular Surgery consulted. Status post abdominal aortogram, aortogram with bilateral runoff, and selective right lower leg angiogram. The patient received a right superficial femeral balloon angioplasty and a right common iliac stent angioplasty 12/28/[address] Collins. (13) Urinary retention Current Visit: Yes Status: Acute Root placed. - Subjective Interval history: Patient seen and examined. No acute events overnight. Patient lying in bed with eyes closed. Patient states he feels a little better today. He complains of chronic pain in his back and shoulders and bilateral knees. He also complains of pain in his coccyx from lying in bed. He denies any fevers or chills or rigors. Denies any chest pain, and states his shortness of breath and cough are at baseline. He denies any nausea, vomiting, or diarrhea. Denies abdominal pain or appetite changes. States he had a loose BM last night. Denies pain at the surgical site. Denies oral thrush or new skin lesions. Infect Dis PN-Objective Data - Labs CBC & Chem 7: 01/02/17 06:02 01/02/17 06:02 Labs: Laboratory Results - last 24 hr 01/01/17 01/01/17 01/01/17 07:34 11:34 17:04 WBC RBC Hgb Hct MCV MCH MCHC RDW Plt Count MPV Seg Neutrophils % Band Neutrophils % Lymphocytes % Monocytes % Metamyelocytes % Myelocytes % Neutrophils # Lymphocytes # Monocytes # Nucleated RBCs/100 WBC Platelet Estimate Large Platelets Polychromasia Anisocytosis Macrocytosis Sodium Potassium Chloride Carbon Dioxide BUN Creatinine Est GFR ( Amer) Est GFR (Non-Af Amer) BUN/Creatinine Ratio Glucose POC Glucose 163 H 223 H 180 H Calculated Osmolality Calcium Phosphorus Total Bilirubin AST ALT Alkaline Phosphatase Serum Total Protein Albumin Globulin Albumin/Globulin Ratio 01/01/17 01/02/17 01/02/17 20:54 06:02 06:02 WBC 19.7 H RBC 2.77 L Hgb 8.1 L Hct 26.3 L MCV 94.9 MCH 29.2 MCHC 30.8 L RDW 19.3 H Plt Count 141 MPV 11.6 Seg Neutrophils % 72.0 Band Neutrophils % 6.0 H Lymphocytes % 10.0 Monocytes % 4.0 Metamyelocytes % 2.0 H Myelocytes % 6.0 H Neutrophils # 15.4 H Lymphocytes # 2.0 Monocytes # 0.8 Nucleated RBCs/100 WBC 2.5 H Platelet Estimate Normal Large Platelets Present A Polychromasia 1+ A Anisocytosis 1+ A Macrocytosis Present A Sodium 132 L Potassium 4.1 Chloride 97 L Carbon Dioxide 24 BUN 65 H Creatinine 2.56 H Est GFR ( Amer) 30 L Est GFR (Non-Af Amer) 25 L BUN/Creatinine Ratio 25 Glucose 169 H POC Glucose 219 H Calculated Osmolality 297 Calcium 8.6 Phosphorus 5.3 H Total Bilirubin 0.9 AST 520 H ALT 601 H Alkaline Phosphatase 419 H Serum Total Protein 6.1 Albumin 2.5 L Globulin 3.6 H Albumin/Globulin Ratio 0.7 L Cultures: Cultures 12/26/16 14:37 Blood Culture - Final Peripheral Venipuncture No growth. 12/26/16 14:37 Blood Culture - Final Peripheral Venipuncture No growth. 12/24/16 16:11 Wound Culture - Final Right Foot Staphylococcus aureus 12/24/16 16:11 Anaerobic Culture - Final Right Foot Anaerobic Gram Positive Cocci 12/24/16 16:07 Wound Culture - Final Right Foot Staphylococcus aureus 12/24/16 16:07 Anaerobic Culture - Final Right Foot Anaerobic Gram Positive Cocci 12/24/16 16:08 Surgical Biopsy Culture - Final Right Foot Staphylococcus aureus 12/24/16 16:09 Surgical Biopsy Culture - Final Right Foot Serology 12/30/16 Range/Units 15:30 Urine Color Dark Yellow (Yellow) Urine Clarity Clear (Clear) Urine pH 5.5 (5.0-8.0) pH Units Ur Specific [place] > 1.030 H (1.010-1.025) Urine Protein Negative (Neg-Trace) mg/dL Urine Glucose (UA) Normal (Normal) mg/dL Urine Ketones Trace H (Negative) mg/dL Urine Blood Negative (Negative) Urine Nitrite Negative (Negative) Urine Bilirubin Small H (Negative) Urine Urobilinogen Normal (Normal) mg/dL Ur Leukocyte Esterase Negative (Negative) Ur Culture Indicated? NO (NO) Exam - Constitutional Vitals: Temp Pulse Resp BP Pulse Ox 96.9 F L 65 16 114/66 92 01/02/17 07:40 01/02/17 08:45 01/02/17 07:40 01/02/17 07:40 01/02/17 07:40 General appearance: cooperative, no acute distress, obese - Head Head exam: Present: atraumatic, normal inspection, normocephalic - Eye Eye exam: Present: EOMI, normal appearance, PERRL Pupils: Present: normal accommodation - ENT ENT exam: Present: mucous membranes moist - Neck Neck exam: Present: normal inspection - Respiratory Respiratory exam: Present: decreased breath sounds (Throughout). Absent: respiratory distress, rhonchi, wheezes, tachypnea - Cardiovascular Cardiovascular exam: Present: RRR, +S1, +S2 - GI/Abdominal GI/Abdominal exam: Present: distended (obese), firm, normal bowel sounds, tenderness (epigastric region) Additional comments: Root catheter noted to be draining clear, kathleen-colored urine. - Extremities Exam Extremities exam: Present: pedal edema (1+ RLE). Absent: joint swelling, tenderness Additional comments: Right foot dressing C/D/I with wound VAC intact. Continuous suction at 125mm Hg. Small amount of serous drainage noted in the canister. - Neurological Exam Neurological exam: Present: alert, oriented X3, no focal deficits - Psychiatric Psychiatric exam: Present: normal affect, normal mood - Skin Skin exam: Present: dry, intact, normal color, warm - VTE Documentation of Mechanical Device: Intermittent pneumatic compression device Consult Discharge Plan - Plan Referrals: Sidney Martinez MD [Primary Care Provider] - (Dr. Martinez does home visits for this patient) Honorio Collins MD [Partnered Physician] - 01/15/17 9:30 am (this appointment is in [place]) - Attending Attestation I examined this patient and my medical decision-making was reviewed with the SH[employer] VAN DRIVER/PA/Advanced Practice Nurse/Resident Physician. I agree with the documented findings, disposition and treatment plan as described except to the extent set forth below.
[2017-01-02] MEDS: Budesonide/Formoterol 160/4.5 MDI IH SCH ×2 (11:19→22:37)
--- NOTE | 2017-01-02 11:19 | Podiatry Progress Note ---
Date of Encounter: 01/02/17 Time of Encounter: 09:00 - Assessment and Plan (1) Diabetic foot ulcer Current Visit: No Status: Inactive c/w wound vac, if tissue maceration worse plantarly tomorrow will temprorarily take a break from the wound vac to dry out the plantar skin. reviewed last foot xray read, intra-operative findings and MRI does not correlate with 4th metatarsal bone infection. soft tissue of the foot and ankle has no cellulitis. antibiotics per infectious disease. foot is stable. wbc trending downward and kidney function improving. Qualifiers: Diabetic foot ulcer location: other Diabetes mellitus type: type 2 Laterality: right Non-pressure ulcer stage: with necrosis of bone Qualified Code(s): E11.621 - Type 2 diabetes mellitus with foot ulcer; L97.514 - Non- pressure chronic ulcer of other part of right foot with necrosis of bone Subjective Principal diagnosis: gas gangrene Interval history: patient states he is feeling better today than yesterday. small amount of drainage in wound vac cannister since last applied. denies feeling like he had a fever. Objective - Vital Signs Vital Signs: Vital Signs Temp Pulse Resp BP Pulse Ox 01/02/17 08:45 65 01/02/17 07:40 96.9 F L 63 16 114/66 92 01/02/17 04:52 96.9 F L 82 22 131/63 96 01/02/17 04:05 58 01/02/17 03:44 13 93 01/02/17 00:30 97.6 F 67 13 115/61 93 01/01/17 23:00 75 01/01/17 22:04 17 93 01/01/17 20:57 97.6 F 01/01/17 20:10 58 16 91/49 97 01/01/17 18:19 18 92/52 95 01/01/17 15:51 55 18 95 01/01/17 15:15 97.4 F L 55 18 92/52 95 01/01/17 12:03 97.5 F L 66 20 100/54 92 Intake and Output 01/01/17 01/02/17 01/02/17 23:59 07:59 15:59 Intake Total 100 / 100 600 / 600 1040 / 1040 Output Total 550 / 550 650 / 650 Balance 100 / 100 50 / 50 390 / 390 Intake: IV Fluids 100 / 100 Unasyn 1,500 mg In 0.9 % 100 / 100 Sodium Chloride (Mini-Bag +) 100 ML @ 200 mls/hr IVPB Q12H [facility] Rx#: [id number] Oral 600 / 600 1040 / 1040 Output: Catheter 550 / 550 650 / 650 Other: Meal Dinner Breakfast Percent of Meal Consumed 50% 90% Weight 148.2 kg Blood Glucose* 219 203 Patient Weight 01/02/17 23:59 Weight 148.2 kg - Exam Exam: foot is warm to touch. wound vac on and functioning and 125 mm Hg continuous. no cellulitis of the foot or ankle. - Lab Result Diagrams: 01/02/17 06:02 01/02/17 06:02 Labs: Abnormal lab results WBC 19.7 K/mcL (4.3-11.1) H 01/02/17 06:02 RBC 2.77 M/mcL (4.19-5.50) L 01/02/17 06:02 Hgb 8.1 g/dL (12.9-16.9) L 01/02/17 06:02 Hct 26.3 % (37.5-50.1) L 01/02/17 06:02 MCHC 30.8 g/dL (31.6-35.5) L 01/02/17 06:02 RDW 19.3 % (11.5-14.5) H 01/02/17 06:02 Immature Gran % 8.4 % (0-4) H 12/26/16 03:31 Band Neutrophils % 6.0 % (0-4) H 01/02/17 06:02 Metamyelocytes % 2.0 % (0) H 01/02/17 06:02 Myelocytes % 6.0 % (0) H 01/02/17 06:02 Promyelocytes % 4.0 % (0) H 12/30/16 04:25 Neutrophils # 15.4 K/mcL (1.6-8.9) H 01/02/17 06:02 Nucleated RBCs/100 WBC 2.5 /100 WBC (0) H 01/02/17 06:02 Reactive Lymphocytes Present (Not Present) A 12/31/16 05:33 Toxic Granulation Present (Not Present) A 12/31/16 05:33 Large Platelets Present (Not Present) A 01/02/17 06:02 Polychromasia 1+ (Not Present) A 01/02/17 06:02 Hypochromasia Present (Not Present) A 12/29/16 03:16 Anisocytosis 1+ (Not Present) A 01/02/17 06:02 Macrocytosis Present (Not Present) A 01/02/17 06:02 ESR 93 mm/hr (0-10) H 12/27/16 00:59 PT 14.9 Seconds (9.4-12.1) H 12/27/16 17:36 ABG pCO2 50 mmHg (35-45) H 12/31/16 16:34 ABG Total CO2 27.9 mEq/L (20-26) H 12/31/16 16:34 Sodium 132 mEq/L (136-145) L 01/02/17 06:02 Chloride 97 mEq/L (98-109) L 01/02/17 06:02 BUN 65 mg/dL (8-26) H 01/02/17 06:02 Creatinine 2.56 mg/dL (0.72-1.25) H 01/02/17 06:02 Est GFR ( Amer) 30 (> 60) L 01/02/17 06:02 Est GFR (Non-Af Amer) 25 (> 60) L 01/02/17 06:02 Glucose 169 mg/dL (70-99) H 01/02/17 06:02 POC Glucose 219 (58-89) H 01/01/17 20:54 Hemoglobin A1c 5.7 % (-5.6) H 12/24/16 04:16 Uric Acid 9.1 mg/dL (3.5-7.2) H 12/31/16 05:33 Phosphorus 5.3 mg/dL (2.3-4.7) H 01/02/17 06:02 Iron 41 mcg/dL (65-175) L 12/31/16 12:52 % Saturation 15 % (20-55) L 12/31/16 12:52 Ferritin 1363 ng/ml (22-275) H 12/31/16 12:52 AST 520 Units/L (5-34) H 01/02/17 06:02 ALT 601 Units/L (0-55) H 01/02/17 06:02 Alkaline Phosphatase 419 Units/L (38-126) H 01/02/17 06:02 C-Reactive Protein 73 mg/L (Less than 5) H 12/27/16 00:59 Albumin 2.5 g/dL (3.5-5.0) L 01/02/17 06:02 Globulin 3.6 g/dL (2.4-3.5) H 01/02/17 06:02 Albumin/Globulin Ratio 0.7 (1.1-2.2) L 01/02/17 06:02 Vitamin B12 1122 pg/mL (213-816) H 12/31/16 12:52 Ur Specific [place] > 1.030 (1.010-1.025) H 12/30/16 15:30 Urine Ketones Trace mg/dL (Negative) H 12/30/16 15:30 Urine Bilirubin Small (Negative) H 12/30/16 15:30 Vancomycin Trough 24.4 mcg/mL (10-20) H* 12/27/16 00:59 Microbiology, Last 48 Hours 12/26/16 14:37 Blood Culture - Final Peripheral Venipuncture No growth. - VTE Documentation of Mechanical Device: Intermittent pneumatic compression device Consult Discharge Plan - Plan Referrals: Sidney Martinez MD [Primary Care Provider] - (Dr. Martinez does home visits for this patient) Honorio Collins MD [Partnered Physician] - 01/15/17 9:30 am (this appointment is in [place])
--- NOTE | 2017-01-02 11:26 | Internal Med Progress Note ---
Date of Encounter: 01/02/17 Time of Encounter: 10:00 - Assessment and plan (1) Osteomyelitis Current Visit: Yes Status: Acute Assessment and plan: Patient was admitted with right diabetic foot ulcer with questionable gas on x- ray and possible osteomyelitis, although foot MRI did not show this. Patient underwent debridement and excision of right foot plantar ulcer, excision of right fifth metatarsal, incision and drainage twice since admission. Currently on wound VAC. Improving leukocytosis, afebrile > 48 hours. Continue IV Unasyn for now. Wound cultures grew MSSA. Podiatry and infectious diseases on board. No other source of infection noted. Qualifiers: Osteomyelitis type: acute hematogenous Osteomyelitis location: foot Laterality: right Qualified Code(s): M86.071 - Acute hematogenous osteomyelitis, right ankle and foot (2) Acute kidney injury Current Visit: Yes Status: Acute Assessment and plan: Likely ATN due to hypotension/use of vancomycin/diuretics/sepsis/recent contrast with angiogram. Currently oliguric. nephrology following. Continue to monitor serum creatinine and urine output, Continue to hold diuretics, potassium and magnesium supplements. (3) Non-small cell lung cancer (NSCLC) Current Visit: Yes Status: Acute Assessment and plan: newly diagnosed, Oncology consulted, path report from RLL TTBx +ve, pulmonology following Qualifiers: Laterality: right Qualified Code(s): C34.91 - Malignant neoplasm of unspecified part of right bronchus or lung (4) COPD (chronic obstructive pulmonary disease) Current Visit: Yes Status: Chronic Assessment and plan: Severe COPD. continue Duonebs, Spiriva, Symbicort. Pulmonology following Qualifiers: COPD type: chronic bronchitis Chronic bronchitis type: mucopurulent Qualified Code(s): J41.1 - Mucopurulent chronic bronchitis (5) Diabetes mellitus Current Visit: Yes Status: Chronic Assessment and plan: Accu-Chek blood glucose monitoring with basal bolus insulin regimen. Diabetic diet. Qualifiers: Diabetes mellitus type: type 2 Diabetes mellitus complication status: with neurologic complications Diabetes mellitus complication detail: with polyneuropathy Diabetes mellitus snf insulin use: without redevelopment manager use Qualified Code(s): E11.42 - Type 2 diabetes mellitus with diabetic polyneuropathy (6) Diabetic foot ulcer Current Visit: Yes Status: Acute Assessment and plan: Status post excision by podiatry. Continue local wound care per podiatry recommendations along with wound VAC. Qualifiers: Diabetic foot ulcer location: midfoot Diabetes mellitus type: other specified (including WALKER) Laterality: right Non-pressure ulcer stage: with fat layer exposed Qualified Code(s): E13.621 - Other specified diabetes mellitus with foot ulcer; L97.412 - Non-pressure chronic ulcer of right heel and midfoot with fat layer exposed (7) Anemia Current Visit: Yes Status: Acute Assessment and plan: Patient is noted to have steadily decreasing hemoglobin; status post one unit PRBC transfusion, hemoglobin noted to be 8.1. Iron profile shows low iron stores along with significantly high ferritin likely due to underlying inflammation. Serum vitamin B12 noted to be high, folate levels within normal limits. Stool occult blood pending. Qualifiers: Anemia type: unspecified type Qualified Code(s): D64.9 - Anemia, unspecified (8) Peripheral vascular disease Current Visit: Yes Status: Chronic Assessment and plan: Vascular surgery on board. Patient underwent right superficial femoral and common iliac balloon angioplasty on 12/28/2016. Continue Plavix. (9) Sleep apnea Current Visit: Yes Status: Chronic Qualifiers: Sleep apnea type: obstructive Qualified Code(s): G47.33 - Obstructive sleep apnea (adult) (pediatric) - Time Spent With Patient 25 - 35 minutes - Subjective Interval history: Patient awake and alert. Feels better. Denies chest pain or shortness of breath. No fever. Currently off BiPAP. No other acute events or complaints. - Constitutional Vitals: Temp Pulse Resp BP Pulse Ox 96.9 F L 65 16 114/66 92 01/02/17 07:40 01/02/17 08:45 01/02/17 07:40 01/02/17 07:40 01/02/17 07:40 General appearance: Present: A&O X 3, morbidly obese, answers questions appropriately - Eye Eye exam: Present: EOMI, sclera anicteric - Neck Neck exam general surgery: Present: supple - Respiratory Respiratory exam: Present: decreased breath sounds (b/l), rhonchi (mild b/l) - Cardiovascular Cardiovascular exam: Present: RRR, +S1, +S2 - GI/Abdominal GI/Abdominal exam: Present: distended (obese), firm, tenderness (mild epigastric ) - Extremities Exam Extremities exam: Present: pedal edema (RLE). Absent: joint swelling, tenderness Additional comments: right foot dressing+ with wound vac, - Neurological Exam Neurological exam: Present: alert, oriented X3, no focal deficits - Skin Skin exam: Present: dry Internal Medicine: Result - Labs CBC & Chem 7: 01/02/17 06:02 01/02/17 06:02 Labs: Short CBC 01/02/17 Range/Units 06:02 WBC 19.7 H (4.3-11.1) K/mcL Hgb 8.1 L (12.9-16.9) g/dL Hct 26.3 L (37.5-50.1) % Plt Count 141 (140-400) K/mcL Neutrophils # 15.4 H (1.6-8.9) K/mcL BMP 01/02/17 06:02 Sodium 132 L Potassium 4.1 Chloride 97 L Carbon Dioxide 24 BUN 65 H Creatinine 2.56 H Glucose 169 H Calcium 8.6 Liver Function 01/02/17 Range/Units 06:02 Total Bilirubin 0.9 (0.2-1.2) mg/dL AST 520 H (5-34) Units/L ALT 601 H (0-55) Units/L Alkaline Phosphatase 419 H (38-126) Units/L Albumin 2.5 L (3.5-5.0) g/dL - ABG Interpretation ABG results: ABG ABG pH 7.33 pH Units (7.32-7.45) 12/31/16 16:34 ABG pCO2 50 mmHg (35-45) H 12/31/16 16:34 ABG pO2 91 mmHg (85-104) 12/31/16 16:34 ABG O2 Saturation 96 % (95-98) 12/31/16 16:34 PT/INR, D-dimer PT 14.9 Seconds (9.4-12.1) H 12/27/16 17:36 - VTE Documentation of Mechanical Device: Intermittent pneumatic compression device Consult Discharge Plan - Plan Referrals: Sidney Martinez MD [Primary Care Provider] - (Dr. Martinez does home visits for this patient) Honorio Collins MD [Partnered Physician] - 01/15/17 9:30 am (this appointment is in [place])
[2017-01-02] MEDS ORDERED: *HR* LORazepam 1 MG TABLET PO PRN (15:03)
[2017-01-03] MEDS: Ipratropium/Albuterol Neb 3 ML IH SCH ×4 (04:12→19:59)
[2017-01-03 05:30] LABS: Hematocrit 25.3 % (37.5-50.1); Hemoglobin 7.7 g/dL (12.9-16.9); Mean Corpuscular HGB Conc 30.4 g/dL (31.6-35.5); Mean Corpuscular Hemoglobin 28.8 pg (28.0-33.3); Mean Corpuscular Volume 94.8 fL (83.0-100.0); Mean Platelet Volume 11.3 fL (9.4-12.4); Platelet Count 145 K/mcL (140-400); Red Blood Count 2.67 M/mcL (4.19-5.50); Red Cell Distribution Width 19.5 % (11.5-14.5)
[2017-01-03 05:31] LABS: Nucleated Red Blood Cells 2.4 /100 WBC (0)
[2017-01-03 05:43] LABS: Alanine Aminotransferase 492 Units/L (0-55); Albumin 2.5 g/dL (3.5-5.0); Albumin/Globulin Ratio 0.7 (1.1-2.2); Alkaline Phosphatase 348 Units/L (38-126); Aspartate Amino Transferase 343 Units/L (5-34); BUN/Creatinine Ratio 31 (6-26); Bilirubin,Total 0.7 mg/dL (0.2-1.2); Calcium 8.8 mg/dL (8.6-10.8); Carbon Dioxide 29 mEq/L (19-29); Chloride 98 mEq/L (98-109); Globulin 3.5 g/dL (2.4-3.5); Glucose 148 mg/dL (70-99); Osmolality,Calculated 291 (280-300); Potassium 3.9 mEq/L (3.5-4.5); Sodium 134 mEq/L (136-145); eGFR For African Americans > 60 (> 60); eGFR For Non-African Americans 52 (> 60)
[2017-01-03 05:45] LABS: Blood Urea Nitrogen 42 mg/dL (8-26)
[2017-01-03] MEDS: Ampicillin/Sulbactam 1,500 MG in 0.9 % Sodium Chloride Mini Bag 100 ML IVPB SCH (05:47)
[2017-01-03 05:56] LABS: Eosinophils # 0.6 K/mcL (0.0-0.6); Lymphocytes # 1.6 K/mcL (0.6-4.6); Monocytes # 1.1 K/mcL (0.0-1.3); Neutrophils # 10.4 K/mcL (1.6-8.9); Platelet Estimate Normal (Normal)
--- NOTE | 2017-01-03 08:29 | Event Note ---
Date of Encounter: 01/03/17 Time of Encounter: 08:29 The patient's renal function continues to improve. Creatinine is down to 1.35. Nephrology will sign off. Please call again if needed.
[2017-01-03] MEDS: rOPINIRole 1 MG TABLET PO SCH ×3 (09:19→21:03)
[2017-01-03] MEDS: Lactobacillus 1 EACH CAP.SPRINK PO SCH (09:19)
[2017-01-03] MEDS: Gabapentin 300 MG CAPSULE PO SCH ×2 (09:19→21:03)
[2017-01-03] MEDS: predniSONE 10 MG TABLET PO SCH (09:19)
[2017-01-03] MEDS: Calcium Acetate 667 MG CAPSULE PO SCH ×3 (09:19→17:07)
[2017-01-03] MEDS: *HR* Heparin 5,000 UNIT/ML VIAL SQ SCH ×2 (09:20→17:07)
[2017-01-03] MEDS: FLUoxetine 20 MG CAPSULE PO SCH (09:20)
--- NOTE | 2017-01-03 10:02 | Oncology Inp Consult Note ---
Date of Encounter: 01/03/17 Time of Encounter: 10:02 - Data of Consult Patient: new to practice Consult date: 01/03/17 Requesting Physician: Lucero Rodriguez MD Primary Care Provider: Sidney Martinez MD - Consult Narrative Reason for consult: Lung cancer History of present illness: Mr. Sinha is a 71 year old seen in consultation regarding newly diagnosed lung cancer. Patient presented with right foot cellulitis/osteomyelitis and acute COPD exacerbation and his chest x-ray on admission was concern about a possible mass. This was further evaluated with a chest CT 12/19/16 which confirmed a 4.3 cm bilobed, spiculated mass in the posterior right lower lobe suspicious for malignancy. No evidence of mediastinal or hilar lymphadenopathy. There is a mixed fat and soft tissue density in the right paraspinal area which has not changed since 2011. He had a CT-guided biopsy 12/28/16 which confirmed a moderately differentiated squamous cell carcinoma. Oncology is consulted re: evaluation and management of his newly diagnosed lung cancer. Patient seen and examined at bedside. Chart review for details of ongoing care by Hospital team which is much appreciated. He is feeling considerably well and isn't having any new physical complaints. As noted above, he has osteomyelitis in his right foot attributable to diabetic foot ulcer. Podiatry is following and he had debridement procedure and removal of fifth metatarsal bone by Dr. Alvaro Pelletier with podiatry which confirms chronic osteomyelitis. He is also followed by infectious disease for management of his infection. There is some concern about kidney function and he is followed by Dr. Haywood was noted that kidney functions accumulating improving based on most recent values. I reviewed the records and appreciate the input from his multispecialty team. Rest of past medical, surgical, family, social history detailed below and verified with patient today. Review of systems: 12 point review of systems performed with patient and positive findings noted in history of present illness. All other systems are negative: Physical exam: Vital Signs Temp 98.2 F 01/03/17 07:39 Pulse 82 01/03/17 07:39 Resp 16 01/03/17 07:39 BP 123/68 01/03/17 07:39 Pulse Ox 93 01/03/17 07:39 GENERAL: Alert and oriented, comfortable appearing. Mental Status: Affect appropriate for circumstances HEENT: Sclerae anicteric. No mucositis or thrush. No other oral or pharyngeal lesions or erythema. Skin: No rashes or petechiae. No evidence of skin malignancy Lymph nodes: No cervical, supraclavicular, axillary, or inguinal adenopathy. Lungs: Clear to auscultation bilaterally. Clear to percussion bilaterally. Cardiovascular: Regular rate and rhythm. No gallops, murmurs, or rubs. Abdomen: Soft, nontender; No organomegaly or masses palpable. Extremities: No edema. No calf swelling or tenderness. Dressing applied over right foot. Clean and dry. Neurologic: Alert, normal gait; no focal weakness or sensory abnormalities. Results: Laboratory Last Values WBC 13.7 K/mcL (4.3-11.1) H 01/03/17 05:10 RBC 2.67 M/mcL (4.19-5.50) L 01/03/17 05:10 Hgb 7.7 g/dL (12.9-16.9) L 01/03/17 05:10 Hct 25.3 % (37.5-50.1) L 01/03/17 05:10 MCV 94.8 fL (83.0-100.0) 01/03/17 05:10 MCH 28.8 pg (28.0-33.3) 01/03/17 05:10 MCHC 30.4 g/dL (31.6-35.5) L 01/03/17 05:10 RDW 19.5 % (11.5-14.5) H 01/03/17 05:10 Plt Count 145 K/mcL (140-400) 01/03/17 05:10 MPV 11.3 fL (9.4-12.4) 01/03/17 05:10 Immature Gran % 8.4 % (0-4) H 12/26/16 03:31 Seg Neutrophils % 54.0 % 01/03/17 05:10 Band Neutrophils % 22.0 % (0-4) H 01/03/17 05:10 Lymphocytes % 12.0 % 01/03/17 05:10 Monocytes % 8.0 % 01/03/17 05:10 Eosinophils % 4.0 % 01/03/17 05:10 Basophils % 0.8 % 12/26/16 03:31 Metamyelocytes % 2.0 % (0) H 01/02/17 06:02 Myelocytes % 6.0 % (0) H 01/02/17 06:02 Promyelocytes % 4.0 % (0) H 12/30/16 04:25 Neutrophils # 10.4 K/mcL (1.6-8.9) H 01/03/17 05:10 Lymphocytes # 1.6 K/mcL (0.6-4.6) 01/03/17 05:10 Monocytes # 1.1 K/mcL (0.0-1.3) 01/03/17 05:10 Eosinophils # 0.6 K/mcL (0.0-0.6) 01/03/17 05:10 Basophils # 0.1 K/mcL (0.0-0.2) 12/26/16 03:31 Nucleated RBCs/100 WBC 2.4 /100 WBC (0) H 01/03/17 05:10 Reactive Lymphocytes Present (Not Present) A 12/31/16 05:33 Toxic Granulation Present (Not Present) A 12/31/16 05:33 Platelet Estimate Normal (Normal) 01/03/17 05:10 Large Platelets Present (Not Present) A 01/02/17 06:02 Polychromasia 1+ (Not Present) A 01/02/17 06:02 Hypochromasia Present (Not Present) A 12/29/16 03:16 Anisocytosis 1+ (Not Present) A 01/02/17 06:02 Macrocytosis Present (Not Present) A 01/02/17 06:02 ESR 93 mm/hr (0-10) H 12/27/16 00:59 PT 14.9 Seconds (9.4-12.1) H 12/27/16 17:36 INR 1.4 12/27/16 17:36 APTT 29.2 Seconds (26.0-36.0) 12/27/16 17:36 ABG pH 7.33 pH Units (7.32-7.45) 12/31/16 16:34 ABG pCO2 50 mmHg (35-45) H 12/31/16 16:34 ABG pO2 91 mmHg (85-104) 12/31/16 16:34 ABG HCO3 26.4 mEQ/L (21-27) 12/31/16 16:34 ABG Total CO2 27.9 mEq/L (20-26) H 12/31/16 16:34 ABG O2 Saturation 96 % (95-98) 12/31/16 16:34 ABG Base Excess 0.3 mEq/L (-2.0 to 3.0) 12/31/16 16:34 Blood Gas Modality OXY 12/31/16 16:34 Inspired O2 32 % 12/31/16 16:34 Sodium 134 mEq/L (136-145) L 01/03/17 05:10 Potassium 3.9 mEq/L (3.5-4.5) 01/03/17 05:10 Chloride 98 mEq/L (98-109) 01/03/17 05:10 Carbon Dioxide 29 mEq/L (19-29) 01/03/17 05:10 BUN 42 mg/dL (8-26) H D 01/03/17 05:10 Creatinine 1.35 mg/dL (0.72-1.25) H 01/03/17 05:10 Est GFR ( Amer) > 60 (> 60) 01/03/17 05:10 Est GFR (Non-Af Amer) 52 (> 60) L 01/03/17 05:10 BUN/Creatinine Ratio 31 (6-26) H 01/03/17 05:10 Glucose 148 mg/dL (70-99) H 01/03/17 05:10 POC Glucose 234 (58-89) H 01/02/17 19:04 Est Mean Plasma Glucose 117 mg/dl 12/24/16 04:16 Hemoglobin A1c 5.7 % (-5.6) H 12/24/16 04:16 Calculated Osmolality 291 (280-300) 01/03/17 05:10 Lactic Acid 1.5 mmol/L (0.5-2.2) 12/23/16 19:55 Uric Acid 9.1 mg/dL (3.5-7.2) H 12/31/16 05:33 Calcium 8.8 mg/dL (8.6-10.8) 01/03/17 05:10 Phosphorus 5.3 mg/dL (2.3-4.7) H 01/02/17 06:02 Magnesium 2.5 mg/dL (1.6-2.6) 12/30/16 04:25 Iron 41 mcg/dL (65-175) L 12/31/16 12:52 % Saturation 15 % (20-55) L 12/31/16 12:52 Transferrin 200 mg/dL (174-364) 12/31/16 12:52 Ferritin 1363 ng/ml (22-275) H 12/31/16 12:52 Total Bilirubin 0.7 mg/dL (0.2-1.2) 01/03/17 05:10 AST 343 Units/L (5-34) H 01/03/17 05:10 ALT 492 Units/L (0-55) H 01/03/17 05:10 Alkaline Phosphatase 348 Units/L (38-126) H 01/03/17 05:10 C-Reactive Protein 73 mg/L (Less than 5) H 12/27/16 00:59 Serum Total Protein 6.0 g/dL (6.0-8.3) 01/03/17 05:10 Albumin 2.5 g/dL (3.5-5.0) L 01/03/17 05:10 Globulin 3.5 g/dL (2.4-3.5) 01/03/17 05:10 Albumin/Globulin Ratio 0.7 (1.1-2.2) L 01/03/17 05:10 Vitamin B12 1122 pg/mL (213-816) H 12/31/16 12:52 Folate 16.0 ng/mL (7.0-31.4) 12/31/16 12:52 Urine Color Dark Yellow (Yellow) 12/30/16 15:30 Urine Clarity Clear (Clear) 12/30/16 15:30 Urine pH 5.5 pH Units (5.0-8.0) 12/30/16 15:30 Ur Specific [place] > 1.030 (1.010-1.025) H 12/30/16 15:30 Urine Protein Negative mg/dL (Neg-Trace) 12/30/16 15:30 Urine Glucose (UA) Normal mg/dL (Normal) 12/30/16 15:30 Urine Ketones Trace mg/dL (Negative) H 12/30/16 15:30 Urine Blood Negative (Negative) 12/30/16 15:30 Urine Nitrite Negative (Negative) 12/30/16 15:30 Urine Bilirubin Small (Negative) H 12/30/16 15:30 Urine Urobilinogen Normal mg/dL (Normal) 12/30/16 15:30 Ur Leukocyte Esterase Negative (Negative) 12/30/16 15:30 Ur Culture Indicated? NO (NO) 12/30/16 15:30 Vancomycin Trough 24.4 mcg/mL (10-20) H* 12/27/16 00:59 Blood Type O POSITIVE 12/31/16 13:02 Antibody Screen NEGATIVE 12/31/16 13:02 Crossmatch See Detail 12/31/16 13:02 Radiographic studies: I personally reviewed and interpreted patient's most recent imaging studies dated 12/19/16. I discussed the findings with the patient today. Impression/recommendations: Right-sided lung cancer: Squamous histology. T2 primary tumor. Appears to be node negative. Staging workup is pending. I had a detailed discussion with the patient regarding the natural history of what appears to be an early-stage lung cancer and we discussed NCCN guidelines for management. He will need further staging studies to determine the extent of his disease for appropriate treatment and prognosis recommendations. PET CT scan will be arranged as an outpatient and appears any evidence of shonda involvement, he will need a brain MRI. If he is planned for discharge to a rehabilitation facility, we'll recommend to obtain an abdomen/pelvis CT and a bone scan since there may be some logistic challenge within the PET/CT scan. Depending on findings, options for management would include: Resection versus local radiation (SBRT) versus cryoablation if he is confirmed to have clinically localized disease. If he has more extensive involvement such as metastatic disease, he may benefit from systemic therapy with chemotherapy or immunotherapy on a palliative basis for disease control. If systemic therapy is contemplated, we'll send PDL 1 stating to evaluate the benefit of immunotherapy since strong PDL 1 expression would indicate frontline treatment with PDL 1 therapy which would be expected to be tolerable and effective with the potential for durable disease control. We'll arrange for outpatient follow-up for further evaluation and treatment recommendations. He reports that his is a patient of the cancer center who previously saw Dr. Huynh for lung cancer therapy. Since I will be leaving the health system in the near future, we will arrange an outpatient follow-up with Dr. Huynh to continue his oncologic management. Anemia: Normocytic variant. Likely multifactorial with contribution from an underlying malignancy, chronic inflammation due to infection etc. We'll recommend an anemia workup including repeat CBC with reticulocyte count, iron, ferritin, B12, folate, MMA, LDH, haptoglobin, [place], SPEP. Kidney dysfunction may also be contributing to his anemia and DEVONTE therapy May BE helpful in the future for management. He is established with nephrology. Further recommendations to be based on results of pending anemia workup. We'll follow the patient along side you during this hospitalization but please do not hesitate to call regarding interval hematologic questions as they arise. Thank you for your excellent ongoing care for allowing us to see him while in- house. This report was created using voice recognition software and may contain errors. It was signed but not edited to expedite communication. Corrections will be made in a separate addendum as needed. Past Med Surg Social Fam HX - Past Medical History Medical history: arthritis, COPD, diabetes, hypertension, thyroid disease, venous stasis, other (JOSR - CPAP at night) Psychiatric history: anxiety - Past Surgical History Surgical History: cataract, cholecystectomy, LE vascular intervention, vascular surgery, other (Knee surgery; right leg spur removal from the fifth metatarsal, rotator cuff repair) - Social History Smoking Status: Former smoker Packs per day: 3-5 Smokeless Tobacco Status: No Alcohol use: rarely Drug use: none Medications and Allergies Allopurinol [Zyloprim] 300 mg PO DAILY 03/02/15 [History] Cholecalciferol (Vitamin D3) [Vitamin D] 2,000 unit PO DAILY 03/02/15 [History] Clopidogrel [Plavix] 75 mg PO DAILY 03/02/15 [History] Docusate [Colace] 200 mg PO TID 03/02/15 [History] FLUoxetine HCl [Prozac] 60 mg PO DAILY 03/02/15 [History] Famotidine [Pepcid] 20 mg PO BID 03/02/15 [History] Ferrous Sulfate 325 mg PO BID 03/02/15 [History] Furosemide [Lasix] 80 mg PO BID 03/02/15 [History] Gabapentin [Neurontin] 1,800 mg PO BID 03/02/15 [History] Ipratropium/Albuterol Neb [Duoneb] 3 ml IH Q6HR 03/02/15 [History] LORazepam [Ativan] 0.5 mg PO TID PRN 03/02/15 [History] Levothyroxine Sodium [Synthroid] 200 mcg PO DAILY 03/02/15 [History] Lovastatin [Altoprev] 20 mg PO DAILY 03/02/15 [History] Magnesium Oxide [Magnesium] 400 mg PO DAILY 03/02/15 [History] Metformin [Glucophage] 850 mg PO BID 03/02/15 [History] Metoprolol [Lopressor] 25 mg PO BID 03/02/15 [History] Multivitamin [Multivitamins] 1 cap PO DAILY 03/02/15 [History] Oxygen 2 l IN DAILY 03/02/15 [History] Potassium Chloride 20 meq PO TID 03/02/15 [History] Roflumilast [Daliresp] 500 mcg PO DAILY 03/02/15 [History] Ropinirole HCl [Requip] 2 mg PO BID 03/02/15 [History] Temazepam 15 mg PO HS 03/02/15 [History] Albuterol Sulfate [Proair Hfa] 2 puff IH Q4H 12/19/16 [History] Ammonium Lactate [Amlactin] 1 appl TP BID 12/19/16 [History] Guaifenesin [Mucinex] 600 mg PO BID 12/19/16 [History] HYDROcodone/Acet 10/325 mg [[place] 10-325 mg] 1 tab PO Q4HR PRN 12/19/16 [History ] Ipratropium/Albuterol Neb [Duoneb] 3 ml IH Q6HR 12/19/16 [History] Levofloxacin [Levaquin] 750 mg PO DAILY #10 tablet 12/19/16 [Rx] Lidocaine/Hydrocortisone AC [Lidocaine-Hydrocort 3-2.5% Gel] 7 gm RC BID [History] Polyethylene Glycol 3350 [MiraLAX Powder Bulk 17.9 Oz] 17 gm PO DAILY 12/19/16 [ History] PrednisoLONE [Millipred] 10 mg PO DAILY 12/19/16 [History] Spironolactone [Aldactone] 50 mg PO DAILY 12/19/16 [History] Theophylline Anhydrous [Jamal-24] 400 mg PO DAILY 12/19/16 [History] Umeclidinium Brm/Vilanterol Tr [Anoro Ellipta 62.5-25 Mcg INH] 1 puff IH DAILY 12/19/16 [History] metOLazone [Zaroxolyn] 5 mg PO DAILY 12/19/16 [History] BuPROPion [Wellbutrin] 75 mg PO BID 12/24/16 [History] Fluticasone/Salmeterol [Advair 500-50 Diskus] 2 puff IH BID 12/24/16 [History] Ropinirole HCl [Requip] 4 mg PO HS 12/24/16 [History] Allergies doxycycline Allergy (Verified 12/24/16 14:50) Hives Oxycodone [From Percocet] Allergy (Verified 12/24/16 14:50) Swelling of Lip/Tongue/Throat Penicillins [PCN] Allergy (Verified 12/24/16 14:50) Hives codeine Adverse Reaction (Verified 12/19/16 12:27) Flushing meperidine Adverse Reaction (Verified 12/19/16 12:27) Hallucinating morphine Adverse Reaction (Verified 12/19/16 12:27) [facility]mare Oncology - Exam - Constitutional Vitals: Temp Pulse Resp BP Pulse Ox 98.2 F 82 16 123/68 93 01/03/17 07:39 01/03/17 07:39 01/03/17 07:39 01/03/17 07:39 01/03/17 07:39 Oncology - Results - Labs Labs: Short CBC 01/03/17 Range/Units 05:10 WBC 13.7 H (4.3-11.1) K/mcL Hgb 7.7 L (12.9-16.9) g/dL Hct 25.3 L (37.5-50.1) % Plt Count 145 (140-400) K/mcL Neutrophils # 10.4 H (1.6-8.9) K/mcL BMP 01/03/17 05:10 Sodium 134 L Potassium 3.9 Chloride 98 Carbon Dioxide 29 BUN 42 H D Creatinine 1.35 H Glucose 148 H Calcium 8.8 Liver Function 01/03/17 Range/Units 05:10 Total Bilirubin 0.7 (0.2-1.2) mg/dL AST 343 H (5-34) Units/L ALT 492 H (0-55) Units/L Alkaline Phosphatase 348 H (38-126) Units/L Albumin 2.5 L (3.5-5.0) g/dL Consult Discharge Plan - Plan Referrals: Tierney Oliva, [employer] [Advanced Practice Nurse] - 01/17/17 9:00 am Sidney Martinez MD [Primary Care Provider] - (Dr. Martinez does home visits for this patient) Honorio Collins MD [Partnered Physician] - 01/15/17 9:30 am (this appointment is in [place])
[2017-01-03] MEDS: Insulin LISPRO 300 UNITS/3 ML VIAL SQ SCH ×4 (10:04→21:06)
[2017-01-03] MEDS: Hydrocortisone Rectal 2.5% CRM 28 GM TUBE RC SCH ×2 (10:06→22:30)
--- NOTE | 2017-01-03 10:35 | Infectious Disease Progress No ---
Date of Encounter: 01/03/17 Time of Encounter: 10:32 - Assessment and Plan (1) Sepsis Current Visit: Yes Status: Resolved The patient had two SIRS criteria on admission. Likely secondary to osteomyelitis of the right foot. Improved. Tachycardia has resolved. Leukocytosis is down to 13. Blood cultures drawn 12/26/16 are negative x 2 sets. Qualifiers: Sepsis type: methicillin susceptible Staphylococcus aureus Qualified Code(s ): A41.01 - Sepsis due to Methicillin susceptible Staphylococcus aureus (2) Osteomyelitis Current Visit: Yes Status: Acute Location: Right foot, lateral aspect of the 5th metatarsal. Causative organism MSSA per intra-operative culture. Previous superficial wound culture obtained 12/19/16 grew MSSA, P. mirabilis, and E. faecalis. Right foot x-ray completed 12/19/16 showed a soft tissue ulceration to the lateral aspect of the right foot at the level of the residual 5th metatarsal shaft compatible with diabetic ulcer. There was noted to be gas present within the region of the ulceration with possible extension of the gas into the adjacent soft tissues raising the possibility for infection with gas-forming organism. There was also a questionable irregularity and possible mild bony erosive change to the lateral aspect of the residual 5th metatarsal shaft that was concerning for osteomyelitis. Repeat foot x-ray 12/23/16 showed worsening soft tissue ulceration along the lateral aspect of the right foot with increasing soft tissue gas along with possible erosive changes of the 5th metatarsal concerning for osteomyelitis. ESR on admission was >130. No CRP was checked. Podiatry was consulted and took the patient to the OR on 12/24/16 and performed n I & D of the right foot with debridement of the 5th metatarsal bone and plantar fasciectomy. Operative notes reviewed. Large amount of purulent drainage was noted, as well as changes to the bone that was debrided. MRI completed 12/26/16 did not reveal any new abscess. Repeat ESR 93. and CRP 73 12/27/16. Repeat ESR and CRP are pending. Due to unexplained persistent leukocytosis, the patient was taken back to the OR 12/29/[address] Pelletier and underwent right foot excisional debridement of the diabetic foot ulceration, right foot peroneus brevis tendon transfer, right foot debridement of bone, and application of wound VAC. Operative note reviewed. No additional abscess or additional bone abnormalities noted intra- operatively. Continue Unasyn, but increase dose back up to 3 grams IV Q8H since the patient' s renal function has recovered. Dose discussed with Sherman Olvera. The patient has been on Unasyn since Sunday and appears to be tolerating it well. We will continue to observe the patient closely for any signs of delayed reaction. Continue wound care and activity restrictions per the podiatry team. Duration of treatment depends on the clinical picture, but likely 6 weeks of IV antibiotics followed by orals. Monitor renal function and dose-adjust antibiotics. behavioral services tech following for assistance with discharge planning. Consult VAT for PICC line placement when closer to discharge. Due to the patient 's MILI, we can do an EPIV and swap it out at four weeks if nephrology prefers to avoid PICC line. Follow up with ID 01/17/17 at 0900. Weekly CBC, BMP, ESR, and CRP every Sunday for the duration of antibiotic therapy. Weekly EPIV care per protocol. Qualifiers: Osteomyelitis type: acute hematogenous Osteomyelitis location: foot Laterality: right Qualified Code(s): M86.071 - Acute hematogenous osteomyelitis, right ankle and foot (3) Gas gangrene Current Visit: Yes Status: Acute Location: Right foot. Soft tissue gas noted on x-ray. Status post I & D 12/24/16. See antibiotics recommendations as above. (4) Cellulitis of leg, right Current Visit: No Status: Resolved Likely secondary to infected DFU and osteomyelitis. Localized to the right foot and lower portion of the RLE up to the mid-mann. Resolved. Causative organism likely MSSA given the patient's most recent wound cultures. Continue antibiotics as above. (5) Acute kidney injury Current Visit: Yes Status: Acute Likely secondary to sepsis. Serum creatinine continues to trend down. Urine output appears adequate. Nephrology consulted and following. RP UTS showed urinary retention. Continue to trend. Dose-adjust antibiotics and avoid nephrotoxins as able. (6) Mass of right lung Current Visit: Yes Status: Acute CT of the chest 12/19/16 showed spiculating RLL mass concerning for malignancy. The patient has an extensive smoking history. Pulmonology consulted. Recommends CT-guided biopsy with possible EBUS to follow. CT-guided biopsy completed 12/28/16. 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 Hem/Onc consulted. Await recommendations. (7) Diabetic foot ulcer Current Visit: Yes Status: Acute Location: Right lateral foot, status post excision. Wound care per the podiatry team. Qualifiers: Diabetic foot ulcer location: midfoot Diabetes mellitus type: other specified (including WALKER) Laterality: right Non-pressure ulcer stage: with fat layer exposed Qualified Code(s): E13.621 - Other specified diabetes mellitus with foot ulcer; L97.412 - Non-pressure chronic ulcer of right heel and midfoot with fat layer exposed (8) COPD (chronic obstructive pulmonary disease) Current Visit: Yes Status: Chronic Qualifiers: COPD type: chronic bronchitis Chronic bronchitis type: mucopurulent Qualified Code(s): J41.1 - Mucopurulent chronic bronchitis (9) Diabetes mellitus Current Visit: Yes Status: Chronic Hgb A1C 5.7 on admission. Continue aggressive glucose monitoring and management to promote wound healing and prevent re-infection. Qualifiers: Diabetes mellitus type: type 2 Diabetes mellitus complication status: with neurologic complications Diabetes mellitus complication detail: with polyneuropathy Diabetes mellitus field marketing coordinator insulin use: without field marketing coordinator use Qualified Code(s): E11.42 - Type 2 diabetes mellitus with diabetic polyneuropathy (10) Sleep apnea Current Visit: Yes Status: Chronic Uses C-PAP QHS. Qualifiers: Sleep apnea type: obstructive Qualified Code(s): G47.33 - Obstructive sleep apnea (adult) (pediatric) (11) Anemia Current Visit: Yes Status: Acute Hgb down to 7.7 this morning. Etiology unclear. No evidence of acute bleeding noted on exam. Further workup and management per the primary team. Qualifiers: Anemia type: unspecified type Qualified Code(s): D64.9 - Anemia, unspecified (12) PAD (peripheral artery disease) Current Visit: Yes Status: Acute ABIs abnormal bilaterally. Vascular Surgery consulted. Status post abdominal aortogram, aortogram with bilateral runoff, and selective right lower leg angiogram. The patient received a right superficial femeral balloon angioplasty and a right common iliac stent angioplasty 12/28/[address] Collins. (13) Urinary retention Current Visit: Yes Status: Acute Santos placed. - Subjective Interval history: Patient seen and examined. No acute events overnight. Patient sitting up on the bedside commode during exam. Patient states he feels a little better today. He complains of chronic pain in his back and shoulders and bilateral knees. He also complains of pain in his coccyx from lying in bed. He denies any fevers or chills or rigors. Denies any chest pain, and states his shortness of breath and cough are at baseline. He denies any nausea, vomiting, or diarrhea. Denies abdominal pain or appetite changes. Denies pain at the surgical site, but reports some pressure over the 5th digit. Denies oral thrush or new skin lesions. Infect Dis PN-Objective Data - Labs CBC & Chem 7: 01/03/17 05:10 01/03/17 05:10 Labs: Laboratory Results - last 24 hr 01/02/17 01/02/17 01/02/17 12:28 16:01 19:04 WBC RBC Hgb Hct MCV MCH MCHC RDW Plt Count MPV Seg Neutrophils % Band Neutrophils % Lymphocytes % Monocytes % Eosinophils % Neutrophils # Lymphocytes # Monocytes # Eosinophils # Nucleated RBCs/100 WBC Platelet Estimate Sodium Potassium Chloride Carbon Dioxide BUN Creatinine Est GFR ( Amer) Est GFR (Non-Af Amer) BUN/Creatinine Ratio Glucose POC Glucose 179 H 189 H 234 H Calculated Osmolality Calcium Total Bilirubin AST ALT Alkaline Phosphatase Serum Total Protein Albumin Globulin Albumin/Globulin Ratio 01/03/17 01/03/17 05:10 05:10 WBC 13.7 H RBC 2.67 L Hgb 7.7 L Hct 25.3 L MCV 94.8 MCH 28.8 MCHC 30.4 L RDW 19.5 H Plt Count 145 MPV 11.3 Seg Neutrophils % 54.0 Band Neutrophils % 22.0 H Lymphocytes % 12.0 Monocytes % 8.0 Eosinophils % 4.0 Neutrophils # 10.4 H Lymphocytes # 1.6 Monocytes # 1.1 Eosinophils # 0.6 Nucleated RBCs/100 WBC 2.4 H Platelet Estimate Normal Sodium 134 L Potassium 3.9 Chloride 98 Carbon Dioxide 29 BUN 42 H D Creatinine 1.35 H Est GFR ( Amer) > 60 Est GFR (Non-Af Amer) 52 L BUN/Creatinine Ratio 31 H Glucose 148 H POC Glucose Calculated Osmolality 291 Calcium 8.8 Total Bilirubin 0.7 AST 343 H ALT 492 H Alkaline Phosphatase 348 H Serum Total Protein 6.0 Albumin 2.5 L Globulin 3.5 Albumin/Globulin Ratio 0.7 L Cultures: Cultures 12/26/16 14:37 Blood Culture - Final Peripheral Venipuncture No growth. 12/26/16 14:37 Blood Culture - Final Peripheral Venipuncture No growth. 12/24/16 16:11 Wound Culture - Final Right Foot Staphylococcus aureus 12/24/16 16:11 Anaerobic Culture - Final Right Foot Anaerobic Gram Positive Cocci 12/24/16 16:07 Wound Culture - Final Right Foot Staphylococcus aureus 12/24/16 16:07 Anaerobic Culture - Final Right Foot Anaerobic Gram Positive Cocci 12/24/16 16:08 Surgical Biopsy Culture - Final Right Foot Staphylococcus aureus 12/24/16 16:09 Surgical Biopsy Culture - Final Right Foot Serology 12/30/16 Range/Units 15:30 Urine Color Dark Yellow (Yellow) Urine Clarity Clear (Clear) Urine pH 5.5 (5.0-8.0) pH Units Ur Specific [place] > 1.030 H (1.010-1.025) Urine Protein Negative (Neg-Trace) mg/dL Urine Glucose (UA) Normal (Normal) mg/dL Urine Ketones Trace H (Negative) mg/dL Urine Blood Negative (Negative) Urine Nitrite Negative (Negative) Urine Bilirubin Small H (Negative) Urine Urobilinogen Normal (Normal) mg/dL Ur Leukocyte Esterase Negative (Negative) Ur Culture Indicated? NO (NO) Exam - Constitutional Vitals: Temp Pulse Resp BP Pulse Ox 98.2 F 82 16 123/68 93 01/03/17 07:39 01/03/17 07:39 01/03/17 07:39 01/03/17 07:39 01/03/17 07:39 General appearance: cooperative, morbidly obese, no acute distress - Head Head exam: Present: atraumatic, normal inspection, normocephalic - Eye Eye exam: Present: EOMI, normal appearance, PERRL Pupils: Present: normal accommodation - ENT ENT exam: Present: mucous membranes moist - Neck Neck exam: Present: normal inspection - Respiratory Respiratory exam: Present: decreased breath sounds (throughout). Absent: rales , respiratory distress, rhonchi, wheezes - Cardiovascular Cardiovascular exam: Present: RRR, +S1, +S2 - GI/Abdominal GI/Abdominal exam: Present: distended (obese), firm, normal bowel sounds. Absent: tenderness Additional comments: Santos catheter noted to be draining clear, dark yellow urine. - Extremities Exam Extremities exam: Present: pedal edema (1+ RLE). Absent: joint swelling, tenderness Additional comments: Right foot dressing C/D/I with wound VAC. Small amount of sanguinous drainage noted in the wound VAC canister. - Neurological Exam Neurological exam: Present: alert, oriented X3, no focal deficits - Psychiatric Psychiatric exam: Present: normal affect, normal mood - Skin Skin exam: Present: dry, intact, normal color, warm - VTE Documentation of Mechanical Device: Intermittent pneumatic compression device Consult Discharge Plan - Plan Referrals: Sidney Martinez MD [Primary Care Provider] - (Dr. Martinez does home visits for this patient) Honorio Collins MD [Partnered Physician] - 01/15/17 9:30 am (this appointment is in [place]) Tierney Oliva CNP [Advanced Practice Nurse] - 01/17/17 9:00 am - Attending Attestation I examined this patient and my medical decision-making was reviewed with the THERMOCOUPLE TESTER/PA/Advanced Practice Nurse/Resident Physician. I agree with the documented findings, disposition and treatment plan as described except to the extent set forth below.
[2017-01-03] MEDS: Budesonide/Formoterol 160/4.5 MDI IH SCH ×2 (10:56→19:59)
--- NOTE | 2017-01-03 13:21 | Podiatry Progress Note ---
Date of Encounter: 01/03/17 Time of Encounter: 12:30 - Assessment and Plan (1) Cellulitis of leg, right Current Visit: No Status: Resolved (2) Diabetic foot ulcer Current Visit: Yes Status: Acute Patient is s/p I&D right foot with debridement of 5th metatarsal bone and plantar fasciectomy by Dr. Pelletier on 12/24/16. Patient was taken back to OR by Dr. Pelletier for a right foot excisional debridement of diabetic foot ulceration, right foot peroneus brevis tendon transfer, right foot debridement of bone, application of wound vac on 12/29/2016 for persistent leukocytosis. S/p successful right common iliac and right superficial femoral artery angioplasties. WBC decreased to 13.7 today. A febrile Infectious Disease following, Intraop cultures isolated MSSA. Currently receiving IV Unasyn 3gm IV every 12 hours and will most likely require 6 weeks of IV antibiotics based on clinical picture. MRI found no further abscess, resected 5th metatarsal bone did show OM. No abscess identified or purulent drainage expressed after being taken back to OR on 12/29/16. Wound vac removed today with calcium alginate applied in wound and betadine dressing to the plantar aspect with abd pads. Plan to reapply wound vac tomorrow 01/04/17. Patient to remain strict non weight bearing to the right foot. Will continue to follow patient closely. Patient will need a f/u with Dr. Pelletier with in one week of discharge from hospital with Dr. Pelletier. Qualifiers: Diabetic foot ulcer location: midfoot Diabetes mellitus type: other specified (including WALKER) Laterality: right Non-pressure ulcer stage: with fat layer exposed Qualified Code(s): E13.621 - Other specified diabetes mellitus with foot ulcer; L97.412 - Non-pressure chronic ulcer of right heel and midfoot with fat layer exposed (3) Diabetes mellitus Current Visit: Yes Status: Chronic Qualifiers: Diabetes mellitus type: type 2 Diabetes mellitus complication status: with neurologic complications Diabetes mellitus complication detail: with polyneuropathy Diabetes mellitus halfway insulin use: without halfway use Qualified Code(s): E11.42 - Type 2 diabetes mellitus with diabetic polyneuropathy (4) Gas gangrene Current Visit: Yes Status: Acute Subjective Principal diagnosis: gas gangrene Interval history: Patient is sitting up in bed. Patient is s/p I&D right foot with debridement of 5th metatarsal bone and plantar fasciectomy by Dr. Pelletier on 12/24/16. Patient was taken back to OR by Dr. Pelletier for a right foot excisional debridement of diabetic foot ulceration, right foot peroneus brevis tendon transfer, right foot debridement of bone, application of wound vac on 12/29/2016 for persistent leukocytosis. Patient states his right foot is sore. He states he is feeling nauseated. Wound vac intact with 25 mls of sanguineous drainage observed to wound vac chamber. Objective - Vital Signs Vital Signs: Vital Signs Temp Pulse Resp BP Pulse Ox 01/03/17 12:23 97.4 F L 93 20 119/64 93 01/03/17 11:15 97.4 F L 93 20 119/64 93 01/03/17 10:56 20 93 01/03/17 07:39 98.2 F 82 16 123/68 93 01/03/17 04:40 94 01/03/17 04:12 15 93 01/03/17 03:09 97.9 F 94 15 114/55 96 01/02/17 23:50 89 01/02/17 23:04 97.5 F L 85 16 104/58 95 01/02/17 22:37 19 96 01/02/17 20:00 81 01/02/17 19:23 97.7 F 80 15 117/52 96 01/02/17 17:03 13 92 01/02/17 16:04 97 F L 75 13 130/74 92 01/02/17 15:04 74 Intake and Output 01/02/17 01/03/17 01/03/17 23:59 07:59 15:59 Intake Total 460 / 460 100 / 100 960 / 960 Output Total 1500 / 1500 1050 / 1050 Balance -1040 / -1040 -950 / -950 960 / 960 Intake: IV Fluids 100 / 100 100 / 100 Unasyn 1,500 mg In 0.9 % 100 / 100 100 / 100 Sodium Chloride (Mini-Bag +) 100 ML @ 200 mls/hr IVPB Q12H [facility] Rx#: [id number] Oral 360 / 360 960 / 960 Output: Urine 250 / 250 Urethral (Santos) 250 / 250 Catheter 1250 / 1250 1050 / 1050 Other: Meal Dinner Breakfast Percent of Meal Consumed 25% 50% Weight 155 kg Blood Glucose* 234 133 223 Patient Weight 01/03/17 23:59 Weight 155 kg - Exam Exam: General appearance: alert awake oriented X 3. Calm and pleasant, no acute distress.. Vascular: Right foot: No evidence of cyanosis, pallor or rubor, Edema graded at 1+/4, Skin Temperature warm, No calf pain with manual compression. capillary refill time is immediate to digits. Neurologic: Sensation diminished with light touch to right foot. . Postop Exam: S/p: Full-thickness ulceration to the lateral aspect of the right foot at the fifth metatarsal head measuring 3.2 cm in length x 3.5 cm in width x 1.5 cm in depth with tunneling to the plantar aspect along the incision line measuring 2.5cm and distally along the lateral side of the foot at the incision line measuring 2.5 cm. No odor, no pus, no periwound erythema, no exposed bone, no fluctuance. Wound edges to the plantar aspect are macerated. Toes #1 through # 4 right are pink, warm and dry. - Lab Result Diagrams: 01/03/17 05:10 01/03/17 05:10 Labs: Abnormal lab results WBC 13.7 K/mcL (4.3-11.1) H 01/03/17 05:10 RBC 2.67 M/mcL (4.19-5.50) L 01/03/17 05:10 Hgb 7.7 g/dL (12.9-16.9) L 01/03/17 05:10 Hct 25.3 % (37.5-50.1) L 01/03/17 05:10 MCHC 30.4 g/dL (31.6-35.5) L 01/03/17 05:10 RDW 19.5 % (11.5-14.5) H 01/03/17 05:10 Immature Gran % 8.4 % (0-4) H 12/26/16 03:31 Band Neutrophils % 22.0 % (0-4) H 01/03/17 05:10 Metamyelocytes % 2.0 % (0) H 01/02/17 06:02 Myelocytes % 6.0 % (0) H 01/02/17 06:02 Promyelocytes % 4.0 % (0) H 12/30/16 04:25 Neutrophils # 10.4 K/mcL (1.6-8.9) H 01/03/17 05:10 Nucleated RBCs/100 WBC 2.4 /100 WBC (0) H 01/03/17 05:10 Reactive Lymphocytes Present (Not Present) A 12/31/16 05:33 Toxic Granulation Present (Not Present) A 12/31/16 05:33 Large Platelets Present (Not Present) A 01/02/17 06:02 Polychromasia 1+ (Not Present) A 01/02/17 06:02 Hypochromasia Present (Not Present) A 12/29/16 03:16 Anisocytosis 1+ (Not Present) A 01/02/17 06:02 Macrocytosis Present (Not Present) A 01/02/17 06:02 ESR 93 mm/hr (0-10) H 12/27/16 00:59 PT 14.9 Seconds (9.4-12.1) H 12/27/16 17:36 ABG pCO2 50 mmHg (35-45) H 12/31/16 16:34 ABG Total CO2 27.9 mEq/L (20-26) H 12/31/16 16:34 Sodium 134 mEq/L (136-145) L 01/03/17 05:10 BUN 42 mg/dL (8-26) H D 01/03/17 05:10 Creatinine 1.35 mg/dL (0.72-1.25) H 01/03/17 05:10 Est GFR (Non-Af Amer) 52 (> 60) L 01/03/17 05:10 BUN/Creatinine Ratio 31 (6-26) H 01/03/17 05:10 Glucose 148 mg/dL (70-99) H 01/03/17 05:10 POC Glucose 234 (58-89) H 01/02/17 19:04 Hemoglobin A1c 5.7 % (-5.6) H 12/24/16 04:16 Uric Acid 9.1 mg/dL (3.5-7.2) H 12/31/16 05:33 Phosphorus 5.3 mg/dL (2.3-4.7) H 01/02/17 06:02 Iron 41 mcg/dL (65-175) L 12/31/16 12:52 % Saturation 15 % (20-55) L 12/31/16 12:52 Ferritin 1363 ng/ml (22-275) H 12/31/16 12:52 AST 343 Units/L (5-34) H 01/03/17 05:10 ALT 492 Units/L (0-55) H 01/03/17 05:10 Alkaline Phosphatase 348 Units/L (38-126) H 01/03/17 05:10 C-Reactive Protein 73 mg/L (Less than 5) H 12/27/16 00:59 Albumin 2.5 g/dL (3.5-5.0) L 01/03/17 05:10 Albumin/Globulin Ratio 0.7 (1.1-2.2) L 01/03/17 05:10 Vitamin B12 1122 pg/mL (213-816) H 12/31/16 12:52 Ur Specific [place] > 1.030 (1.010-1.025) H 12/30/16 15:30 Urine Ketones Trace mg/dL (Negative) H 12/30/16 15:30 Urine Bilirubin Small (Negative) H 12/30/16 15:30 Vancomycin Trough 24.4 mcg/mL (10-20) H* 12/27/16 00:59 - VTE Documentation of Mechanical Device: Intermittent pneumatic compression device Consult Discharge Plan - Plan Referrals: Tierney Oliva CNP [Advanced Practice Nurse] - 01/17/17 9:00 am Sidney Martinez MD [Primary Care Provider] - (Dr. Martinez does home visits for this patient) Honorio Collins MD [Partnered Physician] - 01/15/17 9:30 am (this appointment is in [place])
--- NOTE | 2017-01-03 13:45 | Internal Med Progress Note ---
Date of Encounter: 01/03/17 Time of Encounter: 09:00 - Assessment and plan (1) Osteomyelitis Current Visit: Yes Status: Acute Assessment and plan: Patient was admitted with right diabetic foot ulcer with questionable gas on x- ray and possible osteomyelitis, although foot MRI did not show this. Patient underwent debridement and excision of right foot plantar ulcer, excision of right fifth metatarsal, incision and drainage twice since admission. Currently on wound VAC. Improving leukocytosis, afebrile > 48 hours. Continue IV Unasyn for now. Wound cultures grew MSSA. Podiatry and infectious diseases on board. No other source of infection noted. Qualifiers: Osteomyelitis type: acute hematogenous Osteomyelitis location: foot Laterality: right Qualified Code(s): M86.071 - Acute hematogenous osteomyelitis, right ankle and foot (2) Acute kidney injury Current Visit: Yes Status: Acute Assessment and plan: Likely ATN due to hypotension/use of vancomycin/diuretics/sepsis/recent contrast with angiogram. UO improving. nephrology following. Continue to monitor serum creatinine and urine output, Continue to hold diuretics, potassium and magnesium supplements. Improving (3) Non-small cell lung cancer (NSCLC) Current Visit: Yes Status: Acute Assessment and plan: newly diagnosed, path report from [facility] TTBx +ve, pulmonology following Oncology has evaluated patient - recommendations reviewed Qualifiers: Laterality: right Qualified Code(s): C34.91 - Malignant neoplasm of unspecified part of right bronchus or lung (4) COPD (chronic obstructive pulmonary disease) Current Visit: Yes Status: Chronic Assessment and plan: Severe COPD. continue Duonebs, Spiriva, Symbicort. Pulmonology following Qualifiers: COPD type: chronic bronchitis Chronic bronchitis type: mucopurulent Qualified Code(s): J41.1 - Mucopurulent chronic bronchitis (5) Diabetes mellitus Current Visit: Yes Status: Chronic Assessment and plan: Accu-Chek blood glucose monitoring with basal bolus insulin regimen. Diabetic diet. Qualifiers: Diabetes mellitus type: type 2 Diabetes mellitus complication status: with neurologic complications Diabetes mellitus complication detail: with polyneuropathy Diabetes mellitus detention insulin use: without detention use Qualified Code(s): E11.42 - Type 2 diabetes mellitus with diabetic polyneuropathy (6) Diabetic foot ulcer Current Visit: Yes Status: Acute Assessment and plan: Status post excision by podiatry. Continue local wound care per podiatry recommendations along with wound VAC. Qualifiers: Diabetic foot ulcer location: midfoot Diabetes mellitus type: other specified (including WALKER) Laterality: right Non-pressure ulcer stage: with fat layer exposed Qualified Code(s): E13.621 - Other specified diabetes mellitus with foot ulcer; L97.412 - Non-pressure chronic ulcer of right heel and midfoot with fat layer exposed (7) Anemia Current Visit: Yes Status: Acute Assessment and plan: Patient is noted to have steadily decreasing hemoglobin; status post one unit PRBC transfusion, hemoglobin noted to be 8.1. Iron profile shows low iron stores along with significantly high ferritin likely due to underlying inflammation. Serum vitamin B12 noted to be high, folate levels within normal limits. Stool occult blood pending. Oncology following patient Qualifiers: Anemia type: unspecified type Qualified Code(s): D64.9 - Anemia, unspecified (8) Peripheral vascular disease Current Visit: Yes Status: Chronic Assessment and plan: Vascular surgery on board. Patient underwent right superficial femoral and common iliac balloon angioplasty on 12/28/2016. Continue Plavix. (9) Sleep apnea Current Visit: Yes Status: Chronic Assessment and plan: Continue BiPAP at night. Qualifiers: Sleep apnea type: obstructive Qualified Code(s): G47.33 - Obstructive sleep apnea (adult) (pediatric) - Time Spent With Patient 25 - 35 minutes - Subjective Interval history: Patient awake and alert. Feels better. Denies chest pain or shortness of breath. No fever. on BiPAP at night. No other acute events or complaints. Oncology has evaluated patient. No other acute events or complaints. - Constitutional Vitals: Temp Pulse Resp BP Pulse Ox 97.4 F L 93 20 119/64 93 01/03/17 12:23 01/03/17 12:23 01/03/17 12:23 01/03/17 12:23 01/03/17 12:23 General appearance: Present: A&O X 3, morbidly obese, no acute distress, answers questions appropriately - Head Head exam: Present: atraumatic - ENT ENT exam: Present: mucous membranes moist - Neck Neck exam general surgery: Present: supple - Respiratory Respiratory exam: Present: CTAB. Absent: rhonchi, wheezes - Cardiovascular Cardiovascular exam: Present: RRR, +S1, +S2 - GI/Abdominal GI/Abdominal exam: Present: distended (obese), soft. Absent: tenderness - Extremities Exam Extremities exam: Present: pedal edema (mild), radial pulses palpable and symetrical. Absent: cyanotic Additional comments: right foot dressing+, wound vac+ - Neurological Exam Neurological exam: Present: alert, oriented X3, no focal deficits Internal Medicine: Result - Labs CBC & Chem 7: 01/03/17 05:10 01/03/17 05:10 Labs: Short CBC 01/03/17 Range/Units 05:10 WBC 13.7 H (4.3-11.1) K/mcL Hgb 7.7 L (12.9-16.9) g/dL Hct 25.3 L (37.5-50.1) % Plt Count 145 (140-400) K/mcL Neutrophils # 10.4 H (1.6-8.9) K/mcL BMP 01/03/17 05:10 Sodium 134 L Potassium 3.9 Chloride 98 Carbon Dioxide 29 BUN 42 H D Creatinine 1.35 H Glucose 148 H Calcium 8.8 Liver Function 01/03/17 Range/Units 05:10 Total Bilirubin 0.7 (0.2-1.2) mg/dL AST 343 H (5-34) Units/L ALT 492 H (0-55) Units/L Alkaline Phosphatase 348 H (38-126) Units/L Albumin 2.5 L (3.5-5.0) g/dL - ABG Interpretation ABG results: ABG ABG pH 7.33 pH Units (7.32-7.45) 12/31/16 16:34 ABG pCO2 50 mmHg (35-45) H 12/31/16 16:34 ABG pO2 91 mmHg (85-104) 12/31/16 16:34 ABG O2 Saturation 96 % (95-98) 12/31/16 16:34 PT/INR, D-dimer PT 14.9 Seconds (9.4-12.1) H 12/27/16 17:36 - VTE Documentation of Mechanical Device: Intermittent pneumatic compression device Consult Discharge Plan - Plan Referrals: Tierney Oliva CNP [Advanced Practice Nurse] - 01/17/17 9:00 am Sidney Martinez MD [Primary Care Provider] - (Dr. Martinez does home visits for this patient) Honorio Collins MD [Partnered Physician] - 01/15/17 9:30 am (this appointment is in [place])
[2017-01-03] MEDS: Ampicillin/Sulbactam 3,000 MG in 0.9 % Sodium Chloride Mini Bag 100 ML IVPB SCH ×2 (13:49→22:29)
[2017-01-03] MEDS ORDERED: *HR* LORazepam 0.5 MG TABLET PO PRN (14:34)
--- NOTE | 2017-01-03 21:18 | Electrocardiograph Report ---
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
[2017-01-04] MEDS: *HR* Heparin 5,000 UNIT/ML VIAL SQ SCH ×2 (00:06→08:50)
[2017-01-04] MEDS: Ipratropium/Albuterol Neb 3 ML IH SCH ×2 (03:45→10:47)
[2017-01-04 04:18] LABS: Hematocrit 26.1 % (37.5-50.1); Mean Corpuscular HGB Conc 30.7 g/dL (31.6-35.5); Mean Corpuscular Hemoglobin 28.6 pg (28.0-33.3); Mean Corpuscular Volume 93.2 fL (83.0-100.0); Mean Platelet Volume 10.6 fL (9.4-12.4); Platelet Count 167 K/mcL (140-400); Red Cell Distribution Width 19.3 % (11.5-14.5)
[2017-01-04] MEDS: Ampicillin/Sulbactam 3,000 MG in 0.9 % Sodium Chloride Mini Bag 100 ML IVPB SCH ×2 (05:59→12:18)
[2017-01-04] MEDS: *HR* HYDROcodone/Acet 10/325 mg TABLET PO PRN (08:48)
[2017-01-04] MEDS: rOPINIRole 1 MG TABLET PO SCH (08:48)
[2017-01-04] MEDS: predniSONE 10 MG TABLET PO SCH (08:48)
[2017-01-04] MEDS: Gabapentin 300 MG CAPSULE PO SCH (08:48)
[2017-01-04] MEDS: Lactobacillus 1 EACH CAP.SPRINK PO SCH (08:50)
[2017-01-04] MEDS: Insulin LISPRO 300 UNITS/3 ML VIAL SQ SCH ×2 (08:51→12:19)
[2017-01-04] MEDS: Calcium Acetate 667 MG CAPSULE PO SCH ×2 (08:52→12:18)
[2017-01-04] MEDS: FLUoxetine 20 MG CAPSULE PO SCH (08:53)
[2017-01-04] MEDS ORDERED: Miconazole w/zinc oxide&karaya 92 APPL/92 GM TUBE TP SCH (09:00)
--- NOTE | 2017-01-04 10:06 | Infectious Disease Progress No ---
Date of Encounter: 01/04/17 Time of Encounter: 10:04 - Assessment and Plan (1) Sepsis Status: Resolved The patient had two SIRS criteria on admission. Likely secondary to osteomyelitis of the right foot. Improved. Tachycardia has resolved. Leukocytosis is down to 13. Blood cultures drawn 12/26/16 are negative x 2 sets. Qualifiers: Sepsis type: methicillin susceptible Staphylococcus aureus Qualified Code(s ): A41.01 - Sepsis due to Methicillin susceptible Staphylococcus aureus (2) Osteomyelitis Status: Acute Location: Right foot, lateral aspect of the 5th metatarsal. Causative organism MSSA per intra-operative culture. Previous superficial wound culture obtained 12/19/16 grew MSSA, P. mirabilis, and E. faecalis. Right foot x-ray completed 12/19/16 showed a soft tissue ulceration to the lateral aspect of the right foot at the level of the residual 5th metatarsal shaft compatible with diabetic ulcer. There was noted to be gas present within the region of the ulceration with possible extension of the gas into the adjacent soft tissues raising the possibility for infection with gas-forming organism. There was also a questionable irregularity and possible mild bony erosive change to the lateral aspect of the residual 5th metatarsal shaft that was concerning for osteomyelitis. Repeat foot x-ray 12/23/16 showed worsening soft tissue ulceration along the lateral aspect of the right foot with increasing soft tissue gas along with possible erosive changes of the 5th metatarsal concerning for osteomyelitis. ESR on admission was >130. No CRP was checked. Podiatry was consulted and took the patient to the OR on 12/24/16 and performed n I & D of the right foot with debridement of the 5th metatarsal bone and plantar fasciectomy. Operative notes reviewed. Large amount of purulent drainage was noted, as well as changes to the bone that was debrided. MRI completed 12/26/16 did not reveal any new abscess. Repeat ESR 93. and CRP 73 12/27/16. Repeat ESR and CRP are pending. Due to unexplained persistent leukocytosis, the patient was taken back to the OR 12/29/[address] Pelletier and underwent right foot excisional debridement of the diabetic foot ulceration, right foot peroneus brevis tendon transfer, right foot debridement of bone, and application of wound VAC. Operative note reviewed. No additional abscess or additional bone abnormalities noted intra- operatively. Continue Unasyn, but increase dose back up to 3 grams IV Q8H since the patient' s renal function has recovered. Dose discussed with Sherman Olvera. The patient has been on Unasyn since Sunday and appears to be tolerating it well. We will continue to observe the patient closely for any signs of delayed reaction. Continue wound care and activity restrictions per the podiatry team. Duration of treatment depends on the clinical picture, but likely 6 weeks of IV antibiotics followed by orals. Monitor renal function and dose-adjust antibiotics. director of child welfare services following for assistance with discharge planning. Consult VAT for PICC line placement when closer to discharge. Due to the patient 's MILI, we can do an EPIV and swap it out at four weeks if nephrology prefers to avoid PICC line. Follow up with ID 01/17/17 at 0900. Weekly CBC, BMP, ESR, and CRP every Sunday for the duration of antibiotic therapy. Weekly EPIV care per protocol. Qualifiers: Osteomyelitis type: acute hematogenous Osteomyelitis location: foot Laterality: right Qualified Code(s): M86.071 - Acute hematogenous osteomyelitis, right ankle and foot (3) Gas gangrene Status: Acute Location: Right foot. Soft tissue gas noted on x-ray. Status post I & D 12/24/16. See antibiotics recommendations as above. (4) Cellulitis of leg, right Status: Resolved Likely secondary to infected DFU and osteomyelitis. Localized to the right foot and lower portion of the RLE up to the mid-mann. Resolved. Causative organism likely MSSA given the patient's most recent wound cultures. Continue antibiotics as above. (5) Acute kidney injury Status: Acute Likely secondary to sepsis. Serum creatinine continues to trend down. Urine output appears adequate. Nephrology consulted and following. RP UTS showed urinary retention. Continue to trend. Dose-adjust antibiotics and avoid nephrotoxins as able. (6) Mass of right lung Status: Acute CT of the chest 12/19/16 showed spiculating RLL mass concerning for malignancy. The patient has an extensive smoking history. Pulmonology consulted. Recommends CT-guided biopsy with possible EBUS to follow. CT-guided biopsy completed 12/28/16. 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 Hem/Onc consulted. Await recommendations. (7) Diabetic foot ulcer Status: Acute Location: Right lateral foot, status post excision. Wound care per the podiatry team. Qualifiers: Diabetic foot ulcer location: midfoot Diabetes mellitus type: other specified (including WALKER) Laterality: right Non-pressure ulcer stage: with fat layer exposed Qualified Code(s): E13.621 - Other specified diabetes mellitus with foot ulcer; L97.412 - Non-pressure chronic ulcer of right heel and midfoot with fat layer exposed (8) COPD (chronic obstructive pulmonary disease) Status: Chronic Qualifiers: COPD type: chronic bronchitis Chronic bronchitis type: mucopurulent Qualified Code(s): J41.1 - Mucopurulent chronic bronchitis (9) Diabetes mellitus Status: Chronic Hgb A1C 5.7 on admission. Continue aggressive glucose monitoring and management to promote wound healing and prevent re-infection. Qualifiers: Diabetes mellitus type: type 2 Diabetes mellitus complication status: with neurologic complications Diabetes mellitus complication detail: with polyneuropathy Diabetes mellitus machine long goods helper insulin use: without retirement use Qualified Code(s): E11.42 - Type 2 diabetes mellitus with diabetic polyneuropathy (10) Sleep apnea Status: Chronic Uses C-PAP QHS. Qualifiers: Sleep apnea type: obstructive Qualified Code(s): G47.33 - Obstructive sleep apnea (adult) (pediatric) (11) Anemia Status: Chronic Hgb down to 7.7 this morning. Etiology unclear. No evidence of acute bleeding noted on exam. Further workup and management per the primary team. Qualifiers: Anemia type: unspecified type Qualified Code(s): D64.9 - Anemia, unspecified (12) PAD (peripheral artery disease) Status: Acute ABIs abnormal bilaterally. Vascular Surgery consulted. Status post abdominal aortogram, aortogram with bilateral runoff, and selective right lower leg angiogram. The patient received a right superficial femeral balloon angioplasty and a right common iliac stent angioplasty 12/28/[address] Collins. (13) Urinary retention Status: Acute Santos placed. - Subjective Interval history: Patient seen and examined. No acute events overnight. Patient sitting up on the bedside commode during exam. Patient states he feels a little better today. He complains of chronic pain in his back and shoulders and bilateral knees. He also complains of pain in his coccyx from lying in bed. He denies any fevers or chills or rigors. Denies any chest pain, and states his shortness of breath and cough are at baseline. He denies any nausea, vomiting, or diarrhea. Denies abdominal pain or appetite changes. Denies pain at the surgical site, but reports some pressure over the 5th digit. Denies oral thrush or new skin lesions. Infect Dis PN-Objective Data - Labs CBC & Chem 7: 01/04/17 04:10 01/03/17 05:10 Labs: Laboratory Results - last 24 hr 01/02/17 01/03/17 01/03/17 07:56 07:36 11:59 WBC RBC Hgb Hct MCV MCH MCHC RDW Plt Count MPV POC Glucose 203 H 133 H 223 H 01/03/17 01/03/17 01/04/17 16:17 20:53 04:10 WBC 11.6 H RBC 2.80 L Hgb 8.0 L Hct 26.1 L MCV 93.2 MCH 28.6 MCHC 30.7 L RDW 19.3 H Plt Count 167 MPV 10.6 POC Glucose 123 H 116 H Cultures: Cultures 12/26/16 14:37 Blood Culture - Final Peripheral Venipuncture No growth. 12/26/16 14:37 Blood Culture - Final Peripheral Venipuncture No growth. 12/24/16 16:11 Wound Culture - Final Right Foot Staphylococcus aureus 12/24/16 16:11 Anaerobic Culture - Final Right Foot Anaerobic Gram Positive Cocci 12/24/16 16:07 Wound Culture - Final Right Foot Staphylococcus aureus 12/24/16 16:07 Anaerobic Culture - Final Right Foot Anaerobic Gram Positive Cocci 12/24/16 16:08 Surgical Biopsy Culture - Final Right Foot Staphylococcus aureus 12/24/16 16:09 Surgical Biopsy Culture - Final Right Foot Serology 12/30/16 Range/Units 15:30 Urine Color Dark Yellow (Yellow) Urine Clarity Clear (Clear) Urine pH 5.5 (5.0-8.0) pH Units Ur Specific [place] > 1.030 H (1.010-1.025) Urine Protein Negative (Neg-Trace) mg/dL Urine Glucose (UA) Normal (Normal) mg/dL Urine Ketones Trace H (Negative) mg/dL Urine Blood Negative (Negative) Urine Nitrite Negative (Negative) Urine Bilirubin Small H (Negative) Urine Urobilinogen Normal (Normal) mg/dL Ur Leukocyte Esterase Negative (Negative) Ur Culture Indicated? NO (NO) - Impressions Impressions Bone Scan Nuclear Medicine 01/03/17 13:55 IMPRESSION: Diffuse spinal activity is typically degenerative, and activity at the left 6th costal cartilage is likely due to dystrophic calcification or healing trauma, given lack of widespread findings elsewhere. In this baseline exam, metastatic disease is not entirely excluded and recommend continued attention to these regions on follow-up. Multifocal degenerative changes are otherwise seen as outlined above. D/ / Pernell Lo MD / Pernell Lo MD Interpreting Provider: Pernell Lo MD Abdomen/Pelvis CT 01/03/17 18:00 IMPRESSION: 1. Multiple borderline enlarged retroperitoneal and pelvic lymph nodes. Given presence of similar nodes on the prior exam of June 10, 2012, these are favored to be reactive nodes. No convincing evidence of metastases in the abdomen or pelvis. Recommend follow-up CT chest to ensure stability of the lymph nodes mentioned. 2. Mild hepatomegaly and hepatic steatosis. 3. Small amount of free fluid in the abdomen, possibly secondary to third spacing. 4. Mild subcutaneous edema of the anterior abdominal wall. Please correlate with clinical symptoms of cellulitis. 5. Known right lower lobe mass previously biopsied. Small right pleural effusion. D/ / 01/03/2017 19:44:45 Mark Anthony Manzanares MD / yessi Interpreting Provider: Mark Anthony Manzanares MD Exam - Constitutional Vitals: Temp Pulse Resp BP Pulse Ox 98.2 F 107 24 146/80 96 01/04/17 01:49 01/04/17 01:49 01/04/17 03:46 01/04/17 01:49 01/04/17 03:46 - VTE Documentation of Mechanical Device: Intermittent pneumatic compression device Consult Discharge Plan - Plan Instructions: Acute Kidney Injury (DC), Cellulitis (DC), Diabetic Foot Care (DC ), Diabetes Mellitus Type 2 in Adults (DC), Peripheral Vascular Disorders (DC), Chronic Obstructive Pulmonary Disease (DC), Sepsis (DC) Referrals: Alvaro Pelletier DPM [Partnered Physician] - 01/11/17 10:30 am Tierney Oliva, BELT WEAVER [Advanced Practice Nurse] - 01/17/17 9:00 am Sidney Martinez MD [Primary Care Provider] - (patient is going to [facility] no PCP appointment is needed) Honorio Collins MD [Partnered Physician] - 01/15/17 9:30 am (this appointment is in [place]) Matt Vasquez MD [Partnered Physician] - 01/16/17 11:10 am Prescriptions: Ampicillin/Sulbactam [Unasyn] 3,000 mg IVPB Q8HR 42 Days HYDROcodone/Acet 10/325 mg [[place] 10-325 mg] 1 each PO Q6H PRN #10 tablet PRN Reason: Pain 5-10 LORazepam [Ativan] 0.5 mg PO Q8H PRN #10 tablet PRN Reason: Anxiety - Attending Attestation I examined this patient and my medical decision-making was reviewed with the TIME BROKER/PA/Advanced Practice Nurse/Resident Physician. I agree with the documented findings, disposition and treatment plan as described except to the extent set forth below.
[2017-01-04] MEDS: Budesonide/Formoterol 160/4.5 MDI IH SCH (10:47)
--- NOTE | 2017-01-04 11:26 | Discharge Summary ---
Date of Encounter: 01/04/17 Time of Encounter: 09:30 - Discharge Diagnosis (1) Osteomyelitis Priority: Primary Status: Acute Comments: Patient was admitted with right diabetic foot ulcer with questionable gas on x- ray and possible osteomyelitis, although foot MRI did not show this. Patient underwent debridement and excision of right foot plantar ulcer, excision of right fifth metatarsal, incision and drainage twice since admission. Currently on wound VAC. Improving leukocytosis, afebrile > 48 hours. Continue IV Unasyn for 6 weeks. Wound cultures grew [facility] Podiatry and ID on board. Qualifiers: Osteomyelitis type: acute hematogenous Osteomyelitis location: foot Laterality: right Qualified Code(s): M86.071 - Acute hematogenous osteomyelitis, right ankle and foot (2) Acute kidney injury Priority: Primary Status: Acute Comments: Likely ATN due to hypotension/use of vancomycin/diuretics/sepsis/recent contrast with angiogram. UO improving. nephrology recommendations reviewed Improving (3) Non-small cell lung cancer (NSCLC) Priority: Primary Status: Acute Comments: newly diagnosed path report from [facility] TTBx +ve, pulmonology recommendations reviewed CT Abd/pelvis completed, Bone scan completed Oncology has evaluated patient - recommendations reviewed, outpatient follow up Qualifiers: Laterality: right Qualified Code(s): C34.91 - Malignant neoplasm of unspecified part of right bronchus or lung (4) COPD (chronic obstructive pulmonary disease) Priority: Secondary Status: Chronic Comments: Severe COPD- stable - continue Duonebs, Spiriva, Symbicort Qualifiers: COPD type: chronic bronchitis Chronic bronchitis type: mucopurulent Qualified Code(s): J41.1 - Mucopurulent chronic bronchitis (5) Diabetes mellitus Priority: Secondary Status: Chronic Comments: hyperglycemia Qualifiers: Diabetes mellitus type: type 2 Diabetes mellitus complication status: with neurologic complications Diabetes mellitus complication detail: with polyneuropathy Diabetes mellitus alf insulin use: without adjunct faculty for medical terminology use Qualified Code(s): E11.42 - Type 2 diabetes mellitus with diabetic polyneuropathy (6) Diabetic foot ulcer Priority: Primary Status: Acute Comments: tatus post excision by podiatry. Continue local wound care per podiatry recommendations along with wound VAC Qualifiers: Diabetic foot ulcer location: midfoot Diabetes mellitus type: other specified (including WALKER) Laterality: right Non-pressure ulcer stage: with fat layer exposed Qualified Code(s): E13.621 - Other specified diabetes mellitus with foot ulcer; L97.412 - Non-pressure chronic ulcer of right heel and midfoot with fat layer exposed (7) Anemia Priority: Secondary Status: Chronic Comments: Patient is noted to have steadily decreasing hemoglobin; status post one unit PRBC transfusion, hemoglobin noted to be 8.1. Iron profile shows low iron stores along with significantly high ferritin likely due to underlying inflammation. Serum vitamin B12 noted to be high, folate levels within normal limits. Stool occult blood pending. Oncology evaluated patient Qualifiers: Anemia type: unspecified type Qualified Code(s): D64.9 - Anemia, unspecified (8) Peripheral vascular disease Priority: Secondary Status: Chronic Comments: Vascular surgery on board. Patient underwent right superficial femoral and common iliac balloon angioplasty on 12/28/2016. Continue Plavix. (9) Sleep apnea Priority: Secondary Status: Chronic Comments: Continue CPAP Qualifiers: Sleep apnea type: obstructive Qualified Code(s): G47.33 - Obstructive sleep apnea (adult) (pediatric) - Discharge Medications Prescriptions: Ampicillin/Sulbactam [Unasyn] 3,000 mg IVPB Q8HR 42 Days HYDROcodone/Acet 10/325 mg [Bock 10-325 mg] 1 each PO Q6H PRN #10 tablet PRN Reason: Pain 5-10 LORazepam [Ativan] 0.5 mg PO Q8H PRN #10 tablet PRN Reason: Anxiety Home Medications: Allopurinol [Zyloprim] 300 mg PO DAILY 03/02/15 [History] Cholecalciferol (Vitamin D3) [Vitamin D] 2,000 unit PO DAILY 03/02/15 [History] Clopidogrel [Plavix] 75 mg PO DAILY 03/02/15 [History] Docusate [Colace] 200 mg PO TID 03/02/15 [History] FLUoxetine HCl [Prozac] 60 mg PO DAILY 03/02/15 [History] Famotidine [Pepcid] 20 mg PO BID 03/02/15 [History] Ferrous Sulfate 325 mg PO BID 03/02/15 [History] Furosemide [Lasix] 80 mg PO BID 03/02/15 [History] Ipratropium/Albuterol Neb [Duoneb] 3 ml IH Q6HR 03/02/15 [History] Levothyroxine Sodium [Synthroid] 200 mcg PO DAILY 03/02/15 [History] Magnesium Oxide [Magnesium] 400 mg PO DAILY 03/02/15 [History] Metformin [Glucophage] 850 mg PO BID 03/02/15 [History] Metoprolol [Lopressor] 25 mg PO BID 03/02/15 [History] Multivitamin [Multivitamins] 1 cap PO DAILY 03/02/15 [History] Oxygen 2 l IN DAILY 03/02/15 [History] Potassium Chloride 20 meq PO TID 03/02/15 [History] Roflumilast [Daliresp] 500 mcg PO DAILY 03/02/15 [History] Ropinirole HCl [Requip] 2 mg PO BID 03/02/15 [History] Albuterol Sulfate [Proair Hfa] 2 puff IH Q4H 12/19/16 [History] Ammonium Lactate [Amlactin] 1 appl TP BID 12/19/16 [History] Guaifenesin [Mucinex] 600 mg PO BID 12/19/16 [History] Ipratropium/Albuterol Neb [Duoneb] 3 ml IH Q6HR 12/19/16 [History] Lidocaine/Hydrocortisone AC [Lidocaine-Hydrocort 3-2.5% Gel] 7 gm RC BID [History] Polyethylene Glycol 3350 [MiraLAX Powder Bulk 17.9 Oz] 17 gm PO DAILY 12/19/16 [ History] PrednisoLONE [Millipred] 10 mg PO DAILY 12/19/16 [History] Spironolactone [Aldactone] 50 mg PO DAILY 12/19/16 [History] Theophylline Anhydrous [Jamal-24] 400 mg PO DAILY 12/19/16 [History] Umeclidinium Brm/Vilanterol Tr [Anoro Ellipta 62.5-25 Mcg INH] 1 puff IH DAILY 12/19/16 [History] metOLazone [Zaroxolyn] 5 mg PO DAILY 12/19/16 [History] BuPROPion [Wellbutrin] 75 mg PO BID 12/24/16 [History] Fluticasone/Salmeterol [Advair 500-50 Diskus] 2 puff IH BID 12/24/16 [History] Acetaminophen [Tylenol] 650 mg PO Q6HR PRN #0 tablet 01/04/17 [Rx] Ampicillin/Sulbactam [Unasyn] 3,000 mg IVPB Q8HR 42 Days 01/04/17 [Rx] Atorvastatin [Lipitor] 20 mg PO HS tablet 01/04/17 [Rx] Budesonide/Formoterol 160/4.5 [Symbicort 160/4.5] 2 puff IH BIDR inhaler [Rx] Gabapentin [Neurontin] 300 mg PO BID capsule 01/04/17 [Rx] HYDROcodone/Acet 10/325 mg [Bock 10-325 mg] 1 each PO Q6H PRN #10 tablet [Rx] Ipratropium/Albuterol Neb [Duoneb] 3 ml IH [id number] inhsol 01/04/17 [Rx] LORazepam [Ativan] 0.5 mg PO Q8H PRN #10 tablet 01/04/17 [Rx] Lactobacillus [Culturelle] 2 each PO DAILY cap.sprink 01/04/17 [Rx] Miconazole w/zinc oxide&karaya [Antifungal Extra Thick] 1 appl TP TID tube 03/15 [Rx] Saline Nasal Lyons [[place] Nasal Lyons] 2 spray NS Q2H PRN #0 bottle 01/04/17 [Rx ] Tamsulosin [Flomax] 0.4 mg PO DAILY capsule 01/04/17 [Rx] Allergies/Adverse Reactions: Allergies doxycycline Allergy (Verified 12/24/16 14:50) Hives Oxycodone [From Percocet] Allergy (Verified 12/24/16 14:50) Swelling of Lip/Tongue/Throat Penicillins [PCN] Allergy (Verified 12/24/16 14:50) Hives codeine Adverse Reaction (Verified 12/19/16 12:27) Flushing meperidine Adverse Reaction (Verified 12/19/16 12:27) Hallucinating morphine Adverse Reaction (Verified 12/19/16 12:27) Nightmare Procedures/tests Complete & Pending: Procedures Performed prior 72 hours Category Date Time Status CT abd pelvis wo iv oral only [CT] Routine Cat Scan 01/03/17 18:00 Draft NM bone scan whole body [NM] Routine Exams 01/03/17 13:55 Completed ECG 12 lead ECG [ECG] Routine Y 01/03/17 04:10 Completed Date of admission: 12/23/16 19:20 Primary care physician: Sidney Martinez MD Consults: 12/23/16 20:29 Consult to Pulmonology [CONS] Routine Consulting Provider: [facility] Reason for Consult: Right lung mass; New onset; 4x3 cm spiculated; Very severe COPD Call Completed: No 12/24/16 09:56 Consult to Podiatry [CONS] Routine Consulting Provider: [facility] Reason for Consult: DM foot, osteomyelitis Call Completed: Yes 12/26/16 09:08 Consult to Occupational Therapy [CONS] Routine Comment: Evaluate, develop and implement POC Reason for Consult: Strengthening Consult to Physical Therapy [CONS] Routine Comment: Evaluate, develop and implement POC Reason for Consult: Up with assist, bedrest discontinued, no weight bearing to right foot. 12/26/16 09:30 Consult to Infectious Diseases [CONS] Routine Consulting Provider: Infectious Disease [facility] Reason for Consult: Osteomyelitis Call Completed: Yes 12/26/16 10:22 Consult to Interventional Radiology [CONS] Routine Consulting Provider: Radiology Interventional [facility] Reason for Consult: Need CT guide biopsy. Off plavix day 3 Call Completed: Yes 12/27/16 12:56 Consult to Vascular Surgery [CONS] Routine Consulting Provider: Vascular Surgery [facility] Reason for Consult: Diabetic ulcer and non healing surgical wound of right foot, diminished pulses, hx of vascular disease Time Notified: 12:55 Call Completed: Yes 12/28/16 11:09 Consult to Mental Health Tech [CONS] Routine Reason for SW Consult: Will need IV ATB's q 6hrs at discharge 12/29/16 17:09 Consult to Physical Therapy [CONS] Routine Comment: Evaluate, develop and implement POC Reason for Consult: non-wb right foot, transfers etc. 12/30/16 10:32 Consult to Nephrology [CONS] Routine Consulting Provider: [facility] Reason for Consult: Worsening MILI s/p angioplasty of right leg, Vancomycin use Call Completed: Yes 12/31/16 10:15 Consult to Pulmonology [CONS] Routine Consulting Provider: [facility] Reason for Consult: Subjective dyspnea, air hunger, h/o COPD, JOSR Call Completed: Yes 01/02/17 11:17 Consult to Oncology [CONS] Routine Consulting Provider: Oncology [facility] Reason for Consult: Non-small cell lung cancer Call Completed: No 01/03/17 11:12 Consult to Invasive Line Access Team [CONS] Routine Reason for Consult: 6 weeks IV antibiotics, CKD Line Type: EPIV PICC line indications: senior care Med/Antibiotic Time Notified: 11:12 Call Completed: Yes Anticipated date of discharge: 01/04/17 - Patient Status Disposition: Transfer SNF Condition: Fair Overall status at discharge: patient is progressing back to baseline - Discharge Instructions Instructions: Acute Kidney Injury (DC), Cellulitis (DC), Diabetic Foot Care (DC ), Diabetes Mellitus Type 2 in Adults (DC), Peripheral Vascular Disorders (DC), Chronic Obstructive Pulmonary Disease (DC), Sepsis (DC) Follow Up With: Alvaro Pelletier DPM [Partnered Physician] - 01/11/17 10:30 am Tierney Oliva CNP [Advanced Practice Nurse] - 01/17/17 9:00 am Sidney Martinez MD [Primary Care Provider] - (patient is going to [facility] no PCP appointment is needed) Honorio Collins MD [Partnered Physician] - 01/15/17 9:30 am (this appointment is in [place]) Matt Vasquez MD [Partnered Physician] - 01/16/17 11:10 am - Diet and Activity Activity: as per physical therapy, increase activity as tolerated, wear oxygen at all times, other (CPAP at night) Hospital course: Mr. Sinha is a 71 year old male with a history of end-stage COPD on home oxygen at 3 L around the clock presented to the emergency room on 12/19/2016 at [facility] due to worsening shortness of breath and chest pain. He stated that the chest pain had been present for 3 days prior to presentation. It was 6/10 in intensity, present in the middle of the chest without any radiation which he describes as a heaviness and a pressure sensation. No aggravating or relieving factors. It was associated with worsening shortness of breath. He reports baseline cough with yellow to green colored sputum production which has not worsened or changed in consistency or amount. He reports baseline wheezing. He stated that he uses Advair at home and DuoNeb's 3 times a day. He sees Dr. Burrell for the care of his COPD. Patient was transferred to [facility] for higher level of care for his worsening cellulitis and osteomyelitis. The patient reported chills. The patient reports long-term loss of sensation in both his feet. He was noted by the physician in the emergency room to have redness over his right leg and an ulceration over the outer aspect of his right foot. He was diagnosed with cellulitis and possible osteomyelitis. He was given intravenous antibiotics. It was recommended that the patient be admitted to the hospital for further care of the same. Podiatry evaluated the patient, and he underwent debridement and excision of right foot plantar ulcer. Diagnosed with osteomyelitis. Needs alf IV antibx. ID ahs also evaluated. cultures sensitive to Unasyn. Patient had a chest x-ray performed for evaluation of this chest pain or shortness of breath which showed a possible mass. The patient underwent a CT scan of his chest to evaluate the same. This revealed a 4.3 X2.1 centimeter spiculated mass in the right lower lobe posteriorly. The patient denies any hemoptysis - newly diagnosed NSCLC. Oncology has evaluated patient and CT Abd/ pelvis and Bone scan have been done in the hospital. Needs outpatient oncology follow up. Npehrology and pulmonology have also evaluated patient. On the day of discharge. Patient is awake and alert. Not in any distress. No complaints. Feels better. Wants to go to SNF. He has been explained extensively about condition and plan of care. He understood and agreed. Dressing change to be done daily at SNF. - Time Spent with Patient Total time spent providing and/or coordinating discharge services: Greater than 30 minutes - Constitutional Vitals: Temp Pulse Resp BP Pulse Ox 97.8 F 113 24 132/85 96 01/04/17 07:00 01/04/17 07:00 01/04/17 07:00 01/04/17 07:00 01/04/17 07:00 General appearance: Present: A&O X 3, morbidly obese, no acute distress, answers questions appropriately - Head Head exam: Present: atraumatic - Neck Neck exam general surgery: Present: supple - Respiratory Respiratory exam: Present: CTAB. Absent: rhonchi, wheezes - Cardiovascular Cardiovascular exam: Present: RRR, +S1, +S2 - GI/Abdominal GI/Abdominal exam: Present: distended (obese), soft. Absent: guarding, tenderness - Extremities Exam Extremities exam: Present: pedal edema, radial pulses palpable and symetrical. Absent: cyanotic - Neurological Exam Neurological exam: Present: alert, oriented X3, no focal deficits - VTE Documentation of Mechanical Device: Intermittent pneumatic compression device
--- NOTE | 2017-01-04 11:42 | Physician Discharge Referral ---
ExtendedCare Referral Info Transfer To: ECF Provider in Charge after Transfer: PCP Institutional Level of Care: Skilled - Diagnosis (1) Osteomyelitis Priority: Primary Status: Acute (2) Acute kidney injury Priority: Primary Status: Acute (3) Non-small cell lung cancer (NSCLC) Priority: Primary Status: Acute (4) COPD (chronic obstructive pulmonary disease) Priority: Secondary Status: Chronic (5) Diabetes mellitus Priority: Secondary Status: Chronic (6) Diabetic foot ulcer Priority: Primary Status: Acute (7) Anemia Priority: Secondary Status: Chronic (8) Peripheral vascular disease Priority: Secondary Status: Chronic (9) Sleep apnea Priority: Secondary Status: Chronic Prognosis: Fair - Transfer Medications Prescriptions: Ampicillin/Sulbactam [Unasyn] 3,000 mg IVPB Q8HR 42 Days Home Medications: Allopurinol [Zyloprim] 300 mg PO DAILY 03/02/15 [History] Cholecalciferol (Vitamin D3) [Vitamin D] 2,000 unit PO DAILY 03/02/15 [History] Clopidogrel [Plavix] 75 mg PO DAILY 03/02/15 [History] Docusate [Colace] 200 mg PO TID 03/02/15 [History] FLUoxetine HCl [Prozac] 60 mg PO DAILY 03/02/15 [History] Famotidine [Pepcid] 20 mg PO BID 03/02/15 [History] Ferrous Sulfate 325 mg PO BID 03/02/15 [History] Furosemide [Lasix] 80 mg PO BID 03/02/15 [History] Gabapentin [Neurontin] 1,800 mg PO BID 03/02/15 [History] Ipratropium/Albuterol Neb [Duoneb] 3 ml IH Q6HR 03/02/15 [History] LORazepam [Ativan] 0.5 mg PO TID PRN 03/02/15 [History] Levothyroxine Sodium [Synthroid] 200 mcg PO DAILY 03/02/15 [History] Lovastatin [Altoprev] 20 mg PO DAILY 03/02/15 [History] Magnesium Oxide [Magnesium] 400 mg PO DAILY 03/02/15 [History] Metformin [Glucophage] 850 mg PO BID 03/02/15 [History] Metoprolol [Lopressor] 25 mg PO BID 03/02/15 [History] Multivitamin [Multivitamins] 1 cap PO DAILY 08/04/15 [History] Oxygen 2 l IN DAILY 03/02/15 [History] Potassium Chloride 20 meq PO TID 03/02/15 [History] Roflumilast [Daliresp] 500 mcg PO DAILY 03/02/15 [History] Ropinirole HCl [Requip] 2 mg PO BID 03/02/15 [History] Temazepam 15 mg PO HS 03/02/15 [History] Albuterol Sulfate [Proair Hfa] 2 puff IH Q4H 12/19/16 [History] Ammonium Lactate [Amlactin] 1 appl TP BID 12/19/16 [History] Guaifenesin [Mucinex] 600 mg PO BID 12/19/16 [History] HYDROcodone/Acet 10/325 mg [Pool 10-325 mg] 1 tab PO Q4HR PRN 12/19/16 [History ] Ipratropium/Albuterol Neb [Duoneb] 3 ml IH Q6HR 12/19/16 [History] Levofloxacin [Levaquin] 750 mg PO DAILY #10 tablet 12/19/16 [Rx] Lidocaine/Hydrocortisone AC [Lidocaine-Hydrocort 3-2.5% Gel] 7 gm RC BID [History] Polyethylene Glycol 3350 [MiraLAX Powder Bulk 17.9 Oz] 17 gm PO DAILY 12/19/16 [ History] PrednisoLONE [Millipred] 10 mg PO DAILY 12/19/16 [History] Spironolactone [Aldactone] 50 mg PO DAILY 12/19/16 [History] Theophylline Anhydrous [Jamal-24] 400 mg PO DAILY 12/19/16 [History] Umeclidinium Brm/Vilanterol Tr [Anoro Ellipta 62.5-25 Mcg INH] 1 puff IH DAILY 12/19/16 [History] metOLazone [Zaroxolyn] 5 mg PO DAILY 12/19/16 [History] BuPROPion [Wellbutrin] 75 mg PO BID 12/24/16 [History] Fluticasone/Salmeterol [Advair 500-50 Diskus] 2 puff IH BID 12/24/16 [History] Ropinirole HCl [Requip] 4 mg PO HS 12/24/16 [History] Ampicillin/Sulbactam [Unasyn] 3,000 mg IVPB Q8HR 42 Days 01/04/17 [Rx] Allergies/Adverse Reactions: Allergies doxycycline Allergy (Verified 12/24/16 14:50) Hives Oxycodone [From Percocet] Allergy (Verified 12/24/16 14:50) Swelling of Lip/Tongue/Throat Penicillins [PCN] Allergy (Verified 12/24/16 14:50) Hives codeine Adverse Reaction (Verified 12/19/16 12:27) Flushing meperidine Adverse Reaction (Verified 12/19/16 12:27) Hallucinating morphine Adverse Reaction (Verified 12/19/16 12:27) Nightmare - Respiratory Orders Oxygen / L per min (2L NC) Smoking Cessation: Smoking cessation has been advised. For more information, call the [place] Tobacco Quit Line at 7-456-ZSHN-NOW. - Lab Orders Lab Orders: CBC - Ancillary Orders May use pressure relief devices daily prn - Advance Directives Code Status: Full Code - Mobility Orders Ambulate - Rehabiliation Orders Rehab Potential: Fair Rehab Orders: ROM Exercises, Evaluation for Physical Therapy, Evaluation for Occupational Therapy - Treatments Skin tear care topically daily PRN per policy - Diet Orders Cardiac CERTIFICATION: I certify that the transfer of the above named patient to an Extended Care Facility is necessary for the continuing treatment of the diagnosis listed. The above information is true and accurate reflection of patient's current condition. Confidential - Redisclosure prohibited without a patient's written consent.
[2017-01-04] MEDS: Hydrocortisone Rectal 2.5% CRM 28 GM TUBE RC SCH (12:20)
[2017-01-04 12:49] VITALS: BP 128/68
--- NOTE | 2017-01-04 13:11 | Infectious Disease Progress No ---
Date of Encounter: 01/04/17 Time of Encounter: 10:00 - Assessment and Plan (1) Sepsis Current Visit: Yes Status: Resolved The patient had two SIRS criteria on admission. Likely secondary to osteomyelitis of the right foot. Improved. Tachycardia has resolved. Leukocytosis is down to 11.6. Blood cultures drawn 12/26/16 are negative x 2 sets. Qualifiers: Sepsis type: methicillin susceptible Staphylococcus aureus Qualified Code(s ): A41.01 - Sepsis due to Methicillin susceptible Staphylococcus aureus (2) Osteomyelitis Current Visit: Yes Status: Acute Location: Right foot, lateral aspect of the 5th metatarsal. Causative organism MSSA per intra-operative culture. Previous superficial wound culture obtained 12/19/16 grew MSSA, P. mirabilis, and E. faecalis. Right foot x-ray completed 12/19/16 showed a soft tissue ulceration to the lateral aspect of the right foot at the level of the residual 5th metatarsal shaft compatible with diabetic ulcer. There was noted to be gas present within the region of the ulceration with possible extension of the gas into the adjacent soft tissues raising the possibility for infection with gas-forming organism. There was also a questionable irregularity and possible mild bony erosive change to the lateral aspect of the residual 5th metatarsal shaft that was concerning for osteomyelitis. Repeat foot x-ray 12/23/16 showed worsening soft tissue ulceration along the lateral aspect of the right foot with increasing soft tissue gas along with possible erosive changes of the 5th metatarsal concerning for osteomyelitis. ESR on admission was >130. No CRP was checked. Podiatry was consulted and took the patient to the OR on 12/24/16 and performed n I & D of the right foot with debridement of the 5th metatarsal bone and plantar fasciectomy. Operative notes reviewed. Large amount of purulent drainage was noted, as well as changes to the bone that was debrided. MRI completed 12/26/16 did not reveal any new abscess. Repeat ESR 93. and CRP 73 12/27/16. Due to unexplained persistent leukocytosis, the patient was taken back to the OR 12/29/[address] Pelletier and underwent right foot excisional debridement of the diabetic foot ulceration, right foot peroneus brevis tendon transfer, right foot debridement of bone, and application of wound VAC. Operative note reviewed. No additional abscess or additional bone abnormalities noted intra- operatively. Continue Unasyn, but increase dose back up to 3 grams IV Q8H since the patient' s renal function has recovered. Dose discussed with Sherman Olvera. The patient has been on Unasyn since Sunday and appears to be tolerating it well. We will continue to observe the patient closely for any signs of delayed reaction. Continue wound care and activity restrictions per the podiatry team. Duration of treatment depends on the clinical picture, but likely 6 weeks of IV antibiotics followed by orals. Monitor renal function and dose-adjust antibiotics. building services coordinator following for assistance with discharge planning. EPIV already placed. Follow up with ID 01/17/17 at 0900. Weekly CBC, BMP, ESR, and CRP every Sunday for the duration of antibiotic therapy. Weekly EPIV care per protocol. Qualifiers: Osteomyelitis type: acute hematogenous Osteomyelitis location: foot Laterality: right Qualified Code(s): M86.071 - Acute hematogenous osteomyelitis, right ankle and foot (3) Gas gangrene Current Visit: Yes Status: Acute Location: Right foot. Soft tissue gas noted on x-ray. Status post I & D 12/24/16. See antibiotics recommendations as above. (4) Cellulitis of leg, right Current Visit: No Status: Resolved Likely secondary to infected DFU and osteomyelitis. Localized to the right foot and lower portion of the RLE up to the mid-mann. Resolved. Causative organism likely MSSA given the patient's most recent wound cultures. Continue antibiotics as above. (5) Acute kidney injury Current Visit: Yes Status: Acute Likely secondary to sepsis. Serum creatinine continues to trend down. Urine output appears adequate. Nephrology consulted and following. RP UTS showed urinary retention. Continue to trend. Dose-adjust antibiotics and avoid nephrotoxins as able. (6) Mass of right lung Current Visit: Yes Status: Acute CT of the chest 12/19/16 showed spiculating RLL mass concerning for malignancy. The patient has an extensive smoking history. Pulmonology consulted. Recommends CT-guided biopsy with possible EBUS to follow. CT-guided biopsy completed 12/28/16. 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 Hem/Onc consulted. (7) Diabetic foot ulcer Current Visit: Yes Status: Acute Location: Right lateral foot, status post excision. Wound care per the podiatry team. Qualifiers: Diabetic foot ulcer location: midfoot Diabetes mellitus type: other specified (including WALKER) Laterality: right Non-pressure ulcer stage: with fat layer exposed Qualified Code(s): E13.621 - Other specified diabetes mellitus with foot ulcer; L97.412 - Non-pressure chronic ulcer of right heel and midfoot with fat layer exposed (8) COPD (chronic obstructive pulmonary disease) Current Visit: Yes Status: Chronic Qualifiers: COPD type: chronic bronchitis Chronic bronchitis type: mucopurulent Qualified Code(s): J41.1 - Mucopurulent chronic bronchitis (9) Diabetes mellitus Current Visit: Yes Status: Chronic Hgb A1C 5.7 on admission. Continue aggressive glucose monitoring and management to promote wound healing and prevent re-infection. Qualifiers: Diabetes mellitus type: type 2 Diabetes mellitus complication status: with neurologic complications Diabetes mellitus complication detail: with polyneuropathy Diabetes mellitus senior care insulin use: without senior care use Qualified Code(s): E11.42 - Type 2 diabetes mellitus with diabetic polyneuropathy (10) Sleep apnea Current Visit: Yes Status: Chronic Uses C-PAP QHS. Qualifiers: Sleep apnea type: obstructive Qualified Code(s): G47.33 - Obstructive sleep apnea (adult) (pediatric) (11) Anemia Current Visit: Yes Status: Chronic Hgb stable around 8. Etiology unclear. No evidence of acute bleeding noted on exam. Further workup and management per the primary team. Qualifiers: Anemia type: unspecified type Qualified Code(s): D64.9 - Anemia, unspecified (12) PAD (peripheral artery disease) Current Visit: Yes Status: Acute ABIs abnormal bilaterally. Vascular Surgery consulted. Status post abdominal aortogram, aortogram with bilateral runoff, and selective right lower leg angiogram. The patient received a right superficial femeral balloon angioplasty and a right common iliac stent angioplasty 12/28/[address] Collins. (13) Urinary retention Current Visit: Yes Status: Acute Santos placed. - Subjective Interval history: Patient seen and examined. No acute events overnight. Patient sitting up at the bedside during the exam. Patient states he feels a little better today, but appears more dyspneic. He complains of chronic pain in his back and shoulders and bilateral knees. He also complains of pain in his coccyx from lying in bed. He denies any fevers or chills or rigors. Denies any chest pain. He denies any nausea, vomiting, or diarrhea. Denies abdominal pain or appetite changes. Denies pain at the surgical site, but reports some pressure over the 5th digit. Denies oral thrush or new skin lesions. Infect Dis PN-Objective Data - Labs CBC & Chem 7: 01/04/17 04:10 01/03/17 05:10 Labs: Laboratory Results - last 24 hr 01/02/17 01/03/17 01/03/17 07:56 07:36 11:59 WBC RBC Hgb Hct MCV MCH MCHC RDW Plt Count MPV POC Glucose 203 H 133 H 223 H 01/03/17 01/03/17 01/04/17 16:17 20:53 04:10 WBC 11.6 H RBC 2.80 L Hgb 8.0 L Hct 26.1 L MCV 93.2 MCH 28.6 MCHC 30.7 L RDW 19.3 H Plt Count 167 MPV 10.6 POC Glucose 123 H 116 H 01/04/17 11:07 WBC RBC Hgb Hct MCV MCH MCHC RDW Plt Count MPV POC Glucose 188 H Cultures: Cultures 12/26/16 14:37 Blood Culture - Final Peripheral Venipuncture No growth. 12/26/16 14:37 Blood Culture - Final Peripheral Venipuncture No growth. 12/24/16 16:11 Wound Culture - Final Right Foot Staphylococcus aureus 12/24/16 16:11 Anaerobic Culture - Final Right Foot Anaerobic Gram Positive Cocci 12/24/16 16:07 Wound Culture - Final Right Foot Staphylococcus aureus 12/24/16 16:07 Anaerobic Culture - Final Right Foot Anaerobic Gram Positive Cocci 12/24/16 16:08 Surgical Biopsy Culture - Final Right Foot Staphylococcus aureus 12/24/16 16:09 Surgical Biopsy Culture - Final Right Foot Serology 12/30/16 Range/Units 15:30 Urine Color Dark Yellow (Yellow) Urine Clarity Clear (Clear) Urine pH 5.5 (5.0-8.0) pH Units Ur Specific [place] > 1.030 H (1.010-1.025) Urine Protein Negative (Neg-Trace) mg/dL Urine Glucose (UA) Normal (Normal) mg/dL Urine Ketones Trace H (Negative) mg/dL Urine Blood Negative (Negative) Urine Nitrite Negative (Negative) Urine Bilirubin Small H (Negative) Urine Urobilinogen Normal (Normal) mg/dL Ur Leukocyte Esterase Negative (Negative) Ur Culture Indicated? NO (NO) - Impressions Impressions Bone Scan Nuclear Medicine 01/03/17 13:55 IMPRESSION: Diffuse spinal activity is typically degenerative, and activity at the left 6th costal cartilage is likely due to dystrophic calcification or healing trauma, given lack of widespread findings elsewhere. In this baseline exam, metastatic disease is not entirely excluded and recommend continued attention to these regions on follow-up. Multifocal degenerative changes are otherwise seen as outlined above. D/ / Pernell Lo MD / Pernell Lo MD Interpreting Provider: Pernell Lo MD Abdomen/Pelvis CT 01/03/17 18:00 IMPRESSION: 1. Multiple borderline enlarged retroperitoneal and pelvic lymph nodes. Given presence of similar nodes on the prior exam of June 10, 2012, these are favored to be reactive nodes. No convincing evidence of metastases in the abdomen or pelvis. Recommend follow-up CT chest to ensure stability of the lymph nodes mentioned. 2. Mild hepatomegaly and hepatic steatosis. 3. Small amount of free fluid in the abdomen, possibly secondary to third spacing. 4. Mild subcutaneous edema of the anterior abdominal wall. Please correlate with clinical symptoms of cellulitis. 5. Known right lower lobe mass previously biopsied. Small right pleural effusion. D/ / 01/03/2017 19:44:45 Mark Anthony Manzanares MD / yessi Interpreting Provider: Mark Anthony Manzanares MD Exam - Constitutional Vitals: Temp Pulse Resp BP Pulse Ox 97.8 F 112 18 128/68 97 01/04/17 07:00 01/04/17 10:00 01/04/17 10:47 01/04/17 10:00 01/04/17 10:47 General appearance: cooperative, morbidly obese, no acute distress - Head Head exam: Present: atraumatic, normal inspection, normocephalic - Eye Eye exam: Present: EOMI, normal appearance, PERRL Pupils: Present: normal accommodation - ENT ENT exam: Present: mucous membranes moist - Neck Neck exam: Present: normal inspection - Respiratory Respiratory exam: Present: decreased breath sounds (throughout). Absent: rales , respiratory distress, rhonchi, wheezes - Cardiovascular Cardiovascular exam: Present: RRR, +S1, +S2 - GI/Abdominal GI/Abdominal exam: Present: distended (obese), firm, normal bowel sounds. Absent: tenderness Additional comments: Santos catheter noted to be draining clear, kathleen-colored urine. - Extremities Exam Extremities exam: Present: pedal edema (1+ RLE). Absent: joint swelling, tenderness Additional comments: Right foot dressing C/D/I. - Neurological Exam Neurological exam: Present: alert, oriented X3, no focal deficits - Psychiatric Psychiatric exam: Present: normal affect, normal mood - Skin Skin exam: Present: dry, intact, normal color, warm - Additional findings Additional findings: EPIV noted to the LUE with transparent dressing C/D/I. - VTE Documentation of Mechanical Device: Intermittent pneumatic compression device Consult Discharge Plan - Plan Instructions: Acute Kidney Injury (DC), Cellulitis (DC), Diabetic Foot Care (DC ), Diabetes Mellitus Type 2 in Adults (DC), Peripheral Vascular Disorders (DC), Chronic Obstructive Pulmonary Disease (DC), Sepsis (DC) Referrals: Alvaro Pelletier DPM [Partnered Physician] - 01/11/17 10:30 am Tierney Oliva CNP [Advanced Practice Nurse] - 01/17/17 9:00 am Sidney Martinez MD [Primary Care Provider] - (patient is going to [facility] no PCP appointment is needed) Honorio Collins MD [Partnered Physician] - 01/15/17 9:30 am (this appointment is in [place]) Matt Vasquez MD [Partnered Physician] - 01/16/17 11:10 am Prescriptions: Ampicillin/Sulbactam [Unasyn] 3,000 mg IVPB Q8HR 42 Days HYDROcodone/Acet 10/325 mg [[place] 10-325 mg] 1 each PO Q6H PRN #10 tablet PRN Reason: Pain 5-10 LORazepam [Ativan] 0.5 mg PO Q8H PRN #10 tablet PRN Reason: Anxiety
--- NOTE | 2017-01-04 15:24 | Podiatry Progress Note ---
Date of Encounter: 01/04/17 Time of Encounter: 14:45 - Assessment and Plan (1) Cellulitis of leg, right Status: Resolved (2) Diabetic foot ulcer Status: Acute Patient is s/p I&D right foot with debridement of 5th metatarsal bone and plantar fasciectomy by Dr. Pelletier on 12/24/16. Patient was taken back to OR by Dr. Pelletier for a right foot excisional debridement of diabetic foot ulceration, right foot peroneus brevis tendon transfer, right foot debridement of bone, application of wound vac on 12/29/2016 for persistent leukocytosis. S/p successful right common iliac and right superficial femoral artery angioplasties. WBC decreased to 11.6 today. A febrile Infectious Disease following, Intraop cultures isolated MSSA. Currently receiving IV Unasyn 3gm IV every 12 hours and will most likely require 6 weeks of IV antibiotics based on clinical picture. MRI found no further abscess, resected 5th metatarsal bone did show OM. No abscess identified or purulent drainage expressed after being taken back to OR on 12/29/16. Wound vac to be reapplied today once patient gets to [facility]CF. Dressing changed at bedside with calcium alginate applied in wound and betadine dressing to the plantar aspect with abd pads. Patient to remain strict non weight bearing to the right foot. Will continue to follow patient closely. Patient will need a f/u with Dr. Pelletier with in one week of discharge from hospital with Dr. Pelletier. Patient is being discharged to [facility]CF today. Qualifiers: Diabetic foot ulcer location: midfoot Diabetes mellitus type: other specified (including WALKER) Laterality: right Non-pressure ulcer stage: with fat layer exposed Qualified Code(s): E13.621 - Other specified diabetes mellitus with foot ulcer; L97.412 - Non-pressure chronic ulcer of right heel and midfoot with fat layer exposed (3) Diabetes mellitus Status: Chronic Qualifiers: Diabetes mellitus type: type 2 Diabetes mellitus complication status: with neurologic complications Diabetes mellitus complication detail: with polyneuropathy Diabetes mellitus terminal supervisor insulin use: without terminal supervisor use Qualified Code(s): E11.42 - Type 2 diabetes mellitus with diabetic polyneuropathy (4) Gas gangrene Status: Acute Subjective Principal diagnosis: gas gangrene Interval history: Patient is sitting up in chair with dressing intact to right foot. Moderate amount of serosanguineous drainage observed to dressing Patient is s/p I&D right foot with debridement of 5th metatarsal bone and plantar fasciectomy by Dr. Pelletier on 12/24/16. Patient was taken back to OR by Dr. Pelletier for a right foot excisional debridement of diabetic foot ulceration, right foot peroneus brevis tendon transfer, right foot debridement of bone, application of wound vac on 12/29/2016 for persistent leukocytosis. Patient states his right foot is sore. Wound vac was removed yesterday due to macerated wound edges. Wound vac will be reapplied today once he gets to [facility]. Patient is being discharged today. No c/o fever or chills overnight. He states his nausea is better today. Objective - Vital Signs Vital Signs: Vital Signs Temp Pulse Resp BP Pulse Ox 01/04/17 10:47 18 97 01/04/17 10:00 112 18 128/68 97 01/04/17 07:00 97.8 F 113 24 132/85 96 01/04/17 03:46 24 96 01/04/17 01:49 98.2 F 107 22 146/80 100 01/03/17 21:03 98.5 F 106 20 130/58 97 01/03/17 20:00 22 96 01/03/17 17:56 126/63 01/03/17 16:35 20 96 01/03/17 16:19 98.1 F 85 22 126/63 98 01/03/17 15:22 94 20 119/64 94 Intake and Output 01/03/17 01/04/17 01/04/17 23:59 07:59 15:59 Intake Total 100 / 100 100 / 100 300 / 300 Output Total 3350 / 3350 1800 / 1800 1000 / 1000 Balance -3250 / -3250 -1700 / -1700 -700 / -700 Intake: IV Fluids 100 / 100 100 / 100 Unasyn 3,000 MG In 0.9 % 100 / 100 100 / 100 Sodium Chloride (Mini-Bag +) 100 ML @ 200 mls/hr IVPB Q8H [facility] Rx#: [id number] Oral 0 / 0 300 / 300 Output: Urine 1000 / 1000 Catheter 3350 / 3350 1800 / 1800 Other: Meal Breakfast Percent of Meal Consumed 100% Stool Size Moderate Stool Consistency loose Stool Characteristics Gasquet Stool Color Green # Bowel Movements 2 Weight 142.7 kg Blood Glucose* 116 130 Patient Weight 06/08/17 23:59 Weight 142.7 kg - Exam Exam: General appearance: alert awake oriented X 3. Calm and pleasant, no acute distress.. Vascular: Right foot: No evidence of cyanosis, pallor or rubor, Edema graded at 1+/4, Skin Temperature warm, No calf pain with manual compression. capillary refill time is immediate to digits. Neurologic: Sensation diminished with light touch to right foot. . Postop Exam: S/p: Full-thickness ulceration to the lateral aspect of the right foot at the fifth metatarsal head measuring 3.2 cm in length x 3.5 cm in width x 1.5 cm in depth with tunneling to the plantar aspect along the incision line measuring 2.5cm and distally along the lateral side of the foot at the incision line measuring 2.5 cm. No odor, no pus, no periwound erythema, no exposed bone, no fluctuance. Wound edges to the plantar aspect are macerated. Toes #1 through # 4 right are pink, warm and dry. Sutures intact to incision lines. - Lab Result Diagrams: 01/04/17 04:10 01/03/17 05:10 Labs: Abnormal lab results WBC 11.6 K/mcL (4.3-11.1) H 01/04/17 04:10 RBC 2.80 M/mcL (4.19-5.50) L 01/04/17 04:10 Hgb 8.0 g/dL (12.9-16.9) L 01/04/17 04:10 Hct 26.1 % (37.5-50.1) L 01/04/17 04:10 MCHC 30.7 g/dL (31.6-35.5) L 01/04/17 04:10 RDW 19.3 % (11.5-14.5) H 01/04/17 04:10 Immature Gran % 8.4 % (0-4) H 12/26/16 03:31 Band Neutrophils % 22.0 % (0-4) H 01/03/17 05:10 Metamyelocytes % 2.0 % (0) H 01/02/17 06:02 Myelocytes % 6.0 % (0) H 01/02/17 06:02 Promyelocytes % 4.0 % (0) H 12/30/16 04:25 Neutrophils # 10.4 K/mcL (1.6-8.9) H 01/03/17 05:10 Nucleated RBCs/100 WBC 2.4 /100 WBC (0) H 01/03/17 05:10 Reactive Lymphocytes Present (Not Present) A 12/31/16 05:33 Toxic Granulation Present (Not Present) A 12/31/16 05:33 Large Platelets Present (Not Present) A 01/02/17 06:02 Polychromasia 1+ (Not Present) A 01/02/17 06:02 Hypochromasia Present (Not Present) A 12/29/16 03:16 Anisocytosis 1+ (Not Present) A 01/02/17 06:02 Macrocytosis Present (Not Present) A 01/02/17 06:02 ESR 93 mm/hr (0-10) H 12/27/16 00:59 PT 14.9 Seconds (9.4-12.1) H 12/27/16 17:36 ABG pCO2 50 mmHg (35-45) H 12/31/16 16:34 ABG Total CO2 27.9 mEq/L (20-26) H 12/31/16 16:34 Sodium 134 mEq/L (136-145) L 01/03/17 05:10 BUN 42 mg/dL (8-26) H D 01/03/17 05:10 Creatinine 1.35 mg/dL (0.72-1.25) H 01/03/17 05:10 Est GFR (Non-Af Amer) 52 (> 60) L 01/03/17 05:10 BUN/Creatinine Ratio 31 (6-26) H 01/03/17 05:10 Glucose 148 mg/dL (70-99) H 01/03/17 05:10 POC Glucose 188 (58-89) H 01/04/17 11:07 Hemoglobin A1c 5.7 % (-5.6) H 12/24/16 04:16 Uric Acid 9.1 mg/dL (3.5-7.2) H 12/31/16 05:33 Phosphorus 5.3 mg/dL (2.3-4.7) H 01/02/17 06:02 Iron 41 mcg/dL (65-175) L 12/31/16 12:52 % Saturation 15 % (20-55) L 12/31/16 12:52 Ferritin 1363 ng/ml (22-275) H 12/31/16 12:52 AST 343 Units/L (5-34) H 01/03/17 05:10 ALT 492 Units/L (0-55) H 01/03/17 05:10 Alkaline Phosphatase 348 Units/L (38-126) H 01/03/17 05:10 C-Reactive Protein 73 mg/L (Less than 5) H 12/27/16 00:59 Albumin 2.5 g/dL (3.5-5.0) L 01/03/17 05:10 Albumin/Globulin Ratio 0.7 (1.1-2.2) L 01/03/17 05:10 Vitamin B12 1122 pg/mL (213-816) H 12/31/16 12:52 Ur Specific [place] > 1.030 (1.010-1.025) H 12/30/16 15:30 Urine Ketones Trace mg/dL (Negative) H 12/30/16 15:30 Urine Bilirubin Small (Negative) H 12/30/16 15:30 Vancomycin Trough 24.4 mcg/mL (10-20) H* 12/27/16 00:59 - VTE Documentation of Mechanical Device: Intermittent pneumatic compression device Consult Discharge Plan - Plan Instructions: Acute Kidney Injury (DC), Cellulitis (DC), Diabetic Foot Care (DC ), Diabetes Mellitus Type 2 in Adults (DC), Peripheral Vascular Disorders (DC), Chronic Obstructive Pulmonary Disease (DC), Sepsis (DC) Referrals: Alvaro Pelletier DPM [Partnered Physician] - 01/11/17 10:30 am Tierney Oliva CNP [Advanced Practice Nurse] - 01/17/17 9:00 am Sidney Martinez MD [Primary Care Provider] - (patient is going to [facility] no PCP appointment is needed) Honorio Collins MD [Partnered Physician] - 01/15/17 9:30 am (this appointment is in [place]) Matt Vasquez MD [Partnered Physician] - 01/16/17 11:10 am Prescriptions: Ampicillin/Sulbactam [Unasyn] 3,000 mg IVPB Q8HR 42 Days HYDROcodone/Acet 10/325 mg [[place] 10-325 mg] 1 each PO Q6H PRN #10 tablet PRN Reason: Pain 5-10 LORazepam [Ativan] 0.5 mg PO Q8H PRN #10 tablet PRN Reason: Anxiety
[2017-01-04 18:12] LABS: Alpha 2 Globulin (PEP) 0.66 g/dL (0.48-1.05); Beta Globulin (PEP) 0.63 g/dL (0.48-1.10)
[2017-01-05 07:55] LABS: IFE Reflexed IFE Done; Immunoglobulin A 184 mg/dL (68-408); Immunoglobulin G 989 mg/dL (768-1632); Immunoglobulin M 186 mg/dL (35-263)
== END 2017-01-04 14:56 | DRG 853 ==
LOC: 3ANU → SUATTDRO 19:20 → 3ANU 12-25 22:48 → 2NNU 12-28 16:44
PROVIDERS: ADMIT Internal Medicine; ATTEND Internal Medicine

== ENCOUNTER 2017-06-12 00:50 | Inpatient (IN) ==
[2017-06-12] MEDS ORDERED: Mag Hydrox/Al Hydrox/Simeth 30 ML UDC PO PRN (08:13)
[2017-06-12] MEDS ORDERED: MOM Conc 10 ML UD.LIQ PO PRN (08:13)
[2017-06-12] MEDS ORDERED: Ondansetron 4 MG/2 ML VIAL IVP PRN (08:13)
[2017-06-12] MEDS ORDERED: Acetaminophen 325 MG TABLET PO PRN (08:13)
[2017-06-12] MEDS ORDERED: Naloxone 0.4 MG/ML INJ IVP PRN (08:13)
[2017-06-12] MEDS ORDERED: *HR* HYDROmorphone (PF) 1 MG/ML SYRINGE IVP PRN (08:15)
[2017-06-12] MEDS ORDERED: *HR* LORazepam 0.5 MG TABLET PO PRN (08:17)
[2017-06-12] MEDS ORDERED: Saline Nasal Spray 44 ML BOTTLE NS PRN (08:17)
[2017-06-12] MEDS ORDERED: Dextrose Gel 15 GM PO PRN ×2 (08:23)
[2017-06-12] MEDS ORDERED: D5% in Water 1,000 ML IVC PRN (08:23)
[2017-06-12] MEDS ORDERED: *HR* Dextrose 50 % in Water (Syg) 50 ML SYRINGE IVP PRN (08:23)
[2017-06-12] MEDS ORDERED: ROFLUMILAST 500 MCG PO SCH (09:00)
[2017-06-12] MEDS ORDERED: THEOPHYLLINE ANHYDROUS 400 MG PO SCH (09:00)
[2017-06-12] MEDS ORDERED: Polyethylene Glycol 3350 255 GM POWDER PO SCH (09:00)
[2017-06-12] MEDS ORDERED: UMECLIDINIUM BRM IH SCH (09:00)
[2017-06-12] MEDS ORDERED: VILANTEROL TR IH SCH (09:00)
[2017-06-12] MEDS ORDERED: Furosemide 40 MG TABLET PO SCH (09:00)
[2017-06-12] MEDS: Multivit/Ca/Min/Fe/FA 1 TAB TABLET PO SCH (09:07)
[2017-06-12] MEDS: metOLazone 5 MG TABLET PO SCH (09:08)
[2017-06-12] MEDS: Famotidine 20 MG TABLET PO SCH ×2 (09:08→21:05)
[2017-06-12] MEDS: Cholecalciferol (D-3) 1,000 UNIT TABLET PO SCH (09:08)
[2017-06-12] MEDS: Lactobacillus 1 EACH CAP.SPRINK PO SCH (09:08)
[2017-06-12] MEDS: Gabapentin 300 MG CAPSULE PO SCH ×2 (09:08→21:05)
[2017-06-12] MEDS: Magnesium Oxide 400 MG TABLET PO SCH (09:08)
[2017-06-12 09:09] LABS: Hemoglobin A1C 4.8 %
[2017-06-12] MEDS: FLUoxetine 20 MG CAPSULE PO SCH (09:16)
[2017-06-12] MEDS: rOPINIRole 1 MG TABLET PO SCH ×2 (09:19→21:05)
--- NOTE | 2017-06-12 09:19 | Internal Med History&Physical ---
Date of Encounter: 06/12/17 Time of Encounter: 08:10 Assessment and Plan (1) Syncope Current visit: Yes Status: Acute Pt reports multiple episodes of syncope at home yesterday. Has abrasions on legs from trauma he relates to these episodes. Will check EEG to r/o seizure. Neuro to eval for other possible etiologies. Qualifiers: Syncope type: unspecified Qualified Code(s): R55 - Syncope and collapse (2) Diastolic CHF, chronic Current visit: No Status: Chronic At this time he denies worsening dyspnea. Will continue chronic diuresis while monitoring renal function. Will check echocardiogram to eval function and wall motion. (3) Type 2 diabetes mellitus Current visit: No Status: Chronic Accuchecks and coverage ordered. 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 Qualifiers: Sleep apnea type: obstructive Qualified Code(s): G47.33 - Obstructive sleep apnea (adult) (pediatric) (5) Non-small cell lung cancer (NSCLC) Current visit: No Status: Chronic Currently was receiving radiation. Qualifiers: Laterality: right Qualified Code(s): C34.91 - Malignant neoplasm of unspecified part of right bronchus or lung (6) COPD (chronic obstructive pulmonary disease) Current visit: No Status: Chronic Continue aerosols, oxygen, supportive care. Abx held at this time. Steroids ordered. Qualifiers: COPD type: chronic bronchitis Chronic bronchitis type: mucopurulent Qualified Code(s): J41.1 - Mucopurulent chronic bronchitis (7) HTN (hypertension) Current visit: No Status: Chronic Continue home medications. Qualifiers: Hypertension type: essential hypertension Qualified Code(s): I10 - Essential (primary) hypertension (8) Peripheral vascular disease Current visit: No Status: Chronic Wound care consulted for R leg. (9) Ankle pain, left Current visit: Yes Status: Acute Check xray due to syncope. Qualifiers: Chronicity: acute Qualified Code(s): M25.572 - Pain in left ankle and joints of left foot (10) Obesity (BMI 30.0-34.9) Current visit: Yes Status: Chronic chronic issue. Internal Medicine - H&P: HPI Admitted From: Hospital to Hospital Transfer Plans for Post Hospital Care: Home History of present illness: Mr. Sinha is a 72 year old male with hx of lung cancer transferred from [place] [facility] for syncopal episodes. Pt stated he had 4-7 episodes yesterday morning. At least 2 episodes occurred when he was in a seated position. He had no prodome. No dizziness, CP, palpitations or other symptoms. Stated that he would just awaken in a different position in the room. No incontinence of bowel or bladder or tongue biting. Has evidence of trauma on legs that he attributes to falls. No prior history of similar episodes. He just recently began a short course of radiation therapy for lung cancer. At the current time his complaints relate to pain associated with falling/ syncope. No CP, worsening dyspnea or fever. No bowel or bladder issues. He has a chronic nonhealing ulcer on his R leg and is followed in wound care. Yesterday he was switched from a hard cast to a soft cast. Past Med Surg Social Fam HX - Past Medical History Source: patient, old records reviewed Medical history: arthritis, cancer, CHF, COPD, diabetes, hypertension, thyroid disease, syncope, venous stasis, other Psychiatric history: anxiety - Past Surgical History Surgical History: cataract, cholecystectomy, LE vascular intervention, vascular surgery, other - Social History Smoking Status: Former smoker Smokeless Tobacco Status: No Alcohol use: occasionally Drug use: none - Family History Father Family Member Ethnicity: Non- Living Status: Cause of : parkinsons disease Hx Family Neurologic Disorders: Yes (Alzheimer's disease) Mother Family Member Ethnicity: Non- Living Status: Internal Medicine - H&P: Meds Allopurinol [Zyloprim] 300 mg PO DAILY 03/02/15 [History] Cholecalciferol (Vitamin D3) [Vitamin D] 2,000 unit PO DAILY 03/02/15 [History] Clopidogrel [Plavix] 75 mg PO DAILY 03/02/15 [History] Docusate [Colace] 200 mg PO BID 03/02/15 [History] FLUoxetine HCl [Prozac] 60 mg PO DAILY 03/02/15 [History] Famotidine [Pepcid] 20 mg PO BID 03/02/15 [History] Ferrous Sulfate 325 mg PO BID 03/02/15 [History] Furosemide [Lasix] 80 mg PO BID 03/02/15 [History] Levothyroxine Sodium [Synthroid] 200 mcg PO DAILY 03/02/15 [History] Magnesium Oxide [Magnesium] 400 mg PO DAILY 03/02/15 [History] Metoprolol [Lopressor] 25 mg PO BID 03/02/15 [History] Multivitamin [Multivitamins] 1 cap PO DAILY 03/02/15 [History] Roflumilast [Daliresp] 500 mcg PO DAILY 03/02/15 [History] Ropinirole HCl [Requip] 2 mg PO BID 03/02/15 [History] Ammonium Lactate [Amlactin] 1 appl TP BID 12/19/16 [History] Ipratropium/Albuterol Neb [Duoneb] 3 ml IH Q6HR 12/19/16 [History] Lidocaine/Hydrocortisone AC [Lidocaine-Hydrocort 3-2.5% Gel] 1 appl RC BID 12/19 [History] Polyethylene Glycol 3350 [MiraLAX Powder Bulk 17.9 Oz] 17 gm PO DAILY 12/19/16 [ History] Spironolactone [Aldactone] 50 mg PO DAILY 12/19/16 [History] Umeclidinium Brm/Vilanterol Tr [Anoro Ellipta 62.5-25 Mcg INH] 1 puff IH DAILY 12/19/16 [History] metOLazone [Zaroxolyn] 2.5 mg PO DAILY 12/19/16 [History] BuPROPion [Wellbutrin] 75 mg PO BID 12/24/16 [History] Acetaminophen [Tylenol] 650 mg PO Q6HR PRN #0 tablet 01/04/17 [Rx] Gabapentin [Neurontin] 300 mg PO BID capsule 01/04/17 [Rx] HYDROcodone/Acet 10/325 mg [[place] 10-325 mg] 1 each PO Q6H PRN #10 tablet [Rx] LORazepam [Ativan] 0.5 mg PO Q8H PRN #10 tablet 01/04/17 [Rx] Lactobacillus [Culturelle] 2 each PO DAILY cap.sprink 01/04/17 [Rx] Saline Nasal [place] [[place] Nasal [place]] 2 spray NS Q2H PRN #0 bottle 01/04/17 [Rx ] Tamsulosin [Flomax] 0.4 mg PO DAILY capsule 01/04/17 [Rx] Rivaroxaban [Xarelto] 10 mg PO 1700 #30 tablet 01/16/17 [Rx] Tizanidine HCl [Zanaflex] 2 mg PO HS 04/05/17 [History] predniSONE [PredniSONE] 10 mg PO DAILY 04/05/17 [History] Collagenase Oint [Santyl] 1 appl TP DAILY 04/06/17 [History] Potassium Chloride 50 meq PO DAILY 04/11/17 [Rx] Lovastatin [Mevacor] 20 mg PO DAILY 06/12/17 [History] metFORMIN [Glucophage] 500 mg PO DAILY 06/12/17 [History] 3 Allergy/AdvReac Type Severity Reaction Status Date / Time doxycycline Allergy Hives Verified 06/06/17 12:13 Oxycodone [From Percocet] Allergy Swelling Verified 06/06/17 12:13 of Lip/Tongue/Throat Penicillins [PCN] Allergy Hives Verified 06/06/17 12:13 codeine AdvReac [place] Verified 06/06/17 12:13 meperidine AdvReac Hallucinati Verified 06/06/17 12:13 ng morphine AdvReac Nightmare Verified 06/06/17 12:13 All Systems PM: A 10-system review of systems was performed and is negative for pertinent findings except as documented above in the HPI. - Constitutional Constitutional: fatigue, falls, weakness - EENT Eyes: no change in vision, no dry eye, no loss of vision Ears: no decreased hearing, no ear discharge Nose, mouth and throat: no dry mouth, no dysphagia, no sinus pain - Cardiovascular Cardiovascular ROS IM: dyspnea on exertion, orthopnea, no chest pain, no diaphoresis, no irregular heart rhythm, no palpitations, no paroxysmal nocturnal dyspnea - Respiratory Respiratory: dyspnea, dyspnea on exertion, no hemoptysis, no wheezing, no chest congestion - Gastrointestinal Gastrointestinal: no abdominal pain, no constipation, no cramping, no heartburn , no melena, no nausea - Genitourinary Genitourinary ROS male: difficulty urinating, urinary hesitancy, no hematuria, no nocturia, no urinary incontinence - Musculoskeletal Musculoskeletal ROS IM: arthralgias, back pain, myalgias, no numbness - Integumentary Integumentary IM: non-healing lesions, skin ulcer, no rash - Neurological Neurological ROS: frequent falls, numbness, no abnormal movements, no confusion , no lack of coordination - Psychiatric Psychiatric: no anxiety, no depression - Endocrine Endocrine IM: no cold intolerance, no heat intolerance - Hematologic/Lymphatic Hematologic/Lymphatic: no easy bleeding, no lymphadenopathy - Allergic/Immunologic Allergic/Immunologic: no itchy eyes, no wheezing - Constitutional Vitals: Temp Pulse Resp BP Pulse Ox 97.8 F 101 16 132/67 98 06/12/17 06:49 06/12/17 06:49 06/12/17 06:49 06/12/17 06:49 06/12/17 06:49 General appearance: Present: cooperative, A&O X 3, obese, answers questions appropriately - Head Head exam: Present: normocephalic - Eye Eye exam: Present: conjunctival injection, EOMI, PERRL, sclera anicteric. Absent: periorbital tenderness - ENT ENT exam: Present: normal oropharynx - Neck Neck exam general surgery: Absent: lymphadenopathy, nuchal rigidity, thyromegaly - Respiratory Respiratory exam: Present: decreased breath sounds. Absent: rales, wheezes - Cardiovascular Cardiovascular exam: Present: distant heart sounds, RRR. Absent: tachycardia - GI/Abdominal GI/Abdominal exam: Present: normal bowel sounds, soft Additional comments: Very obese and difficult to exam. - Extremities Exam Extremities exam: Present: warm Additional comments: Edema present. Ecchymosis both legs and open wounds. Soft cast on R leg. - Back Exam Back exam: Absent: paraspinal tenderness, vertebral tenderness - Neurological Exam Neurological exam: Present: alert, motor sensory deficit, oriented X3 Additional comments: Decreased sensation both lower extremities - Skin Skin exam: Present: abrasion, erythema, warm
[2017-06-12] MEDS: Ipratropium/Albuterol Neb 3 ML IH SCH ×3 (10:13→21:36)
[2017-06-12] MEDS ORDERED: *HR* HYDROcodone/Acet 10/325 mg TABLET PO PRN (10:33)
--- NOTE | 2017-06-12 10:56 | EEG/EMG/Oth Biometrics Report ---
EEG Procedure Report Date of procedure: 06/12/17 EEG Procedure: Routine EEG Procedure Note: This EEG was acquired with standard international 10-20 system with EKG recording. The background EEG activity was characterized by the presence of posterior dominant alpha rhythm with the best frequency up to 9 Hz. The background activity was reactive to eye openings. Sleep stages were not identified during this tracing. Drowsiness was characterized by drop off of posterior dominant Alpha rhythm. There are no electrographic seizures identified during this tracing. There are no epileptiform discharges and focal slowing noted during this recording. Photic stimulation produced and produced no abnormalities. Hyperventilation procedure not performed Few episodes of arm shaking activity during EEG recording showed no EEG correlates EKG tracing showed no significant cardiac dysrhythmia. Impression: This is essentially a normal awake and drowsy EEG. Few episodes of arm shaking captured during EEG recording showed no EEG correlates Clinical Correlation: Normal EEGs, however, do not exclude epilepsy. Few arm shaking activity during study are not epileptic in nature. Please correlates clinically.
[2017-06-12] MEDS: predniSONE 20 MG TABLET PO SCH (13:11)
[2017-06-12] MEDS: Ammonium Lactate 30 APPL/225 GM BOTTLE TP SCH (13:11)
[2017-06-12] MEDS: *HR* HYDROmorphone (PF) 1 MG/ML SYRINGE IVP PRN ×3 (13:12→21:28)
[2017-06-12] MEDS: Insulin LISPRO 300 UNITS/3 ML VIAL SQ SCH ×3 (13:12→21:07)
--- NOTE | 2017-06-12 14:15 | Neurology - Consult Note ---
Date of Encounter: 06/12/17 Time of Encounter: 14:15 Assessment and Plan (1) Syncope Current Visit: Yes Status: Acute There are unlikely epileptic and can certainly medical related but it would be helpful to get MRI of brain, carotid artery duplex. It is noted that the patient does have COPD and significant medical comorbidities therefore laboratory studies are needed to assess probable diffuse encephalopathy. EEG showed normal background and shaking to the right arm not associated with EEG correlates. Qualifiers: Syncope type: unspecified Qualified Code(s): R55 - Syncope and collapse History of Present Illness Chief complaint: syncope HPI: Mr. Sinha is a 72 year old male with PMH significant for COPD, HTN, DM , chronic pain depression, morbid obesity, decubitus ulcer who presented to [facility] initially due to multiple episodes of passing out spells. No prior history of seizures. he passed out few times at home, even in sitting position. Denies any warning, no tongue biting or urinary incontinence Initial CT of head showed no acute intracranial abnormality During the EEG recording the patient was observed to have some right arm shaking activity, no EEG correlates were noted. background EEG activity appeared normal. At the time of the interview, the patient is in light sleep. Easily aroused and reports no discomforts. No focal neurological deficits noted. mental status appears intact. He states that she has tremors in his legs and arms and that he has restless leg syndrome. He says that the tremors are chronic and normal for him Past Med Surg Social Fam HX - Past Medical History Medical history: arthritis, cancer, CHF, COPD, diabetes, hypertension, thyroid disease, syncope, venous stasis, other Psychiatric history: anxiety - Past Surgical History Surgical History: cataract, cholecystectomy, LE vascular intervention, vascular surgery, other - Social History Smoking Status: Former smoker Smokeless Tobacco Status: No Alcohol use: occasionally Drug use: none - Family History Father Family Member Ethnicity: Non- Living Status: Cause of : parkinsons disease Hx Family Neurologic Disorders: Yes (Alzheimer's disease) Mother Family Member Ethnicity: Non- Living Status: Medications and Allergies Allopurinol [Zyloprim] 300 mg PO DAILY 03/02/15 [History] Cholecalciferol (Vitamin D3) [Vitamin D] 2,000 unit PO DAILY 03/02/15 [History] Clopidogrel [Plavix] 75 mg PO DAILY 03/02/15 [History] Docusate [Colace] 200 mg PO BID 03/02/15 [History] FLUoxetine HCl [Prozac] 60 mg PO DAILY 03/02/15 [History] Famotidine [Pepcid] 20 mg PO BID 03/02/15 [History] Ferrous Sulfate 325 mg PO BID 03/02/15 [History] Furosemide [Lasix] 80 mg PO BID 03/02/15 [History] Levothyroxine Sodium [Synthroid] 200 mcg PO DAILY 03/02/15 [History] Magnesium Oxide [Magnesium] 400 mg PO DAILY 03/02/15 [History] Metoprolol [Lopressor] 25 mg PO BID 03/02/15 [History] Multivitamin [Multivitamins] 1 cap PO DAILY 03/02/15 [History] Roflumilast [Daliresp] 500 mcg PO DAILY 03/02/15 [History] Ropinirole HCl [Requip] 2 mg PO BID 03/02/15 [History] Ammonium Lactate [Amlactin] 1 appl TP BID 12/19/16 [History] Ipratropium/Albuterol Neb [Duoneb] 3 ml IH Q6HR 12/19/16 [History] Lidocaine/Hydrocortisone AC [Lidocaine-Hydrocort 3-2.5% Gel] 1 appl RC BID 12/19 [History] Polyethylene Glycol 3350 [MiraLAX Powder Bulk 17.9 Oz] 17 gm PO DAILY 12/19/16 [ History] Spironolactone [Aldactone] 50 mg PO DAILY 12/19/16 [History] Umeclidinium Brm/Vilanterol Tr [Anoro Ellipta 62.5-25 Mcg INH] 1 puff IH DAILY 12/19/16 [History] metOLazone [Zaroxolyn] 2.5 mg PO DAILY 12/19/16 [History] BuPROPion [Wellbutrin] 75 mg PO BID 12/24/16 [History] Acetaminophen [Tylenol] 650 mg PO Q6HR PRN #0 tablet 01/04/17 [Rx] Gabapentin [Neurontin] 300 mg PO BID capsule 01/04/17 [Rx] HYDROcodone/Acet 10/325 mg [[place] 10-325 mg] 1 each PO Q6H PRN #10 tablet [Rx] LORazepam [Ativan] 0.5 mg PO Q8H PRN #10 tablet 01/04/17 [Rx] Lactobacillus [Culturelle] 2 each PO DAILY cap.sprink 01/04/17 [Rx] Saline Nasal [place] [[place] Nasal [place]] 2 spray NS Q2H PRN #0 bottle 01/04/17 [Rx ] Tamsulosin [Flomax] 0.4 mg PO DAILY capsule 01/04/17 [Rx] Rivaroxaban [Xarelto] 10 mg PO 1700 #30 tablet 01/16/17 [Rx] Tizanidine HCl [Zanaflex] 2 mg PO HS 04/05/17 [History] predniSONE [PredniSONE] 10 mg PO DAILY 04/05/17 [History] Collagenase Oint [Santyl] 1 appl TP DAILY 04/06/17 [History] Potassium Chloride 50 meq PO DAILY 04/11/17 [Rx] Lovastatin [Mevacor] 20 mg PO DAILY 06/12/17 [History] metFORMIN [Glucophage] 500 mg PO DAILY 06/12/17 [History] 3 Allergy/AdvReac Type Severity Reaction Status Date / Time doxycycline Allergy Hives Verified 06/06/17 12:13 Oxycodone [From Percocet] Allergy Swelling Verified 06/06/17 12:13 of Lip/Tongue/Throat Penicillins [PCN] Allergy Hives Verified 06/06/17 12:13 codeine AdvReac [place] Verified 06/06/17 12:13 meperidine AdvReac Hallucinati Verified 06/06/17 12:13 ng morphine AdvReac Nightmare Verified 06/06/17 12:13 All Systems: A 10-system review of systems was performed and is negative for pertinent findings except as documented above in the HPI. Physical Examination - Vital Signs Vital Signs: Initial Vital Signs Temp Pulse Resp BP Pulse Ox 98.2 F 104 19 137/69 99 06/12/17 03:48 06/12/17 03:48 06/12/17 03:48 06/12/17 03:48 06/12/17 03:48 - Constitutional General appearance: comfortable - Neurologic Sensorimotor examination: other (Stocking pattern of sensory loss to his left extremity. Left foot and ankle in wrapping) Detailed motor examination: grossly full strength in all extremities, other ( Unable to check ankle dorsiflexion and plantar extension) Motor examination - right side: 5/5: deltoids, biceps, triceps, wrist flexion, wrist extension, renewals representative, hip flexors, tibialis Anterior, quadriceps Motor examination - left side: 5/5: deltoids, biceps, triceps, wrist flexion, wrist extension, hip flexors, renewals representative, quadriceps, tibialis Anterior Detailed sensory examination: other (Stocking pattern sensory to right leg and foot. ) Reflexes: Biceps: 1+, Triceps: 1+, Brachioradialis: 1+, Patella: 1+, Achilles: 1 + Mental Status Examination: awake, alert, oriented to person, oriented to place, oriented to time, follows commands appropriately, answers questions appropriately, no agnosia, no aphasia, no aproxia Cranial nerve examination: PERRL, EOMI, visual sierra intact, corneal reflexes brisk symmetrically, sensory to face intact, mastication intact, no facial asymmetry is present, no dysarthria, hearing is intact symmetrically, soft palate elevates bilaterally upon phonation, gag reflex intact, flexes SCM and trapezius muscles symmetrically with full power, tongue protrudes midline, no atrophy or facial fasiculations present Results - Laboratory Findings Abnormal lab findings: Abnormal lab results POC Glucose 159 (58-89) H 06/12/17 11:58 Theophylline 0.3 mcg/mL (10.0-20.0) L 06/12/17 08:30 Consult Discharge Plan - Plan Referrals: Sidney Martinez MD [Primary Care Provider] - ( visit patient home...)
[2017-06-12] MEDS: *HR* Rivaroxaban 10 MG TABLET PO SCH (16:24)
[2017-06-12] MEDS: Furosemide 40 MG TABLET PO SCH (16:24)
[2017-06-12] MEDS: tiZANidine 4 MG TABLET PO SCH (21:06)
[2017-06-13] MEDS: Ipratropium/Albuterol Neb 3 ML IH SCH ×4 (03:34→22:42)
[2017-06-13] MEDS: *HR* HYDROmorphone (PF) 1 MG/ML SYRINGE IVP PRN ×4 (04:33→20:57)
[2017-06-13] MEDS: Ammonium Lactate 30 APPL/225 GM BOTTLE TP SCH ×3 (04:35→21:02)
[2017-06-13 05:12] LABS: Basophils % 0.2 %; Eosinophils # 0.3 K/mcL (0.0-0.6); Eosinophils % 2.7 %; Hematocrit 25.7 % (37.5-50.1); Hemoglobin 7.4 g/dL (12.9-16.9); Immature Granulocytes % 1.2 % (0-4); Lymphocytes # 1.1 K/mcL (0.6-4.6); Lymphocytes % 10.3 %; Mean Corpuscular HGB Conc 28.8 g/dL (31.6-35.5); Mean Corpuscular Hemoglobin 23.3 pg (28.0-33.3); Mean Corpuscular Volume 80.8 fL (83.0-100.0); Mean Platelet Volume 9.8 fL (9.4-12.4); Monocytes # 0.7 K/mcL (0.0-1.3); Monocytes % 6.3 %; Neutrophils # 8.6 K/mcL (1.6-8.9); Platelet Count 240 K/mcL (140-400); Red Blood Count 3.18 M/mcL (4.19-5.50); Red Cell Distribution Width 18.8 % (11.5-14.5); Segmented Neutrophils % 79.3 %
[2017-06-13 05:22] LABS: BUN/Creatinine Ratio 16 (6-26); Blood Urea Nitrogen 14 mg/dL (8-26); Calcium 8.9 mg/dL (8.6-10.8); Carbon Dioxide 31 mEq/L (19-29); Chloride 98 mEq/L (98-109); Glucose 125 mg/dL (70-99); Magnesium 1.7 mg/dL (1.6-2.6); Osmolality,Calculated 286 (280-300); Potassium 3.5 mEq/L (3.5-4.5); Sodium 137 mEq/L (136-145); eGFR For African Americans > 60 (> 60); eGFR For Non-African Americans > 60 (> 60)
[2017-06-13 05:43] LABS: Anisocytosis 1+ (Not Present); Hypochromasia Present (Not Present); Platelet Estimate Normal (Normal)
[2017-06-13] MEDS ORDERED: Perflutren Lipid Microsphere 1.3 ML in 0.9 % Sodium Chloride 8.7 ML IVP ONE (09:57)
[2017-06-13] MEDS: Cholecalciferol (D-3) 1,000 UNIT TABLET PO SCH (10:57)
[2017-06-13] MEDS: Famotidine 20 MG TABLET PO SCH ×2 (10:57→20:56)
[2017-06-13] MEDS: predniSONE 20 MG TABLET PO SCH (10:57)
[2017-06-13] MEDS: rOPINIRole 1 MG TABLET PO SCH ×2 (10:57→20:56)
[2017-06-13] MEDS: metOLazone 5 MG TABLET PO SCH (10:58)
[2017-06-13] MEDS: Furosemide 40 MG TABLET PO SCH ×2 (10:58→16:49)
[2017-06-13] MEDS: Lactobacillus 1 EACH CAP.SPRINK PO SCH (10:58)
[2017-06-13] MEDS: Multivit/Ca/Min/Fe/FA 1 TAB TABLET PO SCH (10:59)
[2017-06-13] MEDS: Magnesium Oxide 400 MG TABLET PO SCH (10:59)
[2017-06-13] MEDS: FLUoxetine 20 MG CAPSULE PO SCH (10:59)
[2017-06-13] MEDS: Gabapentin 300 MG CAPSULE PO SCH ×2 (10:59→20:56)
[2017-06-13] MEDS: Insulin LISPRO 300 UNITS/3 ML VIAL SQ SCH ×4 (11:06→21:00)
--- NOTE | 2017-06-13 16:41 | Internal Med Progress Note ---
Date of Encounter: 06/13/17 Time of Encounter: 16:39 - Assessment and plan (1) Syncope Current Visit: Yes Status: Acute Assessment and plan: Unclear etiology so far normal 2 D Ehco- LVEF 60% Mild diastolic dysfunction Chest CTA - No PE..Enlarging Rt LL mass Head CT ; No acute ICH EEG - normal study Concerned for Hypercapnea induced sycnope too will do Over night BiPAP study with ABG in AM Also concerned for metastatic brain lesions too with his underline lung ca pt refused to go for MRI today..will talk to him again Qualifiers: Qualified Code(s): R55 - Syncope and collapse (2) Ankle fracture, left Current Visit: Yes Status: Acute Assessment and plan: Reviewed X ray - showing an oblique fracture of Left distal tibia Consulted Tire Recapping Machine Operator for further care Bed rest until their eval IV narcotics PRN Qualifiers: Qualified Code(s): S82.892A - Other fracture of left lower leg, initial encounter for closed fracture (3) Chronic ulcer of right foot with fat layer exposed Current Visit: Yes Status: Acute Assessment and plan: No need of abx Cont local wound care Consulted home mission worker (4) HTN (hypertension) Current Visit: No Status: Chronic Assessment and plan: stable with home meds Qualifiers: Hypertension type: essential hypertension Qualified Code(s): I10 - Essential (primary) hypertension (5) HLD (hyperlipidemia) Current Visit: No Status: Chronic Assessment and plan: resumed home med Qualifiers: Hyperlipidemia type: mixed hyperlipidemia Qualified Code(s): E78.2 - Mixed hyperlipidemia (6) COPD (chronic obstructive pulmonary disease) Current Visit: No Status: Chronic Assessment and plan: not in exacerbation cont home INH regimen Qualifiers: COPD type: chronic bronchitis Chronic bronchitis type: mucopurulent Qualified Code(s): J41.1 - Mucopurulent chronic bronchitis (7) DVT prophylaxis Current Visit: No Status: Acute Assessment and plan: on Xarelto for anticoag (8) Sleep apnea Current Visit: No Status: Chronic Assessment and plan: will do over night BiPAP study He does use CPAP at home Qualifiers: Sleep apnea type: obstructive Qualified Code(s): G47.33 - Obstructive sleep apnea (adult) (pediatric) (9) PAD (peripheral artery disease) Current Visit: No Status: Acute (10) Non-small cell lung cancer (NSCLC) Current Visit: No Status: Chronic Assessment and plan: need to f/u with Heme Onc as an out pt Qualifiers: Laterality: right Qualified Code(s): C34.91 - Malignant neoplasm of unspecified part of right bronchus or lung - Subjective Interval history: Mr. Sinha is a 72 year old male with hx of lung cancer transferred from [facility] for syncopal episodes. Pt stated he had 4-7 episodes yesterday morning. At least 2 episodes occurred when he was in a seated position. He had no prodome. No dizziness, CP, palpitations or other symptoms. He also mentioned Left ankle pain started after a fall. Now he is alert, awake and O x 3. Denied any CP / SOB. No abd pain. - Constitutional Vitals: Temp Pulse Resp BP Pulse Ox 98.4 F 88 18 112/58 98 06/13/17 14:43 06/13/17 14:43 06/13/17 16:19 06/13/17 14:43 06/13/17 16:19 General appearance: Present: cooperative, A&O X 3, obese, answers questions appropriately - Head Head exam: Present: atraumatic, normal inspection - Neck Neck exam general surgery: Present: supple - Respiratory Respiratory exam: Present: decreased breath sounds. Absent: rales, respiratory distress, rhonchi, wheezes - Cardiovascular Cardiovascular exam: Present: RRR, +S1, +S2. Absent: systolic murmur - GI/Abdominal GI/Abdominal exam: Present: normal bowel sounds, soft. Absent: rebound, rigid, tenderness - Extremities Exam Extremities exam: Present: tenderness (Left ankle). Absent: calf tenderness, pedal edema Additional comments: He does have tenderness in Left ankle.. Also has open chronic non healing wound in Rt foot and heel region. - Back Exam Back exam: Absent: CVA tenderness (L), CVA tenderness (R) - Neurological Exam Neurological exam: Present: alert, oriented X3 - Psychiatric Psychiatric exam: Present: normal affect, normal mood Internal Medicine: Result - Labs CBC & Chem 7: 06/13/17 05:02 06/13/17 05:02 Labs: Short CBC 06/13/17 Range/Units 05:02 WBC 10.9 (4.3-11.1) K/mcL Hgb 7.4 L (12.9-16.9) g/dL Hct 25.7 L (37.5-50.1) % Plt Count 240 (140-400) K/mcL Neutrophils # 8.6 (1.6-8.9) K/mcL BMP 06/13/17 05:02 Sodium 137 Potassium 3.5 Chloride 98 Carbon Dioxide 31 H BUN 14 Creatinine 0.88 Glucose 125 H Calcium 8.9 - Impressions Impressions Echocardiogram 06/13/17 15:00 Impressions: LVEF 60%. Normal LV chamber size, wall thickness and function. Mild left ventricular diastolic dysfunction. Right ventricular size was not well visualized. Grossly, it appears mildly dilated with normal function. No evidence of pulmonary hypertension. No significant valvular dysfunction. Left Ventricular Wall Motion: Rest Echo Findings All wall segments showed normal motion. Findings: Study Quality * Technically adequate exam. ECG Findings * Normal sinus rhythm. Left Ventricle * LVEF 60%. * Normal LV chamber size, wall thickness and function. * Mild left ventricular diastolic dysfunction. Right Ventricle * Right ventricular size was not well visualized. Grossly, it appears mildly dilated with normal function. Left Atrium * Mildly dilated left atrium. Right Atrium * Mildly dilated right atrium. Interatrial Septum * Interatrial septum not well evaluated. Aortic Valve * Trileaflet aortic valve with normal function. * No aortic regurgitation. * No aortic stenosis. Mitral Valve * Normal mitral valve structure and function. * No mitral regurgitation. * No mitral stenosis. Tricuspid Valve * Normal tricuspid valve structure and function. * Trace tricuspid regurgitation. * No evidence of pulmonary hypertension. Pulmonic Valve * Normal pulmonic valve structure and function. * No pulmonic regurgitation. Aorta * Normally sized aortic root. Pericardium * The pericardium appears normal. IVC * Normal IVC dimensions and inspiratory collapse. Pulmonary Artery * Normal visualized portions of the main pulmonary artery. Consult Discharge Plan - Plan Referrals: Sidney Martinez MD [Primary Care Provider] - ( visits patient home... )
[2017-06-13] MEDS: *HR* Rivaroxaban 10 MG TABLET PO SCH (16:49)
--- NOTE | 2017-06-13 18:16 | Podiatry Consult Note ---
Date of Encounter: 06/13/17 Time of Encounter: 05:30 Assessment and Plan (1) Ankle fracture, left Current visit: Yes Status: Acute Reviewed x-ray and condition with patient. As he has been putting weight on the ankle I did order repeat x-ray to evaluate for further displacement. He is known to have vascular disease and wound healing problems on the right side, I did order an BRAD/PVR to get an updated status of the vascular flow in his extremities. Discussed with patient vascular calcifications visible on his xray. Discussed with patient that the risk of fixing it pending the blood flow may outweigh the benefit. Discussed with the patient is imperative that he not put weight on the foot any longer or he could further displace the fracture or the anklebones may separate and comes through his skin.. I think he is going to be more safe to remain non-weight bearing in a boot (vs a splint or cast) which the patient has at home and a family member is bringing. With the issues on the right lower extremity and now the fracture on the left I think the patient would benefit from intermediate placement because he is essentially nonweightbearing on both feet. will follow up after testing and form definitive plan. Qualifiers: Encounter type: initial encounter Fracture type: closed Qualified Code(s) : S82.892A - Other fracture of left lower leg, initial encounter for closed fracture History of Present Illness HPI: Mr. Sinha is a 72 year old male who says he was admitted after having 7 episodes yesterday where he lost consciousness and fell. He went to the ER at [place] or an x-ray was taken he was found to have a left ankle fracture. He says other testing was done and he was subsequently transferred here. He does relate that he has been putting weight on his left ankle and walking short distances. Denies any pain in the left ankle. He is being treated in wound care for the right foot wound. Past Med Surg Social Fam HX - Past Medical History Medical history: arthritis, cancer, CHF, COPD, diabetes, hypertension, thyroid disease, syncope, venous stasis, other Psychiatric history: anxiety - Past Surgical History Surgical History: cataract, cholecystectomy, LE vascular intervention, vascular surgery, other - Social History Smoking Status: Former smoker Smokeless Tobacco Status: No Alcohol use: occasionally Drug use: none - Family History Father Family Member Ethnicity: Non- Living Status: Cause of : parkinsons disease Hx Family Neurologic Disorders: Yes (Alzheimer's disease) Mother Family Member Ethnicity: Non- Living Status: Medications and Allergies Allopurinol [Zyloprim] 300 mg PO DAILY 03/02/15 [History] Cholecalciferol (Vitamin D3) [Vitamin D] 2,000 unit PO DAILY 03/02/15 [History] Clopidogrel [Plavix] 75 mg PO DAILY 03/02/15 [History] Docusate [Colace] 200 mg PO BID 03/02/15 [History] FLUoxetine HCl [Prozac] 60 mg PO DAILY 03/02/15 [History] Famotidine [Pepcid] 20 mg PO BID 03/02/15 [History] Ferrous Sulfate 325 mg PO BID 03/02/15 [History] Furosemide [Lasix] 80 mg PO BID 03/02/15 [History] Levothyroxine Sodium [Synthroid] 200 mcg PO DAILY 03/02/15 [History] Magnesium Oxide [Magnesium] 400 mg PO DAILY 03/02/15 [History] Metoprolol [Lopressor] 25 mg PO BID 03/02/15 [History] Multivitamin [Multivitamins] 1 cap PO DAILY 03/02/15 [History] Roflumilast [Daliresp] 500 mcg PO DAILY 03/02/15 [History] Ropinirole HCl [Requip] 2 mg PO BID 03/02/15 [History] Ammonium Lactate [Amlactin] 1 appl TP BID 12/19/16 [History] Ipratropium/Albuterol Neb [Duoneb] 3 ml IH Q6HR 12/19/16 [History] Lidocaine/Hydrocortisone AC [Lidocaine-Hydrocort 3-2.5% Gel] 1 appl RC BID 12/19 [History] Polyethylene Glycol 3350 [MiraLAX Powder Bulk 17.9 Oz] 17 gm PO DAILY 12/19/16 [ History] Spironolactone [Aldactone] 50 mg PO DAILY 12/19/16 [History] Umeclidinium Brm/Vilanterol Tr [Anoro Ellipta 62.5-25 Mcg INH] 1 puff IH DAILY 12/19/16 [History] metOLazone [Zaroxolyn] 2.5 mg PO DAILY 12/19/16 [History] BuPROPion [Wellbutrin] 75 mg PO BID 12/24/16 [History] Acetaminophen [Tylenol] 650 mg PO Q6HR PRN #0 tablet 01/04/17 [Rx] Gabapentin [Neurontin] 300 mg PO BID capsule 01/04/17 [Rx] HYDROcodone/Acet 10/325 mg [[place] 10-325 mg] 1 each PO Q6H PRN #10 tablet [Rx] LORazepam [Ativan] 0.5 mg PO Q8H PRN #10 tablet 01/04/17 [Rx] Lactobacillus [Culturelle] 2 each PO DAILY cap.sprink 01/04/17 [Rx] Saline Nasal [place] [[place] Nasal [place]] 2 spray NS Q2H PRN #0 bottle 01/04/17 [Rx ] Tamsulosin [Flomax] 0.4 mg PO DAILY capsule 01/04/17 [Rx] Rivaroxaban [Xarelto] 10 mg PO 1700 #30 tablet 01/16/17 [Rx] Tizanidine HCl [Zanaflex] 2 mg PO HS 04/05/17 [History] predniSONE [PredniSONE] 10 mg PO DAILY 04/05/17 [History] Collagenase Oint [Santyl] 1 appl TP DAILY 04/06/17 [History] Potassium Chloride 50 meq PO DAILY 04/11/17 [Rx] Lovastatin [Mevacor] 20 mg PO DAILY 06/12/17 [History] metFORMIN [Glucophage] 500 mg PO DAILY 06/12/17 [History] 3 Allergy/AdvReac Type Severity Reaction Status Date / Time doxycycline Allergy Hives Verified 06/06/17 12:13 Oxycodone [From Percocet] Allergy Swelling Verified 06/06/17 12:13 of Lip/Tongue/Throat Penicillins [PCN] Allergy Hives Verified 06/06/17 12:13 codeine AdvReac [place] Verified 06/06/17 12:13 meperidine AdvReac Hallucinati Verified 06/06/17 12:13 ng morphine AdvReac Nightmare Verified 06/06/17 12:13 All Systems Reviewed: A 10-system review of systems was performed and is negative for pertinent findings except as documented above in the HPI. - Constitutional Constitutional: no fever(s) - Cardiovascular Cardiovascular: dyspnea, no chest pain - Respiratory Respiratory: dyspnea, no cough - Musculoskeletal Musculoskeletal: as per HPI Physical Exam - Constitutional Vitals: Temp Pulse Resp BP Pulse Ox 98.4 F 88 18 112/58 98 06/13/17 14:43 06/13/17 14:43 06/13/17 16:19 06/13/17 14:43 06/13/17 16:19 Exam: Well developed and nourished male in no acute distress. Vascular: Feet are warm to touch. Capillary refill time less than 3 seconds on the left foot. minimal left ankle edema. Dermatology: Bandage intact right foot no strikethrough. Musc:no pain with palpation left ankle. Neuro: sensation absent to light touch. xray-mildly displaced left fibular fracture with some lateral translation of the talus in the ankle mortise. vascular calcifications. Results - Labs Result Diagrams: 06/13/17 05:02 06/13/17 05:02 Labs: Abnormal lab results RBC 3.18 M/mcL (4.19-5.50) L 06/13/17 05:02 Hgb 7.4 g/dL (12.9-16.9) L 06/13/17 05:02 Hct 25.7 % (37.5-50.1) L 06/13/17 05:02 MCV 80.8 fL (83.0-100.0) L 06/13/17 05:02 MCH 23.3 pg (28.0-33.3) L 06/13/17 05:02 MCHC 28.8 g/dL (31.6-35.5) L 06/13/17 05:02 RDW 18.8 % (11.5-14.5) H 06/13/17 05:02 Hypochromasia Present (Not Present) A 06/13/17 05:02 Anisocytosis 1+ (Not Present) A 06/13/17 05:02 Carbon Dioxide 31 mEq/L (19-29) H 06/13/17 05:02 Glucose 125 mg/dL (70-99) H 06/13/17 05:02 POC Glucose 219 (58-89) H 06/13/17 16:38 Theophylline 0.3 mcg/mL (10.0-20.0) L 06/12/17 08:30 H & H 06/13/17 Range/Units 05:02 Hgb 7.4 L (12.9-16.9) g/dL Hct 25.7 L (37.5-50.1) % All other labs normal. - Diagnostic results Ankle/Foot x-ray: image reviewed Consult Discharge Plan - Plan Referrals: Sidney Martinez MD [Primary Care Provider] - ( visits patient home... )
[2017-06-13] MEDS: tiZANidine 4 MG TABLET PO SCH (20:56)
[2017-06-14] MEDS: Ipratropium/Albuterol Neb 3 ML IH SCH ×4 (03:38→22:23)
[2017-06-14] MEDS: *HR* HYDROmorphone (PF) 1 MG/ML SYRINGE IVP PRN ×4 (05:21→21:31)
[2017-06-14 06:57] LABS: Eosinophils # 0.4 K/mcL (0.0-0.6); Hematocrit 28.4 % (37.5-50.1); Hemoglobin 8.1 g/dL (12.9-16.9); Lymphocytes # 1.3 K/mcL (0.6-4.6); Mean Corpuscular HGB Conc 28.5 g/dL (31.6-35.5); Mean Corpuscular Hemoglobin 23.6 pg (28.0-33.3); Mean Corpuscular Volume 82.8 fL (83.0-100.0); Nucleated Red Blood Cells 0.2 /100 WBC (0); Platelet Count 296 K/mcL (140-400); Red Blood Count 3.43 M/mcL (4.19-5.50); Red Cell Distribution Width 19.2 % (11.5-14.5)
[2017-06-14 07:03] LABS: BUN/Creatinine Ratio 18 (6-26); Blood Urea Nitrogen 18 mg/dL (8-26); Calcium 9.4 mg/dL (8.6-10.8); Carbon Dioxide 33 mEq/L (19-29); Chloride 92 mEq/L (98-109); Glucose 208 mg/dL (70-99); Magnesium 1.5 mg/dL (1.6-2.6); Osmolality,Calculated 284 (280-300); Potassium 3.3 mEq/L (3.5-4.5); Sodium 133 mEq/L (136-145); eGFR For African Americans > 60 (> 60); eGFR For Non-African Americans > 60 (> 60)
[2017-06-14 07:59] LABS: Hypochromasia Present (Not Present); Monocytes # 1.1 K/mcL (0.0-1.3); Neutrophils # 8.1 K/mcL (1.6-8.9)
[2017-06-14 08:00] LABS: Toxic Granulation Present (Not Present)
[2017-06-14] MEDS: Insulin LISPRO 300 UNITS/3 ML VIAL SQ SCH ×4 (08:00→21:15)
[2017-06-14] MEDS: Furosemide 40 MG TABLET PO SCH ×2 (08:00→17:01)
[2017-06-14] MEDS: Famotidine 20 MG TABLET PO SCH ×2 (08:01→21:13)
[2017-06-14] MEDS: Multivit/Ca/Min/Fe/FA 1 TAB TABLET PO SCH (08:01)
[2017-06-14] MEDS: Gabapentin 300 MG CAPSULE PO SCH ×2 (08:01→21:13)
[2017-06-14] MEDS: Lactobacillus 1 EACH CAP.SPRINK PO SCH (08:01)
[2017-06-14] MEDS: Magnesium Oxide 400 MG TABLET PO SCH (08:02)
[2017-06-14] MEDS: FLUoxetine 20 MG CAPSULE PO SCH (08:02)
[2017-06-14] MEDS: Cholecalciferol (D-3) 1,000 UNIT TABLET PO SCH (08:02)
[2017-06-14] MEDS: predniSONE 20 MG TABLET PO SCH (08:02)
[2017-06-14] MEDS: metOLazone 5 MG TABLET PO SCH (08:02)
[2017-06-14] MEDS: rOPINIRole 1 MG TABLET PO SCH ×2 (08:02→21:13)
[2017-06-14] MEDS: Ammonium Lactate 30 APPL/225 GM BOTTLE TP SCH ×2 (09:25→21:14)
--- NOTE | 2017-06-14 10:56 | Internal Med Progress Note ---
Date of Encounter: 06/14/17 Time of Encounter: 08:30 - Assessment and plan (1) Syncope Current Visit: Yes Status: Acute Assessment and plan: Unclear etiology so far normal 2 D Ehco- LVEF 60% Mild diastolic dysfunction Chest CTA - No PE..Enlarging Rt LL mass Head CT ; No acute ICH EEG - normal study Concerned for Hypercapnea induced sycnope too No more syncopal episodes Will hold on further work up Qualifiers: Qualified Code(s): R55 - Syncope and collapse (2) Ankle fracture, left Current Visit: Yes Status: Acute Assessment and plan: Reviewed X ray - showing an oblique fracture of Left distal tibia Consulted Risk Assessor for further care Bed rest.. no weight baring Possible surgery in AM IV narcotics PRN Pt is high risk for resp compromise and requiring more frequent IV Narcotics. He does need to stay in the hospital more than 3-4 nights, so will change him to full admission. I did reviewed my colleague Dr. Palomo H & P including HPI, PMH, PSH, FH, SH and ROS, no changes noticed. Qualifiers: Encounter type: initial encounter Fracture type: closed Qualified Code(s) : S82.892A - Other fracture of left lower leg, initial encounter for closed fracture (3) Chronic ulcer of right foot with fat layer exposed Current Visit: Yes Status: Acute Assessment and plan: Wound cx growing G-ve rods and his previous wound cx from 04/15 grew Causey sensitive acinetobacter so will start him on Rocephin for now Will consult ID for further abx management Cont local wound care front of house manager on board (4) HTN (hypertension) Current Visit: No Status: Chronic Assessment and plan: stable with home meds Qualifiers: Hypertension type: essential hypertension Qualified Code(s): I10 - Essential (primary) hypertension (5) HLD (hyperlipidemia) Current Visit: No Status: Chronic Assessment and plan: resumed home med Qualifiers: Hyperlipidemia type: mixed hyperlipidemia Qualified Code(s): E78.2 - Mixed hyperlipidemia (6) COPD (chronic obstructive pulmonary disease) Current Visit: No Status: Chronic Assessment and plan: not in exacerbation cont home INH regimen Qualifiers: COPD type: chronic bronchitis Chronic bronchitis type: mucopurulent Qualified Code(s): J41.1 - Mucopurulent chronic bronchitis (7) DVT prophylaxis Current Visit: No Status: Acute Assessment and plan: on Xarelto for anticoag (8) Sleep apnea Current Visit: No Status: Chronic Assessment and plan: will do over night BiPAP study He does use CPAP at home Qualifiers: Sleep apnea type: obstructive Qualified Code(s): G47.33 - Obstructive sleep apnea (adult) (pediatric) (9) PAD (peripheral artery disease) Current Visit: No Status: Acute Assessment and plan: ordered Arterial doppler studies (10) Non-small cell lung cancer (NSCLC) Current Visit: No Status: Chronic Assessment and plan: need to f/u with Heme Onc as an out pt Qualifiers: Laterality: right Qualified Code(s): C34.91 - Malignant neoplasm of unspecified part of right bronchus or lung - Subjective Interval history: Mr. Sinha is a 72 year old male with hx of lung cancer transferred from [place] ED for syncopal episodes. Pt stated he had 4-7 episodes yesterday morning. At least 2 episodes occurred when he was in a seated position. No dizziness, CP, palpitations or other symptoms. He also mentioned Left ankle pain started after a fall. Now he is alert, awake and O x 3. Denied any CP / SOB. No abd pain. Unable to bare weight on Left ankle due to pain. - Constitutional Vitals: Temp Pulse Resp BP Pulse Ox 97.4 F L 88 18 104/58 97 06/14/17 06:55 06/14/17 06:55 06/14/17 06:55 06/14/17 06:55 06/14/17 06:55 General appearance: Present: cooperative, A&O X 3, obese, answers questions appropriately - Head Head exam: Present: atraumatic, normal inspection - Neck Neck exam general surgery: Present: supple - Respiratory Respiratory exam: Present: decreased breath sounds, wheezes. Absent: rales, respiratory distress, rhonchi - Cardiovascular Cardiovascular exam: Present: RRR, +S1, +S2. Absent: systolic murmur - GI/Abdominal GI/Abdominal exam: Present: normal bowel sounds, soft. Absent: rebound, rigid, tenderness - Extremities Exam Extremities exam: Present: pedal edema (trace), tenderness (Left ankle). Absent : calf tenderness Additional comments: open chronic non healing wound in Rt foot and heel region. - Back Exam Back exam: Absent: CVA tenderness (L), CVA tenderness (R) - Neurological Exam Neurological exam: Present: alert, oriented X3 - Psychiatric Psychiatric exam: Present: normal affect, normal mood Internal Medicine: Result - Labs CBC & Chem 7: 06/14/17 06:25 06/14/17 06:25 Labs: Short CBC 06/14/17 Range/Units 06:25 WBC 10.9 (4.3-11.1) K/mcL Hgb 8.1 L (12.9-16.9) g/dL Hct 28.4 L (37.5-50.1) % Plt Count 296 (140-400) K/mcL Neutrophils # 8.1 (1.6-8.9) K/mcL BMP 06/14/17 06:25 Sodium 133 L Potassium 3.3 L Chloride 92 L Carbon Dioxide 33 H BUN 18 Creatinine 1.00 Glucose 208 H Calcium 9.4 - Impressions Impressions Echocardiogram 06/13/17 15:00 Impressions: LVEF 60%. Normal LV chamber size, wall thickness and function. Mild left ventricular diastolic dysfunction. Right ventricular size was not well visualized. Grossly, it appears mildly dilated with normal function. No evidence of pulmonary hypertension. No significant valvular dysfunction. Left Ventricular Wall Motion: Rest Echo Findings All wall segments showed normal motion. Findings: Study Quality * Technically adequate exam. ECG Findings * Normal sinus rhythm. Left Ventricle * LVEF 60%. * Normal LV chamber size, wall thickness and function. * Mild left ventricular diastolic dysfunction. Right Ventricle * Right ventricular size was not well visualized. Grossly, it appears mildly dilated with normal function. Left Atrium * Mildly dilated left atrium. Right Atrium * Mildly dilated right atrium. Interatrial Septum * Interatrial septum not well evaluated. Aortic Valve * Trileaflet aortic valve with normal function. * No aortic regurgitation. * No aortic stenosis. Mitral Valve * Normal mitral valve structure and function. * No mitral regurgitation. * No mitral stenosis. Tricuspid Valve * Normal tricuspid valve structure and function. * Trace tricuspid regurgitation. * No evidence of pulmonary hypertension. Pulmonic Valve * Normal pulmonic valve structure and function. * No pulmonic regurgitation. Aorta * Normally sized aortic root. Pericardium * The pericardium appears normal. IVC * Normal IVC dimensions and inspiratory collapse. Pulmonary Artery * Normal visualized portions of the main pulmonary artery. Ankle X-Ray 06/13/17 18:04 IMPRESSION: 1. Grossly similar appearance of obliquely oriented fracture of the distal fibula with slight lateral displacement of the talar dome and suggestion of mild widening of the medial clear space. D/ / Ramiro Choudhury MD / Ramiro Choudhury MD Interpreting Provider: Ramiro Choudhury MD Consult Discharge Plan - Plan Referrals: Sidney Martinez MD [Primary Care Provider] - ( visits patient home... )
[2017-06-14] MEDS: *HR* Rivaroxaban 10 MG TABLET PO SCH (17:01)
[2017-06-14] MEDS: cefTRIAXone 2,000 MG in Water for inj. (sterile) 10 ML IVP SCH (17:02)
[2017-06-14] MEDS ORDERED: *HR* OxyCODONE/APAP 10/325 TABLET PO PRN ×2 (17:36→17:47)
[2017-06-14] MEDS: *HR* HYDROcodone/Acet 10/325 mg TABLET PO PRN (18:01)
[2017-06-14] MEDS: tiZANidine 4 MG TABLET PO SCH (21:14)
[2017-06-15] MEDS: *HR* HYDROcodone/Acet 10/325 mg TABLET PO PRN ×3 (02:10→21:55)
[2017-06-15] MEDS: Ipratropium/Albuterol Neb 3 ML IH SCH ×4 (03:45→22:20)
[2017-06-15 04:50] LABS: BUN/Creatinine Ratio 24 (6-26); Blood Urea Nitrogen 26 mg/dL (8-26); Calcium 9.3 mg/dL (8.6-10.8); Carbon Dioxide 34 mEq/L (19-29); Chloride 93 mEq/L (98-109); Glucose 169 mg/dL (70-99); Magnesium 1.8 mg/dL (1.6-2.6); Osmolality,Calculated 293 (280-300); Potassium 3.4 mEq/L (3.5-4.5); Sodium 137 mEq/L (136-145); eGFR For African Americans > 60 (> 60); eGFR For Non-African Americans > 60 (> 60)
[2017-06-15] MEDS: FLUoxetine 20 MG CAPSULE PO SCH (06:59)
[2017-06-15] MEDS: Lactobacillus 1 EACH CAP.SPRINK PO SCH (07:00)
[2017-06-15] MEDS: predniSONE 20 MG TABLET PO SCH (07:00)
[2017-06-15] MEDS: Gabapentin 300 MG CAPSULE PO SCH ×2 (07:00→21:54)
[2017-06-15] MEDS: rOPINIRole 1 MG TABLET PO SCH ×2 (07:01→21:54)
[2017-06-15] MEDS: Multivit/Ca/Min/Fe/FA 1 TAB TABLET PO SCH (07:01)
[2017-06-15] MEDS: Famotidine 20 MG TABLET PO SCH ×2 (07:01→21:54)
[2017-06-15] MEDS: Magnesium Oxide 400 MG TABLET PO SCH (07:01)
[2017-06-15] MEDS: Furosemide 40 MG TABLET PO SCH ×2 (07:01→17:10)
[2017-06-15] MEDS: metOLazone 5 MG TABLET PO SCH (07:02)
[2017-06-15] MEDS: Cholecalciferol (D-3) 1,000 UNIT TABLET PO SCH (07:02)
[2017-06-15] MEDS: Insulin LISPRO 300 UNITS/3 ML VIAL SQ SCH ×4 (07:08→21:55)
[2017-06-15] MEDS: Ammonium Lactate 30 APPL/225 GM BOTTLE TP SCH ×2 (07:09→21:55)
[2017-06-15] MEDS: cefTRIAXone 2,000 MG in Water for inj. (sterile) 10 ML IVP SCH (07:09)
[2017-06-15] MEDS: *HR* HYDROmorphone (PF) 1 MG/ML SYRINGE IVP PRN (07:10)
--- NOTE | 2017-06-15 08:55 | Internal Med Progress Note ---
Date of Encounter: 06/15/17 Time of Encounter: 08:50 - Assessment and plan (1) Ankle fracture, left Current Visit: Yes Status: Acute Assessment and plan: Reviewed X ray - showing an oblique fracture of Left distal tibia Consulted Hand Trimmer for further care Bed rest.. no weight baring Hand Trimmer Waiting on vascular studies to plan for surgery IV and PO narcotics PRN Consulted vascular surgeon for further assessment on his severe PAD Risk assessment : Moderate to high risk for respiratory compromise and sepsis with all the commodities Qualifiers: Encounter type: initial encounter Fracture type: closed Qualified Code(s) : S82.892A - Other fracture of left lower leg, initial encounter for closed fracture (2) Syncope Current Visit: Yes Status: Acute Assessment and plan: Unclear etiology so far normal 2 D Ehco- LVEF 60% Mild diastolic dysfunction Chest CTA - No PE..Enlarging Rt LL mass Head CT ; No acute ICH EEG - normal study Concerned for Hypercapnea induced sycnope too No more syncopal episodes Qualifiers: Qualified Code(s): R55 - Syncope and collapse (3) Chronic ulcer of right foot with fat layer exposed Current Visit: Yes Status: Acute Assessment and plan: Wound cx growing Enterobacter and Staph Cont Rocephin for now Since I noticed more erythema in Rt leg, ordered blood cx and ESR, CRP today Will consult ID for further abx management Cont local wound care mechanical service specialist on board (4) HTN (hypertension) Current Visit: No Status: Chronic Assessment and plan: stable with home meds Qualifiers: Hypertension type: essential hypertension Qualified Code(s): I10 - Essential (primary) hypertension (5) HLD (hyperlipidemia) Current Visit: No Status: Chronic Assessment and plan: resumed home med Qualifiers: Hyperlipidemia type: mixed hyperlipidemia Qualified Code(s): E78.2 - Mixed hyperlipidemia (6) COPD (chronic obstructive pulmonary disease) Current Visit: No Status: Chronic Assessment and plan: not in exacerbation cont home INH regimen Qualifiers: COPD type: chronic bronchitis Chronic bronchitis type: mucopurulent Qualified Code(s): J41.1 - Mucopurulent chronic bronchitis (7) DVT prophylaxis Current Visit: No Status: Acute Assessment and plan: on Xarelto for anticoag (8) Sleep apnea Current Visit: No Status: Chronic Assessment and plan: will do over night BiPAP study He does use CPAP at home Qualifiers: Sleep apnea type: obstructive Qualified Code(s): G47.33 - Obstructive sleep apnea (adult) (pediatric) (9) PAD (peripheral artery disease) Current Visit: No Status: Acute Assessment and plan: Arterial Doppler studies - P s/p stents in both legs before cont Plavix + Xarelto as recommended by vascular surgery as an out pt consulted vascular surgery (10) Non-small cell lung cancer (NSCLC) Current Visit: No Status: Chronic Assessment and plan: need to f/u with Heme Onc as an out pt Qualifiers: Laterality: right Qualified Code(s): C34.91 - Malignant neoplasm of unspecified part of right bronchus or lung - Subjective Interval history: Mr. Sinha is a 72 year old male with hx of lung cancer transferred from [place] ED for syncopal episodes. Pt stated he had 4-7 episodes yesterday morning. At least 2 episodes occurred when he was in a seated position. No dizziness, CP, palpitations or other symptoms. He also mentioned Left ankle pain started after a fall. Now he is alert, awake and O x 3. Denied any CP / SOB. No abd pain. Unable to bare weight on Left ankle due to pain. Also c/o worsening pain in Rt leg.. Some redness noticed in Rt lower leg - Constitutional Vitals: Temp Pulse Resp BP Pulse Ox 97.7 F 103 17 125/64 96 06/15/17 07:00 06/15/17 07:00 06/15/17 07:00 06/15/17 07:00 06/15/17 07:32 General appearance: Present: cooperative, A&O X 3, obese, answers questions appropriately - Head Head exam: Present: atraumatic, normal inspection - Respiratory Respiratory exam: Present: decreased breath sounds, wheezes (mild). Absent: rales, respiratory distress, rhonchi - Cardiovascular Cardiovascular exam: Present: RRR, +S1, +S2. Absent: tachycardia - GI/Abdominal GI/Abdominal exam: Present: soft. Absent: rebound, rigid, tenderness - Extremities Exam Extremities exam: Present: pedal edema (trace), tenderness. Absent: calf tenderness Additional comments: mild erythema noticed in distal part of Rt leg anteriorly. mild swelling noticed in Rt foot , ankle and distal part of leg. open chronic non healing wound in Rt foot and heel region. - Back Exam Back exam: Absent: CVA tenderness (L), CVA tenderness (R) - Neurological Exam Neurological exam: Present: alert, oriented X3 - Psychiatric Psychiatric exam: Present: normal affect, normal mood Internal Medicine: Result - Labs CBC & Chem 7: 06/14/17 06:25 06/15/17 04:18 Labs: BMP 06/15/17 04:18 Sodium 137 Potassium 3.4 L Chloride 93 L Carbon Dioxide 34 H BUN 26 Creatinine 1.10 Glucose 169 H Calcium 9.3 Consult Discharge Plan - Plan Referrals: Sindey Martinez MD [Primary Care Provider] - ( visits patient home... )
[2017-06-15] MEDS ORDERED: Acetaminophen 325 MG TABLET PO PRN (09:03)
--- NOTE | 2017-06-15 16:28 | Vascular/Endovasc Consult Note ---
Date of Encounter: 06/15/17 Time of Encounter: 14:15 Assessment and Plan (1) PAD (peripheral artery disease) Current Visit: Yes Status: Chronic The patient has a long history of peripheral vascular disease. He has previously undergone a left femoral endarterectomy, a right superficial femoral artery angioplasty and a right common iliac stent. His angiogram dated 12/28/16 was reviewed. At that time, the patient has no significiant residual right sided disease after stent and angioplasty. He has no significant aorto iliac or left tibial disease. He does have significant left superficial femoral artery disease. His left lower extremity ABIs are consistent with moderate disease. This would not preclude planned ORIF, particularly if it is urgent. The patient should continue with daily Plavix. He may follow-up in vascular clinic to schedule elective intervention regarding his left superficial femoral artery disease. (2) HTN (hypertension) Current Visit: Yes Status: Chronic Qualifiers: Hypertension type: essential hypertension Qualified Code(s): I10 - Essential (primary) hypertension (3) HLD (hyperlipidemia) Current Visit: Yes Status: Chronic Qualifiers: Hyperlipidemia type: mixed hyperlipidemia Qualified Code(s): E78.2 - Mixed hyperlipidemia (4) COPD (chronic obstructive pulmonary disease) Current Visit: Yes Status: Chronic Qualifiers: COPD type: chronic bronchitis Chronic bronchitis type: mucopurulent Qualified Code(s): J41.1 - Mucopurulent chronic bronchitis - History of Present Illness Consult date: 06/15/17 Requesting physician: Monroe Munson Consult reason: Peripheral vascular disease Chief complaint: Left ankle fracture History of present illness: Mr. Sinha is a 72 year old male with a history of diabetes, hypertension, hyperlipidemia and peripheral vascular disease. The patient has a chronic right lower extremity ulcer. He has been previously treated with iliac stent placement. He sustained a left ankle fracture and ORIF is currently being considered. Vascular surgery has been consulted to assess his vascular status prior to his procedure. The patient does not ambulate much and denies claudication. He also denies rest pain or gangrene. He recently underwent vascular labs. He denies chest pain or shortness of breath. Past Med Surg Social Fam HX - Past Medical History Medical history: arthritis, cancer, CHF, COPD, diabetes, hypertension, thyroid disease, syncope, venous stasis, other Psychiatric history: anxiety - Past Surgical History Surgical History: cataract, cholecystectomy, LE vascular intervention, vascular surgery, other - Social History Smoking Status: Former smoker Smokeless Tobacco Status: No Alcohol use: occasionally Drug use: none - Family History Father Family Member Ethnicity: Non- Living Status: Cause of : parkinsons disease Hx Family Neurologic Disorders: Yes (Alzheimer's disease) Mother Family Member Ethnicity: Non- Living Status: Medications and Allergies Allopurinol [Zyloprim] 300 mg PO DAILY 03/02/15 [History] Cholecalciferol (Vitamin D3) [Vitamin D] 2,000 unit PO DAILY 03/02/15 [History] Clopidogrel [Plavix] 75 mg PO DAILY 03/02/15 [History] Docusate [Colace] 200 mg PO BID 03/02/15 [History] FLUoxetine HCl [Prozac] 60 mg PO DAILY 03/02/15 [History] Famotidine [Pepcid] 20 mg PO BID 03/02/15 [History] Ferrous Sulfate 325 mg PO BID 03/02/15 [History] Furosemide [Lasix] 80 mg PO BID 03/02/15 [History] Levothyroxine Sodium [Synthroid] 200 mcg PO DAILY 03/02/15 [History] Magnesium Oxide [Magnesium] 400 mg PO DAILY 03/02/15 [History] Metoprolol [Lopressor] 25 mg PO BID 03/02/15 [History] Multivitamin [Multivitamins] 1 cap PO DAILY 03/02/15 [History] Roflumilast [Daliresp] 500 mcg PO DAILY 03/02/15 [History] Ropinirole HCl [Requip] 2 mg PO BID 03/02/15 [History] Ammonium Lactate [Amlactin] 1 appl TP BID 12/19/16 [History] Ipratropium/Albuterol Neb [Duoneb] 3 ml IH Q6HR 12/19/16 [History] Lidocaine/Hydrocortisone AC [Lidocaine-Hydrocort 3-2.5% Gel] 1 appl RC BID 12/19 [History] Polyethylene Glycol 3350 [MiraLAX Powder Bulk 17.9 Oz] 17 gm PO DAILY 12/19/16 [ History] Spironolactone [Aldactone] 50 mg PO DAILY 12/19/16 [History] Umeclidinium Brm/Vilanterol Tr [Anoro Ellipta 62.5-25 Mcg INH] 1 puff IH DAILY 12/19/16 [History] metOLazone [Zaroxolyn] 2.5 mg PO DAILY 12/19/16 [History] BuPROPion [Wellbutrin] 75 mg PO BID 12/24/16 [History] Acetaminophen [Tylenol] 650 mg PO Q6HR PRN #0 tablet 01/04/17 [Rx] Gabapentin [Neurontin] 300 mg PO BID capsule 01/04/17 [Rx] HYDROcodone/Acet 10/325 mg [[place] 10-325 mg] 1 each PO Q6H PRN #10 tablet [Rx] LORazepam [Ativan] 0.5 mg PO Q8H PRN #10 tablet 01/04/17 [Rx] Lactobacillus [Culturelle] 2 each PO DAILY cap.sprink 01/04/17 [Rx] Saline Nasal [place] [[place] Nasal [place]] 2 spray NS Q2H PRN #0 bottle 01/04/17 [Rx ] Tamsulosin [Flomax] 0.4 mg PO DAILY capsule 01/04/17 [Rx] Rivaroxaban [Xarelto] 10 mg PO 1700 #30 tablet 01/16/17 [Rx] Tizanidine HCl [Zanaflex] 2 mg PO HS 04/05/17 [History] predniSONE [PredniSONE] 10 mg PO DAILY 04/05/17 [History] Collagenase Oint [Santyl] 1 appl TP DAILY 04/06/17 [History] Potassium Chloride 50 meq PO DAILY 04/11/17 [Rx] Lovastatin [Mevacor] 20 mg PO DAILY 06/12/17 [History] metFORMIN [Glucophage] 500 mg PO DAILY 06/12/17 [History] 3 Allergy/AdvReac Type Severity Reaction Status Date / Time doxycycline Allergy Hives Verified 06/06/17 12:13 Oxycodone [From Percocet] Allergy Swelling Verified 06/06/17 12:13 of Lip/Tongue/Throat Penicillins [PCN] Allergy Hives Verified 06/06/17 12:13 codeine AdvReac Flushing Verified 06/06/17 12:13 meperidine AdvReac Hallucinati Verified 06/06/17 12:13 ng morphine AdvReac Nightmare Verified 06/06/17 12:13 All Systems Review: A 10-system review of systems was performed and is negative for pertinent findings except as documented above in the HPI. Exam Vital Signs, Last 4 Hours Temp Pulse Resp BP Pulse Ox 06/15/17 15:27 17 96 06/15/17 15:17 97.4 F L 95 14 113/64 96 General: Present: Conversant, No Apparent Distress HEENT: Present: Atraumatic Neck: Absent: JVD, Left Carotid bruit, Right Carotid bruit Cardiac: Present: Reg Rate and Rhythm, Normal S1 and S2 Lungs: Present: Normal Breath Sounds, No Wheeze, Rales, Rhonchi Neuro: Present: Alert and responsive, No focal deficits noted, Motor nerves grossly intact, Sensory nerves grossly intact Abdomen: Present: Soft, Non-tender. Absent: Masses Vascular: Present: Normal capillary refill, Pulse, diminished (biphasic signals bilaterally). Absent: Cyanosis Skin: Present: No rashes noted on visualized skin Consult Discharge Plan - Plan Referrals: Sidney Martinez MD [Primary Care Provider] - ( visits patient home... )
[2017-06-15] MEDS: *HR* Rivaroxaban 10 MG TABLET PO SCH (17:10)
--- NOTE | 2017-06-15 20:29 | Podiatry Progress Note ---
Date of Encounter: 06/15/17 Time of Encounter: 05:30 - Assessment and Plan (1) Ankle fracture, left Current Visit: Yes Status: Acute Reviewed repeat x-ray with patient and he has an SER 2 left ankle fracture with very mild displacement, tib-fib overlap is wnl and medial clear space 4-5mm. He has moderate vascular disease. While he is neuropathic and diabetic, I think the risk of him developing a wound complication from the surgery outweigh the benefit at this time given the above fracture and alignment on his repeat xray. changed bandage on right foot and should continue with maxsorb daily, 4x4 gauze , abdominal pad, david, and kerlix. no surgical intervention at this time. distal foot skin surrounding wound looks improved from previous. culture result could be colonizing the wound. c/w the ceftriaxone while admitted and when ready for discharge to [facility] would discharge on oral levofloxacin for a week. he needs to remain non-wb on the left lower extremity and will need a f/u with me for a repeat xray 7-10 days after discharge to make sure no significant shift or change has occurred. Qualifiers: Encounter type: initial encounter Fracture type: closed Qualified Code(s) : S82.892A - Other fracture of left lower leg, initial encounter for closed fracture Subjective Interval history: says he has been staying off the left foot and not walking on the right either. says he is upset his pain medications were decreased but other than that no complaints. Objective - Vital Signs Vital Signs: Vital Signs Temp Pulse Resp BP Pulse Ox 06/15/17 19:44 98.0 F 108 18 132/74 96 06/15/17 15:27 17 96 06/15/17 15:17 97.4 F L 95 14 113/64 96 06/15/17 12:05 97.9 F 100 18 103/61 95 06/15/17 10:24 18 95 06/15/17 07:32 96 06/15/17 07:00 97.7 F 103 17 125/64 96 06/15/17 03:45 18 90 06/15/17 03:08 97.4 F L 94 16 105/66 94 06/14/17 23:10 97.5 F L 97 16 103/61 92 06/14/17 22:23 16 96 Intake and Output 06/15/17 06/15/1717 07:59 15:59 23:59 Intake Total 360 / 360 240 / 240 Output Total 850 / 850 1100 / 1100 Balance -850 / -850 360 / 360 -860 / -860 Intake: Oral 360 / 360 240 / 240 Output: Urine 850 / 850 1100 / 1100 Other: Meal Lunch Dinner Percent of Meal Consumed 0% 100% # Voids 0 Blood Glucose* 230 155 244 - Exam Exam: well developed and nourished male in no acute distress Vasc: CFT < 3 sec x 5 digits b/l feet. Derm: skin breakdown right posterior heel and over fibula. distal lateral right foot wound with [id number] wound with 90% fibrotic base, 10% granular no necrosis. erythema is less than previously around the distal foot wound compared to previous visit with me. Musc: did not asses ROM left ankle secondary to injury. non-painful right foot and ankle ROM. Neuro: absent sensation to light touch. BRAD/PVR-moderate disease - Lab Result Diagrams: 06/14/17 06:25 06/15/17 04:18 Labs: Abnormal lab results RBC 3.43 M/mcL (4.19-5.50) L 06/14/17 06:25 Hgb 8.1 g/dL (12.9-16.9) L 06/14/17 06:25 Hct 28.4 % (37.5-50.1) L 06/14/17 06:25 MCV 82.8 fL (83.0-100.0) L 06/14/17 06:25 MCH 23.6 pg (28.0-33.3) L 06/14/17 06:25 MCHC 28.5 g/dL (31.6-35.5) L 06/14/17 06:25 RDW 19.2 % (11.5-14.5) H 06/14/17 06:25 Nucleated RBCs/100 WBC 0.2 /100 WBC (0) H 06/14/17 06:25 Toxic Granulation Present (Not Present) A 06/14/17 06:25 Hypochromasia Present (Not Present) A 06/14/17 06:25 Anisocytosis 1+ (Not Present) A 06/13/17 05:02 ESR >= 130 mm/hr (0-10) H 06/15/17 09:15 Potassium 3.4 mEq/L (3.5-4.5) L 06/15/17 04:18 Chloride 93 mEq/L (98-109) L 06/15/17 04:18 Carbon Dioxide 34 mEq/L (19-29) H 06/15/17 04:18 Glucose 169 mg/dL (70-99) H 06/15/17 04:18 POC Glucose 230 (58-89) H 06/15/17 06:56 C-Reactive Protein 55 mg/L (Less than 5) H 06/15/17 09:15 Theophylline 0.3 mcg/mL (10.0-20.0) L 06/12/17 08:30 Microbiology, Last 48 Hours 06/12/17 13:36 Wound Culture - Preliminary Right Foot Enterobacter cloacae complex Staphylococcus aureus Consult Discharge Plan - Plan Referrals: Sidney Martinez MD [Primary Care Provider] - ( visits patient home... )
[2017-06-15] MEDS: tiZANidine 4 MG TABLET PO SCH (21:54)
[2017-06-16] MEDS: *HR* HYDROcodone/Acet 10/325 mg TABLET PO PRN ×3 (03:56→17:33)
[2017-06-16] MEDS: Ipratropium/Albuterol Neb 3 ML IH SCH ×4 (05:01→21:21)
--- NOTE | 2017-06-16 08:44 | Internal Med Progress Note ---
Date of Encounter: 06/16/17 Time of Encounter: 08:42 - Assessment and plan (1) Chronic ulcer of right foot with fat layer exposed Current Visit: Yes Status: Acute Assessment and plan: Grew Staph Antibiotics according to culture . Wound care (2) Syncope Current Visit: Yes Status: Acute Assessment and plan: he had an extentive workup done no cause known . At the present time symptomatically . He could ahve dropped his BP as well since he is on multiple meds Qualifiers: Qualified Code(s): R55 - Syncope and collapse (3) COPD (chronic obstructive pulmonary disease) Current Visit: Yes Status: Chronic Assessment and plan: stable on treatment using oxygen . continue present treatment Qualifiers: COPD type: chronic bronchitis Chronic bronchitis type: mucopurulent Qualified Code(s): J41.1 - Mucopurulent chronic bronchitis (4) HTN (hypertension) Current Visit: Yes Status: Chronic Assessment and plan: stable no new change Qualifiers: Hypertension type: essential hypertension Qualified Code(s): I10 - Essential (primary) hypertension (5) PAD (peripheral artery disease) Current Visit: Yes Status: Chronic Assessment and plan: stable has been seen and evaluated by vascular no new change (6) Diabetic foot ulcer Current Visit: No Status: Acute Assessment and plan: on iv antibiotics stable wound care Qualifiers: Diabetic foot ulcer location: midfoot Diabetes mellitus type: type 2 Non- pressure ulcer stage: with fat layer exposed Qualified Code(s): E11.621 - Type 2 diabetes mellitus with foot ulcer; L97.402 - Non-pressure chronic ulcer of unspecified heel and midfoot with fat layer exposed; L97.402 - Non-pressure chronic ulcer of unspecified heel and midfoot with fat layer exposed; L97.402 - Non-pressure chronic ulcer of unspecified heel and midfoot with fat layer exposed; L97.402 - Non-pressure chronic ulcer of unspecified heel and midfoot with fat layer exposed (7) Diabetes mellitus Current Visit: No Status: Chronic Assessment and plan: on insulin continue present management adjustment as needed Qualifiers: Diabetes mellitus type: type 2 Diabetes mellitus complication status: with neurologic complications Diabetes mellitus complication detail: with polyneuropathy Diabetes mellitus drawing hand insulin use: without drawing hand use Qualified Code(s): E11.42 - Type 2 diabetes mellitus with diabetic polyneuropathy (8) Fracture of distal fibula Current Visit: Yes Status: Acute Assessment and plan: non weight bearing at the present time Brace Qualifiers: Fracture type: closed Laterality: left Qualified Code(s): S82.822A - Torus fracture of lower end of left fibula, initial encounter for closed fracture - Subjective Interval history: Complains of Pain and SOb on exertion he states that pain on his chest is some what more then usual . He has hx of syncope and fell with bruise on his right side of chest No cough , sometimes its difficult to breath other velazquez no new complains - Constitutional Vitals: Temp Pulse Resp BP Pulse Ox 97.7 F 104 16 116/65 96 06/16/17 07:05 06/16/17 07:05 06/16/17 07:05 06/16/17 07:05 06/16/17 07:05 General appearance: Present: cooperative, A&O X 3, pleasant, obese, answers questions appropriately Exam: using nasal cannula - Eye Eye exam: Present: PERRL. Absent: scleral icterus, conjuntiva pink, sclera anicteric - Neck Neck exam general surgery: Present: full ROM, supple. Absent: tenderness, nuchal rigidity Additional comments: no JVD or HJR noted - Respiratory Respiratory exam: Present: chest wall tenderness, CTAB. Absent: rhonchi, stridor, wheezes, tachypnea Additional comments: Air entery is equal bilateral few basal crackles Bruises noted on the right side on chest anteriorly painful on palpation - Cardiovascular Cardiovascular exam: Present: RRR, +S1, +S2. Absent: gallop, irregular rhythm, JVD - GI/Abdominal GI/Abdominal exam: Present: normal bowel sounds, soft. Absent: distended, firm , guarding, rebound, rigid, tenderness - Extremities Exam Additional comments: left side pedal edema noted right side normal no calf swelling or tenderness noted Per this has been chronic in nature - Neurological Exam Neurological exam: Present: oriented X3, no focal deficits, strengths equal and symetr throughout. Absent: facial droop Additional comments: Neuro exam is grossly normal some restriction in movement due to his fall and injury Internal Medicine: Result - Labs CBC & Chem 7: 06/14/17 06:25 06/15/17 04:18 Consult Discharge Plan - Plan Referrals: Sidney Martinez MD [Primary Care Provider] - ( visits patient home... )
[2017-06-16] MEDS: cefTRIAXone 2,000 MG in Water for inj. (sterile) 10 ML IVP SCH (08:51)
[2017-06-16] MEDS: Insulin LISPRO 300 UNITS/3 ML VIAL SQ SCH ×4 (08:52→22:01)
[2017-06-16] MEDS: Furosemide 40 MG TABLET PO SCH ×2 (08:53→17:29)
[2017-06-16] MEDS: Lactobacillus 1 EACH CAP.SPRINK PO SCH (08:53)
[2017-06-16] MEDS: Cholecalciferol (D-3) 1,000 UNIT TABLET PO SCH (08:53)
[2017-06-16] MEDS: Magnesium Oxide 400 MG TABLET PO SCH (08:53)
[2017-06-16] MEDS: Gabapentin 300 MG CAPSULE PO SCH ×2 (08:54→21:53)
[2017-06-16] MEDS: metOLazone 5 MG TABLET PO SCH (08:54)
[2017-06-16] MEDS: Multivit/Ca/Min/Fe/FA 1 TAB TABLET PO SCH (08:54)
[2017-06-16] MEDS: FLUoxetine 20 MG CAPSULE PO SCH (08:54)
[2017-06-16] MEDS: Famotidine 20 MG TABLET PO SCH ×2 (08:54→21:54)
[2017-06-16] MEDS: rOPINIRole 1 MG TABLET PO SCH ×2 (08:55→21:54)
[2017-06-16] MEDS: Ammonium Lactate 30 APPL/225 GM BOTTLE TP SCH ×2 (08:57→21:59)
--- NOTE | 2017-06-16 10:11 | Internal Med Progress Note ---
Date of Encounter: 06/16/17 Time of Encounter: 10:07 - Assessment and plan (1) Ankle fracture, left Current Visit: Yes Status: Acute Assessment and plan: Reviewed X ray - showing an oblique fracture of Left distal tibia Physician Allergist Immunologist did not recommend any surgical intervntions now due to his moderate PAD, risks outweighs the benefits His repeated X ray did now show any misalignment Podiatry recommend non weight baring in both legs, f/u with them as an outpt in one week f/u Ankle X ray IV and PO narcotics PRN Risk assessment : Moderate risk for respiratory compromise and sepsis with all the comorbidities Qualifiers: Encounter type: initial encounter Fracture type: closed Qualified Code(s) : S82.892A - Other fracture of left lower leg, initial encounter for closed fracture (2) Syncope Current Visit: Yes Status: Acute Assessment and plan: Unclear etiology so far normal 2 D Ehco- LVEF 60% Mild diastolic dysfunction Chest CTA - No PE..Enlarging Rt LL mass Head CT ; No acute ICH EEG - normal study Qualifiers: Qualified Code(s): R55 - Syncope and collapse (3) Chronic ulcer of right foot with fat layer exposed Current Visit: Yes Status: Acute Assessment and plan: Wound cx growing Enterobacter and Staph Cont Rocephin for now ESR and CRP chronically elevated Spoke to veneer taping machine operator, who evaluated the pt's wound and stated it is better now.. No signs of acute infection current wound cx might be colonization however recommend to cont IV abx now, d/c him to SNF with 1 week PO Levaquin Cont local wound care (4) HTN (hypertension) Current Visit: Yes Status: Chronic Assessment and plan: stable with home meds Qualifiers: Hypertension type: essential hypertension Qualified Code(s): I10 - Essential (primary) hypertension (5) HLD (hyperlipidemia) Current Visit: Yes Status: Chronic Assessment and plan: resumed home med Qualifiers: Hyperlipidemia type: mixed hyperlipidemia Qualified Code(s): E78.2 - Mixed hyperlipidemia (6) COPD (chronic obstructive pulmonary disease) Current Visit: Yes Status: Chronic Assessment and plan: not in exacerbation cont home INH regimen Qualifiers: COPD type: chronic bronchitis Chronic bronchitis type: mucopurulent Qualified Code(s): J41.1 - Mucopurulent chronic bronchitis (7) DVT prophylaxis Current Visit: No Status: Acute Assessment and plan: on Xarelto for anticoag (8) Sleep apnea Current Visit: No Status: Chronic Assessment and plan: will f/u on over night BiPAP study He does use CPAP at home Qualifiers: Sleep apnea type: obstructive Qualified Code(s): G47.33 - Obstructive sleep apnea (adult) (pediatric) (9) PAD (peripheral artery disease) Current Visit: Yes Status: Chronic Assessment and plan: Arterial Doppler studies - showed moderate disease He does have h/o left femoral endarterectomy, a right superficial femoral artery angioplasty and a right common iliac stent cont Plavix + Xarelto as recommended by vascular surgery as an out pt consulted vascular surgery (10) Non-small cell lung cancer (NSCLC) Current Visit: No Status: Chronic Assessment and plan: need to f/u with Heme Onc as an out pt Qualifiers: Laterality: right Qualified Code(s): C34.91 - Malignant neoplasm of unspecified part of right bronchus or lung - Subjective Interval history: Mr. Sinha is a 72 year old male with hx of lung cancer transferred from [place] [facility] for syncopal episodes. Pt stated he had 4-7 episodes yesterday morning. At least 2 episodes occurred when he was in a seated position. No dizziness, CP, palpitations or other symptoms. He also mentioned Left ankle pain started after a fall. Now he is alert, awake and O x 3. Denied any CP / SOB. No abd pain. Unable to bare weight on Left ankle due to pain. Also c/o worsening pain in Rt leg.. Some redness noticed in Rt lower leg.. no events over night. pain is not well controlled with current pain regimen - Constitutional Vitals: Temp Pulse Resp BP Pulse Ox 97.7 F 104 17 116/65 96 06/16/17 07:05 06/16/17 07:05 06/16/17 09:33 06/16/17 07:05 06/16/17 09:33 General appearance: Present: cooperative, A&O X 3, obese, answers questions appropriately - Head Head exam: Present: atraumatic, normal inspection - Respiratory Respiratory exam: Present: decreased breath sounds. Absent: rales, respiratory distress, rhonchi, wheezes - Cardiovascular Cardiovascular exam: Present: RRR, +S1, +S2. Absent: systolic murmur - GI/Abdominal GI/Abdominal exam: Present: soft. Absent: rebound, rigid, tenderness - Extremities Exam Extremities exam: Present: pedal edema (trace), tenderness (Left ankle). Absent : calf tenderness Additional comments: mild erythema noticed in distal part of Rt leg anteriorly. mild swelling noticed in Rt foot , ankle and distal part of leg. open chronic non healing wound in Rt foot and heel region. - Back Exam Back exam: Absent: CVA tenderness (L), CVA tenderness (R) - Neurological Exam Neurological exam: Present: alert, oriented X3 Internal Medicine: Result - Labs CBC & Chem 7: 06/14/17 06:25 06/15/17 04:18 Consult Discharge Plan - Plan Referrals: Sidney Martinez MD [Primary Care Provider] - ( visits patient home... )
--- NOTE | 2017-06-16 12:40 | Podiatry Progress Note ---
Date of Encounter: 06/16/17 Time of Encounter: 12:20 - Assessment and Plan (1) Ankle fracture, left Current Visit: Yes Status: Acute bandage changed today on the right with maxsorb. upon discharge should use calcium alginate, 4x4 gauze, abdominal pads, kerlix on right foot wounds- changed daily. c/w heel protector boot for offloading. examined left LE no areas of breakdown because of the boot. plan is for ECF and f/u with me in 7-10 days for the left ankle and also follow up in woundcare clinic. Qualifiers: Encounter type: initial encounter Fracture type: closed Qualified Code(s) : S82.892A - Other fracture of left lower leg, initial encounter for closed fracture Subjective Interval history: says he has been staying off the left foot and not walking on the right either. nurse reports she saw patient up moving around in room. he says his pain medication is ordered again and his pain better controlled. Objective - Vital Signs Vital Signs: Vital Signs Temp Pulse Resp BP Pulse Ox 06/16/17 11:26 97.5 F L 102 16 106/56 97 06/16/17 09:33 17 96 06/16/17 07:05 97.7 F 104 16 116/65 96 06/16/17 05:01 16 97 06/16/17 04:32 98.2 F 115 18 122/67 97 06/16/17 00:11 97.9 F 96 18 109/54 98 06/15/17 22:20 18 97 06/15/17 19:44 98.0 F 108 18 132/74 96 06/15/17 15:27 17 96 06/15/17 15:17 97.4 F L 95 14 113/64 96 Intake and Output 06/15/17 06/16/17 06/16/17 23:59 07:59 15:59 Intake Total 240 / 240 320 / 320 360 / 360 Output Total 1100 / 1100 1600 / 1600 Balance -860 / -860 -1280 / -1280 360 / 360 Intake: Oral 240 / 240 320 / 320 360 / 360 Output: Urine 1100 / 1100 1600 / 1600 Other: Meal Dinner Breakfast Percent of Meal Consumed 100% 100% # Voids 0 Weight 120.3 kg Blood Glucose* 244 143 131 Patient Weight 06/16/17 23:59 Weight 120.3 kg - Exam Exam: well developed and nourished male in no acute distress Vasc: CFT < 3 sec x 5 digits b/l feet. Derm: skin breakdown right posterior heel and over fibula. distal lateral right foot wound with [id number] wound with 90% fibrotic base, 10% granular no necrosis. erythema is less than previously around the distal foot wound compared to previous visit with me. Musc: did not asses ROM left ankle secondary to injury. non-painful right foot and ankle ROM. Neuro: absent sensation to light touch. BRAD/PVR-moderate disease - Lab Result Diagrams: 06/14/17 06:25 06/15/17 04:18 Labs: Abnormal lab results RBC 3.43 M/mcL (4.19-5.50) L 06/14/17 06:25 Hgb 8.1 g/dL (12.9-16.9) L 06/14/17 06:25 Hct 28.4 % (37.5-50.1) L 06/14/17 06:25 MCV 82.8 fL (83.0-100.0) L 06/14/17 06:25 MCH 23.6 pg (28.0-33.3) L 06/14/17 06:25 MCHC 28.5 g/dL (31.6-35.5) L 06/14/17 06:25 RDW 19.2 % (11.5-14.5) H 06/14/17 06:25 Nucleated RBCs/100 WBC 0.2 /100 WBC (0) H 06/14/17 06:25 Toxic Granulation Present (Not Present) A 06/14/17 06:25 Hypochromasia Present (Not Present) A 06/14/17 06:25 Anisocytosis 1+ (Not Present) A 06/13/17 05:02 ESR >= 130 mm/hr (0-10) H 06/15/17 09:15 Potassium 3.4 mEq/L (3.5-4.5) L 06/15/17 04:18 Chloride 93 mEq/L (98-109) L 06/15/17 04:18 Carbon Dioxide 34 mEq/L (19-29) H 06/15/17 04:18 Glucose 169 mg/dL (70-99) H 06/15/17 04:18 POC Glucose 244 (58-89) H 06/15/17 19:43 C-Reactive Protein 55 mg/L (Less than 5) H 06/15/17 09:15 Theophylline 0.3 mcg/mL (10.0-20.0) L 06/12/17 08:30 Microbiology, Last 48 Hours 06/12/17 13:36 Wound Culture - Final Right Foot Enterobacter cloacae complex Methicillin Resistant S.aureus Consult Discharge Plan - Plan Referrals: Sidney Martinez MD [Primary Care Provider] - ( visits patient home... )
[2017-06-16] MEDS: *HR* HYDROmorphone (PF) 1 MG/ML SYRINGE IVP PRN ×2 (12:53→22:02)
[2017-06-16] MEDS: *HR* Rivaroxaban 10 MG TABLET PO SCH (17:29)
[2017-06-16] MEDS: tiZANidine 4 MG TABLET PO SCH (21:54)
[2017-06-17] MEDS: Ipratropium/Albuterol Neb 3 ML IH SCH ×4 (04:24→20:58)
[2017-06-17] MEDS: Magnesium Oxide 400 MG TABLET PO SCH (09:37)
[2017-06-17] MEDS: rOPINIRole 1 MG TABLET PO SCH ×2 (09:37→21:10)
[2017-06-17] MEDS: Lactobacillus 1 EACH CAP.SPRINK PO SCH (09:37)
[2017-06-17] MEDS: Gabapentin 300 MG CAPSULE PO SCH ×2 (09:37→21:10)
[2017-06-17] MEDS: FLUoxetine 20 MG CAPSULE PO SCH (09:37)
[2017-06-17] MEDS: *HR* HYDROcodone/Acet 10/325 mg TABLET PO PRN (09:37)
[2017-06-17] MEDS: Multivit/Ca/Min/Fe/FA 1 TAB TABLET PO SCH (09:38)
[2017-06-17] MEDS: Furosemide 40 MG TABLET PO SCH ×2 (09:38→16:59)
[2017-06-17] MEDS: Famotidine 20 MG TABLET PO SCH ×2 (09:38→21:10)
[2017-06-17] MEDS: metOLazone 5 MG TABLET PO SCH (09:38)
[2017-06-17] MEDS: Cholecalciferol (D-3) 1,000 UNIT TABLET PO SCH (09:38)
[2017-06-17] MEDS: Insulin LISPRO 300 UNITS/3 ML VIAL SQ SCH ×4 (09:39→20:59)
[2017-06-17] MEDS: cefTRIAXone 2,000 MG in Water for inj. (sterile) 10 ML IVP SCH (09:39)
[2017-06-17] MEDS: Ammonium Lactate 30 APPL/225 GM BOTTLE TP SCH ×2 (11:23→21:11)
--- NOTE | 2017-06-17 12:18 | Internal Med Progress Note ---
Date of Encounter: 06/17/17 Time of Encounter: 12:14 - Assessment and plan (1) Ankle fracture, left Current Visit: Yes Status: Acute Assessment and plan: Recycling Center Operator did not recommend any surgical interventions now, due to his moderate PAD, risks outweighs the benefits His repeated X ray did now show any misalignment Podiatry recommend non weight baring in both legs, f/u with them as an out pt in one week f/u Ankle X ray IV and PO narcotics PRN Risk assessment : Moderate risk for respiratory compromise and sepsis with all the comorbidities Qualifiers: Encounter type: initial encounter Fracture type: closed Qualified Code(s) : S82.892A - Other fracture of left lower leg, initial encounter for closed fracture (2) Syncope Current Visit: Yes Status: Acute Assessment and plan: Unclear etiology so far normal 2 D Ehco- LVEF 60% Mild diastolic dysfunction Chest CTA - No PE..Enlarging Rt LL mass Head CT ; No acute ICH EEG - normal study Qualifiers: Qualified Code(s): R55 - Syncope and collapse (3) Chronic ulcer of right foot with fat layer exposed Current Visit: Yes Status: Acute Assessment and plan: Wound cx growing Enterobacter and MRSA changed abx to Bactrim ESR and CRP chronically elevated Spoke to angle shear operator, who evaluated the pt's wound and stated it is better now.. No signs of acute infection current wound cx might be colonization as per angle shear operator.. he believes his wounds on Rt foot looks better than before Cont local wound care (4) HTN (hypertension) Current Visit: Yes Status: Chronic Assessment and plan: stable with home meds Qualifiers: Hypertension type: essential hypertension Qualified Code(s): I10 - Essential (primary) hypertension (5) HLD (hyperlipidemia) Current Visit: Yes Status: Chronic Assessment and plan: resumed home med Qualifiers: Hyperlipidemia type: mixed hyperlipidemia Qualified Code(s): E78.2 - Mixed hyperlipidemia (6) COPD (chronic obstructive pulmonary disease) Current Visit: Yes Status: Chronic Assessment and plan: not in exacerbation cont home INH regimen Qualifiers: COPD type: chronic bronchitis Chronic bronchitis type: mucopurulent Qualified Code(s): J41.1 - Mucopurulent chronic bronchitis (7) DVT prophylaxis Current Visit: No Status: Acute Assessment and plan: on Xarelto for anticoag (8) Sleep apnea Current Visit: No Status: Chronic Assessment and plan: will f/u on over night BiPAP study He does use CPAP at home Qualifiers: Sleep apnea type: obstructive Qualified Code(s): G47.33 - Obstructive sleep apnea (adult) (pediatric) (9) PAD (peripheral artery disease) Current Visit: Yes Status: Chronic Assessment and plan: Arterial Doppler studies - showed moderate disease He does have h/o left femoral endarterectomy, a right superficial femoral artery angioplasty and a right common iliac stent cont Plavix + Xarelto as recommended by vascular surgery as an out pt consulted vascular surgery (10) Non-small cell lung cancer (NSCLC) Current Visit: No Status: Chronic Assessment and plan: need to f/u with Heme Onc as an out pt Qualifiers: Laterality: right Qualified Code(s): C34.91 - Malignant neoplasm of unspecified part of right bronchus or lung - Subjective Interval history: Mr. Sinha is a 72 year old male with hx of lung cancer transferred from [place] ED for syncopal episodes. Pt stated he had 4-7 episodes yesterday morning. At least 2 episodes occurred when he was in a seated position. No dizziness, CP, palpitations or other symptoms. He also mentioned Left ankle pain started after a fall. Now he is alert, awake and O x 3. Denied any CP / SOB. No abd pain. Unable to bare weight on Left ankle due to pain. Also c/o worsening pain in Rt leg.. Some redness noticed in Rt lower leg.. no events over night. pain is tolerable with current regimen - Constitutional Vitals: Temp Pulse Resp BP Pulse Ox 98.4 F 93 16 102/52 95 06/17/17 11:26 06/17/17 11:26 06/17/17 11:26 06/17/17 11:26 06/17/17 11:26 General appearance: Present: cooperative, A&O X 3, obese, answers questions appropriately - Head Head exam: Present: atraumatic, normal inspection - Respiratory Respiratory exam: Present: decreased breath sounds, wheezes (mild). Absent: rales, respiratory distress, rhonchi - Cardiovascular Cardiovascular exam: Present: RRR, +S1, +S2. Absent: systolic murmur - GI/Abdominal GI/Abdominal exam: Present: normal bowel sounds, soft. Absent: rebound, rigid, tenderness - Extremities Exam Extremities exam: Present: pedal edema, tenderness (Left ankle). Absent: calf tenderness Additional comments: mild erythema noticed in distal part of Rt leg anteriorly. mild swelling noticed in Rt foot , ankle and distal part of leg. open chronic non healing wound in Rt foot and heel region. Boots on for both ankles Internal Medicine: Result - Labs CBC & Chem 7: 06/14/17 06:25 06/15/17 04:18 Consult Discharge Plan - Plan Referrals: Sidney Martinez MD [Primary Care Provider] - ( visits patient home... )
[2017-06-17] MEDS: Sulfamethoxazole/Trimeth DS 1 EACH TABLET PO SCH ×2 (12:54→21:10)
[2017-06-17] MEDS: *HR* Rivaroxaban 10 MG TABLET PO SCH (16:59)
[2017-06-17] MEDS: *HR* HYDROmorphone (PF) 1 MG/ML SYRINGE IVP PRN (18:48)
[2017-06-17] MEDS: tiZANidine 4 MG TABLET PO SCH (21:11)
[2017-06-18] MEDS: *HR* HYDROmorphone (PF) 1 MG/ML SYRINGE IVP PRN (01:06)
[2017-06-18 03:23] LABS: Basophils % 0.2 %; Eosinophils # 1.2 K/mcL (0.0-0.6); Eosinophils % 8.5 %; Hematocrit 25.1 % (37.5-50.1); Hemoglobin 7.5 g/dL (12.9-16.9); Immature Granulocytes % 1.8 % (0-4); Lymphocytes # 1.3 K/mcL (0.6-4.6); Lymphocytes % 9.9 %; Mean Corpuscular HGB Conc 29.9 g/dL (31.6-35.5); Mean Corpuscular Hemoglobin 24.4 pg (28.0-33.3); Mean Corpuscular Volume 81.5 fL (83.0-100.0); Mean Platelet Volume 10.2 fL (9.4-12.4); Monocytes # 0.8 K/mcL (0.0-1.3); Nucleated Red Blood Cells 0.1 /100 WBC (0); Platelet Count 271 K/mcL (140-400); Red Blood Count 3.08 M/mcL (4.19-5.50); Red Cell Distribution Width 19.4 % (11.5-14.5); Segmented Neutrophils % 73.6 %
[2017-06-18 03:37] LABS: BUN/Creatinine Ratio 26 (6-26); Blood Urea Nitrogen 26 mg/dL (8-26); Calcium 9.1 mg/dL (8.6-10.8); Carbon Dioxide 34 mEq/L (19-29); Chloride 91 mEq/L (98-109); Glucose 180 mg/dL (70-99); Magnesium 1.7 mg/dL (1.6-2.6); Osmolality,Calculated 287 (280-300); Sodium 134 mEq/L (136-145); eGFR For African Americans > 60 (> 60); eGFR For Non-African Americans > 60 (> 60)
[2017-06-18] MEDS: Ipratropium/Albuterol Neb 3 ML IH SCH ×3 (04:49→16:02)
[2017-06-18] MEDS: *HR* HYDROcodone/Acet 10/325 mg TABLET PO PRN ×2 (05:19→10:05)
[2017-06-18] MEDS: Insulin LISPRO 300 UNITS/3 ML VIAL SQ SCH ×2 (07:52→12:07)
[2017-06-18] MEDS: Sulfamethoxazole/Trimeth DS 1 EACH TABLET PO SCH (07:54)
[2017-06-18] MEDS: Famotidine 20 MG TABLET PO SCH (07:54)
[2017-06-18] MEDS: Multivit/Ca/Min/Fe/FA 1 TAB TABLET PO SCH (07:55)
[2017-06-18] MEDS: Lactobacillus 1 EACH CAP.SPRINK PO SCH (07:56)
[2017-06-18] MEDS: metOLazone 5 MG TABLET PO SCH (07:58)
[2017-06-18] MEDS: Furosemide 40 MG TABLET PO SCH (07:58)
[2017-06-18] MEDS: rOPINIRole 1 MG TABLET PO SCH (07:58)
[2017-06-18] MEDS: FLUoxetine 20 MG CAPSULE PO SCH (07:59)
[2017-06-18] MEDS: Cholecalciferol (D-3) 1,000 UNIT TABLET PO SCH (08:01)
[2017-06-18] MEDS: Gabapentin 300 MG CAPSULE PO SCH (08:01)
[2017-06-18] MEDS: Magnesium Oxide 400 MG TABLET PO SCH (08:02)
[2017-06-18] MEDS: Ammonium Lactate 30 APPL/225 GM BOTTLE TP SCH (08:02)
[2017-06-18] MEDS ORDERED: *HR* HYDROmorphone (PF) 1 MG/ML SYRINGE IVP PRN (10:13)
--- NOTE | 2017-06-18 10:33 | Discharge Summary ---
Date of Encounter: 06/18/17 Time of Encounter: 10:27 - Discharge Diagnosis (1) Ankle fracture, left Priority: Primary Status: Acute Qualifiers: Encounter type: initial encounter Fracture type: closed Qualified Code(s) : S82.892A - Other fracture of left lower leg, initial encounter for closed fracture (2) Syncope Priority: Primary Status: Acute Qualifiers: Qualified Code(s): R55 - Syncope and collapse (3) Chronic ulcer of right foot with fat layer exposed Priority: Secondary Status: Acute (4) HTN (hypertension) Priority: Secondary Status: Chronic Qualifiers: Hypertension type: essential hypertension Qualified Code(s): I10 - Essential (primary) hypertension (5) HLD (hyperlipidemia) Priority: Secondary Status: Chronic Qualifiers: Hyperlipidemia type: mixed hyperlipidemia Qualified Code(s): E78.2 - Mixed hyperlipidemia (6) COPD (chronic obstructive pulmonary disease) Priority: Secondary Status: Chronic Qualifiers: COPD type: chronic bronchitis Chronic bronchitis type: mucopurulent Qualified Code(s): J41.1 - Mucopurulent chronic bronchitis (7) DVT prophylaxis Priority: Secondary Status: Acute (8) Sleep apnea Priority: Secondary Status: Chronic Qualifiers: Sleep apnea type: obstructive Qualified Code(s): G47.33 - Obstructive sleep apnea (adult) (pediatric) (9) PAD (peripheral artery disease) Priority: Secondary Status: Chronic (10) Non-small cell lung cancer (NSCLC) Priority: Secondary Status: Chronic Qualifiers: Laterality: right Qualified Code(s): C34.91 - Malignant neoplasm of unspecified part of right bronchus or lung - Discharge Medications Prescriptions: HYDROcodone/Acet 10/325 mg [[place] 10-325 mg] 1 each PO Q6H PRN #20 tablet PRN Reason: Pain Home Medications: Allopurinol [Zyloprim] 300 mg PO DAILY 03/02/15 [History] Cholecalciferol (Vitamin D3) [Vitamin D] 2,000 unit PO DAILY 03/02/15 [History] Clopidogrel [Plavix] 75 mg PO DAILY 03/02/15 [History] Docusate [Colace] 200 mg PO BID 03/02/15 [History] FLUoxetine HCl [Prozac] 60 mg PO DAILY 03/02/15 [History] Famotidine [Pepcid] 20 mg PO BID 03/02/15 [History] Ferrous Sulfate 325 mg PO BID 03/02/15 [History] Furosemide [Lasix] 80 mg PO BID 03/02/15 [History] Levothyroxine Sodium [Synthroid] 200 mcg PO DAILY 03/02/15 [History] Magnesium Oxide [Magnesium] 400 mg PO DAILY 03/02/15 [History] Metoprolol [Lopressor] 25 mg PO BID 03/02/15 [History] Multivitamin [Multivitamins] 1 cap PO DAILY 03/02/15 [History] Roflumilast [Daliresp] 500 mcg PO DAILY 03/02/15 [History] Ropinirole HCl [Requip] 2 mg PO BID 03/02/15 [History] Ammonium Lactate [Amlactin] 1 appl TP BID 12/19/16 [History] Ipratropium/Albuterol Neb [Duoneb] 3 ml IH Q6HR 12/19/16 [History] Lidocaine/Hydrocortisone AC [Lidocaine-Hydrocort 3-2.5% Gel] 1 appl RC BID 12/19 [History] Polyethylene Glycol 3350 [MiraLAX Powder Bulk 17.9 Oz] 17 gm PO DAILY 12/19/16 [ History] Spironolactone [Aldactone] 50 mg PO DAILY 12/19/16 [History] Umeclidinium Brm/Vilanterol Tr [Anoro Ellipta 62.5-25 Mcg INH] 1 puff IH DAILY 12/19/16 [History] metOLazone [Zaroxolyn] 2.5 mg PO DAILY 12/19/16 [History] BuPROPion [Wellbutrin] 75 mg PO BID 12/24/16 [History] Acetaminophen [Tylenol] 650 mg PO Q6HR PRN #0 tablet 01/04/17 [Rx] Gabapentin [Neurontin] 300 mg PO BID capsule 01/04/17 [Rx] HYDROcodone/Acet 10/325 mg [[place] 10-325 mg] 1 each PO Q6H PRN #10 tablet [Rx] LORazepam [Ativan] 0.5 mg PO Q8H PRN #10 tablet 01/04/17 [Rx] Lactobacillus [Culturelle] 2 each PO DAILY cap.sprink 01/04/17 [Rx] Saline Nasal [place] [Collin Nasal [place]] 2 spray NS Q2H PRN #0 bottle 01/04/17 [Rx ] Tamsulosin [Flomax] 0.4 mg PO DAILY capsule 01/04/17 [Rx] Rivaroxaban [Xarelto] 10 mg PO 1700 #30 tablet 01/16/17 [Rx] Tizanidine HCl [Zanaflex] 2 mg PO HS 04/05/17 [History] predniSONE [PredniSONE] 10 mg PO DAILY 04/05/17 [History] Collagenase Oint [Santyl] 1 appl TP DAILY 04/06/17 [History] Potassium Chloride 50 meq PO DAILY 04/11/17 [Rx] Lovastatin [Mevacor] 20 mg PO DAILY 06/12/17 [History] metFORMIN [Glucophage] 500 mg PO DAILY 06/12/17 [History] HYDROcodone/Acet 10/325 mg [[place] 10-325 mg] 1 each PO Q6H PRN #20 tablet [Rx] Sulfamethoxazole/Trimeth DS [Bactrim Ds] 1 each PO BID 7 Days tablet 06/18/17 [ Rx] Allergies/Adverse Reactions: 3 Allergy/AdvReac Type Severity Reaction Status Date / Time doxycycline Allergy Hives Verified 06/06/17 12:13 Oxycodone [From Percocet] Allergy Swelling Verified 06/06/17 12:13 of Lip/Tongue/Throat Penicillins [PCN] Allergy Hives Verified 06/06/17 12:13 codeine AdvReac Flushing Verified 06/06/17 12:13 meperidine AdvReac Hallucinati Verified 06/06/17 12:13 ng morphine AdvReac Nightmare Verified 06/06/17 12:13 Date of admission: 06/14/17 10:41 Primary care physician: Sidney Martinez MD Consults: 06/12/17 04:36 Consult to Nutrition [CONS] Routine Comment: Consulting Provider: NUTRITION Reason for Dietary Consult: MST Score Consult to Pastoral Services [CONS] Routine Comment: Consult to Closet Builder [CONS] Routine Reason for SW Consult: pt receives home health and home oxygen through [place] 06/12/17 08:14 PT [Consult to Physical Therapy] [CONS] Routine Comment: Evaluate, develop and implement POC Reason for Consult: Falls 06/12/17 08:15 OT [Consult to Occupational Therapy] [CONS] Routine Comment: Evaluate, develop and implement POC Reason for Consult: Falls 06/12/17 11:06 Consult to Interpret Exam [CONS] Routine Consulting Provider: Tenisha Kelly Consult to Interpret Exam: Interpret EEG 06/12/17 12:25 Consult to Wound Care [CONS] Routine Reason for Consult: L leg wound chronic Call Completed: No 06/12/17 14:46 Consult to Respiratory Therapy [CONS] Routine Reason for Consult: Pt uses Bipap at home? Call Completed: No 06/13/17 14:14 Consult to Podiatry [CONS] Routine Consulting Provider: Podiatry [facility] Reason for Consult: Left ankle fracture Call Completed: Yes - Patient Status Disposition: Transfer SNF Condition: Good Overall status at discharge: patient is back to baseline - Discharge Instructions Follow Up With: Sidney Martinez MD [Primary Care Provider] - ( visits patient home... ) Alvaro Pelletier DPM [Partnered Physician] - Jorge Rubin MD [Partnered Physician] - Additional Instructions: Rt wound dressing instructions - use calcium alginate, 4x4 gauze, abdominal pads , kerlix on right foot wounds-changed daily Need to fu with Dr. Ritter in 1 week regarding your Left ankle fx Non weight baring in both legs. - Diet and Activity Activity: as per physical therapy Diet: low salt diet Hospital course: Mr. Sinha is a 72 year old male with hx of lung cancer transferred from [place] ED for syncopal episodes. Pt stated he had 4-7 episodes yesterday morning. At least 2 episodes occurred when he was in a seated position. No dizziness, CP, palpitations or other symptoms. He also mentioned Left ankle pain started after a fall. Pt was admittd in the hospital and placed him monitor technician. all his syncopal work up came back as negative. Normal 2 D Ehco - LVEF 60% Mild diastolic dysfunction. Chest CTA - No PE..Enlarging Rt LL mass and Head CT - No acute ICH, EEG - normal study. His Left ankle X ray showed an oblique fracture of Left distal tibia. Pt was seen by pathologist and recommend conservatve management with non weight baring and continuous boot placement due to his moderate to severe PAD high risk for post op complications. Cutter Inspector Dr. Pelletier going to f/u on him closely as an out pt regarding his Left ankle fracture and Rt foot ulcer. Pt does have chronic non healing Rt foot ulcer , was evaluated by Cutter Inspector who does not think any active infection. However his wound cx growing Enterobacter and MRSA ( mostly contaminated ), with heavy duty custodian recommendation will treat with PO abx Bactrim for one week. Will d/c him to ECF in stable condition today - Time Spent with Patient Total time spent providing and/or coordinating discharge services: Greater than 30 minutes (Spent 35 minutes on his d/c summaru due to multilple complex medical problems needed longer time for discharged instructions.) - Constitutional Vitals: Temp Pulse Resp BP Pulse Ox 97.8 F 107 16 101/46 89 06/18/17 07:08 06/18/17 07:08 06/18/17 07:08 06/18/17 07:08 06/18/17 07:08 General appearance: Present: cooperative, A&O X 3, obese, answers questions appropriately - Head Head exam: Present: atraumatic, normal inspection - Respiratory Respiratory exam: Present: decreased breath sounds, wheezes (mild). Absent: respiratory distress, rhonchi - Cardiovascular Cardiovascular exam: Present: RRR, +S1, +S2. Absent: systolic murmur - GI/Abdominal GI/Abdominal exam: Present: soft. Absent: rebound, rigid, tenderness - Extremities Exam Extremities exam: Present: pedal edema, tenderness (Rt ankle)
--- NOTE | 2017-06-18 10:38 | Physician Discharge Referral ---
ExtendedCare Referral Info Transfer To: ECF Provider in Charge after Transfer: PCP Institutional Level of Care: Skilled - Diagnosis (1) Ankle fracture, left Status: Acute (2) Syncope Status: Acute (3) Chronic ulcer of right foot with fat layer exposed Status: Acute (4) HTN (hypertension) Status: Chronic (5) HLD (hyperlipidemia) Status: Chronic (6) COPD (chronic obstructive pulmonary disease) Status: Chronic (7) DVT prophylaxis Status: Acute (8) Sleep apnea Status: Chronic (9) PAD (peripheral artery disease) Status: Chronic (10) Non-small cell lung cancer (NSCLC) Status: Chronic - Transfer Medications Prescriptions: HYDROcodone/Acet 10/325 mg [[place] 10-325 mg] 1 each PO Q6H PRN #20 tablet PRN Reason: Pain Home Medications: Allopurinol [Zyloprim] 300 mg PO DAILY 03/02/15 [History] Cholecalciferol (Vitamin D3) [Vitamin D] 2,000 unit PO DAILY 03/02/15 [History] Clopidogrel [Plavix] 75 mg PO DAILY 03/02/15 [History] Docusate [Colace] 200 mg PO BID 03/02/15 [History] FLUoxetine HCl [Prozac] 60 mg PO DAILY 03/02/15 [History] Famotidine [Pepcid] 20 mg PO BID 03/02/15 [History] Ferrous Sulfate 325 mg PO BID 03/02/15 [History] Furosemide [Lasix] 80 mg PO BID 03/02/15 [History] Levothyroxine Sodium [Synthroid] 200 mcg PO DAILY 03/02/15 [History] Magnesium Oxide [Magnesium] 400 mg PO DAILY 03/02/15 [History] Metoprolol [Lopressor] 25 mg PO BID 03/02/15 [History] Multivitamin [Multivitamins] 1 cap PO DAILY 03/02/15 [History] Roflumilast [Daliresp] 500 mcg PO DAILY 03/02/15 [History] Ropinirole HCl [Requip] 2 mg PO BID 03/02/15 [History] Ammonium Lactate [Amlactin] 1 appl TP BID 12/19/16 [History] Ipratropium/Albuterol Neb [Duoneb] 3 ml IH Q6HR 12/19/16 [History] Lidocaine/Hydrocortisone AC [Lidocaine-Hydrocort 3-2.5% Gel] 1 appl RC BID 12/19 [History] Polyethylene Glycol 3350 [MiraLAX Powder Bulk 17.9 Oz] 17 gm PO DAILY 12/19/16 [ History] Spironolactone [Aldactone] 50 mg PO DAILY 12/19/16 [History] Umeclidinium Brm/Vilanterol Tr [Anoro Ellipta 62.5-25 Mcg INH] 1 puff IH DAILY 12/19/16 [History] metOLazone [Zaroxolyn] 2.5 mg PO DAILY 12/19/16 [History] BuPROPion [Wellbutrin] 75 mg PO BID 12/24/16 [History] Acetaminophen [Tylenol] 650 mg PO Q6HR PRN #0 tablet 01/04/17 [Rx] Gabapentin [Neurontin] 300 mg PO BID capsule 01/04/17 [Rx] HYDROcodone/Acet 10/325 mg [[place] 10-325 mg] 1 each PO Q6H PRN #10 tablet [Rx] LORazepam [Ativan] 0.5 mg PO Q8H PRN #10 tablet 01/04/17 [Rx] Lactobacillus [Culturelle] 2 each PO DAILY cap.sprink 01/04/17 [Rx] Saline Nasal [place] [[place] Nasal [place]] 2 spray NS Q2H PRN #0 bottle 01/04/17 [Rx ] Tamsulosin [Flomax] 0.4 mg PO DAILY capsule 01/04/17 [Rx] Rivaroxaban [Xarelto] 10 mg PO 1700 #30 tablet 01/16/17 [Rx] Tizanidine HCl [Zanaflex] 2 mg PO HS 04/05/17 [History] predniSONE [PredniSONE] 10 mg PO DAILY 04/05/17 [History] Collagenase Oint [Santyl] 1 appl TP DAILY 04/06/17 [History] Potassium Chloride 50 meq PO DAILY 04/11/17 [Rx] Lovastatin [Mevacor] 20 mg PO DAILY 06/12/17 [History] metFORMIN [Glucophage] 500 mg PO DAILY 06/12/17 [History] HYDROcodone/Acet 10/325 mg [[place] 10-325 mg] 1 each PO Q6H PRN #20 tablet [Rx] Sulfamethoxazole/Trimeth DS [Bactrim Ds] 1 each PO BID 7 Days tablet 06/18/17 [ Rx] Allergies/Adverse Reactions: 3 Allergy/AdvReac Type Severity Reaction Status Date / Time doxycycline Allergy Hives Verified 06/06/17 12:13 Oxycodone [From Percocet] Allergy Swelling Verified 06/06/17 12:13 of Lip/Tongue/Throat Penicillins [PCN] Allergy Hives Verified 06/06/17 12:13 codeine AdvReac [place] Verified 06/06/17 12:13 meperidine AdvReac Hallucinati Verified 06/06/17 12:13 ng morphine AdvReac Nightmare Verified 06/06/17 12:13 - Respiratory Orders Smoking Cessation: Smoking cessation has been advised. For more information, call the [place] Tobacco Quit Line at 1-084-BTEVNOW. CERTIFICATION: I certify that the transfer of the above named patient to an Extended Care Facility is necessary for the continuing treatment of the diagnosis listed. The above information is true and accurate reflection of patient's current condition. Confidential - Redisclosure prohibited without a patient's written consent.
[2017-06-18 12:05] VITALS: BP 99/66
== END 2017-06-18 17:14 | DRG 312 ==
LOC: 2ANU → SUATTDRO 03:36
PROVIDERS: ADMIT Hospitalist; ATTEND Family Medicine

== ENCOUNTER 2017-11-16 17:14 | Inpatient (IN) ==
[2017-11-16 18:31] LABS: Basophils % 0.1 %; Hematocrit 34.3 % (37.5-50.1); Hemoglobin 10.7 g/dL (12.9-16.9); Immature Granulocytes % 1.4 % (0-4); Lymphocytes # 0.9 K/mcL (0.6-4.6); Lymphocytes % 5.3 %; Mean Corpuscular HGB Conc 31.2 g/dL (31.6-35.5); Mean Corpuscular Hemoglobin 26.9 pg (28.0-33.3); Mean Corpuscular Volume 86.2 fL (83.0-100.0); Monocytes # 0.6 K/mcL (0.0-1.3); Monocytes % 3.7 %; Neutrophils # 14.8 K/mcL (1.6-8.9); Platelet Count 263 K/mcL (140-400); Red Blood Count 3.98 M/mcL (4.19-5.50); Red Cell Distribution Width 16.3 % (11.5-14.5); Segmented Neutrophils % 89.5 %
[2017-11-16 18:54] LABS: Alanine Aminotransferase 28 Units/L (7-52); Albumin 3.2 g/dL (3.5-5.7); Alkaline Phosphatase 63 Units/L (34-104); Aspartate Amino Transferase 19 Units/L (13-39); BUN/Creatinine Ratio 20 (6-26); Bilirubin,Total 0.7 mg/dL (0.3-1.0); Blood Urea Nitrogen 16 mg/dL (8-23); C-Reactive Protein 226 mg/L (Less than 10); Carbon Dioxide 28 mEq/L (23-29); Chloride 98 mEq/L (98-107); Globulin 3.3 g/dL (2.4-3.5); Glucose 161 mg/dL (70-105); Osmolality,Calculated 279 (280-300); Potassium 3.9 mEq/L (3.5-5.1); Sodium 132 mEq/L (136-145); Total Protein 6.5 g/dL (6.4-8.9); eGFR For African Americans > 60 (> 60); eGFR For Non-African Americans > 60 (> 60)
--- NOTE | 2017-11-16 21:58 | Emergency Department Note ---
Disposition Clinical Impression: Sepsis Qualifiers: Sepsis type: sepsis due to unspecified organism Qualified Code(s): A41.9 - Sepsis, unspecified organism Disposition: Admitted As Inpatient Condition: Undetermined Referrals: Sidney Martinez MD [Primary Care Provider] - General Adult HPI - General Chief complaint: ED Extremity Injury, Lower Stated complaint: sent by [facility] doc Time Seen by Provider: 11/16/17 17:31 Nursing Notes Reviewed: Yes Vital Signs Reviewed: Yes - History of Present Illness HPI Narrative: This is a 72-year-old male presents from a nursing facility with concern of a ulcer which is being monitored by the wound center on the right foot. There is a large area of ulceration and tissue with minimal surrounding erythema. There is a secondary lesion over the right ankle. There is reported fever at the nursing facility. The patient has multiple comorbid conditions. Denies chest pain, dyspnea. He does have intermittent confusion. General: No acute distress HEENT: Pupils equal and reactive to light, extraoccular muscle movement is normal, TMS are clear bilaterally. Heart: RRR, No murmor rub or gallop Lungs: lungs clear, no wheezing, rales or ronchi. ABD: SNT, no focal areas or tenderness, no guarding or rebound tenderness. Extremities: No cyanosis, clubbing or edema Neuro: CN 2-12 in tact, no focal deficit. strength 5/5. Intermittent confusion Skin shows a ulcerated lesion on the right foot with surrounding tissue and minimal erythema and a secondary lesion on the ankle. There are good distal pulses Medical decision making Findings consistent with early sepsis. Broad-spectrum antibiotics were initiated cover for both pseudomonas and MRSA. Cultures were sent. Lactate was checked and was normal. Fluid bolus was initiated. White count is mildly elevated. Plan to admit for further evaluation and management. Podiatry was notified. Consult was placed for podiatry. The patient will be admitted to the hospitalist service for further management and treatment of infected diabetic wound.Xray shows no evidence of gas forming organism. Pain Scale: 0 - Related Data Home Medications Medication Instructions Recorded Confirmed Allopurinol [Zyloprim] 300 mg PO DAILY 03/02/15 11/16/17 Cholecalciferol (Vitamin D3) 2,000 unit PO DAILY 03/02/15 11/16/17 [Vitamin D] Clopidogrel [Plavix] 75 mg PO DAILY 03/02/15 11/16/17 FLUoxetine HCl [Prozac] 80 mg PO DAILY 03/02/15 11/16/17 Ferrous Sulfate 325 mg PO BID 03/02/15 11/16/17 Levothyroxine Sodium [Synthroid] 200 mcg PO DAILY 03/02/15 11/16/17 Metoprolol [Lopressor] 25 mg PO BID 03/02/15 11/16/17 Roflumilast [Daliresp] 500 mcg PO DAILY 03/02/15 11/16/17 Ropinirole HCl [Requip] 2 mg PO BID PRN 03/02/15 11/16/17 Ipratropium/Albuterol Neb [Duoneb] 3 ml IH Q6HR 12/19/16 11/16/17 BuPROPion [Wellbutrin] 100 mg PO BID 12/24/16 11/16/17 Tizanidine HCl [Zanaflex] 2 mg PO HS 04/05/17 11/16/17 predniSONE [PredniSONE] 40 mg PO DAILY 04/05/17 11/16/17 Collagenase Oint [Santyl] 1 appl TP DAILY 04/06/17 11/16/17 Lovastatin [Mevacor] 20 mg PO HS 06/12/17 11/16/17 Furosemide [Lasix] 80 mg PO BID 08/23/17 11/16/17 DiphenhydraMINE [Benadryl] 25 mg PO Q6HR PRN 09/21/17 11/16/17 Fluticasone/Vilanterol [Breo 1 each IH DAILY 09/21/17 11/16/17 Ellipta 100-25 Mcg INH] Gentamicin Oint [Garamycin] 1 appl TP BID 09/21/17 11/16/17 GuaiFENesin/Dextromethorphan 10 ml PO Q6HR PRN 09/21/17 11/16/17 [Robitussin/DM] HYDROcodone/Acet 10/325 mg [[place] 1 each PO Q4H PRN 09/21/17 11/16/17 10-325 mg] Methyl Salicylate/Menthol [Muscle 1 appl TP Q6H PRN 09/21/17 11/16/17 Rub Cream] Ondansetron HCl [Zofran] 4 mg PO Q6H PRN 09/21/17 11/16/17 Triamcinolone Acet 0.1% CRM 1 appl TP BID 09/21/17 11/16/17 [Kenalog] Albuterol Neb [Proventil Neb] 2.5 mg IH Q4HR 11/16/17 11/16/17 Calcium Carbonate [Tums] 1,000 mg PO Q4HR 11/16/17 11/16/17 Mupirocin [Bactroban Oint] 1 appl TP BID 11/16/17 11/16/17 Ondansetron HCl [Zofran] 4 mg PO Q6HR PRN 11/16/17 11/16/17 Ranitidine HCl [Acid [employer]berer [employer] Wirer] 150 mg PO BID 11/16/17 11/16/17 levoFLOXacin [Levaquin] 750 mg PO DAILY 11/16/17 11/16/17 Previous Rx's Medication Instructions Recorded Acetaminophen [Tylenol] 650 mg PO Q6HR PRN #0 tablet 01/04/17 Gabapentin [Neurontin] 300 mg PO BID capsule 01/04/17 Tamsulosin [Flomax] 0.4 mg PO DAILY capsule 01/04/17 Rivaroxaban [Xarelto] 10 mg PO 1700 #30 tablet 01/16/17 Allergies Allergy/AdvReac Type Severity Reaction Status Date / Time doxycycline Allergy Hives Verified 06/06/17 12:13 Oxycodone [From Percocet] Allergy Swelling Verified 06/06/17 12:13 of Lip/Tongue/Throat Penicillins [PCN] Allergy Hives Verified 06/06/17 12:13 codeine AdvReac Fl[place] Verified 06/06/17 12:13 meperidine AdvReac Hallucinati Verified 06/06/17 12:13 ng morphine AdvReac Nightmare Verified 06/06/17 12:13 All systems ED: reviewed and negative except as stated. Review of Systems: As Per HPI Constitutional: Reports: as per HPI Eyes: Reports: as per HPI ENT ED: Reports: as per HPI Cardiovascular: Reports: as per HPI Respiratory: Reports: as per HPI Gastrointestinal: Reports: as per HPI Genitourinary: Reports: as per HPI Musculoskeletal: Reports: as per HPI Integumentary: Reports: as per HPI Neurological: Reports: as per HPI Psychiatric: Reports: as per HPI Endocrine: Reports: as per HPI Hematological/Lymphatic: Reports: as per HPI Allergic/Immunologic: Reports: as per HPI Past Medical History - Past Medical History Medical history: Reports: arthritis, cancer, CHF, COPD, diabetes, hypertension, thyroid disease, syncope, venous stasis, other Surgical history: Reports: cataract, cholecystectomy, LE vascular intervention, vascular surgery, other Psychiatric history: Reports: anxiety - Social History Smoking Status: Former smoker Smokeless Tobacco Status: No Alcohol use: Reports: occasionally Drug use: Reports: none Physical Exam - General General appearance: alert, in no apparent distress Course Vital Signs Temperature 98.5 F 11/16/17 17:38 Pulse Rate 93 11/16/17 17:38 Respiratory Rate 16 11/16/17 17:38 Blood Pressure 108/57 11/16/17 17:38 O2 Sat by Pulse Oximetry 96 11/16/17 17:38 Temperature 98.5 F 11/16/17 17:38 Pulse Rate 92 11/16/17 20:32 Respiratory Rate 16 11/16/17 20:32 Blood Pressure 128/64 11/16/17 20:32 O2 Sat by Pulse Oximetry 97 11/16/17 20:32 Oxygen Delivery Oxygen Delivery Nasal Cannula Medical Decision Making - Lab Data Result diagrams: 11/16/17 18:19 11/16/17 18:19 Lab Results 11/16/17 11/16/17 11/16/17 Range/Units 18:19 18:19 18:19 WBC 16.5 H (4.3-11.1) K/mcL RBC 3.98 L (4.19-5.50) M/mcL Hgb 10.7 L (12.9-16.9) g/dL Hct 34.3 L (37.5-50.1) % MCV 86.2 (83.0-100.0) fL MCH 26.9 L (28.0-33.3) pg MCHC 31.2 L (31.6-35.5) g/dL RDW 16.3 H (11.5-14.5) % Plt Count 263 (140-400) K/mcL MPV 10.0 (9.4-12.4) fL Immature Gran % 1.4 (0-4) % Seg Neutrophils % 89.5 % Lymphocytes % 5.3 % Monocytes % 3.7 % Eosinophils % 0.0 % Basophils % 0.1 % Neutrophils # 14.8 H (1.6-8.9) K/mcL Lymphocytes # 0.9 (0.6-4.6) K/mcL Monocytes # 0.6 (0.0-1.3) K/mcL Eosinophils # 0.0 (0.0-0.6) K/mcL Basophils # 0.0 (0.0-0.2) K/mcL ESR 115 H (0-10) mm/hr Sodium 132 L (136-145) mEq/L Potassium 3.9 (3.5-5.1) mEq/L Chloride 98 (98-107) mEq/L Carbon Dioxide 28 (23-29) mEq/L BUN 16 (8-23) mg/dL Creatinine 0.80 (0.70-1.30) mg/dL Est GFR ( Amer) > 60 (> 60) Est GFR (Non-Af Amer) > 60 (> 60) BUN/Creatinine Ratio 20 (6-26) Glucose 161 H (70-105) mg/dL Calculated Osmolality 279 L (280-300) Lactic Acid (0.5-2.2) mmol/L Calcium 9.0 (8.6-10.3) mg/dL Total Bilirubin 0.7 (0.3-1.0) mg/dL AST 19 (13-39) Units/L ALT 28 (7-52) Units/L Alkaline Phosphatase 63 (34-104) Units/L C-Reactive Protein 226 H (Less than 10) mg/L Serum Total Protein 6.5 (6.4-8.9) g/dL Albumin 3.2 L (3.5-5.7) g/dL Globulin 3.3 (2.4-3.5) g/dL Albumin/Globulin Ratio 1.0 L (1.1-2.2) 11/16/17 Range/Units 18:19 WBC (4.3-11.1) K/mcL RBC (4.19-5.50) M/mcL Hgb (12.9-16.9) g/dL Hct (37.5-50.1) % MCV (83.0-100.0) fL MCH (28.0-33.3) pg MCHC (31.6-35.5) g/dL RDW (11.5-14.5) % Plt Count (140-400) K/mcL MPV (9.4-12.4) fL Immature Gran % (0-4) % Seg Neutrophils % % Lymphocytes % % Monocytes % % Eosinophils % % Basophils % % Neutrophils # (1.6-8.9) K/mcL Lymphocytes # (0.6-4.6) K/mcL Monocytes # (0.0-1.3) K/mcL Eosinophils # (0.0-0.6) K/mcL Basophils # (0.0-0.2) K/mcL ESR (0-10) mm/hr Sodium (136-145) mEq/L Potassium (3.5-5.1) mEq/L Chloride (98-107) mEq/L Carbon Dioxide (23-29) mEq/L BUN (8-23) mg/dL Creatinine (0.70-1.30) mg/dL Est GFR ( Amer) (> 60) Est GFR (Non-Af Amer) (> 60) BUN/Creatinine Ratio (6-26) Glucose (70-105) mg/dL Calculated Osmolality (280-300) Lactic Acid 1.4 (0.5-2.2) mmol/L Calcium (8.6-10.3) mg/dL Total Bilirubin (0.3-1.0) mg/dL AST (13-39) Units/L ALT (7-52) Units/L Alkaline Phosphatase (34-104) Units/L C-Reactive Protein (Less than 10) mg/L Serum Total Protein (6.4-8.9) g/dL Albumin (3.5-5.7) g/dL Globulin (2.4-3.5) g/dL Albumin/Globulin Ratio (1.1-2.2)
--- NOTE | 2017-11-16 22:48 | Internal Med History&Physical ---
<Mynor Escobar - Last Filed: 11/16/17 23:55> Date of Encounter: 11/16/17 Time of Encounter: 23:00 Assessment and Plan (1) Sepsis Current visit: Yes Status: Acute Patient presents with 2 SIRS criteria (leukocytosis and elevated heart rate) with source of R foot ulcer Chronic foot ulcer followed by podiatry in the wound clinic ESR/CRP elevated Lactate normal XR without evidence of osteomyelitis Blood cultures obtained Received Vanc/Cipro in ED Continue vancomycin, add Zosyn for anaerobic coverage. Podiatry consultation Qualifiers: Sepsis type: sepsis due to unspecified organism Qualified Code(s): A41.9 - Sepsis, unspecified organism (2) Diabetic foot ulcer Current visit: No Status: Chronic Chronic right foot ulcer with patient report of 8 months of treatment ESR 115, CRP 226, WBC 16 XR without evidence of osteomyelitis Podiatry consultation Continue vanc and Zosyn. Qualifiers: Diabetic foot ulcer location: midfoot Diabetes mellitus type: type 2 Non- pressure ulcer stage: with fat layer exposed Qualified Code(s): E11.621 - Type 2 diabetes mellitus with foot ulcer; L97.412 - Non-pressure chronic ulcer of right heel and midfoot with fat layer exposed; L97.412 - Non-pressure chronic ulcer of right heel and midfoot with fat layer exposed; L97.412 - Non- pressure chronic ulcer of right heel and midfoot with fat layer exposed; L97.412 - Non-pressure chronic ulcer of right heel and midfoot with fat layer exposed (3) Peripheral vascular disease Current visit: No Status: Chronic Previous Left femoral endarterectomy, right superficial femoral artery angioplasty and a right common iliac stent. Continue plavix and xarelto (4) COPD (chronic obstructive pulmonary disease) Current visit: No Status: Chronic Albuterol inh PRN Continuous pulse oximetry Supplemental O2 goal sat>90% Qualifiers: COPD type: chronic bronchitis Chronic bronchitis type: mucopurulent Qualified Code(s): J41.1 - Mucopurulent chronic bronchitis (5) Diabetes mellitus Current visit: No Status: Chronic Gluc 161 on arrival SSI coverage Qualifiers: Diabetes mellitus type: type 2 Diabetes mellitus prison insulin use: without prison use Diabetes mellitus complication status: with neurologic complications Diabetes mellitus complication detail: with polyneuropathy Qualified Code(s): E11.42 - Type 2 diabetes mellitus with diabetic polyneuropathy (6) Diastolic CHF, chronic Current visit: No Status: Chronic Continue home lasix (7) HLD (hyperlipidemia) Current visit: No Status: Chronic Continue statin Qualifiers: Hyperlipidemia type: mixed hyperlipidemia Qualified Code(s): E78.2 - Mixed hyperlipidemia (8) HTN (hypertension) Current visit: No Status: Chronic Qualifiers: Hypertension type: essential hypertension Qualified Code(s): I10 - Essential (primary) hypertension (9) Non-small cell lung cancer (NSCLC) Current visit: No Status: Chronic Followed by oncology Receiving radiation Qualifiers: Laterality: right Qualified Code(s): C34.91 - Malignant neoplasm of unspecified part of right bronchus or lung (10) Sleep apnea Current visit: No Status: Chronic Bipap at night Qualifiers: Sleep apnea type: obstructive Qualified Code(s): G47.33 - Obstructive sleep apnea (adult) (pediatric) Internal Medicine - H&P: HPI Chief complaint: Foot ulcer Admitted From: Emergency Dept Plans for Post Hospital Care: Transfer Alf Facility History of present illness: Mr. Sinha is a 72 year old male with a past medical history of diabetes, chronic diabetic foot ulcer, non-small cell carcinoma, COPD with oxygen dependency, hyperlipidemia, hypertension who presented to the emergency department on 11/16/17 from his nursing facility with a chief complaint of worsening ulcer. Patient reports that the physician there thought that his ulcer looked worse and sent him here for evaluation. He denies any real change in the appearance of it. Reports that he has had this issue for the last 8 months and follows with podiatry in the wound clinic. He thinks that he was on antibiotics most recently 4 days ago being Bactrim. He denies any fevers at the facility. States that he has had some nausea and vomiting are minimally for the last week that is nonbloody nonbilious. Generalized abdominal pain during this time. No change in bowel habits. The patient was evaluated in the emergency department where he was noted to have a leukocytosis, elevated heart rate, CRP and ESR. X-rays without evidence of osteomyelitis. He was given vancomycin and Cipro after blood cultures were obtained. At the time of evaluation in the emergency department the patient is alert comfortable in no acute distress with no new issues or concerns. Past Med Surg Social Fam HX - Past Medical History Attestation: Yes The following information was validated with the patient. Source: patient Medical history: arthritis, cancer, CHF, COPD, diabetes, hypertension, thyroid disease, syncope, venous stasis, other Psychiatric history: anxiety - Past Surgical History Surgical History: cataract, cholecystectomy, LE vascular intervention, vascular surgery, other - Social History Smoking Status: Former smoker Smokeless Tobacco Status: No Alcohol use: occasionally Drug use: none - Family History Father Family Member Ethnicity: Non- Living Status: Hx Family Neurologic Disorders: Yes (Alzheimer's disease) Mother Family Member Ethnicity: Non- Living Status: Internal Medicine - H&P: Meds Allopurinol [Zyloprim] 300 mg PO DAILY 03/02/15 [History] Cholecalciferol (Vitamin D3) [Vitamin D] 2,000 unit PO DAILY 03/02/15 [History] Clopidogrel [Plavix] 75 mg PO DAILY 03/02/15 [History] FLUoxetine HCl [Prozac] 80 mg PO DAILY 03/02/15 [History] Ferrous Sulfate 325 mg PO BID 03/02/15 [History] Levothyroxine Sodium [Synthroid] 200 mcg PO DAILY 03/02/15 [History] Metoprolol [Lopressor] 25 mg PO BID 03/02/15 [History] Roflumilast [Daliresp] 500 mcg PO DAILY 03/02/15 [History] Ropinirole HCl [Requip] 2 mg PO BID PRN 03/02/15 [History] Ipratropium/Albuterol Neb [Duoneb] 3 ml IH Q6HR 12/19/16 [History] BuPROPion [Wellbutrin] 100 mg PO BID 12/24/16 [History] Acetaminophen [Tylenol] 650 mg PO Q6HR PRN #0 tablet 01/04/17 [Rx] Gabapentin [Neurontin] 300 mg PO BID capsule 01/04/17 [Rx] Tamsulosin [Flomax] 0.4 mg PO DAILY capsule 01/04/17 [Rx] Rivaroxaban [Xarelto] 10 mg PO 1700 #30 tablet 01/16/17 [Rx] Tizanidine HCl [Zanaflex] 2 mg PO HS 04/05/17 [History] predniSONE [PredniSONE] 40 mg PO DAILY 04/05/17 [History] Collagenase Oint [Santyl] 1 appl TP DAILY 04/06/17 [History] Lovastatin [Mevacor] 20 mg PO HS 06/12/17 [History] Furosemide [Lasix] 80 mg PO BID 08/23/17 [History] DiphenhydraMINE [Benadryl] 25 mg PO Q6HR PRN 09/21/17 [History] Fluticasone/Vilanterol [Breo Ellipta 100-25 Mcg INH] 1 each IH DAILY 09/21/17 [ History] Gentamicin Oint [Garamycin] 1 appl TP BID 09/21/17 [History] GuaiFENesin/Dextromethorphan [Robitussin/DM] 10 ml PO Q6HR PRN 09/21/17 [History ] HYDROcodone/Acet 10/325 mg [[place] 10-325 mg] 1 each PO Q4H PRN 09/21/17 [History ] Methyl Salicylate/Menthol [Muscle Rub Cream] 1 appl TP Q6H PRN 09/21/17 [History ] Ondansetron HCl [Zofran] 4 mg PO Q6H PRN 09/21/17 [History] Triamcinolone Acet 0.1% CRM [Kenalog] 1 appl TP BID 09/21/17 [History] Albuterol Neb [Proventil Neb] 2.5 mg IH Q4HR 11/16/17 [History] Calcium Carbonate [Tums] 1,000 mg PO Q4HR 11/16/17 [History] Mupirocin [Bactroban Oint] 1 appl TP BID 11/16/17 [History] Ondansetron HCl [Zofran] 4 mg PO Q6HR PRN 11/16/17 [History] Ranitidine HCl [Acid [employer]] 150 mg PO BID 11/16/17 [History] levoFLOXacin [Levaquin] 750 mg PO DAILY 11/16/17 [History] 3 Allergy/AdvReac Type Severity Reaction Status Date / Time doxycycline Allergy Hives Verified 06/06/17 12:13 Oxycodone [From Percocet] Allergy Swelling Verified 06/06/17 12:13 of Lip/Tongue/Throat Penicillins [PCN] Allergy Hives Verified 06/06/17 12:13 codeine AdvReac Flushing Verified 06/06/17 12:13 meperidine AdvReac Hallucinati Verified 06/06/17 12:13 ng morphine AdvReac Nightmare Verified 06/06/17 12:13 All Systems PM: A 10-system review of systems was performed and is negative for pertinent findings except as documented above in the HPI. - Constitutional Constitutional: as per HPI, no fever(s) - EENT Eyes: as per HPI Ears: as per HPI Nose, mouth and throat: as per HPI - Breasts Breasts: as per HPI - Cardiovascular Cardiovascular ROS IM: as per HPI - Respiratory Respiratory: as per HPI - Gastrointestinal Gastrointestinal: as per HPI, abdominal pain, nausea, vomiting, no constipation , no loose stools - Genitourinary Genitourinary ROS male: as per HPI - Musculoskeletal Musculoskeletal ROS IM: as per HPI - Integumentary Integumentary IM: as per HPI, erythema, skin ulcer - Neurological Neurological ROS: as per HPI - Psychiatric Psychiatric: as per HPI - Endocrine Endocrine IM: as per HPI - Hematologic/Lymphatic Hematologic/Lymphatic: as per HPI - Allergic/Immunologic Allergic/Immunologic: as per HPI - Constitutional Vitals: Temp Pulse Resp BP Pulse Ox 98.5 F 93 18 137/70 95 11/16/17 17:38 11/16/17 22:14 11/16/17 22:14 11/16/17 22:14 11/16/17 22:14 General appearance: Present: pleasant, no acute distress, answers questions appropriately - Head Head exam: Present: atraumatic, normal inspection, normocephalic - Eye Eye exam: Present: conjunctival injection (Right eye) - ENT ENT exam: Present: mucous membranes moist, normal exam - Neck Neck exam general surgery: Present: full ROM - Respiratory Respiratory exam: Present: CTAB. Absent: prolonged expiratory phase, respiratory distress, rhonchi, wheezes - Cardiovascular Cardiovascular exam: Present: RRR, +S1, +S2 - GI/Abdominal GI/Abdominal exam: Present: soft. Absent: distended, guarding, tenderness - Extremities Exam Extremities exam: Present: full ROM. Absent: cyanotic, mottling, pedal edema Additional comments: The patient has appearance of venous stasis in the bilateral lower extremities with lipodermatosclerosis. There is a roughly 5 x 3 cm area of ulceration over the right distal lateral foot with involvement of the subcutaneous tissue. No expressible drainage from the site. He is also noted to have an area of induration and fluctuance at the right lateral malleolus as well as the right heel. He also has a small roughly 1 x 1 cm ulceration over the anterior distal tibia. Capillary refill is less than 3 seconds. Unable to appreciate a palpable pulse with his history of peripheral vascular disease. Internal Med - H&P Results - Labs CBC & Chem 7: 11/16/17 18:19 11/16/17 18:19 <Antonio Olivier T - Last Filed: 11/16/17 23:59> Date of Encounter: 11/16/17 Internal Medicine - H&P: HPI History of present illness: Mr. Sinha is a 72 year old male All Systems PM: A 10-system review of systems was performed and is negative for pertinent findings except as documented above in the HPI. - Constitutional Vitals: Temp Pulse Resp BP Pulse Ox 98.5 F 93 16 128/64 95 11/16/17 17:38 11/16/17 22:14 11/16/17 23:05 11/16/17 23:05 11/16/17 22:14 Internal Med - H&P Results - Labs CBC & Chem 7: 11/16/17 18:19 11/16/17 18:19 - Attending Attestation Seen and examined at the bedside independently EMR reviewed, plan discussed with patient and resident physician Agree with plan as documented in Dr. Escobar's H/P
[2017-11-16] MEDS ORDERED: Acetaminophen 325 MG TABLET PO PRN (23:36)
[2017-11-16] MEDS ORDERED: Naloxone 0.4 MG/ML INJ IVP PRN (23:36)
[2017-11-16] MEDS ORDERED: rOPINIRole 1 MG TABLET PO PRN (23:38)
[2017-11-16] MEDS ORDERED: Albuterol 2.5 MG/3 ML NEBULIZER IH PRN (23:38)
[2017-11-16] MEDS ORDERED: *HR* HYDROcodone/Acet 10/325 mg TABLET PO PRN (23:38)
[2017-11-16] MEDS ORDERED: Vancomycin 1,750 MG in 0.9 % Sodium Chloride 250 ML IVPB SCH (23:45)
[2017-11-17 05:34] LABS: Basophils % 0.1 %; Eosinophils # 0.1 K/mcL (0.0-0.6); Eosinophils % 0.4 %; Hemoglobin 10.6 g/dL (12.9-16.9); Immature Granulocytes % 0.6 % (0-4); Lymphocytes # 1.3 K/mcL (0.6-4.6); Lymphocytes % 9.2 %; Mean Corpuscular HGB Conc 31.2 g/dL (31.6-35.5); Mean Corpuscular Hemoglobin 26.4 pg (28.0-33.3); Mean Corpuscular Volume 84.8 fL (83.0-100.0); Mean Platelet Volume 9.7 fL (9.4-12.4); Monocytes # 0.8 K/mcL (0.0-1.3); Monocytes % 5.4 %; Neutrophils # 11.7 K/mcL (1.6-8.9); Platelet Count 256 K/mcL (140-400); Red Blood Count 4.01 M/mcL (4.19-5.50); Red Cell Distribution Width 16.3 % (11.5-14.5); Segmented Neutrophils % 84.3 %
[2017-11-17 05:50] LABS: BUN/Creatinine Ratio 18 (6-26); Blood Urea Nitrogen 14 mg/dL (8-23); Calcium 9.3 mg/dL (8.6-10.3); Carbon Dioxide 26 mEq/L (23-29); Chloride 99 mEq/L (98-107); Glucose 132 mg/dL (70-105); Osmolality,Calculated 280 (280-300); Potassium 3.3 mEq/L (3.5-5.1); Sodium 134 mEq/L (136-145); eGFR For African Americans > 60 (> 60); eGFR For Non-African Americans > 60 (> 60)
[2017-11-17] MEDS ORDERED: predniSONE 10 MG TABLET PO SCH (09:00)
[2017-11-17] MEDS: BuPROPion SR (12 HR) 100 MG TABLET PO SCH ×2 (10:22→20:26)
[2017-11-17] MEDS: Famotidine 20 MG TABLET PO SCH ×2 (10:22→18:43)
[2017-11-17] MEDS: Gabapentin 300 MG CAPSULE PO SCH ×2 (10:23→20:26)
[2017-11-17] MEDS: FLUoxetine 20 MG CAPSULE PO SCH (10:23)
[2017-11-17] MEDS: Furosemide 40 MG TABLET PO SCH ×2 (10:23→18:43)
[2017-11-17] MEDS: Cholecalciferol (D-3) 1,000 UNIT TABLET PO SCH (10:23)
[2017-11-17] MEDS: Piperacillin/Tazobactam 3.375 GM in 0.9 % Sodium Chloride Mini Bag 100 ML IVPB SCH ×3 (10:24→23:06)
[2017-11-17] MEDS: Roflumilast [Daliresp] 500 MCG PO SCH (10:25)
--- NOTE | 2017-11-17 14:21 | Internal Med Progress Note ---
Date of Encounter: 11/17/17 Time of Encounter: 10:20 - Assessment and plan (1) Sepsis Current Visit: Yes Status: Acute Assessment and plan: Due to possible right foot diabetic ulcer infection. On broad-spectrum antibiotics. Leukocytosis improving. Continue current antibiotics while awaiting podiatry evaluation. Moderate risk for complications. Follow culture results. Qualifiers: Sepsis type: sepsis due to unspecified organism Qualified Code(s): A41.9 - Sepsis, unspecified organism (2) Diabetic foot ulcer Current Visit: Yes Status: Chronic Assessment and plan: With possible acute infection and sepsis. Podiatry consulted. Continue IV antibiotics. Will follow podiatry recommendations. Qualifiers: Diabetic foot ulcer location: midfoot Diabetes mellitus type: type 2 Non- pressure ulcer stage: with fat layer exposed Qualified Code(s): E11.621 - Type 2 diabetes mellitus with foot ulcer; L97.412 - Non-pressure chronic ulcer of right heel and midfoot with fat layer exposed; L97.412 - Non-pressure chronic ulcer of right heel and midfoot with fat layer exposed; L97.412 - Non- pressure chronic ulcer of right heel and midfoot with fat layer exposed; L97.412 - Non-pressure chronic ulcer of right heel and midfoot with fat layer exposed (3) COPD (chronic obstructive pulmonary disease) Current Visit: Yes Status: Chronic Assessment and plan: With mild exacerbation. Continue bronchodilators and prednisone. Patient does have bilateral wheezing. We will change bronchodilators to scheduled regimen. Will complete 5 day course of prednisone. Qualifiers: COPD type: chronic bronchitis Chronic bronchitis type: mucopurulent Qualified Code(s): J41.1 - Mucopurulent chronic bronchitis (4) Diabetes mellitus Current Visit: Yes Status: Chronic Assessment and plan: Will place patient on sliding scale insulin coverage. Continue diabetic diet. Qualifiers: Diabetes mellitus type: type 2 Diabetes mellitus [facility] insulin use: without termite treater use Diabetes mellitus complication status: with neurologic complications Diabetes mellitus complication detail: with polyneuropathy Qualified Code(s): E11.42 - Type 2 diabetes mellitus with diabetic polyneuropathy (5) HLD (hyperlipidemia) Current Visit: No Status: Chronic Qualifiers: Hyperlipidemia type: mixed hyperlipidemia Qualified Code(s): E78.2 - Mixed hyperlipidemia (6) HTN (hypertension) Current Visit: No Status: Chronic Assessment and plan: Blood pressure is well controlled currently. It was elevated last night. Could be from pain. Will monitor blood pressure and adjust antihypertensive regimen accordingly. Qualifiers: Hypertension type: essential hypertension Qualified Code(s): I10 - Essential (primary) hypertension (7) Non-small cell lung cancer (NSCLC) Current Visit: No Status: Chronic Assessment and plan: Follow-up outpatient with oncology. Patient having episodes of hallucinations and confusion per family although he does not seem to be having these symptoms currently. We will order CT scan of the head for now due to concern for malignancy. Qualifiers: Laterality: right Qualified Code(s): C34.91 - Malignant neoplasm of unspecified part of right bronchus or lung (8) Peripheral vascular disease Current Visit: No Status: Chronic Assessment and plan: Status post left femoral endarterectomy and right superficial femoral artery angioplasty and a right common iliac stent. Continue Plavix and Xarelto (9) Sleep apnea Current Visit: Yes Status: Chronic Assessment and plan: Use BiPAP while lying down. Qualifiers: Sleep apnea type: obstructive Qualified Code(s): G47.33 - Obstructive sleep apnea (adult) (pediatric) - Time Spent With Patient Total time spent is greater than 50% in coordination of care (as documented) at patient's floor/unit and/or counseling patient: - Subjective Interval history: Patient is sitting up in chair. Comfortable. Reports pain in his right foot but this is controlled with his pain medication regimen. Denies any fever or chills overnight. No nausea or vomiting. According to the patient's family, his been having hallucinations and confusion over the past 3 weeks. He was ordered a head CT yesterday but he had been brought into the hospital. - Constitutional Vitals: Temp Pulse Resp BP Pulse Ox 97.5 F L 110 18 103/65 95 11/17/17 11:44 11/17/17 11:44 11/17/17 11:44 11/17/17 11:44 11/17/17 11:44 General appearance: Present: cooperative, A&O X 3, pleasant, no acute distress, answers questions appropriately - Neck Neck exam general surgery: Present: supple, trachea midline. Absent: lymphadenopathy - Respiratory Respiratory exam: Present: prolonged expiratory phase, wheezes. Absent: accessory muscle use, rales, rhonchi - Cardiovascular Cardiovascular exam: Present: RRR, +S1, +S2. Absent: diastolic murmur, gallop, rubs, systolic murmur - GI/Abdominal GI/Abdominal exam: Present: normal bowel sounds, soft, no peritoneal signs. Absent: distended, tenderness - Extremities Exam Extremities exam: Present: warm, radial pulses palpable and symmetrical. Absent : calf tenderness, cyanotic, pedal edema Additional comments: Right foot bandaged. - Neurological Exam Neurological exam: Present: CN II-XII intact, oriented X3, no focal deficits. Absent: facial droop, speech deficit - Skin Skin exam: Present: dry, intact Internal Medicine: Result - Labs CBC & Chem 7: 11/17/17 05:19 11/17/17 05:19 Labs: Short CBC 11/17/17 Range/Units 05:19 WBC 13.9 H (4.3-11.1) K/mcL Hgb 10.6 L (12.9-16.9) g/dL Hct 34.0 L (37.5-50.1) % Plt Count 256 (140-400) K/mcL Neutrophils # 11.7 H (1.6-8.9) K/mcL BMP 11/17/17 05:19 Sodium 134 L Potassium 3.3 L Chloride 99 Carbon Dioxide 26 BUN 14 Creatinine 0.76 Glucose 132 H Calcium 9.3 Consult Discharge Plan - Plan Referrals: Sidney Martinez MD [Primary Care Provider] -
[2017-11-17] MEDS ORDERED: Dextrose Gel 15 GM/37.5 ML TUBE PO PRN ×2 (14:28)
[2017-11-17] MEDS ORDERED: *HR* Dextrose 50 % in Water (Syg) 50 ML SYRINGE IVP PRN (14:28)
[2017-11-17] MEDS ORDERED: D5% in Water 1,000 ML IVC PRN (14:28)
--- NOTE | 2017-11-17 15:24 | Podiatry Consult Note ---
Date of Encounter: 11/17/17 Time of Encounter: 02:30 Assessment and Plan (1) Type 2 diabetes mellitus with foot ulcer Current visit: No Status: Chronic reviewed with Mr. Sinha my findings and recommendations for treatment for the ulceration. right lateral foot wounds looks non-infected, cultures obtained from the foot wound by medicine or ER as stated in the notes, if it does grow anything, it is likely biofilm/burden and not actively infected. Covered with adaptic 4x4 gauze, abd pad, kerlix and should continue the same on this area. right lateral foot ulcer looks improved compared to previous. Area with infection is the right lateral ankle as discussed below and likely the source of his increased wbc count. Qualifiers: Diabetes mellitus terminal superintendent insulin use: without terminal superintendent use Qualified Code(s): E11.621 - Type 2 diabetes mellitus with foot ulcer; L97.509 - Non- pressure chronic ulcer of other part of unspecified foot with unspecified severity; L97.509 - Non-pressure chronic ulcer of other part of unspecified foot with unspecified severity; L97.509 - Non-pressure chronic ulcer of other part of unspecified foot with unspecified severity; L97.509 - Non-pressure chronic ulcer of other part of unspecified foot with unspecified severity (2) Abscess of bursa, right ankle and foot Current visit: Yes Status: Acute reviewed with Mr. iSnha my findings of the right ankle (potential abscess and infection as he does have cellulitis). discussed options for treatment and verbal consent obtained. Incision and drainage of the right ankle performed bedside (procedure description and findings below. Ordered CT scan of the right ankle to look for deeper abscess/osteomyelitis that may necessitate need to take patient to the OR. f/u CT scan. right lateral ankle prepped with betadine. Attention directed to the 0.7x0.5x0.3cm ulceration of the lateral right ankle which did not extend to bone. Stab incision made at the site of ulceration of the lateral right ankle into subcutaneous tissue. Yellow purulent drainage approximately 3cc was expressed. Cultures of this drainage were obtained and sent to the lab. Site was flushed with saline. No further purulence could be expressed. No further fluctuance felt to be present. Sterile bandage applied. CT scan ordered. History of Present Illness HPI: Mr. Sinha is a 72 year old diabetic male who is known to me from the wound care center where he is seen for a right lateral foot and lateral ankle ulceration. He has had multiple grafts put on the lateral foot in an effort to get the wound to heal. He lives in a [place] nursing facility. He missed his appointment with me last . He He is sleeping currently but is arousable. He says his doctor sent him in but he does not know why. He says his foot looks the same to him and not worse. He says he feels okay. He says he does not know why he is here. Upon admission he was found to have an increased white blood cell count. Reports in the EMR state his doctor sent him in for a worsening ulcer. Xray of his right foot did no reveal osteomyelitis. This ulceration on the right lateral foot has been present for approximately 11 months. Denies f/c/n/v. Denies sob more than baseline and chest pain. Patient is also known to Dr. Rubin who has done angiograms on his legs. He is also recovering from a left ankle fracture he sustained about 5 months ago which had been treated non-operatively. Podiatry consulted for evaluation of his right foot/ankle ulcerations. Past Med Surg Social Fam HX - Past Medical History Medical history: arthritis, cancer, CHF, COPD, diabetes, hypertension, thyroid disease, syncope, venous stasis, other Psychiatric history: anxiety - Past Surgical History Surgical History: cataract, cholecystectomy, LE vascular intervention, vascular surgery, other - Social History Smoking Status: Former smoker Smokeless Tobacco Status: No Alcohol use: occasionally Drug use: none - Family History Father Family Member Ethnicity: Non- Living Status: Hx Family Neurologic Disorders: Yes (Alzheimer's disease) Mother Family Member Ethnicity: Non- Living Status: Medications and Allergies Allopurinol [Zyloprim] 300 mg PO DAILY 03/02/15 [History] Cholecalciferol (Vitamin D3) [Vitamin D] 2,000 unit PO DAILY 03/02/15 [History] Clopidogrel [Plavix] 75 mg PO DAILY 03/02/15 [History] FLUoxetine HCl [Prozac] 80 mg PO DAILY 03/02/15 [History] Ferrous Sulfate 325 mg PO BID 03/02/15 [History] Levothyroxine Sodium [Synthroid] 200 mcg PO DAILY 03/02/15 [History] Metoprolol [Lopressor] 25 mg PO BID 03/02/15 [History] Roflumilast [Daliresp] 500 mcg PO DAILY 03/02/15 [History] Ropinirole HCl [Requip] 2 mg PO BID PRN 03/02/15 [History] Ipratropium/Albuterol Neb [Duoneb] 3 ml IH Q6HR 12/19/16 [History] BuPROPion [Wellbutrin] 100 mg PO BID 12/24/16 [History] Acetaminophen [Tylenol] 650 mg PO Q6HR PRN #0 tablet 01/04/17 [Rx] Gabapentin [Neurontin] 300 mg PO BID capsule 01/04/17 [Rx] Tamsulosin [Flomax] 0.4 mg PO DAILY capsule 01/04/17 [Rx] Rivaroxaban [Xarelto] 10 mg PO 1700 #30 tablet 01/16/17 [Rx] Tizanidine HCl [Zanaflex] 2 mg PO HS 04/05/17 [History] predniSONE [PredniSONE] 40 mg PO DAILY 04/05/17 [History] Collagenase Oint [Santyl] 1 appl TP DAILY 04/06/17 [History] Lovastatin [Mevacor] 20 mg PO HS 06/12/17 [History] Furosemide [Lasix] 80 mg PO BID 08/23/17 [History] DiphenhydraMINE [Benadryl] 25 mg PO Q6HR PRN 09/21/17 [History] Fluticasone/Vilanterol [Breo Ellipta 100-25 Mcg INH] 1 each IH DAILY 09/21/17 [ History] Gentamicin Oint [Garamycin] 1 appl TP BID 09/21/17 [History] GuaiFENesin/Dextromethorphan [Robitussin/DM] 10 ml PO Q6HR PRN 09/21/17 [History ] HYDROcodone/Acet 10/325 mg [[place] 10-325 mg] 1 each PO Q4H PRN 09/21/17 [History ] Methyl Salicylate/Menthol [Muscle Rub Cream] 1 appl TP Q6H PRN 09/21/17 [History ] Ondansetron HCl [Zofran] 4 mg PO Q6H PRN 09/21/17 [History] Triamcinolone Acet 0.1% CRM [Kenalog] 1 appl TP BID 09/21/17 [History] Albuterol Neb [Proventil Neb] 2.5 mg IH Q4HR 11/16/17 [History] Calcium Carbonate [Tums] 1,000 mg PO Q4HR 11/16/17 [History] Mupirocin [Bactroban Oint] 1 appl TP BID 11/16/17 [History] Ondansetron HCl [Zofran] 4 mg PO Q6HR PRN 11/16/17 [History] Ranitidine HCl [Acid Hematologist] 150 mg PO BID 11/16/17 [History] levoFLOXacin [Levaquin] 750 mg PO DAILY 11/16/17 [History] 3 Allergy/AdvReac Type Severity Reaction Status Date / Time doxycycline Allergy Hives Verified 06/06/17 12:13 Oxycodone [From Percocet] Allergy Swelling Verified 06/06/17 12:13 of Lip/Tongue/Throat Penicillins [PCN] Allergy Hives Verified 06/06/17 12:13 codeine AdvReac Flushing Verified 06/06/17 12:13 meperidine AdvReac Hallucinati Verified 06/06/17 12:13 ng morphine AdvReac Nightmare Verified 06/06/17 12:13 All Systems Reviewed: The remainder of the systems were reviewed and are negative - Constitutional Constitutional: weakness, no fever(s) - Cardiovascular Cardiovascular: leg ulcers, no chest pain, no dyspnea - Respiratory Respiratory: no dyspnea - Musculoskeletal Musculoskeletal: joint swelling, numbness Physical Exam - Constitutional Vitals: Temp Pulse Resp BP Pulse Ox 97.5 F L 110 18 103/65 95 11/17/17 11:44 11/17/17 11:44 11/17/17 11:44 11/17/17 11:44 11/17/17 11:44 General appearance: no acute distress, obese - Head Head exam: Present: normocephalic - Respiratory Additional comments: non-labored respirations - Extremities Exam Additional comments: Obese alert male in no acute distress Feet are warm to touch. DP pulse non-palpable on the right. Right lateral foot ulceration for 4.2x2.6x0.3cm with minimal periwound erythema, very mild drainage , no purulence, no fluctuance, no increase in temp. right lateral ankle wound 0.7x0.5x0.3cm with surrounding erythema and fluctuance. non-infected superficial abrasions b/l legs. absent sensation to touch consistent with neuropathy. xray right foot-heterotopic bone formation s/p resection of 5th met base. xray right ankle-questionable periosteal reaction lateral fibula with soft tissue edema. Results - Labs Result Diagrams: 11/17/17 05:19 11/17/17 05:19 Labs: Abnormal lab results WBC 13.9 K/mcL (4.3-11.1) H 11/17/17 05:19 RBC 4.01 M/mcL (4.19-5.50) L 11/17/17 05:19 Hgb 10.6 g/dL (12.9-16.9) L 11/17/17 05:19 Hct 34.0 % (37.5-50.1) L 11/17/17 05:19 MCH 26.4 pg (28.0-33.3) L 11/17/17 05:19 MCHC 31.2 g/dL (31.6-35.5) L 11/17/17 05:19 RDW 16.3 % (11.5-14.5) H 11/17/17 05:19 Neutrophils # 11.7 K/mcL (1.6-8.9) H 11/17/17 05:19 ESR 115 mm/hr (0-10) H 11/16/17 18:19 Sodium 134 mEq/L (136-145) L 11/17/17 05:19 Potassium 3.3 mEq/L (3.5-5.1) L 11/17/17 05:19 Glucose 132 mg/dL (70-105) H 11/17/17 05:19 C-Reactive Protein 226 mg/L (Less than 10) H 11/16/17 18:19 Albumin 3.2 g/dL (3.5-5.7) L 11/16/17 18:19 Albumin/Globulin Ratio 1.0 (1.1-2.2) L 11/16/17 18:19 H & H 11/17/17 Range/Units 05:19 Hgb 10.6 L (12.9-16.9) g/dL Hct 34.0 L (37.5-50.1) % All other labs normal. Consult Discharge Plan - Plan Referrals: Sidney Martinez MD [Primary Care Provider] -
[2017-11-17] MEDS: Ipratropium/Albuterol Neb 3 ML IH SCH ×3 (16:00→23:16)
--- NOTE | 2017-11-17 16:10 | Event Note ---
Date of Encounter: 11/17/17 Time of Encounter: 16:[address] patient has a basal ganglia lesion measuring 3.4 x 3.3 x 3.2 cm in size with edema and mass effect on the right ventricle. There is 9 mm [id number] midline shift. Discussed with oncology. Will start patient on Decadron. We will get MRI of the brain. Patient may need transfer to [facility] for higher level of care.
[2017-11-17] MEDS ORDERED: *HR* Rivaroxaban 10 MG TABLET PO SCH (17:00)
[2017-11-17] MEDS: Dexamethasone 4 MG/ML VIAL IVP SCH ×2 (18:43→23:05)
[2017-11-17] MEDS: Insulin LISPRO 300 UNITS/3 ML VIAL SQ SCH (20:28)
[2017-11-17] MEDS ORDERED: Insulin LISPRO 300 UNITS/3 ML VIAL SQ SCH (21:00)
[2017-11-17] MEDS ORDERED: tiZANidine 4 MG TABLET PO SCH (21:00)
[2017-11-18] MEDS: Ipratropium/Albuterol Neb 3 ML IH SCH ×3 (03:45→11:14)
[2017-11-18] MEDS: Dexamethasone 4 MG/ML VIAL IVP SCH ×2 (04:31→12:46)
[2017-11-18 05:50] LABS: Basophils % 0.1 %; Hematocrit 33.1 % (37.5-50.1); Hemoglobin 10.2 g/dL (12.9-16.9); Immature Granulocytes % 0.6 % (0-4); Lymphocytes # 0.7 K/mcL (0.6-4.6); Lymphocytes % 6.9 %; Mean Corpuscular HGB Conc 30.8 g/dL (31.6-35.5); Mean Corpuscular Hemoglobin 26.6 pg (28.0-33.3); Mean Corpuscular Volume 86.2 fL (83.0-100.0); Mean Platelet Volume 9.8 fL (9.4-12.4); Monocytes # 0.3 K/mcL (0.0-1.3); Monocytes % 3.4 %; Neutrophils # 8.9 K/mcL (1.6-8.9); Platelet Count 267 K/mcL (140-400); Red Blood Count 3.84 M/mcL (4.19-5.50); Red Cell Distribution Width 16.2 % (11.5-14.5)
[2017-11-18 06:07] LABS: BUN/Creatinine Ratio 18 (6-26); Blood Urea Nitrogen 16 mg/dL (8-23); Calcium 9.4 mg/dL (8.6-10.3); Carbon Dioxide 31 mEq/L (23-29); Chloride 99 mEq/L (98-107); Glucose 150 mg/dL (70-105); Osmolality,Calculated 290 (280-300); Potassium 3.3 mEq/L (3.5-5.1); Sodium 138 mEq/L (136-145); eGFR For African Americans > 60 (> 60); eGFR For Non-African Americans > 60 (> 60)
[2017-11-18 08:04] VITALS: BP 136/72
[2017-11-18] MEDS: Gabapentin 300 MG CAPSULE PO SCH (09:13)
[2017-11-18] MEDS: Furosemide 40 MG TABLET PO SCH (09:13)
[2017-11-18] MEDS: Piperacillin/Tazobactam 3.375 GM in 0.9 % Sodium Chloride Mini Bag 100 ML IVPB SCH (09:14)
[2017-11-18] MEDS: Famotidine 20 MG TABLET PO SCH (09:14)
[2017-11-18] MEDS: FLUoxetine 20 MG CAPSULE PO SCH (09:14)
[2017-11-18] MEDS: Cholecalciferol (D-3) 1,000 UNIT TABLET PO SCH (09:14)
[2017-11-18] MEDS: BuPROPion SR (12 HR) 100 MG TABLET PO SCH (09:14)
[2017-11-18] MEDS: Insulin LISPRO 300 UNITS/3 ML VIAL SQ SCH ×2 (09:15→12:47)
[2017-11-18] MEDS: Roflumilast [Daliresp] 500 MCG PO SCH (09:16)
--- NOTE | 2017-11-18 09:22 | Oncology Inp Consult Note ---
Date of Encounter: 11/18/17 Time of Encounter: 08:00 Assessment and Plan (1) Altered mental status Status: Acute Assessment and plan: Patient with history of stage I squamous cell carcinoma status post year tachycardic body radiotherapy to the right lower lung mass, status post imaging in August 2017 that showed a decrease in size of the mass, patient presents with confusion, altered sensorium right lower extremity diabetic ulcer nonhealing, sepsis was a concern. CT imaging and MRI shows right basal ganglia mass lesion 3-4 cm in size with vasogenic edema and midline shift. He is on dexamethasone 4 every 6 hours. Blood sugars being monitored. Due to worsening in mental status patient was discussed with the hospitalist, nursing staff over there bedside. Patient requires transferred to [facility] neurological intensive care unit for close monitoring and additional intervention. Continue intravenous antibiotics for possible sepsis. COPD, sleep apnea obesity sats good on NC Discussed plan with house staff. Qualifiers: Altered mental status type: somnolence Qualified Code(s): R40.0 - Somnolence - Data of Consult Requesting Physician: Williams Quispe MD Primary Care Provider: Sidney Martinez MD - Consult Narrative Reason for consult: lung ca, brain mass History of present illness: Mr. Sinha is a 72 year old male known to oncology clinic, patient was seen by radiation oncology in 2016 when he was diagnosed with a stage I, T1 BN 0 M0 squamous cell carcinoma right lower lung, was not sent for surgery due to her comorbidities, pulmonary function tests. In a paraspinal mass biopsy of that showed malignancy. Patient underwent stereotactic body radiotherapy which was completed in number of 2016. Patient had undergone a follow-up CT imaging in August 2017 which showed a decrease in size of the right lower lung mass, measuring 2.6 x 3.6 cm, previously 4.9 x 6.8 cm. he had a left kidney nodule, up to 3.6 cm in size which had not changed in this imaging. Patient had the fatigue, right foot diabetic nonhealing ulcer issues then. He was hospitalized for possible infection sepsis treated with antibiotics with leukocytosis. Patient also has peripheral vascular disease, COPD, sleep apnea. 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 Right cerebral hemispheric edema with mass effect 1 cm leftward shift of midline. The per staff report, patient was able to sit in the chair and communicate yesterday. This a.m. he is more somnolent obeying simple commands but unable to follow through instructions or any advice. Past Med Surg Social Fam HX - Past Medical History Medical history: arthritis, cancer, CHF, COPD, diabetes, hypertension, thyroid disease, syncope, venous stasis, other Psychiatric history: anxiety - Past Surgical History Surgical History: cataract, cholecystectomy, LE vascular intervention, vascular surgery, other - Social History Smoking Status: Former smoker Smokeless Tobacco Status: No Alcohol use: occasionally Drug use: none - Family History Father Family Member Ethnicity: Non- Living Status: Hx Family Neurologic Disorders: Yes (Alzheimer's disease) Mother Family Member Ethnicity: Non- Living Status: Medications and Allergies Allopurinol [Zyloprim] 300 mg PO DAILY 03/02/15 [History] Cholecalciferol (Vitamin D3) [Vitamin D] 2,000 unit PO DAILY 03/02/15 [History] Clopidogrel [Plavix] 75 mg PO DAILY 03/02/15 [History] FLUoxetine HCl [Prozac] 80 mg PO DAILY 03/02/15 [History] Ferrous Sulfate 325 mg PO BID 03/02/15 [History] Levothyroxine Sodium [Synthroid] 200 mcg PO DAILY 03/02/15 [History] Metoprolol [Lopressor] 25 mg PO BID 03/02/15 [History] Roflumilast [Daliresp] 500 mcg PO DAILY 03/02/15 [History] Ropinirole HCl [Requip] 2 mg PO BID PRN 03/02/15 [History] Ipratropium/Albuterol Neb [Duoneb] 3 ml IH Q6HR 12/19/16 [History] BuPROPion [Wellbutrin] 100 mg PO BID 12/24/16 [History] Acetaminophen [Tylenol] 650 mg PO Q6HR PRN #0 tablet 01/04/17 [Rx] Gabapentin [Neurontin] 300 mg PO BID capsule 01/04/17 [Rx] Tamsulosin [Flomax] 0.4 mg PO DAILY capsule 01/04/17 [Rx] Rivaroxaban [Xarelto] 10 mg PO 1700 #30 tablet 06/20/17 [Rx] Tizanidine HCl [Zanaflex] 2 mg PO HS 04/05/17 [History] predniSONE [PredniSONE] 40 mg PO DAILY 04/05/17 [History] Collagenase Oint [Santyl] 1 appl TP DAILY 04/06/17 [History] Lovastatin [Mevacor] 20 mg PO HS 06/12/17 [History] Furosemide [Lasix] 80 mg PO BID 08/23/17 [History] DiphenhydraMINE [Benadryl] 25 mg PO Q6HR PRN 09/21/17 [History] Fluticasone/Vilanterol [Breo Ellipta 100-25 Mcg INH] 1 each IH DAILY 09/21/17 [ History] Gentamicin Oint [Garamycin] 1 appl TP BID 09/21/17 [History] GuaiFENesin/Dextromethorphan [Robitussin/DM] 10 ml PO Q6HR PRN 09/21/17 [History ] HYDROcodone/Acet 10/325 mg [[place] 10-325 mg] 1 each PO Q4H PRN 09/21/17 [History ] Methyl Salicylate/Menthol [Muscle Rub Cream] 1 appl TP Q6H PRN 09/21/17 [History ] Ondansetron HCl [Zofran] 4 mg PO Q6H PRN 09/21/17 [History] Triamcinolone Acet 0.1% CRM [Kenalog] 1 appl TP BID 09/21/17 [History] Albuterol Neb [Proventil Neb] 2.5 mg IH Q4HR 11/16/17 [History] Calcium Carbonate [Tums] 1,000 mg PO Q4HR 11/16/17 [History] Mupirocin [Bactroban Oint] 1 appl TP BID 11/16/17 [History] Ondansetron HCl [Zofran] 4 mg PO Q6HR PRN 11/16/17 [History] Ranitidine HCl [Acid Memorial Counselor] 150 mg PO BID 11/16/17 [History] levoFLOXacin [Levaquin] 750 mg PO DAILY 11/16/17 [History] 3 Allergy/AdvReac Type Severity Reaction Status Date / Time doxycycline Allergy Hives Verified 06/06/17 12:13 Oxycodone [From Percocet] Allergy Swelling Verified 06/06/17 12:13 of Lip/Tongue/Throat Penicillins [PCN] Allergy Hives Verified 06/06/17 12:13 codeine AdvReac Flushing Verified 06/06/17 12:13 meperidine AdvReac Hallucinati Verified 06/06/17 12:13 ng morphine AdvReac Nightmare Verified 06/06/17 12:13 ROS unobtainable: due to mental status Oncology - Exam - Constitutional Vitals: Temp Pulse Resp BP Pulse Ox 97.9 F 83 16 136/72 93 11/18/17 07:54 11/18/17 07:54 11/18/17 07:54 11/18/17 07:54 11/18/17 07:54 General appearance: obese - Head Head exam: Present: atraumatic - Eye Eye exam: Present: sclera anicteric - ENT ENT exam: Present: mucous membranes dry Additional comments: rt side drooping - Neck Neck exam: Present: normal inspection - Respiratory Respiratory exam: Present: CTAB - Cardiovascular Cardiovascular exam: Present: +S1, +S2 - GI/Abdominal GI/Abdominal exam: Present: distended, normal bowel sounds, soft - Extremities Exam Additional comments: no LL ext edema. - Neurological Exam Neurological exam: Present: altered Additional comments: Left-sided weakness, right side minimal weakness. Not completed as patient is unable to follow commands. - Skin Additional comments: rll wound Oncology - Results Labs: Short CBC 11/18/17 Range/Units 04:58 WBC 10.0 (4.3-11.1) K/mcL Hgb 10.2 L (12.9-16.9) g/dL Hct 33.1 L (37.5-50.1) % Plt Count 267 (140-400) K/mcL Neutrophils # 8.9 (1.6-8.9) K/mcL BMP 11/18/17 04:58 Sodium 138 Potassium 3.3 L Chloride 99 Carbon Dioxide 31 H BUN 16 Creatinine 0.87 Glucose 150 H Calcium 9.4 MRI brain reviewed, images Consult Discharge Plan - Plan Referrals: Sidney Martinez MD [Primary Care Provider] -
[2017-11-18 10:20] LABS: INR 1.4; Prothrombin Time 15.6 Seconds (9.4-12.1)
--- NOTE | 2017-11-18 11:05 | Discharge Summary ---
- NOTES TO OUTPATIENT PROVIDER Notes to Outpatient Provider: Patient admitted initially for cellulitis and infection involving right foot diabetic ulcer. Was being treated with IV antibiotics. CT scan of the head was done because of reported confusion and hallucinations. Showed a metastatic lesion in the basal ganglia region with midline shift. As such she is being transferred to [facility] for further evaluation and care. Date of Encounter: 11/18/17 Time of Encounter: 09:15 - Discharge Diagnosis (1) Sepsis Priority: Primary Status: Acute Qualifiers: Sepsis type: sepsis due to unspecified organism Qualified Code(s): A41.9 - Sepsis, unspecified organism (2) Brain metastasis Priority: Secondary Status: Acute (3) Diabetic foot ulcer Priority: Secondary Status: Chronic Qualifiers: Diabetic foot ulcer location: midfoot Diabetes mellitus type: type 2 Non- pressure ulcer stage: with fat layer exposed Qualified Code(s): E11.621 - Type 2 diabetes mellitus with foot ulcer; L97.412 - Non-pressure chronic ulcer of right heel and midfoot with fat layer exposed; L97.412 - Non-pressure chronic ulcer of right heel and midfoot with fat layer exposed; L97.412 - Non- pressure chronic ulcer of right heel and midfoot with fat layer exposed; L97.412 - Non-pressure chronic ulcer of right heel and midfoot with fat layer exposed (4) COPD (chronic obstructive pulmonary disease) Priority: Secondary Status: Chronic Qualifiers: COPD type: chronic bronchitis Chronic bronchitis type: mucopurulent Qualified Code(s): J41.1 - Mucopurulent chronic bronchitis (5) Diabetes mellitus Priority: Secondary Status: Chronic Qualifiers: Diabetes mellitus type: type 2 Diabetes mellitus oysterman insulin use: without oysterman use Diabetes mellitus complication status: with neurologic complications Diabetes mellitus complication detail: with polyneuropathy Qualified Code(s): E11.42 - Type 2 diabetes mellitus with diabetic polyneuropathy (6) HLD (hyperlipidemia) Priority: Secondary Status: Chronic Qualifiers: Hyperlipidemia type: mixed hyperlipidemia Qualified Code(s): E78.2 - Mixed hyperlipidemia (7) HTN (hypertension) Priority: Secondary Status: Chronic Qualifiers: Hypertension type: essential hypertension Qualified Code(s): I10 - Essential (primary) hypertension (8) Non-small cell lung cancer (NSCLC) Priority: Secondary Status: Chronic Qualifiers: Laterality: right Qualified Code(s): C34.91 - Malignant neoplasm of unspecified part of right bronchus or lung (9) Peripheral vascular disease Priority: Secondary Status: Chronic (10) Sleep apnea Priority: Secondary Status: Chronic Qualifiers: Sleep apnea type: obstructive Qualified Code(s): G47.33 - Obstructive sleep apnea (adult) (pediatric) Hospital course: 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 He was started on IV antibiotics and podiatry was consulted. Patient underwent bedside debridement yesterday. He has improved from an infectious standpoint. Blood cultures have been negative. He has also been having episodes of confusion and hallucinations at home and as such CT scan of the head was done. This showed large high attenuation mass in the right basal ganglia measuring 3.4 x 3.3 x 3.2 cm with substantial surrounding edema. This results in mass effect on the right lateral ventricle and 9 mm of right to left midline shift. As such patient was started on Decadron and oncology was consulted. Per their recommendations, patient is being transferred to [facility] for higher level of care. Discharge discussed with: patient, nurse - Time Spent with Patient Total time spent providing and/or coordinating discharge services: Greater than 30 minutes (35 min) - Discharge Medications Home Medications: Allopurinol [Zyloprim] 300 mg PO DAILY 03/02/15 [History] Cholecalciferol (Vitamin D3) [Vitamin D] 2,000 unit PO DAILY 03/02/15 [History] Clopidogrel [Plavix] 75 mg PO DAILY 03/02/15 [History] FLUoxetine HCl [Prozac] 80 mg PO DAILY 03/02/15 [History] Ferrous Sulfate 325 mg PO BID 03/02/15 [History] Levothyroxine Sodium [Synthroid] 200 mcg PO DAILY 03/02/15 [History] Metoprolol [Lopressor] 25 mg PO BID 03/02/15 [History] Roflumilast [Daliresp] 500 mcg PO DAILY 03/02/15 [History] Ropinirole HCl [Requip] 2 mg PO BID PRN 03/02/15 [History] Ipratropium/Albuterol Neb [Duoneb] 3 ml IH Q6HR 12/19/16 [History] BuPROPion [Wellbutrin] 100 mg PO BID 12/24/16 [History] Acetaminophen [Tylenol] 650 mg PO Q6HR PRN #0 tablet 01/04/17 [Rx] Gabapentin [Neurontin] 300 mg PO BID capsule 01/04/17 [Rx] Tamsulosin [Flomax] 0.4 mg PO DAILY capsule 01/04/17 [Rx] Rivaroxaban [Xarelto] 10 mg PO 1700 #30 tablet 01/16/17 [Rx] Tizanidine HCl [Zanaflex] 2 mg PO HS 04/05/17 [History] predniSONE [PredniSONE] 40 mg PO DAILY 04/05/17 [History] Collagenase Oint [Santyl] 1 appl TP DAILY 04/06/17 [History] Lovastatin [Mevacor] 20 mg PO HS 06/12/17 [History] Furosemide [Lasix] 80 mg PO BID 08/23/17 [History] DiphenhydraMINE [Benadryl] 25 mg PO Q6HR PRN 09/21/17 [History] Fluticasone/Vilanterol [Breo Ellipta 100-25 Mcg INH] 1 each IH DAILY 09/21/17 [ History] Gentamicin Oint [Garamycin] 1 appl TP BID 09/21/17 [History] GuaiFENesin/Dextromethorphan [Robitussin/Dm] 10 ml PO Q6HR PRN 09/21/17 [History ] HYDROcodone/Acet 10/325 mg [[place]sub[place] 10-325 mg] 1 each PO Q4H PRN 09/21/17 [History ] Methyl Salicylate/Menthol [Muscle Rub Cream] 1 appl TP Q6H PRN 09/21/17 [History ] Ondansetron HCl [Zofran] 4 mg PO Q6H PRN 09/21/17 [History] Triamcinolone Acet 0.1% CRM [Kenalog] 1 appl TP BID 09/21/17 [History] Albuterol Neb [Proventil Neb] 2.5 mg IH Q4HR 11/16/17 [History] Calcium Carbonate [Tums] 1,000 mg PO Q4HR 11/16/17 [History] Mupirocin [Bactroban Oint] 1 appl TP BID 11/16/17 [History] Ondansetron HCl [Zofran] 4 mg PO Q6HR PRN 11/16/17 [History] Ranitidine HCl [Acid [place] Nurse] 150 mg PO BID 11/16/17 [History] Allergies/Adverse Reactions: 3 Allergy/AdvReac Type Severity Reaction Status Date / Time doxycycline Allergy Hives Verified 06/06/17 12:13 Oxycodone [From Percocet] Allergy Swelling Verified 06/06/17 12:13 of Lip/Tongue/Throat Penicillins [PCN] Allergy Hives Verified 06/06/17 12:13 codeine AdvReac Flushing Verified 06/06/17 12:13 meperidine AdvReac Hallucinati Verified 06/06/17 12:13 ng morphine AdvReac Nightmare Verified 06/06/17 12:13 Date of admission: 11/16/17 22:08 Primary care physician: Sidney Martinez MD Consults: 11/16/17 23:38 Consult to Podiatry [CONS] Routine Consulting Provider: Podiatry [facility] Reason for Consult: chronic foot ulcer, sepsis Call Completed: No 11/17/17 16:11 Consult to Oncology [CONS] Routine Consulting Provider: Oncology [facility] Reason for Consult: Shawn metastatic/ primary lesion Time Notified: 16:11 Call Completed: Yes Discharging clinician: Williams Quispe Anticipated date of discharge: 11/18/17 - Constitutional Vitals: Temp Pulse Resp BP Pulse Ox 97.9 F 83 16 136/72 93 11/18/17 07:54 11/18/17 07:54 11/18/17 07:54 11/18/17 07:54 11/18/17 07:54 General appearance: Present: cooperative, A&O X 3, pleasant, no acute distress, answers questions appropriately - Neck Neck exam general surgery: Present: supple, trachea midline. Absent: lymphadenopathy - Respiratory Respiratory exam: Present: CTAB. Absent: accessory muscle use, rales, rhonchi, wheezes - Cardiovascular Cardiovascular exam: Present: RRR, +S1, +S2. Absent: diastolic murmur, gallop, rubs, systolic murmur - GI/Abdominal GI/Abdominal exam: Present: normal bowel sounds, soft, no peritoneal signs. Absent: distended, tenderness - Extremities Exam Extremities exam: Present: warm, radial pulses palpable and symmetrical. Absent : calf tenderness, cyanotic, pedal edema - Neurological Exam Neurological exam: Present: CN II-XII intact, oriented X3, no focal deficits. Absent: facial droop, speech deficit Additional comments: Strength 4 /5 in left upper extremity. 5 / 5 in other 3 extremities. - Skin Skin exam: Present: dry, intact - Patient Status Disposition: Transfer Other Condition: Good Functional capacity at discharge: wheelchair bound Overall status at discharge: patient is not back to baseline - Discharge Instructions Instructions: Sepsis (DC) Follow Up With: Sidney Martinez MD [Primary Care Provider] - - Diet and Activity Activity: wear oxygen at all times Diet: advance to your usual diet, diabetic diet
[2017-11-18] MEDS ORDERED: Aminoglycoside Consult 1 EACH MC ONE (13:35)
== END 2017-11-18 13:36 | disposition other institution (70) | DRG 872 ==
LOC: 3ANU 17:14 → EMEROO 17:14 → SUATTDRO 22:08 → 3ANU 23:13
PROVIDERS: ADMIT Internal Medicine; ATTEND Internal Medicine